=== PATIENT | female | born 1940 | race Caucasian/White ===

== ENCOUNTER 2016-10-15 11:37 | Observation (INO) | payer MEDICARE, BC ==
--- NOTE | 2016-10-15 12:10 | EDM.PDOC ---
ED HPI GENERAL MEDICAL PROBLEM - General Chief Complaint: Cardiovascular Problem Stated Complaint: BLOOD PRESSURE ISSUES Time Seen by Provider: 10/15/16 11:45 Source of Information: Reports: Patient History Limitations: Reports: No Limitations - History of Present Illness INITIAL COMMENTS - FREE TEXT/NARRATIVE: 76 YO WF presents to ER complaining of elevated blood pressure this am. Pt reports she was seen in clinic on saturday and had her clonidine adjusted from 0.1mg BID to 0.1mg QHS. Pt was instructed to continue to monitor blood pressure over the weekend. Pt reports she woke this am and took her blood pressure which was 200/90's. Pt denies any chest pain, denies any headache. Pt reports some mild shortness of breath but states this is chronic. Pt took clonidine 0.1mg this am and current blood pressure is 156/54. Onset: Today Location: Reports: Generalized Improves with: Reports: None Worsens with: Reports: None Associated Symptoms: Reports: No Other Symptoms. Denies: Chest Pain, Cough, Diaphoresis, Nausea/Vomiting, Syncope, Weakness - Related Data Allergies Allergy/AdvReac Type Severity Reaction Status Date / Time amlodipine Allergy Hives Verified 10/15/16 11:45 bupropion [From Wellbutrin] Allergy Rash Verified 10/15/16 11:45 Home Meds: Home Meds Albuterol [IJD: Ventolin HFA] 1 - 2 puff INH Q4H PRN 10/15/16 [History] Anastrozole [Arimidex] 1 mg PO DAILY 10/15/16 [History] Aspirin 1 tab PO DAILY 10/15/16 [History] Bumetanide [Bumex] 1 tab PO DAILY 10/15/16 [History] Calcium Carb & Citrate/Vit D3 [Citracal + D ER] 1 tab PO ACBREAKFAST 10/15/16 [ History] Calcium Carbonate/Vitamin D3 [Os-Dread 500+D] 1 tab PO BIDMEALS 10/15/16 [History] LORazepam [Ativan] 0.5 tab PO BID PRN 10/15/16 [History] Levothyroxine 1 tab PO ACBREAKFAST 10/15/16 [History] Sertraline [Zoloft] 1 tab PO BEDTIME 10/15/16 [History] cloNIDine HCl [Catapres] 1 tab PO BEDTIME 10/15/16 [History] hydrOXYzine HCl [Atarax] 1 tab PO QID PRN 10/15/16 [History] Social & Family History - Tobacco Use Smoking Status *Q: Former Smoker Used Tobacco, but Quit: Yes Month Tobacco Last Used: 18 years Second Hand Smoke Exposure: No - Caffeine Use Caffeine Use: Reports: None - Recreational Drug Use Recreational Drug Use: No ED ROS GENERAL - Review of Systems Review Of Systems: See Below Constitutional: Reports: No Symptoms HEENT: Reports: No Symptoms Respiratory: Reports: Shortness of Breath Cardiovascular: Reports: No Symptoms Endocrine: Reports: No Symptoms GI/Abdominal: Reports: No Symptoms : Reports: No Symptoms 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: Reports: No Symptoms Skin: Reports: No Symptoms Neurological: Reports: No Symptoms Psychiatric: Reports: No Symptoms Hematologic/Lymphatic: Reports: No Symptoms Immunologic: Reports: No Symptoms ED EXAM, GENERAL - Physical Exam Exam: See Below Exam Limited By: No Limitations General Appearance: Alert, WD/WN, No Apparent Distress Nose: Normal Inspection, Normal Mucosa, No Blood Throat/Mouth: Normal Inspection, Normal Lips, Normal Teeth, Normal Gums, Normal Oropharynx, Normal Voice, No Airway Compromise Head: Atraumatic, Normocephalic Neck: Normal Inspection, Supple, Non-Tender, Full Range of Motion Respiratory/Chest: No Respiratory Distress, Lungs Clear, Normal Breath Sounds, No Accessory Muscle Use, Chest Non-Tender Cardiovascular: Normal Peripheral Pulses, Regular Rate, Rhythm, No Edema, No Gallop, No JVD, No Murmur, No Rub GI/Abdominal: Normal Bowel Sounds, Soft, Non-Tender, No Organomegaly, No Distention, No Abnormal Bruit, No Mass Back Exam: Normal Inspection, Full Range of Motion, NT Extremities: Normal Inspection, Normal Range of Motion, Non-Tender, Normal Capillary Refill, No Pedal Edema Neurological: Alert, Oriented, CN II-XII Intact, Normal Cognition, Normal Gait, Normal Reflexes, No Motor/Sensory Deficits Psychiatric: Normal Affect, Normal Mood Skin Exam: Warm, Dry, Intact, Normal Color, No Rash Lymphatic: No Adenopathy EKG INTERPRETATION EKG Date: 10/15/16 Time: 12:12 Rhythm: NSR Rate (Beats/Min): 46 [place]: Normal P-Wave: Present QRS: Normal ST-T: Normal QT: Normal Comparison: No Change Course - Vital Signs Last Recorded V/S: Last Vital Signs Temp 36.6 C 10/15/16 11:40 Pulse 39 L 10/15/16 12:48 Resp 16 10/15/16 12:48 BP 180/52 H 10/15/16 12:48 Pulse Ox 95 10/15/16 12:48 - Orders/Labs/Meds Orders: Active Orders 24 hr Category Date Time Status EKG Documentation Completion [RC] ASDIRECTED Care 10/15/16 12:04 Active Chest 2V [CR] Stat Exams 10/15/16 12:03 Taken EKG 12 Lead [EK] Routine Ther 10/15/16 12:04 Ordered Labs: Laboratory Tests 10/15/16 10/15/16 Range/Units 12:10 12:10 WBC 4.9 L (5.0-10.0) 10^3/uL RBC 3.87 (3.80-5.50) 10^6/uL Hgb 12.2 (12.0-16.0) g/dL Hct 35.9 L (37.0-47.0) % MCV 92.8 H (82.0-92.0) fL MCH 31.6 H (27.0-31.0) pg MCHC 34.1 (32.0-36.0) g/dL RDW 12.1 (11.5-14.5) % Plt Count 172 (150-300) 10^3/uL MPV 9.4 (7.4-10.4) fL Neut % (Auto) 69.8 (50.0-70.0) % Lymph % (Auto) 13.9 L (20.0-40.0) % [place] % (Auto) 8.9 H (2.0-8.0) % Eos % (Auto) 6.6 H (1.0-3.0) % Baso % (Auto) 0.8 (0.0-1.0) % Neut # (Auto) 3.5 (2.5-7.0) 10^3/uL Lymph # (Auto) 0.7 L (1.0-4.0) 10^3/uL [place] # (Auto) 0.4 (0.1-0.8) 10^3/uL Eos # (Auto) 0.3 (0.1-0.3) 10^3/uL Baso # (Auto) 0.0 (0.0-0.1) 10^3/uL Sodium 131 L (136-145) mmol/L Potassium 4.7 (3.3-5.3) mmol/L Chloride 96 L (98-115) mmol/L Carbon Dioxide 30.9 (21.0-32.0) mmol/L BUN 10 (6-25) mg/dL Creatinine 0.78 (0.51-1.17) mg/dL Est Cr Clr Drug Dosing 50.76 mL/min Estimated GFR (MDRD) > 60 mL/min Glucose 135 H (70-110) mg/dL Calcium 8.8 (8.7-10.3) mg/dL Total Bilirubin 0.4 (0.2-1.0) mg/dL AST 22 (15-37) U/L ALT 20 (12-78) U/L Alkaline Phosphatase 96 (46-116) IU/L Creatine Kinase 94 (26-276) U/L CK-MB (CK-2) 0.50 (0.00-4.30) ng/mL Troponin I 0.06 (0.00-0.070) ng/mL Total Protein 7.3 (6.4-8.2) g/dL Albumin 3.50 (3.00-4.80) g/dL - Radiology Interpretation Free Text/Narrative:: CXR- NAD Departure - Departure Time of Disposition: 13:43 Disposition: Refer to Observation Condition: Good Clinical Impression: Bradycardia Hypertension Qualifiers: Hypertension type: unspecified Qualified Code(s): I10 - Essential (primary) hypertension Instructions: Hypertension, [id number], Bradycardia Referrals: Christine Brooks PA-C [Primary Care Provider] - Forms: ED Department Discharge - My Orders Last 24 Hours: My Active Orders 10/15/16 12:03 Chest 2V [CR] Stat 10/15/16 12:04 EKG Documentation Completion [RC] ASDIRECTED EKG 12 Lead [EK] Routine - Assessment/Plan Last 24 Hours: My Active Orders 10/15/16 12:03 Chest 2V [CR] Stat 10/15/16 12:04 EKG Documentation Completion [RC] ASDIRECTED EKG 12 Lead [EK] Routine Assessment:: 1. bradycardia 2. hypertension Plan: 1. Discussed case with Dr Sofía Schmidt who will admit for obs and evaluation of bradycardia 2. supportive care 3. telemetry
[2016-10-15 12:48] LABS: CHLORIDE,CL 96 mmol/L (98-115); SODIUM,NA 131 mmol/L (136-145)
[2016-10-15] MEDS ORDERED: Sodium Chloride 0.9% 5 ML Syringe FLUSH PRN (13:44)
[2016-10-15] MEDS ORDERED: Nitroglycerin 0.4 MG Tab.SL SL PRN (16:57)
[2016-10-15] MEDS ORDERED: EPINEPHrine 1:10,000 1 MG/10 ML Syringe IVPUSH PRN (16:57)
[2016-10-15] MEDS ORDERED: Atropine 0.1 MG/ML 10 ML Syringe IVPUSH PRN (16:57)
[2016-10-15] MEDS ORDERED: Lidocaine 2% 100 MG/5 ML Syringe IVPUSH PRN (16:57)
[2016-10-15] MEDS ORDERED: LORazepam 0.5 MG Tab PO PRN (19:12)
[2016-10-15] MEDS ORDERED: Sertraline 50 MG Tab PO SCH (21:00)
[2016-10-15] MEDS ORDERED: cloNIDine 0.1 MG Tab PO SCH (21:00)
[2016-10-16 08:06] LABS: CHLORIDE,CL 95 mmol/L (98-115); SODIUM,NA 131 mmol/L (136-145)
[2016-10-16] MEDS ORDERED: Albuterol HFA 18 Gm Inhaler INH PRN (11:42)
[2016-10-16] MEDS ORDERED: LORazepam 0.5 MG Tab PO PRN (11:42)
[2016-10-16 11:50] VITALS: BP 184/60
--- NOTE | 2016-10-16 11:52 | PCM.HP ---
H&P History of Present Illness - General Date of Service: 10/16/16 Source of Information: Patient, Old Records, RN History Limitations: Reports: No Limitations - History of Present Illness Initial Comments - Free Text/Narative: this very pleasant 76-year-old female We will has been having quite a bit of difficulty regulating her blood pressure she came to the ED with elevated blood pressure at home of over 200 systolically. She denied any shortness of breath or chest pain. she was seen in the [place] clinic on saturday and had her clonidine decreased from 0.1mg BID to 0.1mg QHS due to bradycardia. she was monitoring her blood pressure at home when she noticed it was quite high and came to ED. - Related Data Allergies/Adverse Reactions: Allergies Allergy/AdvReac Type Severity Reaction Status Date / Time amlodipine Allergy Hives Verified 10/15/16 11:45 bupropion [From Wellbutrin] Allergy Rash Verified 10/15/16 11:45 Home Medications: Home Meds Albuterol [IJD: Ventolin HFA] 1 - 2 puff INH Q4H PRN 10/15/16 [History] Anastrozole [Arimidex] 1 mg PO DAILY 10/15/16 [History] Aspirin 325 mg PO DAILY 10/15/16 [History] Calcium Carb & Citrate/Vit D3 [Citracal + D ER] 1 tab PO ACBREAKFAST 10/15/16 [ History] LORazepam [Ativan] 0.25 mg PO BID PRN 10/15/16 [History] Levothyroxine 125 mcg PO ACBREAKFAST 10/15/16 [History] Sertraline [Zoloft] 50 mg PO BEDTIME 10/15/16 [History] hydrOXYzine HCl [Atarax] 25 mg PO QID PRN 10/15/16 [History] Bumetanide 1 mg PO DAILY 10/16/16 [History] cloNIDine HCl [Catapres] 0.1 mg PO BID #60 10/16/16 [Rx] Past Medical History HEENT History: Reports: Impaired Vision Cardiovascular History: Reports: High Cholesterol, Hypertension, Other (See Below) Other Cardiovascular History: carotid stenosis Gastrointestinal History: Reports: GERD Genitourinary History: Reports: None 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: 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 History: Reports: None Neurological History: Reports: None Psychiatric History: Reports: Anxiety, Depression, Panic Attack Endocrine/Metabolic History: Reports: Hypothyroidism Oncologic (Cancer) History: Reports: Breast Dermatologic History: Reports: Other (See Below) Other Dermatologic History: rash for 6 months - Infectious Disease History Infectious Disease History: Reports: Influenza, Measles, Mumps - Past Surgical History Head Surgeries/Procedures: Reports: None HEENT Surgical History: Reports: None Cardiovascular Surgical History: Reports: None GI Surgical History: Reports: Appendectomy, Cholecystectomy Female Surgical History: Reports: Hysterectomy Endocrine Surgical History: Reports: None Neurological Surgical History: Reports: None 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 Surgical History: Reports: Knee Replacement Oncologic Surgical History: Reports: Lumpectomy Dermatological Surgical History: Reports: None Social & Family History - Tobacco Use Smoking Status *Q: Former Smoker Used Tobacco, but Quit: Yes Month Tobacco Last Used: 18 years Second Hand Smoke Exposure: No - Caffeine Use Caffeine Use: Reports: None - Recreational Drug Use Recreational Drug Use: No H&P Review of Systems - Review of Systems: Review Of Systems: See Below General: Reports: No Symptoms HEENT: Reports: No Symptoms Pulmonary: Denies: Shortness of Breath, Cough, Sputum Cardiovascular: Reports: No Symptoms Gastrointestinal: Reports: No Symptoms Genitourinary: Reports: No Symptoms 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: Reports: No Symptoms Skin: Reports: No Symptoms Psychiatric: Reports: No Symptoms Neurological: Reports: No Symptoms Hematologic/Lymphatic: Reports: No Symptoms Immunologic: Reports: No Symptoms Exam - Exam Exam: See Below - Vital Signs Vital Signs: Last Vital Signs Temp 97.8 F 10/16/16 06:42 Pulse 47 L 10/16/16 06:42 Resp 16 10/16/16 06:42 BP 168/61 H 10/16/16 06:42 Pulse Ox 97 10/16/16 06:50 Weight: 191 lb 14.4 oz - Exam Quality Assessment: No: Supplemental Oxygen General: Alert, Oriented, Cooperative HEENT: Hearing Intact Neck: Carotid Bruit (left-sided carotid bruit) Lungs: Clear to Auscultation, Normal Respiratory Effort Cardiovascular: Normal S1, Normal S2, Bradycardia GI/Abdominal Exam: Normal Bowel Sounds, Soft, Non-Tender, No Organomegaly, No Distention, No Abnormal Bruit, No Mass, Pelvis Stable (Female) Exam: Deferred Peripheral Pulses: 2+: Carotid (R), Radial (L), Radial (R) Skin: Warm, Dry, Intact Neurological: Cranial Nerves Intact, Reflexes Equal Bilateral Neuro Extensive - Mental Status: Alert, Oriented x3, Normal Mood/Affect, Normal Cognition Neuro Extensive - Motor, Sensory, Reflexes: CN II-XII Intact, Normal Gait, Normal Reflexes Psychiatric: Alert, Normal Affect, Normal Mood - Patient Data Lab Results Last 24 hrs: Laboratory Results - last 24 hr 10/16/16 10/16/16 Range/Units 07:06 07:06 WBC 5.9 (5.0-10.0) 10^3/uL RBC 3.94 (3.80-5.50) 10^6/uL Hgb 12.4 (12.0-16.0) g/dL Hct 36.8 L (37.0-47.0) % MCV 93.3 H (82.0-92.0) fL MCH 31.4 H (27.0-31.0) pg MCHC 33.7 (32.0-36.0) g/dL RDW 11.6 (11.5-14.5) % Plt Count 182 (150-300) 10^3/uL MPV 9.7 (7.4-10.4) fL Neut % (Auto) 60.7 (50.0-70.0) % Lymph % (Auto) 18.4 L (20.0-40.0) % [place] % (Auto) 10.6 H (2.0-8.0) % Eos % (Auto) 8.4 H (1.0-3.0) % Baso % (Auto) 1.9 H (0.0-1.0) % Neut # (Auto) 3.6 (2.5-7.0) 10^3/uL Lymph # (Auto) 1.1 (1.0-4.0) 10^3/uL [place] # (Auto) 0.6 (0.1-0.8) 10^3/uL Eos # (Auto) 0.5 H (0.1-0.3) 10^3/uL Baso # (Auto) 0.1 (0.0-0.1) 10^3/uL Sodium 131 L (136-145) mmol/L Potassium 4.8 (3.3-5.3) mmol/L Chloride 95 L (98-115) mmol/L Carbon Dioxide 31.3 (21.0-32.0) mmol/L BUN 11 (6-25) mg/dL Creatinine 0.83 (0.51-1.17) mg/dL Est Cr Clr Drug Dosing 47.70 mL/min Estimated GFR (MDRD) > 60 mL/min Glucose 107 (70-110) mg/dL Calcium 8.8 (8.7-10.3) mg/dL Total Bilirubin 0.6 (0.2-1.0) mg/dL AST 23 (15-37) U/L ALT 18 (12-78) U/L Alkaline Phosphatase 97 (46-116) IU/L Total Protein 7.7 (6.4-8.2) g/dL Albumin 3.70 (3.00-4.80) g/dL Result Diagrams: 10/16/16 07:06 10/16/16 07:06 *Q Meaningful Use (ADM) - VTE *Q VTE Criteria *Q: - Stroke *Q Stroke Criteria *Q: - AMI *Q AMI Criteria *Q: Problem List Initiated/Reviewed/Updated: Yes Orders Last 24hrs: Active Orders 24 hr Category Date Time Status Ready for Discharge [RC] PER UNIT ROUTINE Care 10/16/16 11:36 Active Albuterol [Ventolin HFA] Med 10/16/16 11:42 Ordered DOSE gm INH Q4H PRN Anastrozole [Arimidex] Med 10/17/16 09:00 Ordered 1 mg PO DAILY Aspirin [Aspirin] Med 10/17/16 09:00 Ordered 1 tab PO DAILY Atropine [Atropine 0.1 MG/ML] Med 10/15/16 16:57 Active 0 mg IVPUSH ASDIRECTED PRN Bumetanide [Bumetanide] Med 10/17/16 09:00 Ordered 1 mg PO DAILY Calcium Carb & Citrate/Vit D3 [Citracal + D ER] Med 10/17/16 07:00 Ordered 1 tab PO ACBREAKFAST EPINEPHrine [EPINEPHrine 1:10,000] Med 10/15/16 16:57 Active 1 mg IVPUSH ASDIRECTED PRN LORazepam [Ativan] Med 10/15/16 19:12 Active 0.25 mg PO BID PRN LORazepam [Ativan] Med 10/16/16 11:42 Ordered DOSE mg PO BID PRN Levothyroxine [Levothyroxine] Med 10/17/16 07:00 Ordered 1 tab PO ACBREAKFAST Lidocaine 2% [Xylocaine 2%] Med 10/15/16 16:57 Active 0 mg IVPUSH ASDIRECTED PRN Nitroglycerin [Nitrostat] Med 10/15/16 16:57 Active 0.4 mg SL ASDIRECTED PRN Sertraline [Zoloft] Med 10/15/16 21:00 Active 50 mg PO BEDTIME Sertraline [Zoloft] Med 10/16/16 21:00 Ordered DOSE mg PO BEDTIME cloNIDine [Catapres] Med 10/15/16 21:00 Active 0.2 mg PO BEDTIME Medication Orders Albuterol (Ventolin Hfa) gm INH Q4H PRN PRN Reason: Wheezing Anastrozole (Arimidex) 1 mg PO DAILY DES Atropine Sulfate (Atropine 0.1 Mg/Ml) 0 mg IVPUSH ASDIRECTED PRN PRN Reason: Heart Clonidine HCl (Catapres) 0.2 mg PO BEDTIME DES Last Admin: 10/15/16 21:36 Dose: 0.2 mg Epinephrine HCl (Epinephrine 1:10,000) 1 mg IVPUSH ASDIRECTED PRN PRN Reason: Heart Lidocaine HCl (Xylocaine 2%) 0 mg IVPUSH ASDIRECTED PRN PRN Reason: Heart Lorazepam (Ativan) 0.25 mg PO BID PRN PRN Reason: Anxiety Lorazepam (Ativan) mg PO BID PRN PRN Reason: Anxiety Nitroglycerin (Nitrostat) 0.4 mg SL ASDIRECTED PRN PRN Reason: Heart Non-Formulary Medication (Aspirin [Aspirin]) 1 tab PO DAILY DES Non-Formulary Medication (Bumetanide [Bumetanide]) 1 mg PO DAILY DES Non-Formulary Medication (Calcium Carb & Citrate/Vit D3 [Citracal + D Er]) 1 tab PO ACBREAKFAST DES Non-Formulary Medication (Levothyroxine [Levothyroxine]) 1 tab PO ACBREAKFAST DES Sertraline HCl (Zoloft) 50 mg PO BEDTIME DES Last Admin: 10/15/16 21:37 Dose: 50 mg Sertraline HCl (Zoloft) mg PO BEDTIME DES Sodium Chloride (Syrex Flush) 5 ml FLUSH Q8HR PRN PRN Reason: Keep Vein Open Assessment/Plan Comment:: IMPRESSION/PLAN Asymptomatic bradycardia Hypertension,
[2016-10-16] MEDS ORDERED: Levothyroxine 100 MCG Tab PO SCH (12:30)
[2016-10-16] MEDS ORDERED: Aspirin 325 MG Tab.EC PO SCH (12:30)
[2016-10-16] MEDS ORDERED: Bumetanide 1 MG Tab PO SCH (12:30)
[2016-10-16] MEDS ORDERED: ANASTROZOLE 1 MG PO SCH (12:30)
[2016-10-16] MEDS ORDERED: Levothyroxine 25 MCG Tab PO SCH (12:30)
[2016-10-16] MEDS ORDERED: Sertraline 50 MG Tab PO SCH (21:00)
[2016-10-17] MEDS ORDERED: Calcium Citrate/Vitamin D3 315 MG-250 Unit Tab PO SCH (07:00)
--- NOTE | 2016-10-18 09:59 | PCM.DCSUM1 ---
Discharge Summary - Hospital Course Brief History: This patient was admitted due to elevated blood pressure. She has had ongoing difficulties with elevated and highly vacillating blood pressures and has been on many multiple locations with possible allergic reactions. She had came into the ED due to high blood pressures of greater than 200 systolically. She had no shortness of breath or chest pain. She had been seen earlier in the [facility] in which her clonidine was decreased from twice daily to night time. - Discharge Data Discharge Date: 10/16/16 Discharge Disposition: Home, Self-Care 01 Condition: Good - Patient Summary/Data Complications: No complications throughout her hospital stay very terse visit overnight Hospital Course: Patient's hospital course went well, she had her clonidine increased at nighttime to 0.2 mg. She did have some asymptomatic bradycardia upper 40s to 60s. Hemoglobin 12.4 hematocrit 36.8, did have low sodium level of 131. Normal BUN/creatinine indices. EKG showed sinus bradycardia, she was monitored on telemetry without any problems or ectopy. She desired to go home the next day. Her blood pressure had improved on discharge. - Patient Instructions Diet: Usual Diet as Tolerated Activity: As Tolerated Showering/Bathing: May Shower Notify Provider of: Swelling and Redness Other/Special Instructions: report any dizziness, chest pain, headache, weakness ,or blood pressure greater than 180/90 - Discharge Plan Home Medications: Home Meds Albuterol [IJD: Ventolin HFA] 1 - 2 puff INH Q4H PRN 10/15/16 [History] Anastrozole [Arimidex] 1 mg PO DAILY 10/15/16 [History] Aspirin 325 mg PO DAILY 10/15/16 [History] Calcium Carb & Citrate/Vit D3 [Citracal + D ER] 1 tab PO ACBREAKFAST 10/15/16 [ History] LORazepam [Ativan] 0.25 mg PO BID PRN 10/15/16 [History] Levothyroxine 125 mcg PO ACBREAKFAST 10/15/16 [History] Sertraline [Zoloft] 50 mg PO BEDTIME 10/15/16 [History] hydrOXYzine HCl [Atarax] 25 mg PO QID PRN 10/15/16 [History] Bumetanide 1 mg PO DAILY 10/16/16 [History] cloNIDine HCl [Catapres] 0.1 mg PO BID #60 10/16/16 [Rx] Patient Handouts: Bradycardia, Hypertension, [id number] Forms: ED Department Discharge Referrals: Christine Brooks PA-C [Primary Care Provider] - 10/24/16 10:40 am (Follow-up with Christine Brooks at the [facility] on Tuesday October 25, 2016 at 10:40am. At this appointment make sure to make Cardiology appointment You will also need to schedule and Echocardiogram, the clinic will get ahold of you for scheduling) - Discharge Summary/Plan Comment DC Time >30 min.: No Discharge Summary/Plan Comment: Final diagnosis Asymptomatic bradycardia Hypertension, essential, improved Recommendations a follow-up Consider cardiology appointment, echocardiogram - Patient Data Vitals - Most Recent: Last Vital Signs Temp 98.3 F 10/16/16 11:00 Pulse 47 L 10/16/16 11:00 Resp 16 10/16/16 11:00 BP 184/60 H 10/16/16 11:00 Pulse Ox 97 10/16/16 11:00 Weight - Most Recent: 191 lb 14.4 oz Med Orders - Current: Current Medications Discontinued Medications Albuterol (Ventolin Hfa) 0 gm INH Q4H PRN PRN Reason: Wheezing Anastrozole (Arimidex) 1 mg PO DAILY [facility] Last Admin: 10/16/16 12:19 Dose: Not Given Aspirin (Ecotrin) 325 mg PO DAILY [facility] Last Admin: 10/16/16 12:24 Dose: 325 mg Atropine Sulfate (Atropine 0.1 Mg/Ml) 0 mg IVPUSH ASDIRECTED PRN PRN Reason: Heart Bumetanide (Bumex) 1 mg PO DAILY [facility] Last Admin: 10/16/16 12:25 Dose: 1 mg Calcium Citrate (Calcium Citrate + D) 1 tab PO ACBREAKFAST [facility] Clonidine HCl (Catapres) 0.2 mg PO BEDTIME [facility] Last Admin: 10/15/16 21:36 Dose: 0.2 mg Epinephrine HCl (Epinephrine 1:10,000) 1 mg IVPUSH ASDIRECTED PRN PRN Reason: Heart Levothyroxine Sodium (Synthroid) 100 mcg PO ACBREAKFAST [facility] Last Admin: 10/16/16 12:24 Dose: 100 mcg Levothyroxine Sodium (Levothyroxine) 25 mcg PO ACBREAKFAST [facility] Last Admin: 10/16/16 12:25 Dose: 25 mcg Lidocaine HCl (Xylocaine 2%) 0 mg IVPUSH ASDIRECTED PRN PRN Reason: Heart Lorazepam (Ativan) 0.25 mg PO BID PRN PRN Reason: Anxiety Lorazepam (Ativan) 0.25 mg PO BID PRN PRN Reason: Anxiety Nitroglycerin (Nitrostat) 0.4 mg SL ASDIRECTED PRN PRN Reason: Heart Sertraline HCl (Zoloft) 50 mg PO BEDTIME [facility] Last Admin: 10/15/16 21:37 Dose: 50 mg Sertraline HCl (Zoloft) 50 mg PO BEDTIME [facility] Sodium Chloride (Syrex Flush) 5 ml FLUSH Q8HR PRN PRN Reason: Keep Vein Open *Q Meaningful Use (DIS) - VTE *Q VTE Criteria *Q: - Stroke *Q Stroke Criteria *Q: - AMI *Q AMI Criteria *Q:
== END 2016-10-16 12:45 | disposition home or self-care (01) ==
LOC: KA.ED 11:37 → KA.MS 13:44 → UNDOADMOB 13:44 → UNDOADMIN 13:44 → KA.MS 13:44
PROVIDERS: ADMIT Physician Assistant Medical; ATTEND Family Medicine
DX: R00.1 Bradycardia, unspecified (principal); I10 Essential (primary) hypertension; E78.00 Pure hypercholesterolemia, unspecified; K21.9 Gastro-esophageal reflux disease without esophagitis; F41.9 Anxiety disorder, unspecified; F32.9 Major depressive disorder, single episode, unspecified; E03.9 Hypothyroidism, unspecified; Z90.49 Acquired absence of other specified parts of digestive tract; Z96.659 Presence of unspecified artificial knee joint; Z90.710 Acquired absence of both cervix and uterus; Z87.891 Personal history of nicotine dependence; Z79.82 Long term (current) use of aspirin; Z79.899 Other long term (current) drug therapy
CPT/HCPCS: 36415; 71020; 80053; 82550; 82553; 84484; 85025; 93005; 99284; A9270; 99285; G0378

== ENCOUNTER 2016-10-17 19:24 | Emergency (ER) | payer MEDICARE, BC ==
--- NOTE | 2016-10-17 20:19 | EDM.PDOC ---
ED HPI GENERAL MEDICAL PROBLEM - General Chief Complaint: General Stated Complaint: HIGH BLOOD PRESSURE Time Seen by Provider: 10/17/16 20:12 Source of Information: Reports: Patient History Limitations: Reports: No Limitations - History of Present Illness INITIAL COMMENTS - FREE TEXT/NARRATIVE: PT STATES SHE CHECKED BP AT HOME AND FOUND IT TO BE OVER 200 SYSTOLIC. BECAME CONCERNED SO PRESENTED TO ER. BEING TREATED BY [facility] FOR BP CONCERNS AND STARTED ON CLONIDINE BID. DENIES CP, SOB, ESPINOSA, BLURRY VISION OR WEAKNESS. 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 - Related Data Allergies Allergy/AdvReac Type Severity Reaction Status Date / Time amlodipine Allergy Unknown Hives Verified 10/17/16 19:50 bupropion [From Wellbutrin] Allergy Rash Verified 10/17/16 19:50 Home Meds: Home Meds Albuterol [IJD: Ventolin HFA] 1 - 2 puff INH Q4H PRN 10/15/16 [History] Anastrozole [Arimidex] 1 mg PO DAILY 10/15/16 [History] Aspirin 325 mg PO DAILY 10/15/16 [History] Calcium Carb & Citrate/Vit D3 [Citracal + D ER] 1 tab PO ACBREAKFAST 10/15/16 [ History] LORazepam [Ativan] 0.25 mg PO BID PRN 10/15/16 [History] Levothyroxine 125 mcg PO ACBREAKFAST 10/15/16 [History] Sertraline [Zoloft] 50 mg PO BEDTIME 10/15/16 [History] hydrOXYzine HCl [Atarax] 25 mg PO QID PRN 10/15/16 [History] Bumetanide 1 mg PO DAILY 10/16/16 [History] cloNIDine HCl [Catapres] 0.1 mg PO BID #60 10/16/16 [Rx] Past Medical History HEENT History: Reports: Impaired Vision Cardiovascular History: Reports: High Cholesterol, Hypertension, Other (See Below) Other Cardiovascular History: carotid stenosis Gastrointestinal History: Reports: GERD Genitourinary History: Reports: None 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: 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 History: Reports: None Neurological History: Reports: None Psychiatric History: Reports: Anxiety, Depression, Panic Attack Endocrine/Metabolic History: Reports: Hypothyroidism Oncologic (Cancer) History: Reports: Breast Dermatologic History: Reports: Other (See Below) Other Dermatologic History: rash for 6 months - Infectious Disease History Infectious Disease History: Reports: Influenza, Measles, Mumps - Past Surgical History Head Surgeries/Procedures: Reports: None HEENT Surgical History: Reports: None Cardiovascular Surgical History: Reports: None GI Surgical History: Reports: Appendectomy, Cholecystectomy Female Surgical History: Reports: Hysterectomy Endocrine Surgical History: Reports: None Neurological Surgical History: Reports: None 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 Surgical History: Reports: Knee Replacement Oncologic Surgical History: Reports: Lumpectomy Dermatological Surgical History: Reports: None Social & Family History - Tobacco Use Smoking Status *Q: Former Smoker Used Tobacco, but Quit: Yes Month Tobacco Last Used: 18 years Second Hand Smoke Exposure: No - Caffeine Use Caffeine Use: Reports: None - Recreational Drug Use Recreational Drug Use: No ED ROS GENERAL - Review of Systems Review Of Systems: ROS reveals no pertinent complaints other than HPI. Constitutional: Reports: No Symptoms HEENT: Reports: No Symptoms Respiratory: Reports: No Symptoms Cardiovascular: Reports: No Symptoms Endocrine: Reports: No Symptoms GI/Abdominal: Reports: No Symptoms : Reports: No Symptoms 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: Reports: No Symptoms Skin: Reports: No Symptoms Neurological: Reports: No Symptoms Psychiatric: Reports: No Symptoms Hematologic/Lymphatic: Reports: No Symptoms Immunologic: Reports: No Symptoms ED EXAM, GENERAL - Physical Exam Exam: See Below Exam Limited By: No Limitations General Appearance: Alert, WD/WN, No Apparent Distress Eye Exam: Bilateral Eye: Normal Inspection Nose: Normal Inspection, Normal Mucosa, No Blood Throat/Mouth: Normal Inspection, Normal Oropharynx, No Airway Compromise Head: Atraumatic, Normocephalic Neck: Normal Inspection, Supple Respiratory/Chest: No Respiratory Distress, Lungs Clear, Normal Breath Sounds, No Accessory Muscle Use, Chest Non-Tender Cardiovascular: Regular Rate, Rhythm, No Murmur GI/Abdominal: Normal Bowel Sounds, Soft, Non-Tender Extremities: Normal Inspection, No Pedal Edema Neurological: Alert, Oriented, CN II-XII Intact, Normal Cognition, No Motor/ Sensory Deficits Psychiatric: Normal Affect, Normal Mood Skin Exam: Warm, Dry, Intact, Normal Color, No Rash Lymphatic: No Adenopathy Course - Vital Signs Last Recorded V/S: Last Vital Signs Temp 98.8 F 10/17/16 19:58 Pulse 57 L 10/17/16 19:58 Resp 18 10/17/16 19:58 BP 173/63 H 10/17/16 19:58 Pulse Ox 98 10/17/16 19:58 - Re-Assessments/Exams Free Text/Narrative Re-Assessment/Exam: 10/17/16 20:16 PT AFEBRILE, NONTOXIC APPEARING, VSS, BP 170/67. AT BEDSIDE. WILL TAKE ANOTHER CLONIDINE TONIGHT AT BEDTIME. HAS F/U TOMORROW AT CLINIC Departure - Departure Time of Disposition: 20:20 Disposition: Home, Self-Care 01 Condition: Good Clinical Impression: Hypertension screening Hypertension Qualifiers: Hypertension type: unspecified Qualified Code(s): I10 - Essential (primary) hypertension - Discharge Information Instructions: Hypertension, [id number] Forms: ED Department Discharge Additional Instructions: FOLLOW UP AT [facility] SCHEDULED TOMORROW - Assessment/Plan Assessment:: HYPERTENSION Plan: F/U AT [facility] TOMORROW
== END 2016-10-17 20:30 | disposition home or self-care (01) ==
LOC: KA.ED 19:24
CPT/HCPCS: 99283

== ENCOUNTER 2018-08-09 15:08 | Emergency (ER) | payer MEDICARE, BC ==
[2018-08-09 15:30] VITALS: BP 154/41
[2018-08-09] MEDS ORDERED: Acetaminophen/HYDROcodone 325-5 MG Tab PO ONE ×2 (15:34→15:45)
[2018-08-09] MEDS ORDERED: Cyclobenzaprine 10 MG Tab PO ONE ×2 (15:34→16:17)
[2018-08-09] MEDS ORDERED: Ketorolac 30 MG/ML SDV IM ONE (15:37)
[2018-08-09] MEDS ORDERED: HYDROmorphone 1 MG/ML Syringe IM ONE (15:37)
--- NOTE | 2018-08-09 15:51 | EDM.PDOC ---
ED HPI GENERAL MEDICAL PROBLEM - General Chief Complaint: Back Pain or Injury Stated Complaint: NECK PAIN RADIATING Time Seen by Provider: 08/09/18 15:25 Source of Information: Reports: Patient History Limitations: Reports: No Limitations - History of Present Illness INITIAL COMMENTS - FREE TEXT/NARRATIVE: Patient presents with severe pain in right side of her neck posteriorly that has been present for a week. She says it feels very tight and she hold her head to the right to ease it. She denies any injury or fall. She has had this , but not this painful, before. lower back Pain Score (Numeric/FACES): 10 bilateral shoulders,neck,head Pain Score (Numeric/FACES): 10 - Related Data Allergies Allergy/AdvReac Type Severity Reaction Status Date / Time amlodipine Allergy Unknown Hives Verified 08/09/18 15:30 bupropion [From Wellbutrin] Allergy Rash Verified 08/09/18 15:30 Home Meds: Home Meds Albuterol [IJD: Ventolin HFA] 1 - 2 puff INH Q4H PRN 10/15/16 [History] Anastrozole [Arimidex] 1 mg PO DAILY 10/15/16 [History] Aspirin 325 mg PO DAILY 10/15/16 [History] Calcium Carb & Citrate/Vit D3 [Citracal + D ER] 1 tab PO ACBREAKFAST 10/15/16 [ History] Levothyroxine 125 mcg PO ACBREAKFAST 10/15/16 [History] Cholecalciferol (Vitamin D3) [Vitamin D3] 1,000 units PO DAILY 02/20/18 [History ] Furosemide [Lasix] 10 mg PO DAILY 02/20/18 [History] Rosuvastatin [Crestor] 20 mg PO DAILY 02/20/18 [History] Bumetanide 0.5 mg PO DAILY 08/09/18 [History] Doxazosin Mesylate [Cardura] 4 mg PO BEDTIME 08/09/18 [History] Irbesartan 300 mg PO DAILY 08/09/18 [History] Ranitidine [Zantac] 300 mg PO BEDTIME 08/09/18 [History] busPIRone [Buspar] 10 mg PO TID 08/09/18 [History] hydrALAZINE [Apresoline] 100 mg PO Q8H 08/09/18 [History] Past Medical History HEENT History: Reports: Impaired Vision Cardiovascular History: Reports: High Cholesterol, Hypertension, Other (See Below) Other Cardiovascular History: carotid stenosis, right side is 100% occluded ( for past 18 years) and left side is 50% occluded. No surgery on carotids. 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 She states that she thinks the zoloft is helping with this. Endocrine/Metabolic History: Reports: Hypothyroidism Oncologic (Cancer) History: Reports: Breast Dermatologic History: Reports: Other (See Below) Other Dermatologic History: rash for 3 monthes - Infectious Disease History Infectious Disease History: Reports: Influenza, Measles, Mumps - Past Surgical History Cardiovascular Surgical History: Reports: None, Other (See Below) Female Surgical History: Reports: Hysterectomy, Other (See Below) Oncologic Surgical History: Reports: Lumpectomy, Other (See Below) Social & Family History - Family History Family Medical History: Noncontributory - Caffeine Use Caffeine Use: Reports: None ED ROS GENERAL - Review of Systems Review Of Systems: See Below Constitutional: Denies: Fever, Chills, Weakness HEENT: Denies: Ear Pain, Throat Pain, Vision Change Respiratory: Denies: Shortness of Breath, Cough Cardiovascular: Denies: Chest Pain, Syncope Endocrine: Reports: No Symptoms GI/Abdominal: Reports: Nausea (pain related). Denies: Abdominal Pain, Diarrhea , Vomiting : Denies: Dysuria, Flank Pain 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: Reports: Neck Pain, Shoulder Pain (coming from the neck; right) . Denies: Arm Pain, Back Pain, Hand Pain, Leg Pain, Foot Pain Skin: Denies: Cyanosis, Jaundice, Mottled, Pallor, Diaphoresis Neurological: Denies: Confusion, Dizziness, Headache Psychiatric: Denies: Agitation, Anxiety, Confusion ED EXAM, UPPER BACK/NECK PAIN - Physical Exam Exam: See Below Exam Limited By: No Limitations General Appearance: Alert, WD/WN, No Apparent Distress Eye Exam: Bilateral Eye: EOMI, Normal Inspection, PERRL Ears Exam: Normal External Exam, Hearing Grossly Normal Nose Exam: Normal Inspection, No Blood Throat/Mouth Exam: Normal Inspection, Normal Lips, Normal Voice, No Airway Compromise Head Exam: Atraumatic, Normocephalic Neck Exam: Limited Range of Motion, Muscle Spasm (right trapezius extending down to superior right shoulder is tight and tender). No: Spinous Processes Tender, Tender Midline Cardiovascular/Respiratory: Regular Rate, Rhythm, Normal Breath Sounds, No Respiratory Distress GI/Abdominal: No Distention Back Exam: Normal Inspection. No: CVA Tenderness (L), CVA Tenderness (R) Extremities: Normal Inspection Neurologic: No Motor/Sensory Deficits, Alert, Normal Mood/Affect, Oriented x 3 Psychiatric: Normal Affect, Normal Mood Skin Exam: Normal Color, Warm/Dry Course - Vital Signs Last Recorded V/S: Last Vital Signs Temp 98 F 08/09/18 15:23 Pulse 68 08/09/18 15:23 Resp 18 08/09/18 15:23 BP 154/41 H 08/09/18 15:23 Pulse Ox 98 08/09/18 15:23 - Orders/Labs/Meds Orders: Active Orders 24 hr Category Date Time Status Acetaminophen/HYDROcodone [Gaylord 325-5 MG] Med 08/09/18 15:45 Once 4 tab PO ONETIME ONE Meds: Medications Discontinued Medications Generic Name Dose Route Start Last Admin Trade Name Lucinda PRN Reason Stop Dose Admin Hydrocodone Bitart/Acetaminophen 1 tab 08/09/18 15:34 Gaylord 325-5 Mg PO 08/09/18 15:35 ONETIME ONE Cyclobenzaprine HCl 10 mg 08/09/18 15:34 Flexeril PO 08/09/18 15:35 ONETIME ONE Hydromorphone HCl 1 mg 08/09/18 15:37 Dilaudid IM 08/09/18 15:38 ONETIME ONE Ketorolac Tromethamine 30 mg 08/09/18 15:37 Toradol IM 08/09/18 15:38 ONETIME ONE - Re-Assessments/Exams Free Text/Narrative Re-Assessment/Exam: 08/09/18 15:52 She has mild kidney disease. 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 I dosed Toradol accordingly after checking UpToDate; one-time dose. Will also give some Dilaudid and Flexeril. Sending hydrocodone 4 tablets home with patient for the rest of the weekend. 08/09/18 16:23 Patient is feeling much improved. Her son will drive her home. We discussed findings and treatment plan in detail. Patient discharged to home in stable condition. 08/09/18 16:41 As she was getting ready to leave she vomited likely from the Dilaudid so we gave her some Zofran. Feeling better now. Departure - Departure Time of Disposition: 16:17 Disposition: Home, Self-Care 01 Condition: Good Clinical Impression: Trapezius muscle spasm - Discharge Information Instructions: Muscle Cramps and Spasms, [id number] Referrals: Veronica Diamond, [facility] [Primary Care Provider] - Additional Instructions: 1. Take the Flexeril (Cyclobenzaprine) as directed. Avoid driving as it can cause drowsiness for up to 8 hours after dosing. 2. Take the Hydrocodone as directed, if needed for pain control. 3. Use warm packs on neck to help soothe and relax the muscles. 4. Follow up with PCP if this isn't resolving over next few days or sooner if worsening. 5. Return to ER as needed. - My Orders Last 24 Hours: My Active Orders 08/09/18 15:45 Acetaminophen/HYDROcodone [Gaylord 325-5 MG] 4 tab PO ONETIME ONE - Assessment/Plan Last 24 Hours: My Active Orders 08/09/18 15:45 Acetaminophen/HYDROcodone [Gaylord 325-5 MG] 4 tab PO ONETIME ONE
[2018-08-09] MEDS ORDERED: Ondansetron 4 MG Tab.DIS PO ONE (16:26)
== END 2018-08-09 16:50 | disposition home or self-care (01) ==
LOC: KA.ED 15:08
DX: M62.830 Muscle spasm of back (principal); E78.00 Pure hypercholesterolemia, unspecified; I10 Essential (primary) hypertension; K21.9 Gastro-esophageal reflux disease without esophagitis; F41.9 Anxiety disorder, unspecified; F32.9 Major depressive disorder, single episode, unspecified; E03.9 Hypothyroidism, unspecified; Z79.899 Other long term (current) drug therapy
CPT/HCPCS: 96372; 99283; A9270-GY; J1170; J1885

== ENCOUNTER 2018-08-18 20:56 | Inpatient (IN) | payer MEDICARE, BC ==
[2018-08-18] MEDS ORDERED: Ketorolac 30 MG/ML SDV IVPUSH ONE (21:10)
[2018-08-18] MEDS ORDERED: predniSONE 20 MG Tab PO ONE (21:10)
[2018-08-18] MEDS ORDERED: LORazepam 2 MG/ML SDV IVPUSH ONE (21:10)
--- NOTE | 2018-08-18 21:26 | EDM.PDOC ---
ED HPI GENERAL MEDICAL PROBLEM - General Chief Complaint: Back Pain or Injury Stated Complaint: MUSCLE SPASMS Time Seen by Provider: 08/18/18 21:10 Source of Information: Reports: Patient History Limitations: Reports: No Limitations - History of Present Illness INITIAL COMMENTS - FREE TEXT/NARRATIVE: Patient is a 78-year-old female who presents to the emergency department this evening with a complaint of anxiety, overall body aches, and muscle spasms. Patient states this is a chronic condition, she took a 0.5 mg Ativan this evening without resolve. Patient states that she has low back pain that radiates to her left lower extremity, and both lower extremities seem swollen and painful. Patient denies chest pain, fever, nausea, vomiting, diarrhea, traveling long distances with extended sedentary state, any fall or trauma, change in medication, saddle anesthesia, urinary or bowel incontinence, or history of congestive heart failure. Onset: Gradual Duration: Chronic Location: Reports: Lower Extremity, Left, Lower Extremity, Right, Generalized Quality: Reports: Ache, Other (Cramping) Improves with: Reports: None Worsens with: Reports: Movement Associated Symptoms: Denies: Chest Pain, Diaphoresis, Fever/Chills, Nausea/ Vomiting Treatments SPECIAL CERTIFICATE DICTATOR: Reports: Other Medication(s) Other Treatments SPECIAL CERTIFICATE DICTATOR: ativan - Related Data Allergies Allergy/AdvReac Type Severity Reaction Status Date / Time amlodipine Allergy Unknown Hives Verified 08/18/18 21:01 bupropion [From Wellbutrin] Allergy Rash Verified 08/18/18 21:01 Home Meds: Home Meds Albuterol [IJD: Ventolin HFA] 1 - 2 puff INH Q4H PRN 10/15/16 [History] Anastrozole [Arimidex] 1 mg PO DAILY@1200 10/15/16 [History] Aspirin 325 mg PO DAILY@1500 10/15/16 [History] Calcium Carb & Citrate/Vit D3 [Citracal + D ER] 1 tab PO ACBREAKFAST 10/15/16 [ History] Levothyroxine 137 mcg PO ACBREAKFAST 10/15/16 [History] Rosuvastatin [Crestor] 10 mg PO BEDTIME 02/20/18 [History] Bumetanide 0.5 mg PO DAILY 08/09/18 [History] Doxazosin Mesylate [Cardura] 4 mg PO BEDTIME 08/09/18 [History] Irbesartan 300 mg PO DAILY 08/09/18 [History] Ranitidine [Zantac] 300 mg PO BEDTIME 08/09/18 [History] busPIRone [Buspar] 10 mg PO TID 08/09/18 [History] hydrALAZINE [Apresoline] 100 mg PO Q8H 08/09/18 [History] Past Medical History HEENT History: Reports: Impaired Vision Cardiovascular History: Reports: High Cholesterol, Hypertension, Other (See Below) Other Cardiovascular History: carotid stenosis, right side is 100% occluded ( for past 18 years) and left side is 50% occluded. No surgery on carotids. 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 She states that she thinks the zoloft is helping with this. Endocrine/Metabolic History: Reports: Hypothyroidism Oncologic (Cancer) History: Reports: Breast Dermatologic History: Reports: Other (See Below) Other Dermatologic History: rash for 3 monthes - Infectious Disease History Infectious Disease History: Reports: Influenza, Measles, Mumps - Past Surgical History Cardiovascular Surgical History: Reports: None, Other (See Below) Female Surgical History: Reports: Hysterectomy, Other (See Below) Oncologic Surgical History: Reports: Lumpectomy, Other (See Below) Social & Family History - Family History Family Medical History: Noncontributory - Caffeine Use Caffeine Use: Reports: None ED ROS GENERAL - Review of Systems Review Of Systems: ROS reveals no pertinent complaints other than HPI. Constitutional: Reports: No Symptoms, Other Respiratory: Reports: No Symptoms Cardiovascular: Reports: No Symptoms Endocrine: Reports: No Symptoms GI/Abdominal: Reports: No Symptoms : Reports: No Symptoms 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: Reports: Back Pain, Leg Pain, Joint Pain, Muscle Pain, Muscle Stiffness Skin: Reports: No Symptoms Neurological: Reports: No Symptoms. Denies: Confusion, Dizziness, Headache, Numbness, Seizure Psychiatric: Reports: Anxiety Hematologic/Lymphatic: Reports: No Symptoms Immunologic: Reports: No Symptoms ED EXAM, GENERAL - Physical Exam Exam: See Below Exam Limited By: No Limitations General Appearance: Alert, WD/WN, Mild Distress Eye Exam: Bilateral Eye: Normal Inspection Nose: Normal Inspection, Normal Mucosa, No Blood Throat/Mouth: Normal Inspection, Normal Oropharynx, No Airway Compromise Head: Atraumatic, Normocephalic Neck: Normal Inspection, Supple, Non-Tender, Full Range of Motion Respiratory/Chest: No Respiratory Distress, Lungs Clear, Normal Breath Sounds, No Accessory Muscle Use Cardiovascular: Regular Rate, Rhythm, Diastolic Murmur GI/Abdominal: Normal Bowel Sounds, Soft, Non-Tender Back Exam: Paraspinal Tenderness (Left greater than right) Extremities: Pedal Edema (Bilateral) Neurological: Alert, Oriented, CN II-XII Intact, Normal Cognition, No Motor/ Sensory Deficits Psychiatric: Anxious Skin Exam: Warm, Dry, Intact, Normal Color, No Rash Lymphatic: No Adenopathy Course - Vital Signs Last Recorded V/S: Last Vital Signs Temp 96.7 F 08/18/18 21:11 Pulse 67 08/18/18 21:11 Resp 20 08/18/18 21:11 BP 198/77 H 08/18/18 21:11 Pulse Ox 96 08/18/18 21:11 - Orders/Labs/Meds Orders: Active Orders 24 hr Category Date Time Status Peripheral IV Care [RC] . DIRECTED Care 08/18/18 21:12 Ordered Sodium Chloride 0.9% [Saline Flush] Med 08/18/18 21:11 Ordered 10 ml FLUSH Q8HR PRN Peripheral IV Insertion Adult [OM.PC] Routine Oth 08/18/18 21:11 Ordered Medication Orders Sodium Chloride (Saline Flush) 10 ml FLUSH Q8HR PRN PRN Reason: keep vein open Labs: Laboratory Tests 08/18/18 08/18/18 08/18/18 Range/Units 21:40 21:40 22:00 WBC 5.30 (5.00-10.00) 10^3/uL RBC 3.23 L (3.80-5.50) 10^6/uL Hgb 10.7 L (12.0-16.0) g/dL Hct 31.1 L (37.0-47.0) % MCV 96.3 H D (82.0-92.0) fL MCH 33.1 H (27.0-31.0) pg MCHC 34.4 (32.0-36.0) g/dL RDW 13.0 (11.5-14.5) % Plt Count 211 (150-400) 10^3/uL MPV 10.2 (7.4-10.4) fL Immature Gran % (Auto) 0.2 (0.0-5.0) % Neut % (Auto) 75.2 H (50.0-70.0) % Lymph % (Auto) 10.4 L (20.0-40.0) % [place] % (Auto) 10.8 H (2.0-8.0) % Eos % (Auto) 2.6 (1.0-3.0) % Baso % (Auto) 0.8 (0.0-1.0) % Immature Gran # (Auto) 0.01 (0.00-0.50) 10^3/uL Neut # (Auto) 3.99 (2.50-7.00) 10^3/uL Lymph # (Auto) 0.55 L (1.00-4.00) 10^3/uL [place] # (Auto) 0.57 (0.10-0.80) 10^3/uL Eos # (Auto) 0.14 (0.10-0.30) 10^3/uL Baso # (Auto) 0.04 (0.00-0.10) 10^3/uL ESR 30 H (0-20) mm/hr Sodium 120 L (136-145) mmol/L Potassium 4.6 (3.3-5.3) mmol/L Chloride 84 L* (98-115) mmol/L Carbon Dioxide 26.3 (21.0-32.0) mmol/L Anion Gap 14.3 (5-15) mmol/L BUN 30 H (6-25) mg/dL Creatinine 1.31 H (0.51-1.17) mg/dL Est Cr Clr Drug Dosing 29.28 mL/min Estimated GFR (MDRD) 39 mL/min Glucose 107 H (75 - 99) mg/dL Calcium 8.9 (8.7-10.3) mg/dL Total Bilirubin 0.4 (0.2-1.0) mg/dL AST 46 H (15-37) U/L ALT 28 (12-78) U/L Alkaline Phosphatase 69 (46-116) IU/L B-Natriuretic Peptide 133 H (0-100) pg/mL Total Protein 7.6 (6.4-8.2) g/dL Albumin 3.86 (3.00-4.80) g/dL Specimen Type Urincc Urine Color Yellow (YELLOW) Urine Appearance Slightly cloudy H (CLEAR) Urine pH 5.5 (5.0-9.0) Ur Specific [place] <= 1.005 (1.005-1.030) Urine Protein Negative (NEGATIVE) mg/dL Urine Glucose (UA) Negative (NEGATIVE) mg/dL Urine Ketones Negative (NEGATIVE) mg/dL Urine Occult Blood Negative (NEGATIVE) Urine Nitrite Negative (NEGATIVE) Urine Bilirubin Negative (NEGATIVE) Urine Urobilinogen 0.2 (0.2-1.0) E.U./dL Ur Leukocyte Esterase Trace H (NEGATIVE) Urine RBC 0-5 (0-5) /HPF Urine WBC 0-5 (0-5) /HPF Ur Epithelial Cells Few /LPF Urine Bacteria Few (NONE TO FEW) /HPF Meds: Medications Generic Name Dose Route Start Last Admin Trade Name Freq PRN Reason Stop Dose Admin Sodium Chloride 10 ml 08/18/18 21:11 Saline Flush FLUSH Q8HR PRN keep vein open Discontinued Medications Generic Name Dose Route Start Last Admin Trade Name Freq PRN Reason Stop Dose Admin Ketorolac Tromethamine 30 mg 08/18/18 21:10 08/18/18 21:42 Toradol IVPUSH 08/18/18 21:11 Not Given ONETIME ONE Ketorolac Tromethamine 30 mg 08/18/18 21:32 08/18/18 21:28 Toradol IM 08/18/18 21:33 30 mg ONETIME ONE Administration Lorazepam 1 mg 08/18/18 21:10 08/18/18 22:13 Ativan IVPUSH 08/18/18 21:11 Not Given ONETIME ONE Lorazepam Confirm 08/18/18 21:27 08/18/18 21:42 Ativan Administered 08/18/18 21:28 Not Given Dose 1 mg .ROUTE .STK-MED ONE Lorazepam 1 mg 08/18/18 21:33 08/18/18 21:42 Ativan PO 08/18/18 21:34 1 mg ONETIME ONE Administration Prednisone 40 mg 08/18/18 21:10 08/18/18 21:29 Prednisone PO 08/18/18 21:11 40 mg ONETIME ONE Administration - Re-Assessments/Exams Free Text/Narrative Re-Assessment/Exam: 08/18/18 22:54 Patient afebrile, vital signs stable, pain and anxiety controlled. Discussed case with Livier harper, nurse practitioner from [facility]. Patient will be admitted for observation and followed. Departure - Departure Time of Disposition: 22:49 Disposition: Refer to Observation Clinical Impression: Hyponatremia, Muscle spasms of both lower extremities, Peripheral edema, Anxiety - Discharge Information - My Orders Last 24 Hours: My Active Orders 08/18/18 21:11 Sodium Chloride 0.9% [Saline Flush] 10 ml FLUSH Q8HR PRN Peripheral IV Insertion Adult [OM.PC] Routine 08/18/18 21:12 Peripheral IV Care [RC] . DIRECTED - Assessment/Plan Last 24 Hours: My Active Orders 08/18/18 21:11 Sodium Chloride 0.9% [Saline Flush] 10 ml FLUSH Q8HR PRN Peripheral IV Insertion Adult [OM.PC] Routine 08/18/18 21:12 Peripheral IV Care [RC] . DIRECTED Assessment:: Hyponatremia Plan: Admit to observation
[2018-08-18] MEDS ORDERED: LORazepam 0.5 MG Tab ONE (21:27)
[2018-08-18] MEDS ORDERED: Ketorolac 30 MG/ML SDV IM ONE (21:32)
[2018-08-18] MEDS ORDERED: LORazepam 0.5 MG Tab PO ONE (21:33)
[2018-08-18 22:08] LABS: ANION GAP 14.3 mmol/L (5-15)
--- NOTE | 2018-08-18 23:59 | PCM.HP ---
H&P History of Present Illness - General Date of Service: 08/18/18 Admit Problem/Dx: Admission Diagnosis/Problem Admission Diagnosis/Problem Hyponatremia, Right upper back and left hip pain, spasms into bilateral arms Source of Information: Patient, Family History Limitations: Reports: No Limitations - History of Present Illness Onset of Symptoms: Reports: Other (Pt reports years of hip pain, low back, left hip and right shoulder pain have been getting progressively worse over the last 2 weeks) Duration of Symptoms: Reports: Week(s): Location: Reports: Back, Upper Extremity, Right, Lower Extremity, Left Quality: Reports: Other (spasm type pains) Severity: Severe Improves with: Reports: Other (hydrocodone has helped) Worsens with: Reports: Other (sitting or lying in bed) Associated Symptoms: Reports: Other (pain causes nausea. Reports increasing foggy thinking for the last week, thinks since started hydrocodone from ER.) - Related Data Allergies/Adverse Reactions: Allergies Allergy/AdvReac Type Severity Reaction Status Date / Time amlodipine Allergy Unknown Hives Verified 08/18/18 21:01 bupropion [From Wellbutrin] Allergy Rash Verified 08/18/18 21:01 Home Medications: Home Meds Albuterol [IJD: Ventolin HFA] 1 - 2 puff INH Q4H PRN 10/15/16 [History] Anastrozole [Arimidex] 1 mg PO DAILY@1200 10/15/16 [History] Aspirin 325 mg PO DAILY@1500 10/15/16 [History] Calcium Carb & Citrate/Vit D3 [Citracal + D ER] 1 tab PO ACBREAKFAST 10/15/16 [ History] Levothyroxine 137 mcg PO ACBREAKFAST 10/15/16 [History] Rosuvastatin [Crestor] 10 mg PO BEDTIME 02/20/18 [History] Bumetanide 0.5 mg PO DAILY 08/09/18 [History] Doxazosin Mesylate [Cardura] 4 mg PO BEDTIME 08/09/18 [History] Irbesartan 300 mg PO DAILY 08/09/18 [History] Ranitidine [Zantac] 300 mg PO BEDTIME 08/09/18 [History] busPIRone [Buspar] 10 mg PO TID 08/09/18 [History] hydrALAZINE [Apresoline] 100 mg PO Q8H 08/09/18 [History] Past Medical History HEENT History: Reports: Impaired Vision Cardiovascular History: Reports: High Cholesterol, Hypertension, Other (See Below) Other Cardiovascular History: carotid stenosis, right side is 100% occluded ( for past 18 years) and left side is 50% occluded. No surgery on carotids. 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 She states that she thinks the zoloft is helping with this. Endocrine/Metabolic History: Reports: Hypothyroidism Oncologic (Cancer) History: Reports: Breast Dermatologic History: Reports: Other (See Below) Other Dermatologic History: rash for 3 monthes - Infectious Disease History Infectious Disease History: Reports: Influenza, Measles, Mumps - Past Surgical History Cardiovascular Surgical History: Reports: None, Other (See Below) Female Surgical History: Reports: Hysterectomy, Other (See Below) Oncologic Surgical History: Reports: Lumpectomy, Other (See Below) Social & Family History - Family History Family Medical History: Noncontributory - Tobacco Use Smoking Status *Q: Former Smoker Used Tobacco, but Quit: Yes Month/Year Tobacco Last Used: 40 years - Caffeine Use Caffeine Use: Reports: None Other Caffeine Use: decaf - Recreational Drug Use Recreational Drug Use: No Exam - Vital Signs Vital Signs: Last Vital Signs Temp 97.1 F 08/18/18 23:02 Pulse 65 08/18/18 23:02 Resp 24 H 08/18/18 23:02 BP 201/66 H 08/18/18 23:02 Pulse Ox 96 08/18/18 23:02 Weight: 214 lb 2 oz - Patient Data Lab Results Last 24 hrs: Laboratory Results - last 24 hr 08/18/18 08/18/18 08/18/18 Range/Units 21:40 21:40 22:00 WBC 5.30 (5.00-10.00) 10^3/uL RBC 3.23 L (3.80-5.50) 10^6/uL Hgb 10.7 L (12.0-16.0) g/dL Hct 31.1 L (37.0-47.0) % MCV 96.3 H D (82.0-92.0) fL MCH 33.1 H (27.0-31.0) pg MCHC 34.4 (32.0-36.0) g/dL RDW 13.0 (11.5-14.5) % Plt Count 211 (150-400) 10^3/uL MPV 10.2 (7.4-10.4) fL Immature Gran % (Auto) 0.2 (0.0-5.0) % Neut % (Auto) 75.2 H (50.0-70.0) % Lymph % (Auto) 10.4 L (20.0-40.0) % [place] % (Auto) 10.8 H (2.0-8.0) % Eos % (Auto) 2.6 (1.0-3.0) % Baso % (Auto) 0.8 (0.0-1.0) % Immature Gran # (Auto) 0.01 (0.00-0.50) 10^3/uL Neut # (Auto) 3.99 (2.50-7.00) 10^3/uL Lymph # (Auto) 0.55 L (1.00-4.00) 10^3/uL [place] # (Auto) 0.57 (0.10-0.80) 10^3/uL Eos # (Auto) 0.14 (0.10-0.30) 10^3/uL Baso # (Auto) 0.04 (0.00-0.10) 10^3/uL ESR 30 H (0-20) mm/hr Sodium 120 L (136-145) mmol/L Potassium 4.6 (3.3-5.3) mmol/L Chloride 84 L* (98-115) mmol/L Carbon Dioxide 26.3 (21.0-32.0) mmol/L Anion Gap 14.3 (5-15) mmol/L BUN 30 H (6-25) mg/dL Creatinine 1.31 H (0.51-1.17) mg/dL Est Cr Clr Drug Dosing 29.28 mL/min Estimated GFR (MDRD) 39 mL/min Glucose 107 H (75 - 99) mg/dL Calcium 8.9 (8.7-10.3) mg/dL Total Bilirubin 0.4 (0.2-1.0) mg/dL AST 46 H (15-37) U/L ALT 28 (12-78) U/L Alkaline Phosphatase 69 (46-116) IU/L B-Natriuretic Peptide 133 H (0-100) pg/mL Total Protein 7.6 (6.4-8.2) g/dL Albumin 3.86 (3.00-4.80) g/dL Specimen Type Urincc Urine Color Yellow (YELLOW) Urine Appearance Slightly cloudy H (CLEAR) Urine pH 5.5 (5.0-9.0) Ur Specific [place] <= 1.005 (1.005-1.030) Urine Protein Negative (NEGATIVE) mg/dL Urine Glucose (UA) Negative (NEGATIVE) mg/dL Urine Ketones Negative (NEGATIVE) mg/dL Urine Occult Blood Negative (NEGATIVE) Urine Nitrite Negative (NEGATIVE) Urine Bilirubin Negative (NEGATIVE) Urine Urobilinogen 0.2 (0.2-1.0) E.U./dL Ur Leukocyte Esterase Trace H (NEGATIVE) Urine RBC 0-5 (0-5) /HPF Urine WBC 0-5 (0-5) /HPF Ur Epithelial Cells Few /LPF Urine Bacteria Few (NONE TO FEW) /HPF Result Diagrams: 08/18/18 21:40 08/18/18 21:40 Orders Last 24hrs: Active Orders 24 hr Category Date Time Status Patient Status [ADT] Routine ADT 08/18/18 22:31 Ordered Patient Status [ADT] Stat ADT 08/18/18 22:50 Ordered Oxygen Therapy [RC] PRN Care 08/18/18 22:31 Active Peripheral IV Care [RC] . DIRECTED Care 08/18/18 21:12 Active VTE/DVT Education [RC] PER UNIT ROUTINE Care 08/18/18 22:31 Active Vital Signs [RC] Q4H Care 08/18/18 22:31 Active Sodium Chloride 0.9% [Saline Flush] Med 08/18/18 21:11 Active 10 ml FLUSH Q8HR PRN Peripheral IV Insertion Adult [OM.PC] Routine Oth 08/18/18 21:11 Ordered Resuscitation Status Routine Resus Stat 08/18/18 22:31 Ordered Medication Orders Sodium Chloride (Saline Flush) 10 ml FLUSH Q8HR PRN PRN Reason: keep vein open
[2018-08-19] MEDS ORDERED: Morphine Solution 10 MG/5 ML UD Cup PO PRN (00:13)
[2018-08-19] MEDS ORDERED: ALPRAZolam 0.25 MG Tab PO ONE (00:16)
[2018-08-19] MEDS ORDERED: ALPRAZolam 0.25 MG Tab PO PRN (00:17)
[2018-08-19] MEDS ORDERED: Sodium Chloride 1 GM Tab PO ONE ×2 (00:19→05:00)
[2018-08-19] MEDS: Ondansetron 4 MG Tab.DIS PO PRN ×3 (00:34→16:47)
--- NOTE | 2018-08-19 01:03 | PCM.HP ---
H&P History of Present Illness - General Date of Service: 08/19/18 (DR Kc, supervising physician was contacted within 15 min of admission) Admit Problem/Dx: Admission Diagnosis/Problem Admission Diagnosis/Problem: Hyponatremia, Pain: right shoulder/upper back pain with spasm type pain radiating into both arms, left hip pain, low back pain Source of Information: Patient, Family History Limitations: Reports: No Limitations, Other (Pt, son and daughter give conflicting information at times.) - History of Present Illness Initial Comments - Free Text/Narative: 78 yo woman was admitted with hyponatremia, Na being 120. Pt reports she came to ER with complaints of severe pain in her right upper back with shooting spasm type pains into both arms and severe left hip pain. She was seen in ER 08/09/18 and was given toradal and hydrocodone. She reports that did help the pain. She has noticed some foggy thinking since the ER visit last week. She reports she has had hip pain for years but it has gotten progressively worse with the severe pain and now right upper back and arm pain coming on over the last 2 weeks. The pain is so bad it causes nausea. Sitting makes it worse and lying in bed is intolerable. Pt was seen at [facility] 08/13/18 at which time a Lumbar MRI was reported to show significant central stenosis at L4- 5 and L5-S1, bilateral impingement of the L5 and S1 nerves. She has had 2 right transforaminal LESI injections in the past by Dr De Schmidt without much relief. Pain clinic recommended an interlaminar L5S1 LESI. She had a Cervical spine Xray 07/14/18 for complaints of numbness of fingers and occasional neck pain. Xray showed mild uncovertebral degenerative changes Cervical spine, mild disc height loss at C5-6 and C6-7. Pt has anxiety and depression. She reports she usually uses ativan a couple of times a week but she took one before coming into ER and has had one while in ER tonight. Pt has hypertension with labile blood pressures. She underwent work up with renal artery ultrasound 02/10/18 which showed no renal artery stenosis. She has CKD Stage 3 and is followed by nephrology. She has heart failure with preserved ejection fraction. 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 Her last oncology appointment was 02/12/18 at which time there was no evidence of local or distant recurrence/ relapse. She is on prolia. Pt has hypothyroidism. She had a TSH of 9.08 on 08/04/18 and levothyroxine was increased to 137 mcg daily. Pt has chronic bronchitis and reports chronic shortness of breath. Onset of Symptoms: Reports: Gradual Duration of Symptoms: Reports: Week(s): Location: Reports: Other (right upper back with radiation into both arms and left hip) Quality: Reports: Stabbing, Other (spasms) Severity: Severe Improves with: Reports: Medication (she reports hydrocodone did help). Denies: Cold Therapy, Heat Therapy, Rest Worsens with: Reports: Other (worse with sitting in a chair and lying in bed is intolerable) Associated Symptoms: Reports: Other (nausea with the pain. She does report foggy thinking for the last week) Left Lower Posterior Pelvic Pain Score (Numeric/FACES): 8 - Related Data Allergies/Adverse Reactions: Allergies Allergy/AdvReac Type Severity Reaction Status Date / Time amlodipine Allergy Unknown Hives Verified 08/18/18 21:01 bupropion [From Wellbutrin] Allergy Rash Verified 08/18/18 21:01 Home Medications: Home Meds Albuterol [IJD: Ventolin HFA] 1 - 2 puff INH Q4H PRN 10/15/16 [History] Anastrozole [Arimidex] 1 mg PO DAILY@1200 10/15/16 [History] Aspirin 325 mg PO DAILY@1500 10/15/16 [History] Calcium Carb & Citrate/Vit D3 [Citracal + D ER] 1 tab PO ACBREAKFAST 10/15/16 [ History] Levothyroxine 137 mcg PO ACBREAKFAST 10/15/16 [History] Rosuvastatin [Crestor] 10 mg PO BEDTIME 02/20/18 [History] Bumetanide 0.5 mg PO DAILY 08/09/18 [History] Doxazosin Mesylate [Cardura] 4 mg PO BEDTIME 08/09/18 [History] Irbesartan 300 mg PO DAILY 08/09/18 [History] Ranitidine [Zantac] 300 mg PO BEDTIME 08/09/18 [History] busPIRone [Buspar] 10 mg PO TID 08/09/18 [History] hydrALAZINE [Apresoline] 100 mg PO Q8H 08/09/18 [History] cloNIDine [Catapres-TTS 1] 0.1 mg TRDERM DAILY 08/18/18 [History] Past Medical History HEENT History: Reports: Cataract, Impaired Vision, Other (See Below) Other HEENT History: cornea transplant x2 Cardiovascular History: Reports: High Cholesterol, Hypertension, Other (See Below) Other Cardiovascular History: carotid stenosis, right side is 100% occluded ( for past 18 years) and left side is 50% occluded. No surgery on carotids. 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 She states that she thinks the zoloft is helping with this. Endocrine/Metabolic History: Reports: Hypothyroidism, Obesity/BMI 30+ Other Immunologic History: cornea transplant x2 Oncologic (Cancer) History: Reports: Breast Dermatologic History: Reports: Other (See Below) Other Dermatologic History: rash for 3 monthes - Infectious Disease History Infectious Disease History: Reports: Influenza, Measles, Mumps - Past Surgical History Head Surgeries/Procedures: Reports: None HEENT Surgical History: Reports: Cataract Surgery, Other (See Below) Other HEENT Surgeries/Procedures: cornea transplant x2 Cardiovascular Surgical History: Reports: None GI Surgical History: Reports: Appendectomy, Cholecystectomy Female Surgical History: Reports: Hysterectomy 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 Surgical History: Reports: Knee Replacement Other 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 Surgeries/Procedures:: R knee Oncologic Surgical History: Reports: Lumpectomy, Other (See Below) Other Oncologic Surgeries/Procedures: R side Social & Family History - Family History Family Medical History: Noncontributory - Tobacco Use Smoking Status *Q: Former Smoker Used Tobacco, but Quit: Yes Month/Year Tobacco Last Used: 40 years - Caffeine Use Caffeine Use: Reports: None Other Caffeine Use: decaf - Recreational Drug Use Recreational Drug Use: No H&P Review of Systems - Review of Systems: Review Of Systems: See Below General: Reports: No Symptoms HEENT: Reports: Other (foggy thinking) Pulmonary: Reports: Shortness of Breath (reports chronic shortness of breath) Cardiovascular: Reports: Edema, Blood Pressure Problem (labile hypertension). Denies: Chest Pain Gastrointestinal: Reports: Nausea (with pain). Denies: Abdominal Pain, Constipation, Diarrhea Genitourinary: Reports: No Symptoms 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: Reports: Shoulder Pain, Arm Pain, Other (right upper back with radiation into both arms and left hip) Psychiatric: Reports: Anxiety Neurological: Reports: Other (report fuzzy thinking for a week) Exam - Exam Exam: See Below - Vital Signs Vital Signs: Last Vital Signs Temp 97.1 F 08/18/18 23:02 Pulse 65 08/18/18 23:02 Resp 24 H 08/18/18 23:02 BP 201/66 H 08/18/18 23:02 Pulse Ox 96 08/18/18 23:02 Weight: 214 lb 2 oz - Exam General: Alert, Oriented, Cooperative, Moderate Distress (moderate to severe distress) HEENT: Hearing Intact Neck: Supple Lungs: Clear to Auscultation Cardiovascular: Regular Rate, Regular Rhythm GI/Abdominal Exam: Soft, Non-Tender Back Exam: Other (no pain with ROM of Right shoulder and upper arm. Tenderness with palpation over sacro iliac joint.) Extremities: Pedal Edema (3 + to bilateral lower legs) Neuro Extensive - Mental Status: Alert, Oriented x3, Other (agitated) Psychiatric: Alert, Anxious - Patient Data Lab Results Last 24 hrs: Laboratory Results - last 24 hr 08/18/18 08/18/18 08/18/18 Range/Units 21:40 21:40 22:00 WBC 5.30 (5.00-10.00) 10^3/uL RBC 3.23 L (3.80-5.50) 10^6/uL Hgb 10.7 L (12.0-16.0) g/dL Hct 31.1 L (37.0-47.0) % MCV 96.3 H D (82.0-92.0) fL MCH 33.1 H (27.0-31.0) pg MCHC 34.4 (32.0-36.0) g/dL RDW 13.0 (11.5-14.5) % Plt Count 211 (150-400) 10^3/uL MPV 10.2 (7.4-10.4) fL Immature Gran % (Auto) 0.2 (0.0-5.0) % Neut % (Auto) 75.2 H (50.0-70.0) % Lymph % (Auto) 10.4 L (20.0-40.0) % [place] % (Auto) 10.8 H (2.0-8.0) % Eos % (Auto) 2.6 (1.0-3.0) % Baso % (Auto) 0.8 (0.0-1.0) % Immature Gran # (Auto) 0.01 (0.00-0.50) 10^3/uL Neut # (Auto) 3.99 (2.50-7.00) 10^3/uL Lymph # (Auto) 0.55 L (1.00-4.00) 10^3/uL [place] # (Auto) 0.57 (0.10-0.80) 10^3/uL Eos # (Auto) 0.14 (0.10-0.30) 10^3/uL Baso # (Auto) 0.04 (0.00-0.10) 10^3/uL ESR 30 H (0-20) mm/hr Sodium 120 L (136-145) mmol/L Potassium 4.6 (3.3-5.3) mmol/L Chloride 84 L* (98-115) mmol/L Carbon Dioxide 26.3 (21.0-32.0) mmol/L Anion Gap 14.3 (5-15) mmol/L BUN 30 H (6-25) mg/dL Creatinine 1.31 H (0.51-1.17) mg/dL Est Cr Clr Drug Dosing 29.28 mL/min Estimated GFR (MDRD) 39 mL/min Glucose 107 H (75 - 99) mg/dL Calcium 8.9 (8.7-10.3) mg/dL Total Bilirubin 0.4 (0.2-1.0) mg/dL AST 46 H (15-37) U/L ALT 28 (12-78) U/L Alkaline Phosphatase 69 (46-116) IU/L B-Natriuretic Peptide 133 H (0-100) pg/mL Total Protein 7.6 (6.4-8.2) g/dL Albumin 3.86 (3.00-4.80) g/dL Specimen Type Urincc Urine Color Yellow (YELLOW) Urine Appearance Slightly cloudy H (CLEAR) Urine pH 5.5 (5.0-9.0) Ur Specific [place] <= 1.005 (1.005-1.030) Urine Protein Negative (NEGATIVE) mg/dL Urine Glucose (UA) Negative (NEGATIVE) mg/dL Urine Ketones Negative (NEGATIVE) mg/dL Urine Occult Blood Negative (NEGATIVE) Urine Nitrite Negative (NEGATIVE) Urine Bilirubin Negative (NEGATIVE) Urine Urobilinogen 0.2 (0.2-1.0) E.U./dL Ur Leukocyte Esterase Trace H (NEGATIVE) Urine RBC 0-5 (0-5) /HPF Urine WBC 0-5 (0-5) /HPF Ur Epithelial Cells Few /LPF Urine Bacteria Few (NONE TO FEW) /HPF Result Diagrams: 08/18/18 21:40 08/18/18 21:40 Problem List Initiated/Reviewed/Updated: Yes Orders Last 24hrs: Active Orders 24 hr Category Date Time Status Patient Status [ADT] Routine ADT 08/18/18 22:31 Ordered Patient Status [ADT] Stat ADT 08/18/18 22:50 Ordered Oxygen Therapy [RC] PRN Care 08/18/18 22:31 Active VTE/DVT Education [RC] PER UNIT ROUTINE Care 08/18/18 22:31 Active Vital Signs [RC] 0300,0700,1100,1500,1900,2300 Care 08/18/18 22:31 Active Fluid Restriction [DIET] Diet 08/19/18 Breakfast Active BASIC METABOLIC PANEL,BMP [CHEM] Routine Lab 08/19/18 05:00 Ordered CRP [C-REACTIVE PROTEIN] [CHEM] Routine Lab 08/19/18 05:00 Ordered ESR [SEDIMENTATION RATE MANUAL] [HEME] Routine Lab 08/19/18 05:00 Ordered ALPRAZolam [Xanax] Med 08/19/18 00:17 Active 0.25 mg PO ONETIME PRN Levothyroxine [Synthroid] Med 08/20/18 07:00 Ordered 137 mcg PO Q48H Levothyroxine [Synthroid] Med 08/19/18 07:00 Pending 150 mcg PO Q48H Morphine [Morphine 10 MG/5 ML] Med 08/19/18 00:13 Active 2.5 mg PO Q4H PRN Ondansetron [Zofran ODT] Med 08/19/18 00:12 Active 4 mg PO Q6H PRN Sodium Chloride Med 08/19/18 05:00 Once 2 gm PO ONETIME ONE Sodium Chloride 0.9% [Saline Flush] Med 08/18/18 21:11 Active 10 ml FLUSH Q8HR PRN Peripheral IV Insertion Adult [OM.PC] Routine Oth 08/18/18 21:11 Ordered Resuscitation Status Routine Resus Stat 08/18/18 22:31 Ordered Medication Orders Alprazolam (Xanax) 0.25 mg PO ONETIME PRN PRN Reason: Anxiety Levothyroxine Sodium (Synthroid) 150 mcg PO Q48H DES Levothyroxine Sodium (Synthroid) 137 mcg PO Q48H DES Morphine Sulfate (Morphine 10 Mg/5 Ml) 2.5 mg PO Q4H PRN PRN Reason: Pain Ondansetron HCl (Zofran Odt) 4 mg PO Q6H PRN PRN Reason: Nausea/Vomiting Sodium Chloride (Saline Flush) 10 ml FLUSH Q8HR PRN PRN Reason: keep vein open Sodium Chloride (Sodium Chloride) 2 gm PO ONETIME ONE Stop: 08/19/18 05:01 Assessment/Plan Comment:: 1. Hyponatremia: Na 120 on admission. Will give fluid limit of <800 ml daily, Sodium Chloride tabs 2 gms now and repeat 2 gms in AM. Recheck BMP in am. Will check urine electrolytes, urine osmolality and serum osmolality. 2. Hypothyroidism may be contributing to hyponatremia. TSH of 9.08 on 08/04/18 and levothyroxine was increased to 137 mcg daily. Will alternate 150 mcg with 137 mcg qod 3. Severe pain in her right upper back with shooting spasm type pains into both arms and severe left hip pain. She was seen in ER 08/09/18 and was given toradal and hydrocodone. She reports that did help the pain. She has noticed some foggy thinking since the ER visit last week. She reports she has had hip pain for years but it has gotten progressively worse with the severe pain and now right upper back and arm pain coming on over the last 2 weeks. The pain is so bad it causes nausea. Sitting makes it worse and lying in bed is intolerable. Pt was seen at [facility] 08/13/18 at which time a Lumbar MRI was reported to show significant central stenosis at L4- 5 and L5-S1, bilateral impingement of the L5 and S1 nerves. She has had 2 right transforaminal LESI injections in the past by Dr De Schmidt without much relief. Pain clinic recommended an interlaminar L5S1 LESI which she reports has been scheduled. She had a Cervical spine Xray 07/14/18 for complaints of numbness of fingers and occasional neck pain. Xray showed mild uncovertebral degenerative changes Cervical spine, mild disc height loss at C5-6 and C6-7. For tonight we will give Morphine 2.5 mg po q 4 hrs prn, Xanax 0.5 mg now and may repeat 0.25 mg at 5 am if needed. She did receive prednisone 40 mg po in ER. Sed rate was 30. Differential dx polymyalgia rheumatica. Will recheck sed rate and CRP in am. 4. Anxiety and depression. Xanax now and repeat at 5 am prn. Continue buspirone 10 mg tid 5. Hypertension with labile blood pressures. BP 201/66. Continue clonidine 0.1 mg patch, Cardurea 4 mg at hs, hydralazine 100 mg q 8 hrs, irbesartan 300 mg daily. 6. CKD Stage 3 followed by nephrology. She underwent work up with renal artery ultrasound 02/10/18 which showed no renal artery stenosis. 7. Heart failure with preserved ejection fraction. Continue Bumex 05. mg daily. 8. 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 Her last oncology appointment was 02/12/18 at which time there was no evidence of local or distant recurrence/ relapse. She is on prolia. 9. Chronic bronchitis and reports chronic shortness of breath. continue albuterol inhaler prn, symbicort bid and incruse Ellipta daily I have consulted with Dr De Schmidt and he is in agreement with plan of care.
[2018-08-19] MEDS ORDERED: Albuterol 8 GM Inhaler INH PRN (01:32)
[2018-08-19] MEDS ORDERED: Umeclidinium Bromide 62.5 MCG 30 Puff Inhaler IH ONE (01:51)
[2018-08-19] MEDS ORDERED: hydrALAZINE 50 MG Tab PO SCH (02:00)
[2018-08-19] MEDS: hydrALAZINE 50 MG Tab PO SCH ×3 (06:34→22:25)
[2018-08-19] MEDS: Levothyroxine 100 MCG Tab PO SCH (06:35)
[2018-08-19] MEDS: Bumetanide 1 MG Tab PO SCH (08:01)
[2018-08-19] MEDS: busPIRone 10 MG Tab PO SCH ×3 (08:01→20:16)
[2018-08-19] MEDS: Calcium Citrate/Vitamin D3 315 MG-250 Unit Tab PO SCH (08:01)
[2018-08-19 08:07] LABS: ANION GAP 13.6 mmol/L (5-15)
[2018-08-19] MEDS ORDERED: cloNIDine 0.1 MG/Day Transdermal Patch TRDERM SCH (09:00)
[2018-08-19] MEDS ORDERED: Budesonide/Formoterol 80-4.5 MCG/Puff 6.9 GM Inhaler INH SCH (09:00)
[2018-08-19] MEDS: Acetaminophen/HYDROcodone 325-10 MG Tab PO PRN ×2 (10:10→18:14)
[2018-08-19] MEDS: FORMOTEROL INH SCH ×2 (10:26→20:17)
[2018-08-19] MEDS: BUDESONIDE INH SCH ×2 (10:26→20:17)
--- NOTE | 2018-08-19 11:43 | PCM.PN ---
- General Info Date of Service: 08/19/18 Functional Status: Reports: Pain Controlled, Tolerating Diet, Urinating. Denies : Ambulating, New Symptoms - Review of Systems General: Denies: Fever, Weakness, Fatigue HEENT: Reports: No Symptoms Pulmonary: Reports: No Symptoms Cardiovascular: Reports: Edema (significant edemar extremities) Gastrointestinal: Reports: No Symptoms Genitourinary: Reports: No Symptoms 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: Reports: Back Pain Skin: Reports: No Symptoms Neurological: Denies: Confusion, Dizziness, Headache, Numbness Psychiatric: Reports: No Symptoms - Patient Data Vitals - Most Recent: Last Vital Signs Temp 97.7 F 08/19/18 06:12 Pulse 61 08/19/18 06:12 Resp 20 08/19/18 06:12 BP 175/61 H 08/19/18 06:34 Pulse Ox 96 08/19/18 10:25 Weight - Most Recent: 214 lb 2 oz I&O - Last 24 Hours: Intake & Output 08/18/18 08/19/18 08/19/18 22:59 06:59 14:59 Intake Total 120 Output Total 0 Balance 120 Lab Results Last 24 Hours: Laboratory Results - last 24 hr 08/18/18 08/18/18 08/18/18 Range/Units 21:40 21:40 22:00 WBC 5.30 (5.00-10.00) 10^3/uL RBC 3.23 L (3.80-5.50) 10^6/uL Hgb 10.7 L (12.0-16.0) g/dL Hct 31.1 L (37.0-47.0) % MCV 96.3 H D (82.0-92.0) fL MCH 33.1 H (27.0-31.0) pg MCHC 34.4 (32.0-36.0) g/dL RDW 13.0 (11.5-14.5) % Plt Count 211 (150-400) 10^3/uL MPV 10.2 (7.4-10.4) fL Immature Gran % (Auto) 0.2 (0.0-5.0) % Neut % (Auto) 75.2 H (50.0-70.0) % Lymph % (Auto) 10.4 L (20.0-40.0) % [place] % (Auto) 10.8 H (2.0-8.0) % Eos % (Auto) 2.6 (1.0-3.0) % Baso % (Auto) 0.8 (0.0-1.0) % Immature Gran # (Auto) 0.01 (0.00-0.50) 10^3/uL Neut # (Auto) 3.99 (2.50-7.00) 10^3/uL Lymph # (Auto) 0.55 L (1.00-4.00) 10^3/uL Sharp # (Auto) 0.57 (0.10-0.80) 10^3/uL Eos # (Auto) 0.14 (0.10-0.30) 10^3/uL Baso # (Auto) 0.04 (0.00-0.10) 10^3/uL ESR 30 H (0-20) mm/hr Sodium 120 L (136-145) mmol/L Potassium 4.6 (3.3-5.3) mmol/L Chloride 84 L* (98-115) mmol/L Carbon Dioxide 26.3 (21.0-32.0) mmol/L Anion Gap 14.3 (5-15) mmol/L BUN 30 H (6-25) mg/dL Creatinine 1.31 H (0.51-1.17) mg/dL Est Cr Clr Drug Dosing 29.28 mL/min Estimated GFR (MDRD) 39 mL/min Glucose 107 H (75 - 99) mg/dL Calcium 8.9 (8.7-10.3) mg/dL Total Bilirubin 0.4 (0.2-1.0) mg/dL AST 46 H (15-37) U/L ALT 28 (12-78) U/L Alkaline Phosphatase 69 (46-116) IU/L C-Reactive Protein (0.0-0.9) mg/dL B-Natriuretic Peptide 133 H (0-100) pg/mL Total Protein 7.6 (6.4-8.2) g/dL Albumin 3.86 (3.00-4.80) g/dL Specimen Type Urincc Urine Color Yellow (YELLOW) Urine Appearance Slightly cloudy H (CLEAR) Urine pH 5.5 (5.0-9.0) Ur Specific [place] <= 1.005 (1.005-1.030) Urine Protein Negative (NEGATIVE) mg/dL Urine Glucose (UA) Negative (NEGATIVE) mg/dL Urine Ketones Negative (NEGATIVE) mg/dL Urine Occult Blood Negative (NEGATIVE) Urine Nitrite Negative (NEGATIVE) Urine Bilirubin Negative (NEGATIVE) Urine Urobilinogen 0.2 (0.2-1.0) E.U./dL Ur Leukocyte Esterase Trace H (NEGATIVE) Urine RBC 0-5 (0-5) /HPF Urine WBC 0-5 (0-5) /HPF Ur Epithelial Cells Few /LPF Urine Bacteria Few (NONE TO FEW) /HPF 08/19/18 08/19/18 Range/Units 07:30 07:30 WBC (5.00-10.00) 10^3/uL RBC (3.80-5.50) 10^6/uL Hgb (12.0-16.0) g/dL Hct (37.0-47.0) % MCV (82.0-92.0) fL MCH (27.0-31.0) pg MCHC (32.0-36.0) g/dL RDW (11.5-14.5) % Plt Count (150-400) 10^3/uL MPV (7.4-10.4) fL Immature Gran % (Auto) (0.0-5.0) % Neut % (Auto) (50.0-70.0) % Lymph % (Auto) (20.0-40.0) % Sharp % (Auto) (2.0-8.0) % Eos % (Auto) (1.0-3.0) % Baso % (Auto) (0.0-1.0) % Immature Gran # (Auto) (0.00-0.50) 10^3/uL Neut # (Auto) (2.50-7.00) 10^3/uL Lymph # (Auto) (1.00-4.00) 10^3/uL Sharp # (Auto) (0.10-0.80) 10^3/uL Eos # (Auto) (0.10-0.30) 10^3/uL Baso # (Auto) (0.00-0.10) 10^3/uL ESR 23 H (0-20) mm/hr Sodium 118 L* (136-145) mmol/L Potassium 5.6 H (3.3-5.3) mmol/L Chloride 85 L* (98-115) mmol/L Carbon Dioxide 25.0 (21.0-32.0) mmol/L Anion Gap 13.6 (5-15) mmol/L BUN 32 H (6-25) mg/dL Creatinine 1.35 H (0.51-1.17) mg/dL Est Cr Clr Drug Dosing 28.41 mL/min Estimated GFR (MDRD) 38 mL/min Glucose 128 H (75 - 99) mg/dL Calcium 8.1 L (8.7-10.3) mg/dL Total Bilirubin (0.2-1.0) mg/dL AST (15-37) U/L ALT (12-78) U/L Alkaline Phosphatase (46-116) IU/L C-Reactive Protein 0.3 (0.0-0.9) mg/dL B-Natriuretic Peptide (0-100) pg/mL Total Protein (6.4-8.2) g/dL Albumin (3.00-4.80) g/dL Specimen Type Urine Color (YELLOW) Urine Appearance (CLEAR) Urine pH (5.0-9.0) Ur Specific [place] (1.005-1.030) Urine Protein (NEGATIVE) mg/dL Urine Glucose (UA) (NEGATIVE) mg/dL Urine Ketones (NEGATIVE) mg/dL Urine Occult Blood (NEGATIVE) Urine Nitrite (NEGATIVE) Urine Bilirubin (NEGATIVE) Urine Urobilinogen (0.2-1.0) E.U./dL Ur Leukocyte Esterase (NEGATIVE) Urine RBC (0-5) /HPF Urine WBC (0-5) /HPF Ur Epithelial Cells /LPF Urine Bacteria (NONE TO FEW) /HPF Med Orders - Current: Current Medications Hydrocodone Bitart/Acetaminophen ([place] 325-10 Mg) 1 tab PO Q6H PRN PRN Reason: Pain Last Admin: 08/19/18 10:10 Dose: 1 tab Albuterol (Ventolin Hfa) 1 - 2 gm INH Q4H PRN PRN Reason: Wheezing Alprazolam (Xanax) 0.25 mg PO ONETIME PRN PRN Reason: Anxiety Aspirin (Ecotrin) 325 mg PO DAILY@1500 DES Bumetanide (Bumex) 0.5 mg PO DAILY DES Last Admin: 08/19/18 08:01 Dose: 0.5 mg Buspirone HCl (Buspar) 10 mg PO TID [facility] Last Admin: 08/19/18 08:01 Dose: 10 mg Calcium Citrate (Calcium Citrate + D) 1 tab PO ACBREAKFAST [facility] Last Admin: 08/19/18 08:01 Dose: 1 tab Clonidine HCl (Catapres-Tts 1) 0.1 mg TRDERM Q7D [facility] Doxazosin Mesylate (Cardura) 4 mg PO BEDTIME DES Hydralazine HCl (Apresoline) 100 mg PO Q8H [facility] Last Admin: 08/19/18 06:34 Dose: 100 mg Levothyroxine Sodium (Synthroid) 150 mcg PO Q48H [facility] Last Admin: 08/19/18 06:35 Dose: 150 mcg Levothyroxine Sodium (Levothyroxine) 112 mcg PO Q48H [facility] Levothyroxine Sodium (Levothyroxine) 25 mcg PO Q48H [facility] Ondansetron HCl (Zofran Odt) 4 mg PO Q6H PRN PRN Reason: Nausea/Vomiting Last Admin: 08/19/18 10:09 Dose: 4 mg Irbesartan 300 Mg 1 each PO DAILY [facility] Budesonide/Formoterol ( Symbicort) 80-4.5 Mcg/Puff 6.9 Gm Inhaler 0 each INH BID [facility] Last Admin: 08/19/18 10:26 Dose: 2 each Ranitidine HCl (Zantac) 300 mg PO BEDTIME [facility] Rosuvastatin Calcium (Crestor) 10 mg PO BEDTIME [facility] Sodium Chloride (Saline Flush) 10 ml FLUSH Q8HR PRN PRN Reason: keep vein open Umeclidinium [place] (Incruse Ellipta) 0 mcg IH DAILY [facility] Discontinued Medications Alprazolam (Xanax) 0.5 mg PO ONETIME ONE Stop: 08/19/18 00:17 Last Admin: 08/19/18 00:37 Dose: 0.5 mg Budesonide/Formoterol Fumarate (Symbicort 80-4.5 Mcg) 0 gm INH BID [facility] Last Admin: 08/19/18 09:30 Dose: Not Given Clonidine HCl (Catapres-Tts 1) 0.1 mg TRDERM DAILY [facility] Hydralazine HCl (Apresoline) 100 mg PO Q8H [facility] Last Admin: 08/19/18 02:42 Dose: Not Given Ketorolac Tromethamine (Toradol) 30 mg IVPUSH ONETIME ONE Stop: 08/18/18 21:11 Last Admin: 08/18/18 21:42 Dose: Not Given Ketorolac Tromethamine (Toradol) 30 mg IM ONETIME ONE Stop: 08/18/18 21:33 Last Admin: 08/18/18 21:28 Dose: 30 mg Lorazepam (Ativan) 1 mg IVPUSH ONETIME ONE Stop: 08/18/18 21:11 Last Admin: 08/18/18 22:13 Dose: Not Given Lorazepam (Ativan) Confirm Administered Dose 1 mg .ROUTE .STK-MED ONE Stop: 08/18/18 21:28 Last Admin: 08/18/18 21:42 Dose: Not Given Lorazepam (Ativan) 1 mg PO ONETIME ONE Stop: 08/18/18 21:34 Last Admin: 08/18/18 21:42 Dose: 1 mg Morphine Sulfate (Morphine 10 Mg/5 Ml) 2.5 mg PO Q4H PRN PRN Reason: Pain Last Admin: 08/19/18 00:35 Dose: 2.5 mg Prednisone (Prednisone) 40 mg PO ONETIME ONE Stop: 08/18/18 21:11 Last Admin: 08/18/18 21:29 Dose: 40 mg Sodium Chloride (Sodium Chloride) 2 gm PO ONETIME ONE Stop: 08/19/18 00:20 Last Admin: 08/19/18 00:37 Dose: 2 gm Sodium Chloride (Sodium Chloride) 2 gm PO ONETIME ONE Stop: 08/19/18 05:01 Last Admin: 08/19/18 05:54 Dose: 2 gm Umeclidinium [place] (Incruse Ellipta) 1 mcg IH ONETIME ONE Stop: 08/19/18 01:52 Last Admin: 08/19/18 02:42 Dose: Not Given - Exam Quality Assessment: No: Supplemental Oxygen General: Alert, Oriented, Cooperative, No Acute Distress HEENT: Mucous Membr. Moist/[place] Neck: No JVD Lungs: Clear to Auscultation, Normal Respiratory Effort Cardiovascular: Irregular Rhythm (regular irregular). No: Tachycardia GI/Abdominal Exam: Normal Bowel Sounds, Soft (Female) Exam: Deferred Extremities: Pedal Edema Peripheral Pulses: 2+: Radial (L), Radial (R) Skin: Warm, Dry, Intact Neurological: No New Focal Deficit Psy/Mental Status: Alert, Normal Affect, Normal Mood - Problem List Review Problem List Initiated/Reviewed/Updated: Yes - Plan Plan:: brief history Patient's was seen in ER 08/09/18 and was given toradal and hydrocodone for pain in her right side of her neck posteriorly that she had been having a week prior. She reports that did help the pain. She has noticed some foggy thinking since the ER visit last week. She reports she has had hip pain for years but it has gotten progressively worse with the severe pain and now right upper back and arm pain coming on over the last 2 weeks. The pain is so bad it causes nausea. Sitting makes it worse and lying in bed is intolerable. 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 She has had 2 right transforaminal LESI injections in the past by Dr De Schmidt without much relief. Pain clinic recommended an interlaminar L5S1 LESI which she reports has been scheduled. She had a Cervical spine Xray for complaints of numbness of fingers and occasional neck pain. Xray showed mild uncovertebral degenerative changes Cervical spine, mild disc height loss at C5-6 and C6-7. n admission she was given Morphine 2.5 mg po q 4 hrs prn , Xanax long with a 1 time dose of prednisone in the ED. Primary hospital problems --Hyponatremia, acute on chronic, consider SIADH, pending electrolytes, --hyperkalemia, mild --subclinical hypothyroidism, recent increase in levothyroxine --MSK spasms, possible myopathic etiology, much improved Chronic hospital problems --Anxiety and depression. stable, Xanax prn, buspirone 10 mg tid --HTN, with recent lability, improved, Continue clonidine 0.1 mg patch, Carduraa4 mg at hs, hydralazine 100 mg q 8 hrs, irbesartan 300 mg daily. --CKD Stage 3 followed by nephrology. comorbid, underwent work up with renal artery ultrasound 02/10/18 which showed no renal artery stenosis. --HFpEF, BNP 133, Continue Bumex 05. mg daily. --Chronic bronchitis and reports chronic shortness of breath. 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 Her last oncology appointment was 02/12/18 at which time there was no evidence of local or distant recurrence/ relapse. She is on prolia. disposition/overall plan --Continue OBS today, --Hypervolemic state, GFR 38, could be ADH/renal water handling etiology --continue with sodium restriction --awaiting urine electrolytes, --with history of breast CA will consider broader differential of lung cancer --Octaviano Wraps, ankle pumps, cont with Fluid restriction,
[2018-08-19] MEDS: Umeclidinium Bromide 62.5 MCG 30 Puff Inhaler IH SCH (14:46)
[2018-08-19] MEDS: Aspirin 325 MG Tab.EC PO SCH (15:09)
[2018-08-19] MEDS: ALPRAZolam 0.25 MG Tab PO PRN (18:55)
[2018-08-19] MEDS: Rosuvastatin 10 MG Tab PO SCH (20:16)
[2018-08-19] MEDS: Doxazosin 2 MG Tab PO SCH (20:18)
[2018-08-20] MEDS: Acetaminophen/HYDROcodone 325-10 MG Tab PO PRN ×4 (03:40→22:23)
[2018-08-20] MEDS: ALPRAZolam 0.25 MG Tab PO PRN ×3 (03:50→20:21)
[2018-08-20] MEDS: hydrALAZINE 50 MG Tab PO SCH ×3 (07:32→22:24)
[2018-08-20] MEDS: Levothyroxine 25 MCG Tab PO SCH (07:32)
[2018-08-20] MEDS: Levothyroxine 112 MCG Tab PO SCH (07:32)
[2018-08-20] MEDS: Calcium Citrate/Vitamin D3 315 MG-250 Unit Tab PO SCH (07:32)
[2018-08-20 07:55] LABS: ANION GAP 11.7 mmol/L (5-15)
[2018-08-20] MEDS: FORMOTEROL INH SCH ×2 (08:54→20:25)
[2018-08-20] MEDS: BUDESONIDE INH SCH ×2 (08:54→20:25)
[2018-08-20] MEDS: busPIRone 10 MG Tab PO SCH ×3 (09:13→20:22)
[2018-08-20] MEDS: Bumetanide 1 MG Tab PO SCH (09:13)
[2018-08-20] MEDS: Sodium Chloride 0.9% 10 ML Syringe FLUSH PRN ×4 (09:13→19:38)
[2018-08-20] MEDS: Umeclidinium Bromide 62.5 MCG 30 Puff Inhaler IH SCH (09:21)
[2018-08-20] MEDS: INCRUSE ELLIPTA 62.5 MCG INH SCH (09:28)
[2018-08-20] MEDS: Ondansetron 4 MG Tab.DIS PO PRN (10:31)
--- NOTE | 2018-08-20 11:17 | PCM.PN ---
- General Info Date of Service: 08/20/18 Functional Status: Reports: Tolerating Diet, Urinating. Denies: Pain Controlled , New Symptoms - Review of Systems General: Reports: No Symptoms HEENT: Reports: No Symptoms Pulmonary: Reports: No Symptoms Cardiovascular: Reports: Edema (slightly improved in her edema in her legs today ) Gastrointestinal: Reports: No Symptoms Genitourinary: Reports: No Symptoms 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: Reports: Neck Pain, Shoulder Pain, Back Pain Skin: Reports: No Symptoms Neurological: Reports: Pre-Existing Deficit Psychiatric: Reports: No Symptoms - Patient Data Vitals - Most Recent: Last Vital Signs Temp 97.1 F 08/20/18 06:42 Pulse 55 L 08/20/18 06:42 Resp 18 08/20/18 06:42 BP 117/54 L 08/20/18 07:32 Pulse Ox 96 08/20/18 08:53 Weight - Most Recent: 214 lb 2 oz I&O - Last 24 Hours: Intake & Output 08/19/18 08/20/18 08/20/18 22:59 06:59 14:59 Intake Total 100 100 Balance 100 100 Lab Results Last 24 Hours: Laboratory Results - last 24 hr 08/18/18 08/19/18 08/19/18 Range/Units 22:00 07:00 07:30 WBC (5.00-10.00) 10^3/uL RBC (3.80-5.50) 10^6/uL Hgb (12.0-16.0) g/dL Hct (37.0-47.0) % MCV (82.0-92.0) fL MCH (27.0-31.0) pg MCHC (32.0-36.0) g/dL RDW (11.5-14.5) % Plt Count (150-400) 10^3/uL MPV (7.4-10.4) fL Immature Gran % (Auto) (0.0-5.0) % Neut % (Auto) (50.0-70.0) % Lymph % (Auto) (20.0-40.0) % [place] % (Auto) (2.0-8.0) % Eos % (Auto) (1.0-3.0) % Baso % (Auto) (0.0-1.0) % Immature Gran # (Auto) (0.00-0.50) 10^3/uL Neut # (Auto) (2.50-7.00) 10^3/uL Lymph # (Auto) (1.00-4.00) 10^3/uL [place] # (Auto) (0.10-0.80) 10^3/uL Eos # (Auto) (0.10-0.30) 10^3/uL Baso # (Auto) (0.00-0.10) 10^3/uL Sodium (136-145) mmol/L Potassium (3.3-5.3) mmol/L Chloride (98-115) mmol/L Carbon Dioxide (21.0-32.0) mmol/L Anion Gap (5-15) mmol/L BUN (6-25) mg/dL Creatinine (0.51-1.17) mg/dL Est Cr Clr Drug Dosing mL/min Estimated GFR (MDRD) mL/min Glucose (75 - 99) mg/dL Serum Osmolality 261 L (275-295) mosm/kg Calcium (8.7-10.3) mg/dL Total Bilirubin (0.2-1.0) mg/dL AST (15-37) U/L ALT (12-78) U/L Alkaline Phosphatase (46-116) IU/L Total Protein (6.4-8.2) g/dL Albumin (3.00-4.80) g/dL Urine Osmolality 337 (300-900) mosm/kg U Sodium Concentration 60 mEq/L Ur Potassium Concent 35.0 mEq/L Ur Chloride Concentrat 58 mEq/L 08/20/18 08/20/18 Range/Units 07:20 07:20 WBC 7.87 (5.00-10.00) 10^3/uL RBC 3.11 L (3.80-5.50) 10^6/uL Hgb 10.4 L (12.0-16.0) g/dL Hct 30.2 L (37.0-47.0) % MCV 97.1 H (82.0-92.0) fL MCH 33.4 H (27.0-31.0) pg MCHC 34.4 (32.0-36.0) g/dL RDW 13.0 (11.5-14.5) % Plt Count 223 (150-400) 10^3/uL MPV 10.7 H (7.4-10.4) fL Immature Gran % (Auto) 0.3 (0.0-5.0) % Neut % (Auto) 74.8 H (50.0-70.0) % Lymph % (Auto) 14.4 L (20.0-40.0) % [place] % (Auto) 8.8 H (2.0-8.0) % Eos % (Auto) 1.3 (1.0-3.0) % Baso % (Auto) 0.4 (0.0-1.0) % Immature Gran # (Auto) 0.02 (0.00-0.50) 10^3/uL Neut # (Auto) 5.90 (2.50-7.00) 10^3/uL Lymph # (Auto) 1.13 (1.00-4.00) 10^3/uL [place] # (Auto) 0.69 (0.10-0.80) 10^3/uL Eos # (Auto) 0.10 (0.10-0.30) 10^3/uL Baso # (Auto) 0.03 (0.00-0.10) 10^3/uL Sodium 121 L (136-145) mmol/L Potassium 4.8 (3.3-5.3) mmol/L Chloride 87 L* (98-115) mmol/L Carbon Dioxide 27.1 (21.0-32.0) mmol/L Anion Gap 11.7 (5-15) mmol/L BUN 33 H (6-25) mg/dL Creatinine 1.42 H (0.51-1.17) mg/dL Est Cr Clr Drug Dosing 27.01 mL/min Estimated GFR (MDRD) 36 mL/min Glucose 122 H (75 - 99) mg/dL Serum Osmolality (275-295) mosm/kg Calcium 8.1 L (8.7-10.3) mg/dL Total Bilirubin 0.3 (0.2-1.0) mg/dL AST 54 H (15-37) U/L ALT 31 (12-78) U/L Alkaline Phosphatase 53 (46-116) IU/L Total Protein 7.2 (6.4-8.2) g/dL Albumin 3.49 (3.00-4.80) g/dL Urine Osmolality (300-900) mosm/kg U Sodium Concentration mEq/L Ur Potassium Concent mEq/L Ur Chloride Concentrat mEq/L Med Orders - Current: Current Medications Hydrocodone Bitart/Acetaminophen ([place] 325-10 Mg) 1 tab PO Q6H PRN PRN Reason: Pain Last Admin: 08/20/18 09:57 Dose: 1 tab Albuterol (Ventolin Hfa) 1 - 2 gm INH Q4H PRN PRN Reason: Wheezing Alprazolam (Xanax) 0.25 mg PO Q8H PRN PRN Reason: Anxiety Last Admin: 08/20/18 03:50 Dose: 0.25 mg Aspirin (Ecotrin) 325 mg PO DAILY@1500 [facility] Last Admin: 08/19/18 15:09 Dose: 325 mg Bumetanide (Bumex) 0.5 mg PO DAILY [facility] Last Admin: 08/20/18 09:13 Dose: 0.5 mg Buspirone HCl (Buspar) 10 mg PO TID [facility] Last Admin: 08/20/18 09:13 Dose: 10 mg Calcium Citrate (Calcium Citrate + D) 1 tab PO ACBREAKFAST [facility] Last Admin: 08/20/18 07:32 Dose: 1 tab Clonidine HCl (Catapres-Tts 1) 0.1 mg TRDERM Q7D [facility] Doxazosin Mesylate (Cardura) 4 mg PO BEDTIME [facility] Last Admin: 08/19/18 20:18 Dose: 4 mg Hydralazine HCl (Apresoline) 100 mg PO Q8H [facility] Last Admin: 08/20/18 07:32 Dose: 100 mg Levothyroxine Sodium (Synthroid) 150 mcg PO Q48H [facility] Last Admin: 08/19/18 06:35 Dose: 150 mcg Levothyroxine Sodium (Levothyroxine) 112 mcg PO Q48H [facility] Last Admin: 08/20/18 07:32 Dose: 112 mcg Levothyroxine Sodium (Levothyroxine) 25 mcg PO Q48H [facility] Last Admin: 08/20/18 07:32 Dose: 25 mcg Ondansetron HCl (Zofran Odt) 4 mg PO Q6H PRN PRN Reason: Nausea/Vomiting Last Admin: 08/20/18 10:31 Dose: 4 mg Irbesartan 300 Mg 1 each PO DAILY [facility] Last Admin: 08/20/18 09:13 Dose: 1 each Budesonide/Formoterol ( Symbicort) 80-4.5 Mcg/Puff 6.9 Gm Inhaler 0 each INH BID [facility] Last Admin: 08/20/18 08:54 Dose: 2 each Anastrozole 1mg (Tablet) 1 each PO DAILY@1500 [facility] Last Admin: 08/19/18 15:24 Dose: 1 each Incruse Ellipta ( Umeclidinium [place] ) 62.5 Mcg Inhaler * Ptom* 0 each INH DAILY [facility] Last Admin: 08/20/18 09:28 Dose: 1 each Ranitidine HCl (Zantac) 300 mg PO BEDTIME [facility] Last Admin: 08/19/18 20:16 Dose: 300 mg Rosuvastatin Calcium (Crestor) 10 mg PO BEDTIME [facility] Last Admin: 08/19/18 20:16 Dose: 10 mg Sodium Chloride (Saline Flush) 10 ml FLUSH Q8HR PRN PRN Reason: keep vein open Last Admin: 08/20/18 09:13 Dose: 10 ml Discontinued Medications Alprazolam (Xanax) 0.5 mg PO ONETIME ONE Stop: 08/19/18 00:17 Last Admin: 08/19/18 00:37 Dose: 0.5 mg Alprazolam (Xanax) 0.25 mg PO ONETIME PRN PRN Reason: Anxiety Budesonide/Formoterol Fumarate (Symbicort 80-4.5 Mcg) 0 gm INH BID [facility] Last Admin: 08/19/18 09:30 Dose: Not Given Clonidine HCl (Catapres-Tts 1) 0.1 mg TRDERM DAILY [facility] Hydralazine HCl (Apresoline) 100 mg PO Q8H [facility] Last Admin: 08/19/18 02:42 Dose: Not Given Ketorolac Tromethamine (Toradol) 30 mg IVPUSH ONETIME ONE Stop: 08/18/18 21:11 Last Admin: 08/18/18 21:42 Dose: Not Given Ketorolac Tromethamine (Toradol) 30 mg IM ONETIME ONE Stop: 08/18/18 21:33 Last Admin: 08/18/18 21:28 Dose: 30 mg Lorazepam (Ativan) 1 mg IVPUSH ONETIME ONE Stop: 08/18/18 21:11 Last Admin: 08/18/18 22:13 Dose: Not Given Lorazepam (Ativan) Confirm Administered Dose 1 mg .ROUTE .STK-MED ONE Stop: 08/18/18 21:28 Last Admin: 08/18/18 21:42 Dose: Not Given Lorazepam (Ativan) 1 mg PO ONETIME ONE Stop: 08/18/18 21:34 Last Admin: 08/18/18 21:42 Dose: 1 mg Morphine Sulfate (Morphine 10 Mg/5 Ml) 2.5 mg PO Q4H PRN PRN Reason: Pain Last Admin: 08/19/18 00:35 Dose: 2.5 mg Prednisone (Prednisone) 40 mg PO ONETIME ONE Stop: 08/18/18 21:11 Last Admin: 08/18/18 21:29 Dose: 40 mg Sodium Chloride (Sodium Chloride) 2 gm PO ONETIME ONE Stop: 08/19/18 00:20 Last Admin: 08/19/18 00:37 Dose: 2 gm Sodium Chloride (Sodium Chloride) 2 gm PO ONETIME ONE Stop: 08/19/18 05:01 Last Admin: 08/19/18 05:54 Dose: 2 gm Umeclidinium [place] (Incruse Ellipta) 1 mcg IH ONETIME ONE Stop: 08/19/18 01:52 Last Admin: 08/19/18 02:42 Dose: Not Given Umeclidinium [place] (Incruse Ellipta) 0 mcg IH DAILY DES Last Admin: 08/20/18 09:21 Dose: Not Given - Exam Quality Assessment: No: Supplemental Oxygen General: Alert, Oriented, Cooperative, No Acute Distress Neck: Supple Lungs: Clear to Auscultation, Normal Respiratory Effort Cardiovascular: Regular Rate, Regular Rhythm (Female) Exam: Deferred Extremities: Pedal Edema (2-3+ pitting edema lower extremities) Neurological: Normal Speech, Normal Tone Psy/Mental Status: Alert, Normal Affect, Normal Mood - Problem List Review Problem List Initiated/Reviewed/Updated: Yes - My Orders Last 24 Hours: My Active Orders 08/19/18 10:48 Antiembolic Devices [RC] 0900,2100 08/19/18 15:00 Patient's Own Medication [Ptom] 1 each PO DAILY@1500 - Plan Plan:: brief history Patient's was seen in ER 08/09/18 and was given toradal and hydrocodone for pain in her right side of her neck posteriorly that she had been having a week prior. She reports that did help the pain. She has noticed some foggy thinking since the ER visit last week. She reports she has had hip pain for years but it has gotten progressively worse with the severe pain and now right upper back and arm pain coming on over the last 2 weeks. The pain is so bad it causes nausea. Sitting makes it worse and lying in bed is intolerable. 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 She has had 2 right transforaminal LESI injections in the past by Dr De Schmidt without much relief. Pain clinic recommended an interlaminar L5S1 LESI which she reports has been scheduled. She had a Cervical spine Xray for complaints of numbness of fingers and occasional neck pain. Xray showed mild uncovertebral degenerative changes Cervical spine, mild disc height loss at C5-6 and C6-7. n admission she was given Morphine 2.5 mg po q 4 hrs prn , Xanax long with a 1 time dose of prednisone in the ED. Primary hospital problems --Hyponatremia, hypotonic acute on chronic, slight improvement, asymptomatic, appears euvolemic, consider SIADH, pending electrolytes, --hyperkalemia, resolved --Anemia, --subclinical hypothyroidism, recent increase in levothyroxine --MSK spasms, possible myopathic etiology, isce today, much improved Chronic hospital problems --Anxiety and depression. stable, Xanax prn, buspirone 10 mg tid --HTN, with recent lability, improved, Continue clonidine 0.1 mg patch, Carduraa4 mg at hs, hydralazine 100 mg q 8 hrs, irbesartan 300 mg daily. --CKD Stage 3 followed by nephrology. comorbid, underwent work up with renal artery ultrasound 02/10/18 which showed no renal artery stenosis. --HFpEF, BNP 133, Continue Bumex 05. mg daily. --Chronic bronchitis and reports chronic shortness of breath. 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 Her last oncology appointment was 02/12/18 at which time there was no evidence of local or distant recurrence/ relapse. She is on prolia. disposition/overall plan --head abdominal chest CT to --extra dose of Bumex --Continue inpt today, --appears euvolemic, could be ADH/renal water handling etiology --continue with sodium restriction --awaiting full urine electrolytes, --with history of breast CA will consider broader differential of CA/tumor, --Octaviano Wraps, ankle pumps, cont with Fluid restriction, --labs in a.m.
[2018-08-20] MEDS ORDERED: Morphine 2 MG/ML Syringe IVPUSH ONE (11:59)
--- NOTE | 2018-08-20 14:37 | CT ---
[id number] CT/CT Head WO IV EXAM: CT Head WO IV CLINICAL DATA: SUSPECTED SIADH COMPARISON: NO PREVIOUS SIMILAR EXAM IS AVAILABLE FOR COMPARISON. FINDINGS: There is no mass or mass effect. There is no hemorrhage or hydrocephalus. There are no extra-axial fluid collections. There are no sites of abnormal attenuation. IMPRESSION: NO PLAIN CT EVIDENCE OF ACUTE INTRACRANIAL PROCESS. Eric Garcia MD 08/20/18 [id number] Thank you for allowing us to participate in the care of your patient.
[2018-08-20] MEDS: Aspirin 325 MG Tab.EC PO SCH (14:41)
--- NOTE | 2018-08-20 14:50 | CT ---
[id number] CT/CT Abdomen WO IV Exam: CT Abdomen WO IV Clinical Data: SIADH COMPARISON: NO PREVIOUS SIMILAR EXAM IS AVAILABLE FINDINGS: There is a moderate hiatal hernia. The liver and spleen show no focal abnormalities The gallbladder has been removed. Diffuse atheromatous calcifications are seen. There is no adenopathy. There is no bowel distention or bowel wall thickening. Small renal cortical masses likely represent cysts. There is no hydronephrosis. The adrenals and pancreas show no acute abnormality. There are some limitations of the exam without IV contrast. IMPRESSION: NO MALIGNANCY, METASTATIC DISEASE, OR ADRENAL MASS SEEN. Eric Garcia MD 08/20/18 [id number] Thank you for allowing us to participate in the care of your patient.
--- NOTE | 2018-08-20 14:53 | CT ---
[id number] CT/CT Chest WO IV EXAM: CT Chest WO IV CLINICAL DATA: HYPONATREMIA, SIADH POSSIBLE. COMPARISON: Radiograph from September 2016. FINDINGS: LUNGS: Mild apical predominant emphysematous changes throughout the lungs with scattered pleural and parenchymal scarring in the lungs most prominent in the bilateral lung bases. Mild changes of chronic bronchitis as well. No suspicious nodules or masses. No edema, pneumonia, effusion, or pneumothorax. HEART AND GREAT VESSELS: Extensive thoracic aorta and coronary artery atherosclerosis. Mild cardiomegaly. MEDIASTINUM AND LYMPHATICS: No mediastinal or hilar lymphadenopathy. UPPER ABDOMINAL ORGANS: Gallbladder has been resected. Hypodense cystic mass arising from left kidney superior pole measuring 21 x 18 x 17 mm. Findings are most consistent with a cyst. Small sliding-type hiatus hernia. BONES: Fusion of the T8-9 vertebral bodies, either congenital or degenerative in etiology. Scattered changes of spondylosis elsewhere in the spine, including moderate to advanced degenerative disc disease at multiple levels. Bones are diffusely demineralized. IMPRESSION: Multiple chronic findings in the chest, including changes of COPD as described above. Jacques Boyd MD 08/20/18 [id number] Thank you for allowing us to participate in the care of your patient.
[2018-08-20] MEDS ORDERED: Bumetanide 1 MG/4 ML MDV IVPUSH ONE (15:00)
[2018-08-20] MEDS ORDERED: Ondansetron 4 MG/2 ML SDV IVPUSH SCH (19:30)
[2018-08-20] MEDS: Ondansetron 4 MG/2 ML SDV IVPUSH PRN (19:38)
[2018-08-20] MEDS: Rosuvastatin 10 MG Tab PO SCH (20:21)
[2018-08-20] MEDS: Doxazosin 2 MG Tab PO SCH (20:22)
[2018-08-21] MEDS: Acetaminophen/HYDROcodone 325-10 MG Tab PO PRN ×3 (04:57→20:30)
[2018-08-21] MEDS: ALPRAZolam 0.25 MG Tab PO PRN ×2 (04:58→23:13)
[2018-08-21] MEDS: hydrALAZINE 50 MG Tab PO SCH ×3 (07:03→17:49)
[2018-08-21] MEDS: Levothyroxine 100 MCG Tab PO SCH (07:06)
[2018-08-21 08:31] LABS: ANION GAP 13.5 mmol/L (5-15)
[2018-08-21] MEDS: Bumetanide 1 MG Tab PO SCH (08:52)
[2018-08-21] MEDS: busPIRone 10 MG Tab PO SCH ×3 (08:53→20:29)
[2018-08-21] MEDS: BUDESONIDE INH SCH ×2 (09:42→20:32)
[2018-08-21] MEDS: FORMOTEROL INH SCH ×2 (09:42→20:32)
[2018-08-21] MEDS ORDERED: Bisacodyl 5 MG Tab PO PRN (09:57)
[2018-08-21] MEDS: INCRUSE ELLIPTA 62.5 MCG INH SCH (09:57)
[2018-08-21] MEDS: Ondansetron 4 MG/2 ML SDV IVPUSH PRN ×2 (11:01→17:49)
--- NOTE | 2018-08-21 11:16 | PCM.PN ---
- General Info Date of Service: 08/21/18 Functional Status: Reports: Pain Controlled, Tolerating Diet, Urinating, New Symptoms. Denies: Ambulating - Review of Systems General: Reports: Weakness, Fatigue. Denies: Malaise, Chills, Night Sweats HEENT: Reports: No Symptoms Pulmonary: Reports: Other Cardiovascular: Reports: Dyspnea on Exertion Gastrointestinal: Reports: No Symptoms (Gets short of breath on slight ambulation) Genitourinary: Reports: No Symptoms 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: Reports: Neck Pain, Back Pain Skin: Reports: No Symptoms Neurological: Reports: Gait Disturbance. Denies: Confusion Psychiatric: Reports: Anxiety - Patient Data Vitals - Most Recent: Last Vital Signs Temp 97.9 F 08/21/18 07:00 Pulse 72 08/21/18 09:57 Resp 18 08/21/18 07:00 BP 124/54 L 08/21/18 10:32 Pulse Ox 98 08/21/18 09:57 Weight - Most Recent: 214 lb 2 oz I&O - Last 24 Hours: Intake & Output 08/20/18 08/21/18 08/21/18 22:59 06:59 14:59 Intake Total 270 100 Output Total 880 300 Balance -610 -200 Lab Results Last 24 Hours: Laboratory Results - last 24 hr 08/21/18 Range/Units 07:35 Sodium 123 L (136-145) mmol/L Potassium 5.7 H (3.3-5.3) mmol/L Chloride 88 L* (98-115) mmol/L Carbon Dioxide 27.2 (21.0-32.0) mmol/L Anion Gap 13.5 (5-15) mmol/L BUN 36 H (6-25) mg/dL Creatinine 1.77 H (0.51-1.17) mg/dL Est Cr Clr Drug Dosing 21.67 mL/min Estimated GFR (MDRD) 28 mL/min Glucose 117 H (75 - 99) mg/dL Calcium 8.1 L (8.7-10.3) mg/dL Med Orders - Current: Current Medications Hydrocodone Bitart/Acetaminophen ([place] 325-10 Mg) 1 tab PO Q6H PRN PRN Reason: Pain Last Admin: 08/21/18 11:01 Dose: 1 tab Albuterol (Ventolin Hfa) 1 - 2 gm INH Q4H PRN PRN Reason: Wheezing Alprazolam (Xanax) 0.25 mg PO Q8H PRN PRN Reason: Anxiety Last Admin: 08/21/18 04:58 Dose: 0.25 mg Aspirin (Ecotrin) 325 mg PO DAILY@1500 REPLACED BY [facility] Last Admin: 08/20/18 14:41 Dose: 325 mg Bisacodyl (Dulcolax) 5 mg PO DAILY PRN PRN Reason: Constipation Last Admin: 08/21/18 10:29 Dose: 5 mg Bumetanide (Bumex) 0.5 mg PO DAILY REPLACED BY [facility] Last Admin: 08/21/18 08:52 Dose: 0.5 mg Buspirone HCl (Buspar) 10 mg PO TID REPLACED BY [facility] Last Admin: 08/21/18 08:53 Dose: 10 mg Calcium Citrate (Calcium Citrate + D) 1 tab PO 1500 REPLACED BY [facility] Clonidine HCl (Catapres-Tts 1) 0.1 mg TRDERM Q7D REPLACED BY [facility] Doxazosin Mesylate (Cardura) 4 mg PO BEDTIME REPLACED BY [facility] Last Admin: 08/20/18 20:22 Dose: 4 mg Hydralazine HCl (Apresoline) 50 mg PO Q8H REPLACED BY [facility] Last Admin: 08/21/18 10:32 Dose: 50 mg Levothyroxine Sodium (Synthroid) 150 mcg PO Q48H REPLACED BY [facility] Last Admin: 08/21/18 07:06 Dose: 150 mcg Levothyroxine Sodium (Levothyroxine) 112 mcg PO Q48H REPLACED BY [facility] Last Admin: 08/20/18 07:32 Dose: 112 mcg Levothyroxine Sodium (Levothyroxine) 25 mcg PO Q48H REPLACED BY [facility] Last Admin: 08/20/18 07:32 Dose: 25 mcg Ondansetron HCl (Zofran) 4 mg IVPUSH Q6H PRN PRN Reason: Nausea/Vomiting Last Admin: 08/21/18 11:01 Dose: 4 mg Irbesartan 300 Mg 1 each PO DAILY REPLACED BY [facility] Last Admin: 08/21/18 08:53 Dose: Not Given Budesonide/Formoterol ( Symbicort) 80-4.5 Mcg/Puff 6.9 Gm Inhaler 0 each INH BID REPLACED BY [facility] Last Admin: 08/21/18 09:42 Dose: 1 each Anastrozole 1mg (Tablet) 1 each PO DAILY@1500 REPLACED BY [facility] Last Admin: 08/20/18 14:41 Dose: 1 each Incruse Ellipta ( Umeclidinium [place] ) 62.5 Mcg Inhaler * Ptom* 0 each INH DAILY REPLACED BY [facility] Last Admin: 08/21/18 09:57 Dose: 1 each Ranitidine HCl (Zantac) 300 mg PO BEDTIME REPLACED BY [facility] Last Admin: 08/20/18 20:21 Dose: 300 mg Rosuvastatin Calcium (Crestor) 10 mg PO BEDTIME REPLACED BY [facility] Last Admin: 08/20/18 20:21 Dose: 10 mg Sodium Chloride (Saline Flush) 10 ml FLUSH Q8HR PRN PRN Reason: keep vein open Last Admin: 08/20/18 19:38 Dose: 10 ml Discontinued Medications Alprazolam (Xanax) 0.5 mg PO ONETIME ONE Stop: 08/19/18 00:17 Last Admin: 08/19/18 00:37 Dose: 0.5 mg Alprazolam (Xanax) 0.25 mg PO ONETIME PRN PRN Reason: Anxiety Budesonide/Formoterol Fumarate (Symbicort 80-4.5 Mcg) 0 gm INH BID REPLACED BY [facility] Last Admin: 08/19/18 09:30 Dose: Not Given Bumetanide (Bumex) 1 mg IVPUSH ONETIME ONE Stop: 08/20/18 15:01 Last Admin: 08/20/18 15:16 Dose: 1 mg Calcium Citrate (Calcium Citrate + D) 1 tab PO ACBREAKFAST REPLACED BY [facility] Last Admin: 08/20/18 07:32 Dose: 1 tab Clonidine HCl (Catapres-Tts 1) 0.1 mg TRDERM DAILY REPLACED BY [facility] Hydralazine HCl (Apresoline) 100 mg PO Q8H REPLACED BY [facility] Last Admin: 08/19/18 02:42 Dose: Not Given Hydralazine HCl (Apresoline) 100 mg PO Q8H REPLACED BY [facility] Last Admin: 08/21/18 07:03 Dose: Not Given Ketorolac Tromethamine (Toradol) 30 mg IVPUSH ONETIME ONE Stop: 08/18/18 21:11 Last Admin: 08/18/18 21:42 Dose: Not Given Ketorolac Tromethamine (Toradol) 30 mg IM ONETIME ONE Stop: 08/18/18 21:33 Last Admin: 08/18/18 21:28 Dose: 30 mg Lorazepam (Ativan) 1 mg IVPUSH ONETIME ONE Stop: 08/18/18 21:11 Last Admin: 08/18/18 22:13 Dose: Not Given Lorazepam (Ativan) Confirm Administered Dose 1 mg .ROUTE .STK-MED ONE Stop: 08/18/18 21:28 Last Admin: 08/18/18 21:42 Dose: Not Given Lorazepam (Ativan) 1 mg PO ONETIME ONE Stop: 08/18/18 21:34 Last Admin: 08/18/18 21:42 Dose: 1 mg Morphine Sulfate (Morphine 10 Mg/5 Ml) 2.5 mg PO Q4H PRN PRN Reason: Pain Last Admin: 08/19/18 00:35 Dose: 2.5 mg Morphine Sulfate (Morphine) 2 mg IVPUSH ONETIME ONE Stop: 08/20/18 12:00 Last Admin: 08/20/18 12:07 Dose: 2 mg Ondansetron HCl (Zofran Odt) 4 mg PO Q6H PRN PRN Reason: Nausea/Vomiting Last Admin: 08/20/18 10:31 Dose: 4 mg Prednisone (Prednisone) 40 mg PO ONETIME ONE Stop: 08/18/18 21:11 Last Admin: 08/18/18 21:29 Dose: 40 mg Sodium Chloride (Sodium Chloride) 2 gm PO ONETIME ONE Stop: 08/19/18 00:20 Last Admin: 08/19/18 00:37 Dose: 2 gm Sodium Chloride (Sodium Chloride) 2 gm PO ONETIME ONE Stop: 08/19/18 05:01 Last Admin: 08/19/18 05:54 Dose: 2 gm Umeclidinium [place] (Incruse Ellipta) 1 mcg IH ONETIME ONE Stop: 08/19/18 01:52 Last Admin: 08/19/18 02:42 Dose: Not Given Umeclidinium [place] (Incruse Ellipta) 0 mcg IH DAILY DES Last Admin: 08/20/18 09:21 Dose: Not Given - Exam Quality Assessment: No: Supplemental Oxygen General: Alert, Oriented, No Acute Distress Neck: No JVD Lungs: Clear to Auscultation, Normal Respiratory Effort Cardiovascular: Regular Rate, Regular Rhythm GI/Abdominal Exam: Soft (Female) Exam: Deferred Back Exam: No: CVA Tenderness (L), CVA Tenderness (R) Extremities: Pedal Edema Skin: Warm, Dry, Intact Neurological: No New Focal Deficit Psy/Mental Status: Alert, Normal Affect, Normal Mood - Problem List Review Problem List Initiated/Reviewed/Updated: Yes - My Orders Last 24 Hours: My Active Orders 08/21/18 09:35 PT Evaluation and Treatment [CONS] Routine 08/21/18 09:45 hydrALAZINE [Apresoline] 50 mg PO Q8H 08/21/18 09:57 Bisacodyl [Dulcolax] 5 mg PO DAILY PRN 08/21/18 15:00 Calcium Citrate/Vitamin D3 [Calcium Citrate + D] 1 tab PO 1500 - Plan Plan:: brief history Patient's was seen in ER 08/09/18 and was given toradal and hydrocodone for pain in her right side of her neck posteriorly that she had been having a week prior. She reports that did help the pain. She has noticed some foggy thinking since the ER visit last week. She reports she has had hip pain for years but it has gotten progressively worse with the severe pain and now right upper back and arm pain coming on over the last 2 weeks. The pain is so bad it causes nausea. Sitting makes it worse and lying in bed is intolerable. 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 She has had 2 right transforaminal LESI injections in the past by Dr De Schmidt without much relief. Pain clinic recommended an interlaminar L5S1 LESI which she reports has been scheduled. She had a Cervical spine Xray for complaints of numbness of fingers and occasional neck pain. Xray showed mild uncovertebral degenerative changes Cervical spine, mild disc height loss at C5-6 and C6-7. n admission she was given Morphine 2.5 mg po q 4 hrs prn , Xanax long with a 1 time dose of prednisone in the ED. Update today Improvement in sodium slowly, deconditioned, CT head chest abdomen non- concerning for metastatic disease Primary hospital problems --Hyponatremia, hypotonic acute on chronic, continues to slowly improve, asymptomatic, appears euvolemic, possible SIADH, pending electrolytes, --hyperkalemia, mild --Deconditioning, moderate, PT consult today --Anemia, --Anxiety, acute on chronic, needs improved control, Xanax prn, buspirone 10 mg tid --subclinical hypothyroidism, recent increase in levothyroxine --MSK spasms, possible myopathic etiology, ice today, improvement Chronic hospital problems --HTN, with recent lability, improved, Continue clonidine 0.1 mg patch, Carduraa4 mg at hs, hydralazine 100 mg q 8 hrs, irbesartan 300 mg daily. --CKD Stage 3 followed by nephrology. comorbid, underwent work up with renal artery ultrasound 02/10/18 which showed no renal artery stenosis. --HFpEF, BNP 133, Continue Bumex 05. mg daily. --Chronic bronchitis and reports chronic shortness of breath. 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 Her last oncology appointment was 02/12/18 at which time there was no evidence of local or distant recurrence/ relapse. She is on prolia. disposition/overall plan --PT consult for possible SNF short-term. --extra dose of Bumex --appears euvolemic, could be ADH/renal water handling etiology --continue with sodium restriction --awaiting full urine electrolytes, --Octaviano Wraps, ankle pumps, cont with Fluid restriction, --labs in a.m. Patient does have scheduled lumbar SRAVAN in 2 weeks also has carpal tunnel surgery next week in [place]. Discussed with patient and family as she is not optimized and this will have to be rescheduled.
[2018-08-21] MEDS: Aspirin 325 MG Tab.EC PO SCH (14:16)
[2018-08-21] MEDS ORDERED: Calcium Citrate/Vitamin D3 315 MG-250 Unit Tab PO SCH (15:00)
[2018-08-21] MEDS: Sodium Chloride 0.9% 10 ML Syringe FLUSH PRN (17:52)
[2018-08-21] MEDS: Doxazosin 2 MG Tab PO SCH (20:29)
[2018-08-21] MEDS: Rosuvastatin 10 MG Tab PO SCH (20:29)
[2018-08-22] MEDS: hydrALAZINE 50 MG Tab PO SCH ×2 (02:49→10:00)
[2018-08-22] MEDS: Acetaminophen/HYDROcodone 325-10 MG Tab PO PRN (05:16)
[2018-08-22] MEDS: Ondansetron 4 MG/2 ML SDV IVPUSH PRN (05:17)
[2018-08-22] MEDS: Levothyroxine 25 MCG Tab PO SCH (06:17)
[2018-08-22] MEDS: Levothyroxine 112 MCG Tab PO SCH (06:17)
[2018-08-22 07:50] LABS: ANION GAP 11.6 mmol/L (5-15)
[2018-08-22] MEDS: Bumetanide 1 MG Tab PO SCH (08:15)
[2018-08-22] MEDS: FORMOTEROL INH SCH (08:17)
[2018-08-22] MEDS: busPIRone 10 MG Tab PO SCH (08:17)
[2018-08-22] MEDS: BUDESONIDE INH SCH (08:17)
[2018-08-22] MEDS: INCRUSE ELLIPTA 62.5 MCG INH SCH (08:18)
[2018-08-22 10:01] VITALS: BP 113/59
[2018-08-23] MEDS ORDERED: cloNIDine 0.1 MG/Day Transdermal Patch TRDERM SCH (09:00)
== END 2018-08-22 11:22 | disposition swing bed (61) | DRG 644 ==
LOC: KA.ED 20:56 → KA.MS 22:31
PROVIDERS: ADMIT Nurse Practitioner Family; ATTEND Nurse Practitioner Family
DX: E22.2 Syndrome of inappropriate secretion of antidiuretic hormone (principal); I13.0 Hypertensive heart and chronic kidney disease with heart failure and stage 1 through stage 4 chronic kidney disease, or unspecified chronic kidney disease; I50.30 Unspecified diastolic (congestive) heart failure; E87.1 Hypo-osmolality and hyponatremia; M62.838 Other muscle spasm; N18.3 Chronic kidney disease, stage 3 (moderate); J42 Unspecified chronic bronchitis; R60.9 Edema, unspecified; F41.9 Anxiety disorder, unspecified; M19.91 Primary osteoarthritis, unspecified site; E66.9 Obesity, unspecified; Z96.651 Presence of right artificial knee joint; E87.5 Hyperkalemia; D64.9 Anemia, unspecified; E02 Subclinical iodine-deficiency hypothyroidism; Z85.3 Personal history of malignant neoplasm of breast; Z87.891 Personal history of nicotine dependence; E78.00 Pure hypercholesterolemia, unspecified; I10 Essential (primary) hypertension; J44.9 Chronic obstructive pulmonary disease, unspecified; Z94.7 Corneal transplant status; Z90.49 Acquired absence of other specified parts of digestive tract; Z68.38 Body mass index [BMI] 38.0-38.9, adult; K21.9 Gastro-esophageal reflux disease without esophagitis; F32.9 Major depressive disorder, single episode, unspecified; E03.9 Hypothyroidism, unspecified; Z79.82 Long term (current) use of aspirin; Z79.890 Hormone replacement therapy; Z79.899 Other long term (current) drug therapy; Z88.8 Allergy status to other drugs, medicaments and biological substances
CPT/HCPCS: 36415; 70450; 71250; 74150; 80048; 80053; 81001; 82436; 83880; 83930; 83935; 84133; 84300; 85025; 85651; 86140; 94640; 96372; 97162-GP; 99284; A9270-GY; J1885; J2270; J2405; J3490

== ENCOUNTER 2018-08-22 11:01 | Inpatient (IN) | payer MEDICARE, BC ==
[2018-08-22] MEDS ORDERED: Bisacodyl 5 MG Tab PO PRN (11:23)
[2018-08-22] MEDS ORDERED: Albuterol 8 GM Inhaler INH PRN (11:23)
[2018-08-22] MEDS ORDERED: Sodium Chloride 0.9% 10 ML Syringe FLUSH PRN (11:23)
[2018-08-22] MEDS: Ondansetron 4 MG/2 ML SDV IVPUSH PRN ×2 (12:26→19:20)
[2018-08-22] MEDS: Acetaminophen/HYDROcodone 325-10 MG Tab PO PRN ×2 (12:27→22:01)
[2018-08-22] MEDS: Sodium Chloride 0.9% 10 ML Syringe FLUSH PRN ×2 (12:27→19:20)
[2018-08-22] MEDS: ALPRAZolam 0.25 MG Tab PO PRN ×2 (13:30→22:01)
[2018-08-22] MEDS: Aspirin 325 MG Tab.EC PO SCH (14:48)
[2018-08-22] MEDS: Calcium Citrate/Vitamin D3 315 MG-250 Unit Tab PO SCH ×2 (14:48→14:52)
[2018-08-22] MEDS: busPIRone 10 MG Tab PO SCH ×2 (14:48→21:17)
[2018-08-22] MEDS: Anastrozole 1 MG Tab PO SCH (14:51)
[2018-08-22] MEDS ORDERED: Bisacodyl 10 MG Supp RECTAL PRN (14:54)
[2018-08-22] MEDS ORDERED: Sodium Phosphate,Monobasic/Sodium Phosphate,Dibasic Enema 133 ML Bottle RECTAL PRN (14:57)
[2018-08-22] MEDS ORDERED: hydrALAZINE 50 MG Tab PO SCH (17:45)
[2018-08-22] MEDS ORDERED: Magnesium Citrate Solution 296 ML Bottle PO ONE (17:55)
[2018-08-22] MEDS: SYMBICORT INH SCH (21:17)
[2018-08-22] MEDS: Rosuvastatin 10 MG Tab PO SCH (21:17)
[2018-08-22] MEDS: Doxazosin 2 MG Tab PO SCH (21:18)
[2018-08-23] MEDS: hydrALAZINE 50 MG Tab PO SCH ×5 (01:30→21:42)
[2018-08-23] MEDS: Levothyroxine 75 MCG Tab PO SCH (06:24)
[2018-08-23] MEDS: Bumetanide 1 MG Tab PO SCH (08:23)
[2018-08-23] MEDS: busPIRone 10 MG Tab PO SCH ×3 (08:23→21:45)
[2018-08-23] MEDS: Polyethylene Glycol 3350 Powder 17 GM Packet PO SCH (08:25)
[2018-08-23] MEDS: INCRUSE ELLIPTA 62.5 MCG INH SCH (08:25)
[2018-08-23] MEDS: SYMBICORT INH SCH ×2 (08:25→21:48)
[2018-08-23] MEDS: Ondansetron 4 MG/2 ML SDV IVPUSH PRN ×2 (08:47→15:26)
[2018-08-23] MEDS: Sodium Chloride 0.9% 10 ML Syringe FLUSH PRN (08:47)
[2018-08-23] MEDS ORDERED: cloNIDine 0.1 MG/Day Transdermal Patch TRDERM SCH (09:00)
--- NOTE | 2018-08-23 10:48 | CR ---
[id number] RAD/RAD Abdomen Lateral Decubitus Exam: RAD Abdomen Lateral Decubitus Clinical Data: ABDOMINAL PAIN COMPARISON: CORRELATION IS MADE WITH THE CAT SCAN OF AUGUST 20, 2018. FINDINGS: There is mild bowel distention. The request describes a decubitus view. There is no decubitus view provided. If the decubitus view is provided, an addendum will follow. IMPRESSION: MILD BOWEL DISTENTION. Eric Garcia MD 08/23/18 1046 Thank you for allowing us to participate in the care of your patient.
[2018-08-23 11:34] LABS: ANION GAP 13.2 mmol/L (5-15)
[2018-08-23] MEDS ORDERED: Naloxegol Oxalate 25 MG Tab PO ONE (12:05)
[2018-08-23] MEDS: Aspirin 325 MG Tab.EC PO SCH (15:27)
[2018-08-23] MEDS: Anastrozole 1 MG Tab PO SCH (15:27)
[2018-08-23] MEDS: Calcium Citrate/Vitamin D3 315 MG-250 Unit Tab PO SCH (15:35)
[2018-08-23] MEDS: ALPRAZolam 0.25 MG Tab PO PRN (17:18)
--- NOTE | 2018-08-23 21:00 | PCM.HP ---
H&P History of Present Illness - General Date of Service: 08/22/18 Admit Problem/Dx: Admission Diagnosis/Problem Admission Diagnosis/Problem Hyponatremia Source of Information: Patient, Old Records, RN History Limitations: Reports: No Limitations - Related Data Allergies/Adverse Reactions: Allergies Allergy/AdvReac Type Severity Reaction Status Date / Time amlodipine Allergy Unknown Hives Verified 08/22/18 11:56 bupropion [From Wellbutrin] Allergy Rash Verified 08/22/18 11:56 Home Medications: Home Meds Albuterol [IJD: Ventolin HFA] 1 - 2 puff INH Q4H PRN 10/15/16 [History] Anastrozole [Arimidex] 1 mg PO DAILY@1200 10/15/16 [History] Aspirin 325 mg PO DAILY@1500 10/15/16 [History] Calcium Carb & Citrate/Vit D3 [Citracal + D ER] 1 tab PO ACBREAKFAST 10/15/16 [ History] Levothyroxine 137 mcg PO ACBREAKFAST 10/15/16 [History] Rosuvastatin [Crestor] 10 mg PO BEDTIME 02/20/18 [History] Bumetanide 0.5 mg PO DAILY 08/09/18 [History] Doxazosin Mesylate [Cardura] 4 mg PO BEDTIME 08/09/18 [History] Irbesartan 300 mg PO DAILY 08/09/18 [History] Ranitidine [Zantac] 300 mg PO BEDTIME 08/09/18 [History] busPIRone [Buspar] 10 mg PO TID 08/09/18 [History] hydrALAZINE [Apresoline] 100 mg PO Q8H 08/09/18 [History] cloNIDine [Catapres-TTS 1] 0.1 mg TRDERM DAILY 08/18/18 [History] Umeclidinium [place] [Incruse Ellipta*] 1 puff INH DAILY 08/19/18 [History] prednisoLONE acetate [Pred Forte 1% Ophth Susp] 1 drop EYEBOTH DAILY 08/19/18 [ History] Past Medical History HEENT History: Reports: Cataract, Impaired Vision, Other (See Below) Other HEENT History: cornea transplant x2 Cardiovascular History: Reports: High Cholesterol, Hypertension, Other (See Below) Other Cardiovascular History: carotid stenosis, right side is 100% occluded ( for past 18 years) and left side is 50% occluded. No surgery on carotids. Respiratory History: Reports: COPD Gastrointestinal History: Reports: GERD Genitourinary History: Reports: None BOW REHAIRER History: Reports: 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 History: Reports: None, Arthritis Neurological History: Reports: None Psychiatric History: Reports: Anxiety, Depression, Panic Attack, Other (See Below) Other Psychiatric History: Pt states she has not used her prn ativan x3 mornings now. She states that she thinks the zoloft is helping with this. Endocrine/Metabolic History: Reports: Hypothyroidism, Obesity/BMI 30+ Other Immunologic History: cornea transplant x2 Oncologic (Cancer) History: Reports: Breast Dermatologic History: Reports: Other (See Below) Other Dermatologic History: rash for 3 monthes - Infectious Disease History Infectious Disease History: Reports: Influenza, Measles, Mumps - Past Surgical History Head Surgeries/Procedures: Reports: None HEENT Surgical History: Reports: Cataract Surgery, Other (See Below) Other HEENT Surgeries/Procedures: cornea transplant x2 Cardiovascular Surgical History: Reports: None GI Surgical History: Reports: Appendectomy, Cholecystectomy Female Surgical History: Reports: Hysterectomy 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 Surgical History: Reports: Knee Replacement Other 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 Surgeries/Procedures:: R knee Oncologic Surgical History: Reports: Lumpectomy, Other (See Below) Other Oncologic Surgeries/Procedures: R side Social & Family History - Family History Family Medical History: Noncontributory - Tobacco Use Smoking Status *Q: Former Smoker Used Tobacco, but Quit: Yes Month/Year Tobacco Last Used: 1978 Second Hand Smoke Exposure: No - Caffeine Use Caffeine Use: Reports: Soda Other Caffeine Use: decaf - Recreational Drug Use Recreational Drug Use: No H&P Review of Systems - Review of Systems: Review Of Systems: See Below General: Reports: Weakness. Denies: Night Sweats, Diaphoresis HEENT: Reports: No Symptoms Pulmonary: Reports: No Symptoms Cardiovascular: Reports: Dyspnea on Exertion, Edema. Denies: Orthopnea, Syncope , Claudication, Blood Pressure Problem Gastrointestinal: Reports: No Symptoms Genitourinary: Reports: No Symptoms 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: Reports: Neck Pain, Back Pain Skin: Reports: No Symptoms Psychiatric: Reports: Depression Neurological: Reports: Weakness, Gait Disturbance Hematologic/Lymphatic: Reports: No Symptoms Immunologic: Reports: No Symptoms Exam - Exam Exam: See Below - Vital Signs Vital Signs: Last Vital Signs Temp 97.7 F 08/23/18 14:19 Pulse 86 08/23/18 14:19 Resp 18 08/23/18 14:19 BP 122/53 L 08/23/18 14:19 Pulse Ox 94 L 08/23/18 14:19 Weight: 214 lb 5 oz - Exam Quality Assessment: No: Supplemental Oxygen General: Alert, Oriented, Cooperative. No: Mild Distress HEENT: PERRLA, Hearing Intact, Mucosa Moist & [place], Nares Patent, Normal Nasal Septum, Posterior Pharynx Clear, Conjunctiva Clear, EOMI, EACs Clear, TMs Clear Neck: Supple, Trachea Midline, 2 Lungs: Clear to Auscultation, Normal Respiratory Effort Cardiovascular: Regular Rate, Regular Rhythm, Normal S2, Tachycardia GI/Abdominal Exam: Soft (Female) Exam: Deferred Back Exam: No: CVA Tenderness (L), CVA Tenderness (R) Extremities: Pedal Edema. No: Increased Warmth, Mottled Peripheral Pulses: 1+: Radial (L), 2+: Radial (R) Skin: Warm, Dry, Intact Neurological: Cranial Nerves Intact Neuro Extensive - Mental Status: Alert, Oriented x3, Normal Mood/Affect Neuro Extensive - Motor, Sensory, Reflexes: CN II-XII Intact, Normal Gait, Normal Reflexes Psychiatric: Alert, Normal Affect, Normal Mood. No: Anxious, Depressed, Agitated - Patient Data Lab Results Last 24 hrs: Laboratory Results - last 24 hr 08/23/18 Range/Units 11:00 Sodium 126 L (136-145) mmol/L Potassium 5.3 (3.3-5.3) mmol/L Chloride 90 L (98-115) mmol/L Carbon Dioxide 28.1 (21.0-32.0) mmol/L Anion Gap 13.2 (5-15) mmol/L BUN 32 H (6-25) mg/dL Creatinine 1.67 H (0.51-1.17) mg/dL Est Cr Clr Drug Dosing 22.97 mL/min Estimated GFR (MDRD) 30 mL/min Glucose 112 H (75 - 99) mg/dL Calcium 7.8 L (8.7-10.3) mg/dL Result Diagrams: 08/23/18 11:00 Problem List Initiated/Reviewed/Updated: Yes Orders Last 24hrs: Active Orders 24 hr Category Date Time Status Bumetanide [Bumex] Med 08/23/18 09:00 Active 0.5 mg PO DAILY Docusate Sodium/Sennosides [Senna Plus] Med 08/23/18 12:15 Active 1 tab PO BID Doxazosin [Cardura] Med 08/22/18 21:00 Active 4 mg PO BEDTIME Irbesartan [Avapro] Med 08/23/18 09:00 Active 300 mg PO DAILY Levothyroxine Med 08/24/18 07:00 Active 112 mcg PO Q48H Levothyroxine Med 08/23/18 07:00 Active 150 mcg PO Q48H Levothyroxine Med 08/24/18 07:00 Active 25 mcg PO Q48H Patient's Own Medication [Ptom] Med 08/22/18 21:00 Active 0 each INH BID Patient's Own Medication [Ptom] Med 08/23/18 09:00 Active 0 each INH DAILY Polyethylene Glycol 3350 [MiraLAX] Med 08/23/18 09:00 Active 17 gm PO DAILY Ranitidine [Zantac] Med 08/22/18 21:00 Active 300 mg PO BEDTIME Rosuvastatin [Crestor] Med 08/22/18 21:00 Active 10 mg PO BEDTIME cloNIDine [Catapres-TTS 1] Med 08/23/18 09:00 Active 0.1 mg TRDERM Q7D hydrALAZINE [Apresoline] Med 08/23/18 06:00 Active 50 mg PO Q8H Medication Orders Hydrocodone Bitart/Acetaminophen ([place] 325-10 Mg) 1 tab PO Q6H PRN PRN Reason: Pain Last Admin: 08/22/18 22:01 Dose: 1 tab Admin: 08/22/18 12:27 Dose: 1 tab Albuterol (Ventolin Hfa) 1 - 2 gm INH Q4H PRN PRN Reason: Wheezing Alprazolam (Xanax) 0.25 mg PO Q8H PRN PRN Reason: Anxiety Last Admin: 08/23/18 17:18 Dose: 0.25 mg Admin: 08/22/18 22:01 Dose: 0.25 mg Admin: 08/22/18 13:30 Dose: 0.25 mg Anastrozole (Arimidex) 1 mg PO DAILY@1500 DES Last Admin: 08/23/18 15:27 Dose: 1 mg Admin: 08/22/18 14:51 Dose: 1 mg Aspirin (Ecotrin) 325 mg PO DAILY@1500 [facility] Last Admin: 08/23/18 15:27 Dose: 325 mg Admin: 08/22/18 14:48 Dose: 325 mg Bisacodyl (Dulcolax) 5 mg PO DAILY PRN PRN Reason: Constipation Last Admin: 08/22/18 14:48 Dose: 5 mg Bisacodyl (Dulcolax) 10 mg RECTAL DAILY PRN PRN Reason: Constipation Last Admin: 08/22/18 16:06 Dose: 10 mg Bumetanide (Bumex) 0.5 mg PO DAILY [facility] Last Admin: 08/23/18 08:23 Dose: 0.5 mg Buspirone HCl (Buspar) 10 mg PO TID [facility] Last Admin: 08/23/18 14:14 Dose: 10 mg Admin: 08/23/18 08:23 Dose: 10 mg Admin: 08/22/18 21:17 Dose: 10 mg Admin: 08/22/18 14:48 Dose: 10 mg Calcium Citrate (Calcium Citrate + D) 1 tab PO 1500 [facility] Last Admin: 08/23/18 15:35 Dose: Not Given Admin: 08/22/18 14:52 Dose: Not Given Clonidine HCl (Catapres-Tts 1) 0.1 mg TRDERM Q7D [facility] Last Admin: 08/23/18 08:36 Dose: 0.1 mg Doxazosin Mesylate (Cardura) 4 mg PO BEDTIME [facility] Last Admin: 08/22/18 21:18 Dose: 4 mg Hydralazine HCl (Apresoline) 50 mg PO Q8H [facility] Last Admin: 08/23/18 14:14 Dose: 50 mg Admin: 08/23/18 06:22 Dose: 50 mg Irbesartan (Avapro) 300 mg PO DAILY [facility] Last Admin: 08/23/18 08:31 Dose: 300 mg Levothyroxine Sodium (Levothyroxine) 25 mcg PO Q48H DES Levothyroxine Sodium (Levothyroxine) 150 mcg PO Q48H [facility] Last Admin: 08/23/18 06:24 Dose: 150 mcg Levothyroxine Sodium (Levothyroxine) 112 mcg PO Q48H [facility] Ondansetron HCl (Zofran) 4 mg IVPUSH Q6H PRN PRN Reason: Nausea/Vomiting Last Admin: 08/23/18 15:26 Dose: 4 mg Admin: 08/23/18 08:47 Dose: 4 mg Admin: 08/22/18 19:20 Dose: 4 mg Admin: 08/22/18 12:26 Dose: 4 mg Symbicort 80-4.5mcg/ (Puff 6.9gm Inhaler) 0 each INH BID [facility] Last Admin: 08/23/18 08:25 Dose: 2 each Admin: 08/22/18 21:17 Dose: 2 each Incruse Ellipta 62. (5mcg Inhaler) 0 each INH DAILY [facility] Last Admin: 08/23/18 08:25 Dose: 1 each Polyethylene Glycol (Miralax) 17 gm PO DAILY [facility] Last Admin: 08/23/18 08:25 Dose: 17 gm Ranitidine HCl (Zantac) 300 mg PO BEDTIME [facility] Last Admin: 08/22/18 21:17 Dose: 300 mg Rosuvastatin Calcium (Crestor) 10 mg PO BEDTIME DES Last Admin: 08/22/18 21:17 Dose: 10 mg Senna/Docusate Sodium (Senna Plus) 1 tab PO BID [facility] Last Admin: 08/23/18 13:22 Dose: 1 tab Sodium Biphosphate/Sodium Phosphate (Fleet Enema) 133 ml RECTAL DAILY PRN PRN Reason: Constipation Sodium Chloride (Saline Flush) 10 ml FLUSH Q8HR PRN PRN Reason: keep vein open Last Admin: 08/23/18 08:47 Dose: 10 ml Admin: 08/22/18 19:20 Dose: 10 ml Admin: 08/22/18 12:27 Dose: 10 ml Sodium Chloride (Saline Flush) 10 ml FLUSH Q8HR PRN PRN Reason: keep vein open Assessment/Plan Comment:: History of present Ilness: Nneka is a 78 female who was initially seen and evaluated in the ED on 08/09/18 for for pain in her right side of her neck posteriorly that she had been having a week prior-- She was given toradal and hydrocodone which did help her pain. She had noticed some foggy thinking since the ER visit last week. She reports she has had hip pain for years but it has gotten progressively worse with the severe pain and now right upper back and arm pain coming on over the last 2 weeks. She statd that sitting makes it worse and lying in bed is intolerable. 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 She has had 2 right transforaminal LESI injections in the past by Dr De Schmidt without much relief. Pain clinic recommended an interlaminar L5S1 LESI which she reported has been scheduled. She had a Cervical spine Xray 07/14/18 for complaints of numbness of fingers and occasional neck pain. Xray showed mild uncovertebral degenerative changes Cervical spine, mild disc height loss at C5-6 and C6-7. Upon admission she was given Morphine 2.5 mg po q 4 hrs prn, Xanax long with a 1 time dose of prednisone in the ED. During her acute care stay she has had ongoing hypomantremia which has been responding favorably but slowly to reduced fluids, diuretics, however she had become weakend and deconditioned throughouit her acute care stay--necessitating a PT referral and subsequent recommendation for swing bed theray for ambulation. Primary hospital problems --Hyponatremia, hypotonic acute on chronic, continues to slowly improve, asymptomatic, appears euvolemic, suspect SIADH, pending electrolytes, --hyperkalemia, mild --Deconditioning, PT to work with patient to assist in gaining her strength in efforts to return home --Anemia, --Anxiety, acute on chronic, needs improved control, Xanax prn, buspirone 10 mg tid --subclinical hypothyroidism, recent increase in levothyroxine --MSK spasms, possible myopathic etiology, ice today, improvement Chronic hospital problems --HTN, with recent lability, improved, Continue clonidine 0.1 mg patch, Carduraa4 mg at hs, hydralazine 100 mg q 8 hrs, irbesartan 300 mg daily. --CKD Stage 3 followed by nephrology. comorbid, underwent work up with renal artery ultrasound 02/10/18 which showed no renal artery stenosis. --HFpEF, BNP 133, Continue Bumex 05. mg daily. --Chronic bronchitis and reports chronic shortness of breath. 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 Her last oncology appointment was 02/12/18 at which time there was no evidence of local or distant recurrence/ relapse. She is on prolia. disposition/overall plan --Physical therapy to work with patient for deconditioning, pt should be out of hosp gown. --extra dose of Bumex --appears euvolemic, could be ADH/renal water handling etiology --continue with sodium restriction --awaiting full urine electrolytes, --Octaviano Wraps, ankle pumps, to BLE,. cont with Fluid restriction, --labs in a.m. Patient does have scheduled lumbar SRAVAN in 2 weeks also has carpal tunnel surgery next week in [place]. Discussed with patient and family as she is not optimized and this will have to be rescheduled. Nursing staff please notify appropriate facilities.
[2018-08-23] MEDS: Rosuvastatin 10 MG Tab PO SCH (21:42)
[2018-08-23] MEDS: Doxazosin 2 MG Tab PO SCH (21:45)
[2018-08-24] MEDS: ALPRAZolam 0.25 MG Tab PO PRN ×2 (01:43→20:48)
[2018-08-24] MEDS: hydrALAZINE 50 MG Tab PO SCH ×3 (06:07→21:01)
[2018-08-24] MEDS ORDERED: Levothyroxine 112 MCG Tab PO SCH (07:00)
[2018-08-24] MEDS ORDERED: Levothyroxine 25 MCG Tab PO SCH (07:00)
[2018-08-24] MEDS: SYMBICORT INH SCH ×2 (08:31→20:53)
[2018-08-24] MEDS: Polyethylene Glycol 3350 Powder 17 GM Packet PO SCH (08:32)
[2018-08-24] MEDS: INCRUSE ELLIPTA 62.5 MCG INH SCH (08:32)
[2018-08-24] MEDS: busPIRone 10 MG Tab PO SCH ×3 (08:34→20:49)
[2018-08-24] MEDS: Bumetanide 1 MG Tab PO SCH (08:34)
[2018-08-24] MEDS ORDERED: Calcium Carbonate 500 MG Tab.Chew PO PRN (10:56)
[2018-08-24] MEDS ORDERED: Trolamine Salicylate/Aloe Vera 10% Crm 85 GM Tube TOP PRN (10:57)
[2018-08-24] MEDS: Calcium Citrate/Vitamin D3 315 MG-250 Unit Tab PO SCH (14:23)
[2018-08-24] MEDS: Aspirin 325 MG Tab.EC PO SCH (14:23)
[2018-08-24] MEDS: Anastrozole 1 MG Tab PO SCH (14:23)
[2018-08-24] MEDS: Ondansetron 4 MG/2 ML SDV IVPUSH PRN ×2 (16:25→22:39)
[2018-08-24] MEDS: Sodium Chloride 0.9% 10 ML Syringe FLUSH PRN ×2 (16:29→22:43)
[2018-08-24] MEDS: Rosuvastatin 10 MG Tab PO SCH (20:48)
[2018-08-24] MEDS: Doxazosin 2 MG Tab PO SCH (20:49)
[2018-08-25] MEDS: Levothyroxine 75 MCG Tab PO SCH (06:11)
[2018-08-25] MEDS: hydrALAZINE 50 MG Tab PO SCH (06:12)
[2018-08-25 06:19] VITALS: BP 107/40
[2018-08-25 07:35] LABS: ANION GAP 11.4 mmol/L (5-15)
[2018-08-25] MEDS: Bumetanide 1 MG Tab PO SCH (08:24)
[2018-08-25] MEDS: SYMBICORT INH SCH (08:25)
[2018-08-25] MEDS: busPIRone 10 MG Tab PO SCH (08:25)
[2018-08-25] MEDS: INCRUSE ELLIPTA 62.5 MCG INH SCH (08:26)
[2018-08-25] MEDS: Polyethylene Glycol 3350 Powder 17 GM Packet PO SCH (08:27)
[2018-08-25] MEDS ORDERED: Ondansetron 4 MG Tab.DIS PO ONE (09:37)
--- NOTE | 2018-08-25 09:37 | PCM.DCSUM1 ---
Discharge Summary - Hospital Course Diagnosis: Stroke: No - Discharge Data Discharge Date: 08/22/18 Discharge Disposition: DC/Tfer W/I Hosp To Swing 61 Condition: Good - Patient Summary/Data Consults: Consultations 08/22/18 11:23 PT Evaluation and Treatment [CONS] Routine - Discharge Plan Home Medications: Home Meds Albuterol [IJD: Ventolin HFA] 1 - 2 puff INH Q4H PRN 10/15/16 [History] Anastrozole [Arimidex] 1 mg PO DAILY@1200 10/15/16 [History] Aspirin 325 mg PO DAILY@1500 10/15/16 [History] Calcium Carb & Citrate/Vit D3 [Citracal + D ER] 1 tab PO ACBREAKFAST 10/15/16 [ History] Levothyroxine 137 mcg PO ACBREAKFAST 10/15/16 [History] Rosuvastatin [Crestor] 10 mg PO BEDTIME 02/20/18 [History] Bumetanide 0.5 mg PO DAILY 08/09/18 [History] Doxazosin Mesylate [Cardura] 4 mg PO BEDTIME 08/09/18 [History] Irbesartan 300 mg PO DAILY 08/09/18 [History] Ranitidine [Zantac] 300 mg PO BEDTIME 08/09/18 [History] busPIRone [Buspar] 10 mg PO TID 08/09/18 [History] hydrALAZINE [Apresoline] 100 mg PO Q8H 08/09/18 [History] cloNIDine [Catapres-TTS 1] 0.1 mg TRDERM DAILY 08/18/18 [History] Umeclidinium [place] [Incruse Ellipta*] 1 puff INH DAILY 08/19/18 [History] prednisoLONE acetate [Pred Forte 1% Ophth Susp] 1 drop EYEBOTH DAILY 08/19/18 [ History] - Discharge Summary/Plan Comment DC Time >30 min.: Yes Discharge Summary/Plan Comment: Final diagnosis Hyponatremia, hypotonic acute on chronic, euvolemic, SIADH Deconditioning subclinical hypothyroidism, MSK spasms, possible myopathic etiology, ice today, improvement history was initially seen in ER 08/09/18 and was given toradal and hydrocodone for pain in her right side of her neck posteriorly that she had been having a week prior. She reports that did help the pain. She has noticed some foggy thinking since the ER visit last week. She reports she has had hip pain for years but it has gotten progressively worse with the severe pain and now right upper back and arm pain coming on over the last 2 prior to the acute care stay. It was noted that the patient had significant hyponatremia during her acute care stay her sodium level slowly improved. It was determined that she became quite deconditioned and it was felt that physical therapy would benefit her efforts to improve her sodium level. Admitted into fdc swing bed at [facility]. Hospital course Her sodium level was monitored daily and it did slowly rise. She never became symptomatic. She was placed on fluid restriction, an extra dose of Bumex was given. Lower extremities with rapid Octaviano bandages, electrolytes were still pending the day patient was placed into SNF. Renal indices were monitored. Due to her asymptomatic hyponatremia although severe we did not start hypertonic drip with on her. Due to SIADH likely etiology of her hyponatremia she underwent a head CT abdominal and pelvis CT which did not show any concerning signs of malignancy or tumors. Disposition She will be transferred into's SNF here at [facility] for a few days so physical therapy can work with her regarding her deconditioning. patient does have scheduled lumbar SRAVAN in 2 weeks also has carpal tunnel surgery next week in [place]. Discussed with patient and family as she is not optimized and this will have to be rescheduled. - General Info Functional Status: Reports: Pain Controlled, Tolerating Diet (jgab) - Review of Systems General: Reports: Weakness HEENT: Reports: No Symptoms Pulmonary: Reports: No Symptoms Cardiovascular: Reports: Dyspnea on Exertion. Denies: Chest Pain, Orthopnea Gastrointestinal: Reports: No Symptoms 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: Reports: Neck Pain, Shoulder Pain, Back Pain Skin: Reports: No Symptoms Neurological: Reports: Difficulty Walking. Denies: Numbness, Paresthesia Psychiatric: Reports: No Symptoms - Patient Data Vitals - Most Recent: Last Vital Signs Temp 98.5 F 08/25/18 06:18 Pulse 65 08/25/18 06:18 Resp 16 08/25/18 06:18 BP 107/40 L 08/25/18 08:23 Pulse Ox 94 L 08/25/18 06:18 Weight - Most Recent: 214 lb 5 oz I&O - Last 24 hours: Intake & Output 08/24/18 08/25/18 08/25/18 22:59 06:59 14:59 Intake Total 150 0 Output Total 0 0 Balance 150 0 Lab Results - Last 24 hrs: Laboratory Results - last 24 hr 08/25/18 Range/Units 07:08 Sodium 128 L (136-145) mmol/L Potassium 5.6 H (3.3-5.3) mmol/L Chloride 92 L (98-115) mmol/L Carbon Dioxide 30.2 (21.0-32.0) mmol/L Anion Gap 11.4 (5-15) mmol/L BUN 28 H (6-25) mg/dL Creatinine 1.69 H (0.51-1.17) mg/dL Est Cr Clr Drug Dosing 22.69 mL/min Estimated GFR (MDRD) 29 mL/min Glucose 112 H (75 - 99) mg/dL Calcium 8.0 L (8.7-10.3) mg/dL Med Orders - Current: Current Medications Hydrocodone Bitart/Acetaminophen ([place] 325-10 Mg) 1 tab PO Q6H PRN PRN Reason: Pain Last Admin: 08/22/18 22:01 Dose: 1 tab Albuterol (Ventolin Hfa) 1 - 2 gm INH Q4H PRN PRN Reason: Wheezing Alprazolam (Xanax) 0.25 mg PO Q8H PRN PRN Reason: Anxiety Last Admin: 08/24/18 20:48 Dose: 0.25 mg Anastrozole (Arimidex) 1 mg PO DAILY@1500 [facility] Last Admin: 08/24/18 14:23 Dose: 1 mg Aspirin (Ecotrin) 325 mg PO DAILY@1500 [facility] Last Admin: 08/24/18 14:23 Dose: 325 mg Bisacodyl (Dulcolax) 5 mg PO DAILY PRN PRN Reason: Constipation Last Admin: 08/22/18 14:48 Dose: 5 mg Bisacodyl (Dulcolax) 10 mg RECTAL DAILY PRN PRN Reason: Constipation Last Admin: 08/22/18 16:06 Dose: 10 mg Bumetanide (Bumex) 0.5 mg PO DAILY [facility] Last Admin: 08/25/18 08:24 Dose: 0.5 mg Buspirone HCl (Buspar) 10 mg PO TID [facility] Last Admin: 08/25/18 08:25 Dose: 10 mg Calcium Carbonate/Glycine (Tums) 1,000 mg PO Q4H PRN PRN Reason: Indigestion Last Admin: 08/24/18 20:37 Dose: 1,000 mg Calcium Citrate (Calcium Citrate + D) 1 tab PO 1500 [facility] Last Admin: 08/24/18 14:23 Dose: 1 tab Clonidine HCl (Catapres-Tts 1) 0.1 mg TRDERM Q7D [facility] Last Admin: 08/23/18 08:36 Dose: 0.1 mg Doxazosin Mesylate (Cardura) 4 mg PO BEDTIME [facility] Last Admin: 08/24/18 20:49 Dose: 4 mg Hydralazine HCl (Apresoline) 50 mg PO Q8H [facility] Last Admin: 08/25/18 06:12 Dose: Not Given Irbesartan (Avapro) 150 mg PO DAILY [facility] Levothyroxine Sodium (Levothyroxine) 25 mcg PO Q48H [facility] Last Admin: 08/24/18 06:07 Dose: 25 mcg Levothyroxine Sodium (Levothyroxine) 150 mcg PO Q48H [facility] Last Admin: 08/25/18 06:11 Dose: 150 mcg Levothyroxine Sodium (Levothyroxine) 112 mcg PO Q48H [facility] Last Admin: 08/24/18 06:07 Dose: 112 mcg Ondansetron HCl (Zofran) 4 mg IVPUSH Q6H PRN PRN Reason: Nausea/Vomiting Last Admin: 08/24/18 22:39 Dose: 4 mg Symbicort 80-4.5mcg/ (Puff 6.9gm Inhaler) 0 each INH BID [facility] Last Admin: 08/25/18 08:25 Dose: 1 each Incruse Ellipta 62. (5mcg Inhaler) 0 each INH DAILY [facility] Last Admin: 08/25/18 08:26 Dose: 1 each Polyethylene Glycol (Miralax) 17 gm PO DAILY [facility] Last Admin: 08/25/18 08:27 Dose: 17 gm Ranitidine HCl (Zantac) 150 mg PO BID [facility] Last Admin: 08/25/18 08:25 Dose: 150 mg Rosuvastatin Calcium (Crestor) 10 mg PO BEDTIME [facility] Last Admin: 08/24/18 20:48 Dose: 10 mg Senna/Docusate Sodium (Senna Plus) 1 tab PO BID [facility] Last Admin: 08/25/18 08:25 Dose: 1 tab Sodium Biphosphate/Sodium Phosphate (Fleet Enema) 133 ml RECTAL DAILY PRN PRN Reason: Constipation Sodium Chloride (Saline Flush) 10 ml FLUSH Q8HR PRN PRN Reason: keep vein open Last Admin: 08/24/18 22:43 Dose: 10 ml Trolamine Salicylate (Aspercreme 10%) 0 gm TOP Q1H PRN PRN Reason: Pain Last Admin: 08/24/18 16:27 Dose: 1 each Discontinued Medications Hydralazine HCl (Apresoline) 50 mg PO Q8H [facility] Last Admin: 08/22/18 18:12 Dose: 50 mg Hydralazine HCl (Apresoline) 50 mg PO Q8H [facility] Last Admin: 08/23/18 01:31 Dose: Not Given Irbesartan (Avapro) 300 mg PO DAILY [facility] Last Admin: 08/25/18 08:23 Dose: 300 mg Magnesium Citrate (Citrate Of Magnesia) 296 ml PO ONETIME ONE Stop: 08/22/18 17:56 Last Admin: 08/22/18 19:08 Dose: 296 ml Naloxegol (Movantik) 25 mg PO ONETIME ONE Stop: 08/23/18 12:06 Last Admin: 08/23/18 13:22 Dose: 25 mg Irbesartan 300mg 1 each PO DAILY [facility] Anastrozole 1mg 1 each PO DAILY@1500 [facility] Ranitidine HCl (Zantac) 300 mg PO BEDTIME [facility] Last Admin: 08/23/18 21:45 Dose: 300 mg Sodium Chloride (Saline Flush) 10 ml FLUSH Q8HR PRN PRN Reason: keep vein open - Exam Quality Assessment: Denies: Supplemental Oxygen General: Reports: Alert, Oriented, No Acute Distress Neck: Reports: No JVD Lungs: Reports: Clear to Auscultation, Normal Respiratory Effort Cardiovascular: Reports: Regular Rate, Regular Rhythm GI/Abdominal Exam: Soft (Female) Exam: Deferred Back Exam: Denies: CVA Tenderness (L), CVA Tenderness (R) Extremities: Pedal Edema Neurological: Reports: No New Focal Deficit, Normal Speech
--- NOTE | 2018-08-25 10:10 | PCM.DCSUM1 ---
Discharge Summary - Hospital Course Free Text/Narrative:: Date of admission: 08/22/18 Date of discharge: 08/25/18 Admission diagnoses: --Deconditioning --Hyponatremia, hypotonic, acute on chronic --Hyperkalemia, mild --Deconditioning --Anemia --Anxiety --Hypothyroidism --MSK spasms Discharge diagnoses: --Deconditioning --Hyponatremia, hypotonic, acute on chronic --Hyperkalemia, mild --Deconditioning --Anemia --Anxiety --Hypothyroidism Hospital course: Nneka is a 78yoF who was initially seen and evaluated in the ED on 08/09/18 for for pain in her right side of her neck posteriorly that she had been having a week prior. She was given Toradal and hydrocodone, which did help her pain. She had noticed some foggy thinking since the ER visit. She reports she has had hip pain for years but it has gotten progressively worse with the severe pain and now right upper back and arm pain coming on over the last 2 weeks. She stated that sitting makes it worse and lying in bed is intolerable. 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 She has had 2 right transforaminal LESI injections in the past by Dr De Schmidt without much relief. Pain clinic recommended an interlaminar L5S1 LESI which she reported has been scheduled. She had a cervical spine Xray 07/14/18 for complaints of numbness of fingers and occasional neck pain. Xray showed mild uncovertebral degenerative changes of the cervical spine with mild disc height loss at C5-6 and C6-7. Upon admission she was given Morphine 2.5 mg po q 4 hrs prn, Xanax and a 1 time dose of prednisone in the ED. During her acute care stay, she has had ongoing hyponatremia which has been responding favorably but slowly to reduced fluids, diuretics, however she had become weakened and deconditioned throughout her acute care stay necessitating a PT referral and subsequent recommendation for swing bed therapy for ambulation. She progressed quite well and was deemed ready for discharge back to home independently. She has not required any narcotic pain medication since swing bed admission. Exam on date of discharge notable for significant trigger points for which she will consider injections in the future; also discussed other treatments and the importance of treating from several different angles with myofibrositis. Sodium has improved to 128 this morning on recheck. 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 Constipation was noted to be playing a role early in her swing bed stay. Bowel regimen was initiated and patient had bowel movements in the past 24hrs without any new concerns. Also on the date of discharge, patient notes that she feels she could benefit from restarting a medication for her mood. She has been on duloxetine in the past and didn't like the way it made her feel and didn't like the weight gain she experienced with SSRIs in the past. Medication/intake adjustments: - Fluid restriction of 2L daily - Docusate-Senna 1-2 tabs po BID - Start venlafaxine 367.5mg daily Follow-up recommendations: - BMP at follow-up appt in 2 days - Reassess BM regimen to ensure ongoing resolution of constipation - Reassess mood in 4-6 weeks - Consider future trigger point injections Diagnosis: Stroke: No - Discharge Data Discharge Date: 08/25/18 Discharge Disposition: Home, Self-Care 01 Condition: Good - Patient Summary/Data Consults: Consultations 08/22/18 11:23 PT Evaluation and Treatment [CONS] Routine - Patient Instructions Diet: Heart Healthy Diet Fluid Restriction: 1000 mL Activity: As Tolerated Showering/Bathing: May Shower Notify Provider of: Fever, Increased Pain, Nausea and/or Vomiting Other/Special Instructions: - Start wearing compression stockings during the day. - Consider future trigger point injections - Discharge Plan *PRESCRIPTION DRUG MONITORING PROGRAM REVIEWED*: Yes *COPY OF PRESCRIPTION DRUG MONITORING REPORT IN PATIENT BEATRICE: Yes Prescriptions/Med Rec: Ondansetron [Zofran ODT] 4 mg PO Q6H PRN #30 tab.dis PRN Reason: Nausea Venlafaxine [Effexor XR] 37.5 mg PO DAILY #50 cap.er Home Medications: Home Meds Albuterol [IJD: Ventolin HFA] 1 - 2 puff INH Q4H PRN 10/15/16 [History] Anastrozole [Arimidex] 1 mg PO DAILY@1200 10/15/16 [History] Aspirin 325 mg PO DAILY@1500 10/15/16 [History] Calcium Carb & Citrate/Vit D3 [Citracal + D ER] 1 tab PO ACBREAKFAST 10/15/16 [ History] Levothyroxine 137 mcg PO ACBREAKFAST 10/15/16 [History] Rosuvastatin [Crestor] 10 mg PO BEDTIME 02/20/18 [History] Bumetanide 0.5 mg PO DAILY 08/09/18 [History] Doxazosin Mesylate [Cardura] 4 mg PO BEDTIME 08/09/18 [History] Irbesartan 300 mg PO DAILY 08/09/18 [History] Ranitidine [Zantac] 300 mg PO BEDTIME 08/09/18 [History] busPIRone [Buspar] 10 mg PO TID 08/09/18 [History] hydrALAZINE [Apresoline] 100 mg PO Q8H 08/09/18 [History] cloNIDine [Catapres-TTS 1] 0.1 mg TRDERM DAILY 08/18/18 [History] Umeclidinium [place] [Incruse Ellipta*] 1 puff INH DAILY 08/19/18 [History] prednisoLONE acetate [Pred Forte 1% Ophth Susp] 1 drop EYEBOTH DAILY 08/19/18 [ History] Ondansetron [Zofran ODT] 4 mg PO Q6H PRN #30 tab.dis 08/25/18 [Rx] Trolamine Salicylate/Aloe Vera [Aspercreme 10%] 0 gm TOP Q1H PRN tube 08/25/18 [Rx] Venlafaxine [Effexor XR] 37.5 mg PO DAILY #50 cap.er 08/25/18 [Rx] Referrals: Veronica Diamond, SPORTS MEDICINE PHYSICIAN [Primary Care Provider] - 08/27/18 (Come at least 30min before appt in order to have lab drawn) - Discharge Summary/Plan Comment DC Time >30 min.: Yes - General Info Subjective Update: Reports feeling ready to go home. Ambulating much better. More energy and less fatigue. Dislikes the fluid restriction, but agreeable to continuing. Since initiating bowel regimen, has had some bowel movements which has resulted in her now having no abdominal pain or GI symptoms. - Patient Data Vitals - Most Recent: Last Vital Signs Temp 36.9 C 08/25/18 06:18 Pulse 65 08/25/18 06:18 Resp 16 08/25/18 06:18 BP 107/40 L 08/25/18 08:23 Pulse Ox 94 L 08/25/18 06:18 Weight - Most Recent: 97.211 kg I&O - Last 24 hours: Intake & Output 08/24/18 08/25/18 08/25/18 22:59 06:59 14:59 Intake Total 150 0 Output Total 0 0 Balance 150 0 Lab Results - Last 24 hrs: Laboratory Results - last 24 hr 08/25/18 Range/Units 07:08 Sodium 128 L (136-145) mmol/L Potassium 5.6 H (3.3-5.3) mmol/L Chloride 92 L (98-115) mmol/L Carbon Dioxide 30.2 (21.0-32.0) mmol/L Anion Gap 11.4 (5-15) mmol/L BUN 28 H (6-25) mg/dL Creatinine 1.69 H (0.51-1.17) mg/dL Est Cr Clr Drug Dosing 22.69 mL/min Estimated GFR (MDRD) 29 mL/min Glucose 112 H (75 - 99) mg/dL Calcium 8.0 L (8.7-10.3) mg/dL Med Orders - Current: Current Medications Hydrocodone Bitart/Acetaminophen ([place] 325-10 Mg) 1 tab PO Q6H PRN PRN Reason: Pain Last Admin: 08/22/18 22:01 Dose: 1 tab Albuterol (Ventolin Hfa) 1 - 2 gm INH Q4H PRN PRN Reason: Wheezing Alprazolam (Xanax) 0.25 mg PO Q8H PRN PRN Reason: Anxiety Last Admin: 08/24/18 20:48 Dose: 0.25 mg Anastrozole (Arimidex) 1 mg PO DAILY@1500 DES Last Admin: 08/24/18 14:23 Dose: 1 mg Aspirin (Ecotrin) 325 mg PO DAILY@1500 DES Last Admin: 08/24/18 14:23 Dose: 325 mg Bisacodyl (Dulcolax) 5 mg PO DAILY PRN PRN Reason: Constipation Last Admin: 08/22/18 14:48 Dose: 5 mg Bisacodyl (Dulcolax) 10 mg RECTAL DAILY PRN PRN Reason: Constipation Last Admin: 08/22/18 16:06 Dose: 10 mg Bumetanide (Bumex) 0.5 mg PO DAILY [facility] Last Admin: 08/25/18 08:24 Dose: 0.5 mg Buspirone HCl (Buspar) 10 mg PO TID [facility] Last Admin: 08/25/18 08:25 Dose: 10 mg Calcium Carbonate/Glycine (Tums) 1,000 mg PO Q4H PRN PRN Reason: Indigestion Last Admin: 08/24/18 20:37 Dose: 1,000 mg Calcium Citrate (Calcium Citrate + D) 1 tab PO 1500 [facility] Last Admin: 08/24/18 14:23 Dose: 1 tab Clonidine HCl (Catapres-Tts 1) 0.1 mg TRDERM Q7D [facility] Last Admin: 08/23/18 08:36 Dose: 0.1 mg Doxazosin Mesylate (Cardura) 4 mg PO BEDTIME [facility] Last Admin: 08/24/18 20:49 Dose: 4 mg Hydralazine HCl (Apresoline) 50 mg PO Q8H [facility] Last Admin: 08/25/18 06:12 Dose: Not Given Irbesartan (Avapro) 300 mg PO DAILY [facility] Levothyroxine Sodium (Levothyroxine) 25 mcg PO Q48H [facility] Last Admin: 08/24/18 06:07 Dose: 25 mcg Levothyroxine Sodium (Levothyroxine) 150 mcg PO Q48H [facility] Last Admin: 08/25/18 06:11 Dose: 150 mcg Levothyroxine Sodium (Levothyroxine) 112 mcg PO Q48H [facility] Last Admin: 08/24/18 06:07 Dose: 112 mcg Ondansetron HCl (Zofran) 4 mg IVPUSH Q6H PRN PRN Reason: Nausea/Vomiting Last Admin: 08/24/18 22:39 Dose: 4 mg Symbicort 80-4.5mcg/ (Puff 6.9gm Inhaler) 0 each INH BID [facility] Last Admin: 08/25/18 08:25 Dose: 1 each Incruse Ellipta 62. (5mcg Inhaler) 0 each INH DAILY [facility] Last Admin: 08/25/18 08:26 Dose: 1 each Polyethylene Glycol (Miralax) 17 gm PO DAILY [facility] Last Admin: 08/25/18 08:27 Dose: 17 gm Ranitidine HCl (Zantac) 150 mg PO BID [facility] Last Admin: 08/25/18 08:25 Dose: 150 mg Rosuvastatin Calcium (Crestor) 10 mg PO BEDTIME [facility] Last Admin: 08/24/18 20:48 Dose: 10 mg Senna/Docusate Sodium (Senna Plus) 1 tab PO BID [facility] Last Admin: 08/25/18 08:25 Dose: 1 tab Sodium Biphosphate/Sodium Phosphate (Fleet Enema) 133 ml RECTAL DAILY PRN PRN Reason: Constipation Sodium Chloride (Saline Flush) 10 ml FLUSH Q8HR PRN PRN Reason: keep vein open Last Admin: 08/24/18 22:43 Dose: 10 ml Trolamine Salicylate (Aspercreme 10%) 0 gm TOP Q1H PRN PRN Reason: Pain Last Admin: 08/24/18 16:27 Dose: 1 each Discontinued Medications Hydralazine HCl (Apresoline) 50 mg PO Q8H [facility] Last Admin: 08/22/18 18:12 Dose: 50 mg Hydralazine HCl (Apresoline) 50 mg PO Q8H [facility] Last Admin: 08/23/18 01:31 Dose: Not Given Irbesartan (Avapro) 300 mg PO DAILY [facility] Last Admin: 08/25/18 08:23 Dose: 300 mg Irbesartan (Avapro) 150 mg PO DAILY [facility] Magnesium Citrate (Citrate Of Magnesia) 296 ml PO ONETIME ONE Stop: 08/22/18 17:56 Last Admin: 08/22/18 19:08 Dose: 296 ml Naloxegol (Movantik) 25 mg PO ONETIME ONE Stop: 08/23/18 12:06 Last Admin: 08/23/18 13:22 Dose: 25 mg Ondansetron HCl (Zofran Odt) 4 mg PO ONETIME ONE Stop: 08/25/18 09:38 Irbesartan 300mg 1 each PO DAILY [facility] Anastrozole 1mg 1 each PO DAILY@1500 [facility] Ranitidine HCl (Zantac) 300 mg PO BEDTIME [facility] Last Admin: 08/23/18 21:45 Dose: 300 mg Sodium Chloride (Saline Flush) 10 ml FLUSH Q8HR PRN PRN Reason: keep vein open - Exam Physical Findings Comments:: GENERAL: Well-appearing elderly white female sitting in bedside couch in no acute distress. HEENT: Normocephalic, atraumatic. Conjunctiva clear. Nares patent without discharge. Mucous membranes moist, posterior pharynx unremarkable. NECK: Supple, no masses. CV: Regular rate and rhythm, no murmurs, rubs, or gallops. 2+ radial pulses. PULMONARY: Normal effort, clear to auscultation bilaterally, no wheezes, rales, or rhonchi. ABDOMEN: Positive bowel sounds in all 4 quadrants, soft, nontender, nondistended. EXTREMITIES: No edema, cyanosis, or clubbing. MUSCULOSKELETAL: Moves all extremities well. Palpable trigger points most prominent in the R trapezius region. NEUROLOGICAL: No obvious deficits. DERMATOLOGIC: No rashes or suspicious lesions in exposed areas. PSYCHIATRIC: Alert, interactive, appropriate affect.
== END 2018-08-25 10:36 | disposition home or self-care (01) | DRG 644 ==
LOC: KA.MS 11:22
PROVIDERS: ADMIT Nurse Practitioner Family; ATTEND Family Medicine
DX: E22.2 Syndrome of inappropriate secretion of antidiuretic hormone (principal); I13.0 Hypertensive heart and chronic kidney disease with heart failure and stage 1 through stage 4 chronic kidney disease, or unspecified chronic kidney disease; I50.30 Unspecified diastolic (congestive) heart failure; E87.5 Hyperkalemia; D64.9 Anemia, unspecified; F41.9 Anxiety disorder, unspecified; M62.838 Other muscle spasm; E02 Subclinical iodine-deficiency hypothyroidism; N18.3 Chronic kidney disease, stage 3 (moderate); C50.511 Malignant neoplasm of lower-outer quadrant of right female breast; J42 Unspecified chronic bronchitis; Z79.82 Long term (current) use of aspirin; Z79.899 Other long term (current) drug therapy; Z17.0 Estrogen receptor positive status [ER+]
CPT/HCPCS: 36415; 74018; 74021; 80048; 97162-GP; A9270-GY; J2405

== ENCOUNTER 2019-04-24 15:04 | Inpatient (IN) | payer MEDICARE, BC ==
[2019-04-24] MEDS: Furosemide 40 MG/4 ML VIAL IVPUSH SCH (17:47)
[2019-04-24] MEDS: Sodium Chloride 0.9% 10 ML Syringe FLUSH PRN (17:47)
[2019-04-24] MEDS ORDERED: Albuterol 8 GM Inhaler INH PRN (19:07)
[2019-04-24] MEDS ORDERED: Warfarin 2.5 MG Tab PO ONE (19:45)
[2019-04-24] MEDS: Metoprolol Tartrate 50 MG Tab PO SCH (20:44)
[2019-04-24] MEDS: hydrALAZINE 50 MG Tab PO SCH (20:45)
[2019-04-24] MEDS: LORazepam 0.5 MG Tab PO PRN (20:46)
[2019-04-24] MEDS: Doxazosin 2 MG Tab PO SCH (20:47)
[2019-04-24] MEDS: busPIRone 10 MG Tab PO SCH (20:55)
[2019-04-25] MEDS: Acetaminophen 325 MG Tab PO PRN ×2 (04:05→16:18)
[2019-04-25] MEDS: Budesonide/Formoterol 80-4.5 MCG/Puff 10.2 GM Inhaler INH SCH ×2 (04:07→14:04)
[2019-04-25] MEDS ORDERED: Levothyroxine 50 MCG Tab PO SCH (07:30)
[2019-04-25 08:27] LABS: ANION GAP 12.1 mmol/L (5-15); CHLORIDE,CL 92 mmol/L (98-115); SODIUM,NA 130 mmol/L (136-145)
[2019-04-25] MEDS ORDERED: Umeclidinium Bromide 62.5 MCG 30 Puff Inhaler IH SCH (09:00)
[2019-04-25] MEDS ORDERED: cloNIDine 0.1 MG/Day Transdermal Patch TRDERM SCH (09:00)
[2019-04-25] MEDS: Rosuvastatin 10 MG Tab PO SCH (09:37)
[2019-04-25] MEDS: hydrALAZINE 50 MG Tab PO SCH ×2 (09:37→20:33)
[2019-04-25] MEDS: Venlafaxine 150 MG Cap.ER PO SCH (09:37)
[2019-04-25] MEDS: busPIRone 10 MG Tab PO SCH ×2 (09:37→20:34)
[2019-04-25] MEDS: Furosemide 40 MG/4 ML VIAL IVPUSH SCH (09:37)
[2019-04-25] MEDS: Metoprolol Tartrate 50 MG Tab PO SCH ×2 (09:38→20:34)
[2019-04-25] MEDS: Sodium Chloride 0.9% 10 ML Syringe FLUSH PRN (09:39)
--- NOTE | 2019-04-25 11:03 | CR ---
[id number] RAD/RAD Chest PA And Lateral EXAM: RAD Chest PA And Lateral INDICATION: COUGH, SHORTNESS OF BREATH. COMPARISON: None. DISCUSSION: Cardiomediastinal silhouette is normal in size and contour. Small right pleural effusion. Left basilar atelectasis and/or infiltrate. Pulmonary hyperinflation. No pneumothorax. Surgical clips overlying the lower right hemithorax as well as the right axilla. IMPRESSION: Small right pleural effusion with left basilar atelectasis and/or infiltrate. Amanuel Cook DO 04/25/19 1103 Thank you for allowing us to participate in the care of your patient.
[2019-04-25] MEDS: Potassium Chloride 20 MEQ Tab.ER PO ONE ×2 (13:11→14:03)
[2019-04-25] MEDS: Magnesium Oxide 500 MG Tab PO SCH ×2 (13:11→20:36)
[2019-04-25] MEDS ORDERED: Potassium Chloride 20 MEQ Packet PO ONE (14:00)
[2019-04-25] MEDS: Anastrozole 1 MG Tab PO SCH (14:04)
--- NOTE | 2019-04-25 15:34 | PCM.PN ---
- General Info Date of Service: 04/25/19 Functional Status: Reports: Pain Controlled, Tolerating Diet, Ambulating, Urinating. Denies: New Symptoms - Review of Systems General: Reports: Weakness, Fatigue, Malaise, Chills. Denies: Fever HEENT: Denies: Headaches Pulmonary: Reports: Cough, Sputum. Denies: Shortness of Breath Cardiovascular: Reports: Dyspnea on Exertion, Edema. Denies: Chest Pain Gastrointestinal: Denies: Abdominal Pain, Constipation, Decreased Appetite, Diarrhea, Nausea, Vomiting Genitourinary: Reports: No Symptoms Skin: Reports: Other (incisions itchy) Neurological: Denies: Dizziness, Headache Psychiatric: Reports: No Symptoms - Patient Data Vitals - Most Recent: Last Vital Signs Temp 97 F 04/25/19 11:00 Pulse 61 04/25/19 11:00 Resp 16 04/25/19 11:00 BP 126/57 L 04/25/19 11:00 Pulse Ox 100 04/25/19 11:00 Weight - Most Recent: 211 lb 3 oz I&O - Last 24 Hours: Intake & Output 04/25/19 04/25/19 04/25/19 06:59 14:59 22:59 Intake Total 200 600 Output Total 500 1500 Balance -300 -900 Lab Results Last 24 Hours: Laboratory Results - last 24 hr 04/24/19 04/25/19 04/25/19 Range/Units 16:15 06:50 06:50 WBC 9.53 (5.00-10.00) 10^3/uL RBC 2.47 L (3.80-5.50) 10^6/uL Hgb 7.9 L D (12.0-16.0) g/dL Hct 24.6 L (37.0-47.0) % MCV 99.6 H (82.0-92.0) fL MCH 32.0 H (27.0-31.0) pg MCHC 32.1 (32.0-36.0) g/dL RDW 14.1 (11.5-14.5) % Plt Count 338 D (150-400) 10^3/uL MPV 10.2 (7.4-10.4) fL Immature Gran % (Auto) 0.8 (0.0-5.0) % Neut % (Auto) 82.0 H (50.0-70.0) % Lymph % (Auto) 6.4 L (20.0-40.0) % [place] % (Auto) 7.5 (2.0-8.0) % Eos % (Auto) 2.9 (1.0-3.0) % Baso % (Auto) 0.4 (0.0-1.0) % Immature Gran # (Auto) 0.08 (0.00-0.50) 10^3/uL Neut # (Auto) 7.81 H (2.50-7.00) 10^3/uL Lymph # (Auto) 0.61 L (1.00-4.00) 10^3/uL [place] # (Auto) 0.71 (0.10-0.80) 10^3/uL Eos # (Auto) 0.28 (0.10-0.30) 10^3/uL Baso # (Auto) 0.04 (0.00-0.10) 10^3/uL PT (8.9-11.4) SEC INR 2.0 H (0.9-1.1) Sodium 130 L (136-145) mmol/L Potassium 3.4 D (3.3-5.3) mmol/L Chloride 92 L (98-115) mmol/L Carbon Dioxide 29.3 (21.0-32.0) mmol/L Anion Gap 12.1 (5-15) mmol/L BUN 9 (6-25) mg/dL Creatinine 0.66 (0.51-1.17) mg/dL Est Cr Clr Drug Dosing 58.11 mL/min Estimated GFR (MDRD) > 60 mL/min Glucose 95 (75 - 99) mg/dL Calcium 7.3 L (8.7-10.3) mg/dL Magnesium 1.4 L (1.8-2.4) mg/dL Total Bilirubin 0.5 (0.2-1.0) mg/dL AST 33 (15-37) U/L ALT 21 (12-78) U/L Alkaline Phosphatase 138 H (46-116) IU/L Total Protein 6.1 L (6.4-8.2) g/dL Albumin 2.50 L (3.00-4.80) g/dL TSH, Ultra Sensitive (0.340-4.820) uIU/mL 02/01/20 02/01/20 Range/Units 06:50 07:15 WBC (5.00-10.00) 10^3/uL RBC (3.80-5.50) 10^6/uL Hgb (12.0-16.0) g/dL Hct (37.0-47.0) % MCV (82.0-92.0) fL MCH (27.0-31.0) pg MCHC (32.0-36.0) g/dL RDW (11.5-14.5) % Plt Count (150-400) 10^3/uL MPV (7.4-10.4) fL Immature Gran % (Auto) (0.0-5.0) % Neut % (Auto) (50.0-70.0) % Lymph % (Auto) (20.0-40.0) % Bradford % (Auto) (2.0-8.0) % Eos % (Auto) (1.0-3.0) % Baso % (Auto) (0.0-1.0) % Immature Gran # (Auto) (0.00-0.50) 10^3/uL Neut # (Auto) (2.50-7.00) 10^3/uL Lymph # (Auto) (1.00-4.00) 10^3/uL [place] # (Auto) (0.10-0.80) 10^3/uL Eos # (Auto) (0.10-0.30) 10^3/uL Baso # (Auto) (0.00-0.10) 10^3/uL PT 21.8 H (8.9-11.4) SEC INR 2.2 H (0.9-1.1) Sodium (136-145) mmol/L Potassium (3.3-5.3) mmol/L Chloride (98-115) mmol/L Carbon Dioxide (21.0-32.0) mmol/L Anion Gap (5-15) mmol/L BUN (6-25) mg/dL Creatinine (0.51-1.17) mg/dL Est Cr Clr Drug Dosing mL/min Estimated GFR (MDRD) mL/min Glucose (75 - 99) mg/dL Calcium (8.7-10.3) mg/dL Magnesium (1.8-2.4) mg/dL Total Bilirubin (0.2-1.0) mg/dL AST (15-37) U/L ALT (12-78) U/L Alkaline Phosphatase (46-116) IU/L Total Protein (6.4-8.2) g/dL Albumin (3.00-4.80) g/dL TSH, Ultra Sensitive 13.020 H (0.340-4.820) uIU/mL Med Orders - Current: Current Medications Acetaminophen (Tylenol) 650 mg PO Q4H PRN PRN Reason: Pain (mild 1-3) Last Admin: 04/25/19 04:05 Dose: 650 mg Albuterol (Ventolin Hfa) 0 gm INH Q4H PRN PRN Reason: Wheezing Anastrozole (Arimidex) 1 mg PO DAILY@1200 [facility] Last Admin: 04/25/19 14:04 Dose: Not Given Budesonide/Formoterol Fumarate (Symbicort 80-4.5 Mcg) 0 gm INH BID [facility] Last Admin: 04/25/19 14:04 Dose: Not Given Buspirone HCl (Buspar) 10 mg PO BID [facility] Last Admin: 04/25/19 09:37 Dose: 10 mg Clonidine HCl (Catapres-Tts 1) 0.1 mg TRDERM Q7D [facility] Last Admin: 04/25/19 09:39 Dose: 0.1 mg Doxazosin Mesylate (Cardura) 4 mg PO BEDTIME [facility] Last Admin: 04/24/19 20:47 Dose: 4 mg Furosemide (Lasix) 40 mg IVPUSH DAILY [facility] Last Admin: 04/25/19 09:37 Dose: 40 mg Hydralazine HCl (Apresoline) 100 mg PO BID [facility] Last Admin: 04/25/19 09:37 Dose: 100 mg Levothyroxine Sodium (Synthroid) 150 mcg PO ACBREAKFAST [facility] Last Admin: 04/25/19 06:53 Dose: 150 mcg Lorazepam (Ativan) 0.25 - 0.5 mg PO BEDTIME PRN PRN Reason: Anxiety Last Admin: 04/24/19 20:46 Dose: 0.5 mg Magnesium Oxide (Magnesium Oxide) 500 mg PO BID [facility] Last Admin: 04/25/19 13:11 Dose: 500 mg Metoprolol Tartrate (Lopressor) 75 mg PO BID [facility] Last Admin: 04/25/19 09:38 Dose: 75 mg Rosuvastatin Calcium (Crestor) 10 mg PO DAILY [facility] Last Admin: 04/25/19 09:37 Dose: 10 mg Sodium Chloride (Saline Flush) 10 ml FLUSH Q8HR PRN PRN Reason: keep vein open Last Admin: 04/25/19 09:39 Dose: 10 ml Umeclidinium [place] (Incruse Ellipta) 0 mcg IH DAILY [facility] Last Admin: 04/25/19 14:04 Dose: Not Given Venlafaxine HCl (Effexor Xr) 150 mg PO DAILY [facility] Last Admin: 04/25/19 09:37 Dose: 150 mg Warfarin Sodium (Pharmacy To Dose - Warfarin) 1 dose .XX ASDIRECTED [facility] Warfarin Sodium (Coumadin) 2.5 mg PO ONETIME ONE Stop: 04/25/19 18:01 Discontinued Medications Potassium Chloride (Klor-Con M20) 40 meq PO ONETIME ONE Stop: 04/25/19 11:49 Last Admin: 04/25/19 14:03 Dose: Not Given Potassium Chloride (Klor-Con) 40 meq PO ONETIME ONE Stop: 04/25/19 14:01 Last Admin: 04/25/19 14:33 Dose: 40 meq Warfarin Sodium (Coumadin) 2.5 mg PO 1800 [facility] Warfarin Sodium (Coumadin) 2.5 mg PO ONETIME ONE Stop: 04/24/19 19:46 Last Admin: 04/24/19 20:48 Dose: 2.5 mg - Exam Quality Assessment: DVT Prophylaxis (on warfarin). No: Supplemental Oxygen, Urine Catheter General: Alert, Oriented, Cooperative, No Acute Distress Lungs: Clear to Auscultation, Normal Respiratory Effort Cardiovascular: Regular Rate, Regular Rhythm, No Murmurs GI/Abdominal Exam: Normal Bowel Sounds, Soft, Non-Tender, No Distention Extremities: Other (1+ pitting edema to BLE from knees to feet with mild edema to thighs) Skin: Warm, Dry, Intact Wound/Incisions: Healing Well (LUQ and midline abdominal incisions: edges approximated without drainage/surrounding erythema) Neurological: Normal Speech Psy/Mental Status: Alert, Normal Affect, Normal Mood Sepsis Event Note - Evaluation Sepsis Screening Result: No Definite Risk - Focused Exam Vital Signs: Vital Signs Temp Pulse Pulse Resp BP BP Pulse Ox 04/25/19 11:00 97 F 61 16 126/57 L 100 04/25/19 09:39 138/57 L 04/25/19 09:38 62 138/57 L 04/25/19 09:37 138/57 L 04/25/19 07:00 97.7 F 68 18 148/63 H 97 Date Exam was Performed: 04/25/19 Time Exam was Performed: 15:36 - Problem List Review Problem List Initiated/Reviewed/Updated: Yes - My Orders Last 24 Hours: My Active Orders 04/24/19 15:05 Patient Status [ADT] Routine 04/24/19 15:40 MISCELLANEOUS CULT [MREF] Routine 04/24/19 15:43 MISCELLANEOUS CULT [MREF] Routine 04/24/19 16:29 Height and Weight [RC] DAILY Oxygen Therapy [RC] .PRN Up With Assistance [RC] ASDIRECTED Vital Signs [RC] 0300,0700,1100,1500,1900,2300 Sodium Chloride 0.9% [Saline Flush] 10 ml FLUSH Q8HR PRN Saline Lock Insert [OM.PC] Routine Resuscitation Status Routine 04/24/19 16:32 Intake and Output [RC] 1400,2200,0600 04/24/19 16:45 Furosemide [Lasix] 40 mg IVPUSH DAILY 04/24/19 19:07 Albuterol [Ventolin HFA] 0 gm INH Q4H PRN LORazepam [Ativan] 0.25 - 0.5 mg PO BEDTIME PRN 04/24/19 19:15 Pharmacy to Dose - Warfarin 1 dose .XX ASDIRECTED 04/24/19 21:00 Budesonide/Formoterol Fumarate [Symbicort 80-4.5 MCG] 0 gm INH BID Doxazosin [Cardura] 4 mg PO BEDTIME Metoprolol Tartrate [Lopressor] 75 mg PO BID busPIRone [Buspar] 10 mg PO BID hydrALAZINE [Apresoline] 100 mg PO BID 04/24/19 Dinner Heart Healthy Diet [DIET] 04/25/19 03:37 Acetaminophen [Tylenol] 650 mg PO Q4H PRN 04/25/19 07:05 PROCALCITONIN [REF] Routine 04/25/19 07:15 FERRITIN [REF] Routine FOLATE [REF] Routine IRON & TIBC [REF] Routine VITAMIN B12 [REF] Routine 04/25/19 07:30 Levothyroxine [Synthroid] 150 mcg PO ACBREAKFAST 04/25/19 07:49 Communication Order [RC] 0900,2100 04/25/19 09:00 Rosuvastatin [Crestor] 10 mg PO DAILY Umeclidinium [place] [Incruse Ellipta] 0 mcg IH DAILY Venlafaxine [Effexor XR] 150 mg PO DAILY cloNIDine [Catapres-TTS 1] 0.1 mg TRDERM Q7D 04/25/19 11:49 Incentive Spirometry [RT Incentive Spirometry] [RC] Q2HWA 04/25/19 12:00 Anastrozole [Arimidex] 1 mg PO DAILY@1200 Magnesium Oxide 500 mg PO BID 04/25/19 18:00 Warfarin [Coumadin] 2.5 mg PO ONETIME ONE 04/26/19 05:11 BASIC METABOLIC PANEL,BMP [CHEM] AM CBC WITH AUTO DIFF [HEME] AM MAGNESIUM [CHEM] AM - Assessment Assessment:: HPI: This is a 78 yo female who presented to the [facility] d/t increased shortness of breath, leg swelling, and weight gain. Patient had a planned colostomy takedown with extended left colectomy with coloprocto anastomosis with Dr. Crowell at [facility] on 04/13/19. She started noticing worsening leg swelling after being discharged. She tried taking an additional dose of bumex without improvement. Noted to be up 25 pounds since day of surgery admission. Pertinent Work-up: WBC 9.8 with neutrophilia Hgb 7.9 BNP 737 Creatinine 0.74 Given the low hemoglobin, Dr. Crowell was consulted. He recommended not to transfuse until hgb of 7 or less as he felt this was likely dilutional. Patient was subsequently admitted for IV diuresis and further monitoring/work-up. Primary assessment/plan: HFpEF exacerbation, improving. Weight down 2.8 lbs. Continue lasix 40 mg IV daily. Continue daily weights & accurate I & O. Creatinine 0.66. ECHO (08/2018) noted EF 65%, normal systolic function, unable to assess diastolic dysfunction d /t abnormal rhythm. Borderline low potassium of 3.4. Potassium 40 mEq po x 1 today. Recheck BMP in AM. Anemia d/t acute blood loss, unchanged. Hgb same at 7.9. Recheck in AM. Will contact surgeon if no improvement. No active signs of bleeding. Anemia work-up pending with folate, iron/tibc, b12, ferritin. Small right pleural effusion on CXR. Left basilar atelectasis and/or infiltrate. WBC 9.5 with mild neutrophilia, unchanged. Afebrile. Procalcitonin pending. IS q2h w/a. Hypomagnesemia. Mg 1.4. Replace with magnesium 500 mg po BID. Hypothyroidism. TSH 13.0. Increase levothyroxine to 175 mcg daily. Secondary assessment/plan: S/P colostomy takedown. Monitor stool output. Patient didn't start colace as was having soft stools. Mild-moderate mitral stenosis. Moderate pulmonary artery HTN. HTN. Continue doxazosin, hydralazine, lopressor, clonidine. Chronic venous insufficiency. PAF. Continue warfarin as directed. Simple chronic bronchitis. Continue home inhalers, however these will be therapeutic substitutions. HLD. Continue crestor. Obesity. SIADH. Na 130. Depression. Continue effexor XR. VAISHNAVI. Continue buspar, lorazepam. Insomnia. Generalized OA. Continue tylenol. 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 Breast cancer on right. DVT prophylaxis. On warfarin. Overall plan: Continue with IV diuresis and replacement of electrolytes. Monitor for signs and symptoms of bleeding. Repeat labs in AM.
[2019-04-25] MEDS ORDERED: Warfarin 2.5 MG Tab PO ONE (18:00)
[2019-04-25] MEDS ORDERED: Warfarin 2.5 MG Tab PO SCH (18:00)
[2019-04-25] MEDS: Melatonin 3 MG Tab PO PRN (20:34)
[2019-04-25] MEDS: Doxazosin 2 MG Tab PO SCH (20:34)
[2019-04-25] MEDS: Formoterol/Mometasone 100-5 MCG 8.8 GM Inhaler IH SCH (20:38)
[2019-04-25] MEDS: LORazepam 0.5 MG Tab PO PRN (22:20)
[2019-04-26] MEDS: VENTOLIN INH PRN ×2 (01:10→16:52)
[2019-04-26] MEDS: Levothyroxine 100 MCG Tab PO SCH (06:37)
[2019-04-26] MEDS: Levothyroxine 75 MCG Tab PO SCH (06:37)
[2019-04-26 08:17] LABS: ANION GAP 12.3 mmol/L (5-15); CHLORIDE,CL 92 mmol/L (98-115); SODIUM,NA 130 mmol/L (136-145)
[2019-04-26] MEDS: Rosuvastatin 10 MG Tab PO SCH (09:37)
[2019-04-26] MEDS: Magnesium Oxide 500 MG Tab PO SCH ×2 (09:37→22:25)
[2019-04-26] MEDS: Formoterol/Mometasone 100-5 MCG 8.8 GM Inhaler IH SCH ×2 (09:37→22:13)
[2019-04-26] MEDS: Venlafaxine 150 MG Cap.ER PO SCH (09:37)
[2019-04-26] MEDS: Glycopyrrolate 15.6 MCG Cap.W.Dev Kit of 6 IH SCH (09:37)
[2019-04-26] MEDS: busPIRone 10 MG Tab PO SCH ×2 (09:37→22:25)
[2019-04-26] MEDS: Furosemide 40 MG/4 ML VIAL IVPUSH SCH (09:38)
[2019-04-26] MEDS: Metoprolol Tartrate 50 MG Tab PO SCH ×2 (09:39→22:28)
[2019-04-26] MEDS: hydrALAZINE 50 MG Tab PO SCH ×2 (09:40→22:25)
[2019-04-26] MEDS: Sodium Chloride 0.9% 10 ML Syringe FLUSH PRN ×3 (09:45→22:24)
[2019-04-26] MEDS: Docusate Sodium 100 MG Cap PO SCH ×2 (11:07→22:25)
--- NOTE | 2019-04-26 12:00 | PCM.PN ---
- General Info Date of Service: 04/26/19 Functional Status: Reports: Pain Controlled, Tolerating Diet, Ambulating, Urinating, Incentive Spirometry - Review of Systems General: Reports: Fatigue, Malaise, Chills. Denies: Fever, Weakness HEENT: Denies: Headaches Pulmonary: Reports: Cough (improved), Sputum. Denies: Shortness of Breath Cardiovascular: Reports: Dyspnea on Exertion (improved), Edema. Denies: Chest Pain, Lightheadedness Gastrointestinal: Denies: Abdominal Pain, Constipation, Decreased Appetite, Diarrhea, Hematochezia, Nausea, Vomiting Genitourinary: Denies: Hematuria Neurological: Denies: Dizziness, Headache Psychiatric: Reports: No Symptoms - Patient Data Vitals - Most Recent: Last Vital Signs Temp 97.1 F 04/26/19 10:46 Pulse 58 L 04/26/19 10:46 Resp 16 04/26/19 10:46 BP 106/49 L 04/26/19 10:46 Pulse Ox 96 04/26/19 10:46 Weight - Most Recent: 210 lb I&O - Last 24 Hours: Intake & Output 04/25/19 04/26/19 04/26/19 22:59 06:59 14:59 Intake Total 525 50 Output Total 800 150 Balance -275 -100 Lab Results Last 24 Hours: Laboratory Results - last 24 hr 04/25/19 04/26/19 04/26/19 Range/Units 07:15 07:30 07:30 WBC 8.36 (5.00-10.00) 10^3/uL RBC 2.48 L (3.80-5.50) 10^6/uL Hgb 7.8 L (12.0-16.0) g/dL Hct 24.7 L (37.0-47.0) % MCV 99.6 H (82.0-92.0) fL MCH 31.5 H (27.0-31.0) pg MCHC 31.6 L (32.0-36.0) g/dL RDW 14.1 (11.5-14.5) % Plt Count 315 (150-400) 10^3/uL MPV 10.1 (7.4-10.4) fL Immature Gran % (Auto) 1.1 (0.0-5.0) % Neut % (Auto) 79.9 H (50.0-70.0) % Lymph % (Auto) 6.2 L (20.0-40.0) % [place] % (Auto) 9.7 H (2.0-8.0) % Eos % (Auto) 2.5 (1.0-3.0) % Baso % (Auto) 0.6 (0.0-1.0) % Immature Gran # (Auto) 0.09 (0.00-0.50) 10^3/uL Neut # (Auto) 6.68 (2.50-7.00) 10^3/uL Lymph # (Auto) 0.52 L (1.00-4.00) 10^3/uL [place] # (Auto) 0.81 H (0.10-0.80) 10^3/uL Eos # (Auto) 0.21 (0.10-0.30) 10^3/uL Baso # (Auto) 0.05 (0.00-0.10) 10^3/uL Sodium 130 L (136-145) mmol/L Potassium 4.0 (3.3-5.3) mmol/L Chloride 92 L (98-115) mmol/L Carbon Dioxide 29.7 (21.0-32.0) mmol/L Anion Gap 12.3 (5-15) mmol/L BUN 8 (6-25) mg/dL Creatinine 0.72 (0.51-1.17) mg/dL Est Cr Clr Drug Dosing 53.27 mL/min Estimated GFR (MDRD) > 60 mL/min Glucose 104 H (75 - 99) mg/dL Calcium 7.3 L (8.7-10.3) mg/dL Magnesium 1.4 L (1.8-2.4) mg/dL TSH, Ultra Sensitive 13.020 H (0.340-4.820) uIU/mL Med Orders - Current: Current Medications Acetaminophen (Tylenol) 650 mg PO Q4H PRN PRN Reason: Pain (mild 1-3) Last Admin: 04/25/19 16:18 Dose: 650 mg Anastrozole (Arimidex) 1 mg PO DAILY@1200 [facility] Last Admin: 04/25/19 14:04 Dose: Not Given Buspirone HCl (Buspar) 10 mg PO BID [facility] Last Admin: 04/26/19 09:37 Dose: 10 mg Clonidine HCl (Catapres-Tts 1) 0.1 mg TRDERM Q7D [facility] Last Admin: 04/25/19 09:39 Dose: 0.1 mg Docusate Sodium (Colace) 100 mg PO BID [facility] Last Admin: 04/26/19 11:07 Dose: 100 mg Doxazosin Mesylate (Cardura) 4 mg PO BEDTIME [facility] Last Admin: 04/25/19 20:34 Dose: 4 mg Furosemide (Lasix) 40 mg IVPUSH DAILY [facility] Last Admin: 04/26/19 09:38 Dose: 40 mg Furosemide (Lasix) 40 mg IVPUSH NOW ONE Stop: 04/26/19 21:01 Glycopyrrolate (Seebri Neohaler) 0 mcg IH DAILY [facility] Last Admin: 04/26/19 09:37 Dose: 1 puff Hydralazine HCl (Apresoline) 100 mg PO BID [facility] Last Admin: 04/26/19 09:40 Dose: 100 mg Levothyroxine Sodium (Synthroid) 100 mcg PO ACBREAKFAST [facility] Last Admin: 04/26/19 06:37 Dose: 100 mcg Levothyroxine Sodium (Levothyroxine) 75 mcg PO ACBREAKFAST [facility] Last Admin: 04/26/19 06:37 Dose: 75 mcg Lorazepam (Ativan) 0.25 - 0.5 mg PO BEDTIME PRN PRN Reason: Anxiety Last Admin: 04/25/19 22:20 Dose: 0.5 mg Magnesium Oxide (Magnesium Oxide) 500 mg PO BID [facility] Last Admin: 04/26/19 09:37 Dose: 500 mg Melatonin (Melatonin) 6 mg PO BEDTIME PRN PRN Reason: Insomnia Last Admin: 04/25/19 20:34 Dose: 6 mg Metoprolol Tartrate (Lopressor) 75 mg PO BID [facility] Last Admin: 04/26/19 09:39 Dose: 75 mg Mometasone Furoate/Formoterol Fumar (Dulera 100-5 Mcg) 0 puff IH BID [facility] Last Admin: 04/26/19 09:37 Dose: 1 puff Ventolin Inh Pt (Own ) 0 each INH Q4H PRN PRN Reason: Wheezing Last Admin: 04/26/19 01:10 Dose: 2 each Rosuvastatin Calcium (Crestor) 10 mg PO DAILY [facility] Last Admin: 04/26/19 09:37 Dose: 10 mg Sodium Chloride (Saline Flush) 10 ml FLUSH Q8HR PRN PRN Reason: keep vein open Last Admin: 04/26/19 09:45 Dose: 10 ml Venlafaxine HCl (Effexor Xr) 150 mg PO DAILY [facility] Last Admin: 04/26/19 09:37 Dose: 150 mg Warfarin Sodium (Pharmacy To Dose - Warfarin) 1 dose .XX ASDIRECTED [facility] Warfarin Sodium (Coumadin) 2.5 mg PO ONETIME ONE Stop: 04/26/19 18:01 Discontinued Medications Albuterol (Ventolin Hfa) 0 gm INH Q4H PRN PRN Reason: Wheezing Budesonide/Formoterol Fumarate (Symbicort 80-4.5 Mcg) 0 gm INH BID [facility] Last Admin: 04/25/19 14:04 Dose: Not Given Levothyroxine Sodium (Synthroid) 150 mcg PO ACBREAKFAST [facility] Last Admin: 04/25/19 06:53 Dose: 150 mcg Potassium Chloride (Klor-Con M20) 40 meq PO ONETIME ONE Stop: 04/25/19 11:49 Last Admin: 04/25/19 14:03 Dose: Not Given Potassium Chloride (Klor-Con) 40 meq PO ONETIME ONE Stop: 04/25/19 14:01 Last Admin: 04/25/19 14:33 Dose: 40 meq Umeclidinium [place] (Incruse Ellipta) 0 mcg IH DAILY [facility] Last Admin: 04/25/19 14:04 Dose: Not Given Warfarin Sodium (Coumadin) 2.5 mg PO 1800 [facility] Warfarin Sodium (Coumadin) 2.5 mg PO ONETIME ONE Stop: 04/24/19 19:46 Last Admin: 04/24/19 20:48 Dose: 2.5 mg Warfarin Sodium (Coumadin) 2.5 mg PO ONETIME ONE Stop: 04/25/19 18:01 Last Admin: 04/25/19 18:34 Dose: 2.5 mg - Exam Quality Assessment: DVT Prophylaxis (on warfarin). No: Supplemental Oxygen, Urine Catheter General: Alert, Oriented, Cooperative, No Acute Distress Lungs: Clear to Auscultation, Normal Respiratory Effort Cardiovascular: Regular Rate, Regular Rhythm, No Murmurs GI/Abdominal Exam: Normal Bowel Sounds, Soft, Non-Tender, No Distention Extremities: Other (1+ pitting edema to BLE, R>L) Skin: Warm, Dry, Intact Wound/Incisions: Healing Well Neurological: Normal Gait, Normal Speech Psy/Mental Status: Alert, Normal Affect, Normal Mood Sepsis Event Note - Evaluation Sepsis Screening Result: No Definite Risk - Focused Exam Vital Signs: Vital Signs Temp Pulse Pulse Resp BP BP Pulse Ox 04/26/19 10:46 97.1 F 58 L 16 106/49 L 96 04/26/19 09:40 124/49 L 04/26/19 09:39 59 L 124/49 L 04/26/19 07:00 97.4 F 61 20 162/60 H 97 04/26/19 02:52 97.6 F 63 16 121/57 L 97 Date Exam was Performed: 04/26/19 Time Exam was Performed: 12:01 - Problem List Review Problem List Initiated/Reviewed/Updated: Yes - My Orders Last 24 Hours: My Active Orders 04/25/19 11:49 Incentive Spirometry [RT Incentive Spirometry] [RC] Q2HWA 04/25/19 12:00 Anastrozole [Arimidex] 1 mg PO DAILY@1200 Magnesium Oxide 500 mg PO BID 04/25/19 16:30 Melatonin 6 mg PO BEDTIME PRN 04/25/19 21:00 Mometasone/Formoterol [Dulera 100-5 MCG] 0 puff IH BID 04/26/19 02:15 Non-Formulary Medication [NF Drug] 0 each INH Q4H PRN 04/26/19 07:30 Levothyroxine 75 mcg PO ACBREAKFAST Levothyroxine [Synthroid] 100 mcg PO ACBREAKFAST 04/26/19 09:00 Glycopyrrolate [Seebri Neohaler] 0 mcg IH DAILY 04/26/19 10:00 Docusate Sodium [Colace] 100 mg PO BID 04/26/19 11:14 TYPE AND SCREEN [BBK] Routine Transfuse RBC [Transfuse Red Blood Cells] [COMM] Routine 04/26/19 18:00 Warfarin [Coumadin] 2.5 mg PO ONETIME ONE 04/26/19 21:00 Furosemide [Lasix] 40 mg IVPUSH NOW ONE 04/27/19 05:11 BASIC METABOLIC PANEL,BMP [CHEM] AM CBC WITH AUTO DIFF [HEME] AM MAGNESIUM [CHEM] AM - Assessment Assessment:: HPI: This is a 78 yo female who presented to the [facility] d/t increased shortness of breath, leg swelling, and weight gain. Patient had a planned colostomy takedown with extended left colectomy with coloprocto anastomosis with Dr. Crowell at [facility] on 04/13/19. She started noticing worsening leg swelling after being discharged. She tried taking an additional dose of bumex without improvement. Noted to be up 25 pounds since day of surgery admission. Pertinent Work-up: WBC 9.8 with neutrophilia Hgb 7.9 BNP 737 Creatinine 0.74 Given the low hemoglobin, Dr. Crowell was consulted. He recommended not to transfuse until hgb of 7 or less as he felt this was likely dilutional. Patient was subsequently admitted for IV diuresis and further monitoring/work-up. Primary assessment/plan: HFpEF exacerbation, improving. Weight down 1 lb. overnight for a total of 4 lbs since admission. Continue lasix 40 mg IV daily. Continue daily weights & accurate I & O. Creatinine 0.72. ECHO (08/2018) noted EF 65%, normal systolic function, unable to assess diastolic dysfunction d/t abnormal rhythm. Hypokalemia, resolved. K 4.0. Patient ate 1.5 bananas this morning as she doesn' t tolerate the oral potassium very well. BMP in AM. Anemia d/t acute blood loss, unchanged. Hgb 7.8. Anemia work-up pending. No signs of active bleeding. No oxygen requirement. Consulted colorectal surgeon, Dr. Crowell, who is in agreement to give 1 unit PRBCs today with lasix 40 mg IV afterwards. She has her surgical follow-up with him this coming week. CBC in AM. Small right pleural effusion on CXR. Left basilar atelectasis and/or infiltrate. WBC 8.4 with mild neutrophilia. Afebrile. Procalcitonin pending. IS q2h w/a. Hypomagnesemia. Mg 1.4. Continue magnesium 500 mg po BID along with a 1 time IV dose of MagSulfate after blood transfusion. Recheck Mg in AM. Hypothyroidism. TSH 13.0. Increase levothyroxine to 175 mcg daily. Secondary assessment/plan: S/P colostomy takedown. Start colace 100 mg po BID. Mild-moderate mitral stenosis. Moderate pulmonary artery HTN. HTN. Continue doxazosin, hydralazine, lopressor, clonidine. Chronic venous insufficiency. PAF. Continue warfarin as directed. Simple chronic bronchitis. Continue home inhalers, however these will be therapeutic substitutions. HLD. Continue crestor. Obesity. SIADH. Na 130. Depression. Continue effexor XR. VAISHNAVI. Continue buspar, lorazepam. Insomnia. Generalized OA. Continue tylenol. 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 Breast cancer on right. DVT prophylaxis. On warfarin. Overall plan: Transfuse 1 unit of PRBCs followed by IV lasix. Repeat labs in the AM. Anticipate discharge in the morning pending clinical and laboratory picture.
[2019-04-26] MEDS: Anastrozole 1 MG Tab PO SCH (13:13)
[2019-04-26] MEDS: Acetaminophen 325 MG Tab PO PRN (14:43)
[2019-04-26] MEDS ORDERED: Sodium Chloride 0.9% 250 ML IV SCH (15:00)
[2019-04-26] MEDS ORDERED: Magnesium Sulfate/Water 2 GM in Premix Bag 1 BAG IV SCH (17:00)
[2019-04-26] MEDS ORDERED: Warfarin 2.5 MG Tab PO ONE (18:00)
[2019-04-26] MEDS: Furosemide 40 MG/4 ML VIAL IVPUSH ONE ×2 (19:40→22:14)
[2019-04-26] MEDS: Doxazosin 2 MG Tab PO SCH (22:23)
[2019-04-26] MEDS: LORazepam 0.5 MG Tab PO PRN (22:25)
[2019-04-26] MEDS: Melatonin 3 MG Tab PO PRN (22:26)
[2019-04-27] MEDS: Levothyroxine 100 MCG Tab PO SCH (06:32)
[2019-04-27] MEDS: Levothyroxine 75 MCG Tab PO SCH (06:32)
[2019-04-27 07:59] LABS: ANION GAP 9.1 mmol/L (5-15); CHLORIDE,CL 92 mmol/L (98-115); SODIUM,NA 128 mmol/L (136-145)
[2019-04-27] MEDS: Formoterol/Mometasone 100-5 MCG 8.8 GM Inhaler IH SCH (08:21)
[2019-04-27] MEDS: Glycopyrrolate 15.6 MCG Cap.W.Dev Kit of 6 IH SCH (08:35)
[2019-04-27] MEDS: Magnesium Oxide 500 MG Tab PO SCH (08:57)
[2019-04-27] MEDS: Metoprolol Tartrate 50 MG Tab PO SCH (08:59)
[2019-04-27] MEDS: Docusate Sodium 100 MG Cap PO SCH (08:59)
[2019-04-27] MEDS: Venlafaxine 150 MG Cap.ER PO SCH (08:59)
[2019-04-27] MEDS: Rosuvastatin 10 MG Tab PO SCH (08:59)
[2019-04-27] MEDS: busPIRone 10 MG Tab PO SCH (08:59)
[2019-04-27] MEDS: hydrALAZINE 50 MG Tab PO SCH (09:00)
[2019-04-27] MEDS ORDERED: Bumetanide 1 MG Tab PO ONE (09:42)
--- NOTE | 2019-04-27 10:12 | PCM.DCSUM1 ---
Discharge Summary - Discharge Data Discharge Date: 04/27/19 Discharge Disposition: Home, Self-Care 01 Condition: Good - Referral to Home Health Primary Care Physician: Veronica Diamond NP - Patient Instructions Diet: Heart Healthy Diet Fluid Restriction: 1500 mL (Sodium level was 128 this morning) Activity: As Tolerated, Cough & Deep Breathe, No Strenuous Activities, Rest and Relax Today Driving: Do Not Drive Showering/Bathing: May Shower, No Tub Bathing/Swimming Wound/Incision Care: Keep Operative Site/Wound Site Clean and Dry Notify Provider of: Fever (weight gain of more than 3 pounds in 2 days, shortness of breath, chest pain), Increased Pain, Swelling and Redness, Drainage , Nausea and/or Vomiting Other/Special Instructions: Please weigh yourself daily at home and notify myself if you have a 3 pound weight gain in 2 days. I have updated the [facility] regarding your INR from today, which was normal at 2.6. - Discharge Plan *PRESCRIPTION DRUG MONITORING PROGRAM REVIEWED*: Not Applicable *COPY OF PRESCRIPTION DRUG MONITORING REPORT IN PATIENT BEATRICE: Not Applicable Prescriptions/Med Rec: Bumetanide [Bumex] 1 mg PO DAILY #90 tab Docusate Sodium [Colace] 100 mg PO BID #60 cap Levothyroxine 175 mcg PO ACBREAKFAST #60 tab Magnesium Oxide 500 mg PO BID #60 tablet Melatonin 6 mg PO BEDTIME PRN #30 tablet PRN Reason: Insomnia Potassium Chloride 10 meq PO DAILY #90 capsule.er Home Medications: Home Meds Albuterol [IJD: Ventolin HFA] 1 - 2 puff INH Q4H PRN 10/15/16 [History] Anastrozole [Arimidex] 1 mg PO DAILY@1200 10/15/16 [History] Rosuvastatin [Crestor] 10 mg PO DAILY 02/20/18 [History] Doxazosin Mesylate [Cardura] 4 mg PO BEDTIME 08/09/18 [History] busPIRone [Buspar] 10 mg PO BID 08/09/18 [History] hydrALAZINE [Apresoline] 100 mg PO BID 08/09/18 [History] cloNIDine [Catapres-TTS 1] 0.1 mg TRDERM WEEKLY 08/18/18 [History] Umeclidinium [place] [Incruse Ellipta*] 1 puff INH DAILY 08/19/18 [History] Budesonide/Formoterol Fumarate [Symbicort 80-4.5 MCG] 1 puff IH BID 04/24/19 [ History] LORazepam [Ativan] 0.5 - 1 tab PO BEDTIME PRN 04/24/19 [History] Metoprolol Tartrate [Lopressor] 75 mg PO BID 04/24/19 [History] Venlafaxine [Effexor XR] 150 mg PO DAILY 04/24/19 [History] Warfarin [Coumadin] 2.5 mg PO 1800 04/24/19 [History] Bumetanide [Bumex] 1 mg PO DAILY #90 tab 04/27/19 [Rx] Docusate Sodium [Colace] 100 mg PO BID #60 cap 04/27/19 [Rx] Levothyroxine 175 mcg PO ACBREAKFAST #60 tab 04/27/19 [Rx] Magnesium Oxide 500 mg PO BID #60 tablet 04/27/19 [Rx] Melatonin 6 mg PO BEDTIME PRN #30 tablet 04/27/19 [Rx] Potassium Chloride 10 meq PO DAILY #90 capsule.er 04/27/19 [Rx] Referrals: Veronica Diamond NP [Primary Care Provider] - 05/01/19 - Discharge Summary/Plan Comment DC Time >30 min.: Yes Discharge Summary/Plan Comment: Date of admission: 04/24/19 Date of discharge: 04/27/19 Admitting diagnosis: Primary: HFpEF exacerbation, Anemia d/t acute blood loss, Small right pleural effusion, Left basilar atelectasis, Hypomagnesemia Secondary: Hypothyroidism, S/P colostomy takedown, Mild-moderate mitral stenosis, Moderate PAH, HTN, Chronic venous insufficiency, PAF, Simple chronic bronchitis, HLD, Obesity, SIADH, Depression, VAISHNAVI, Insomnia, Generalized OA, Estrogen receptor positive tumor status, Breast cancer on right Final diagnosis: Primary: HFpEF exacerbation, resolved; Anemia d/t acute blood loss, improving ; Small right pleural effusion, stable; Left basilar atelectasis, stable; Hypomagnesemia, resolved. Secondary: Hypothyroidism, S/P colostomy takedown, Mild-moderate mitral stenosis, Moderate PAH, HTN, Chronic venous insufficiency, PAF, Simple chronic bronchitis, HLD, Obesity, SIADH, Depression, VAISHNAVI, Insomnia, Generalized OA, Estrogen receptor positive tumor status, Breast cancer on right Procedures performed: None Complications: None Brief History: This is a 78 yo female who presented to the [facility] d/t increased shortness of breath, leg swelling, and weight gain. Patient had a planned colostomy takedown with extended left colectomy with coloprocto anastomosis with Dr. Crowell at [facility] on 04/13/19. She started noticing worsening leg swelling after being discharged. She tried taking an additional dose of bumex without improvement. Noted to be up 25 pounds since day of surgery admission. Pertinent Work-up: WBC 9.8 with neutrophilia Hgb 7.9 BNP 737 Creatinine 0.74 Given the low hemoglobin, Dr. Crowell was consulted. He recommended not to transfuse until hgb of 7 or less as he felt this was likely dilutional. Patient was subsequently admitted for IV diuresis and further monitoring/work-up. Hospital Course: The patient's hospital course progressed as expected. She was given IV lasix with a total of 6.1 pounds diuresed. Correction of hypokalemia and hypomagnesemia was performed with oral supplementation and one time IV MagSulfate supplementation. She remained hemodynamically stable and afebrile. She used the incentive spirometer. Despite diuresis of fluid, her hemoglobin remained low at 7.8. Consulted with Dr. Crowell, colorectal surgeon, and it was agreed that given her CAD history she be transfused 1 unit PRBCs with lasix IV afterwards. This improved her hemoglobin and symptoms of fatigue and SOB. Pertinent Labs/Discharge Labs: Hgb 8.7 MCV 94.5 (H) MCH 30.0 RDW 16.8 (H) WBC 7.77 with 79.9% neutrophils INR 2.6 Na 128 K 3.8 Creatinine 0.69 Mg 1.8 TSH 13.02 Labs pending on discharge: -Procalcitonin -Anemia studies New medications on discharge: -Magnesium 500 mg po BID -Melatonin 6 mg po at HS PRN -Potassium Chloride 10 mEq po daily (capsule) -Colace 100 mg po BID Changes to home medications on discharge: -Increase bumex to 1 mg po daily -Increase levothyroxine to 175 mcg po daily Regular home medications on discharge: -Lorazepam 0.25-0.50 mg po at HS PRN -Symbicort 80-4.5 mg 1 puff inh BID -Warfarin 2.5 mg po daily ([facility]tico[facility] Clinic notified of recent INR and dose) -Lopressor 75 mg po BID -Arimidex 1 mg po daily -Albuterol HFA 1-2 puff INH q4h PRN -Doxazosin 4 mg po at HS -Crestor 10 mg po daily -Incruse Ellipta 1 puff INH daily -Effexor XR 150 mg po daily -Buspar 10 mg po BID -Clonidine 0.1 mg transdermal weekly -Hydralazine 100 mg po BID Condition, Treatment, & Final Disposition: The patient is in stable condition at the time of discharge. She will be discharged home with her son this afternoon. She will follow-up with her surgeon, Dr. Crowell, tomorrow (04/28/19) and with myself on 05/01/19. She has been asked to follow a 1500 mL fluid restriction given her low sodium and SIADH. - General Info Date of Service: 04/27/19 Functional Status: Reports: Pain Controlled, Tolerating Diet, Ambulating, Urinating, Incentive Spirometry. Denies: New Symptoms - Review of Systems General: Reports: Chills. Denies: Fever, Weakness, Fatigue, Malaise HEENT: Reports: Glasses. Denies: Headaches Pulmonary: Denies: Shortness of Breath, Cough, Sputum Cardiovascular: Reports: Dyspnea on Exertion (improved), Edema. Denies: Chest Pain, Lightheadedness Gastrointestinal: Reports: Decreased Appetite. Denies: Abdominal Pain, Constipation, Diarrhea, Nausea, Vomiting Genitourinary: Reports: No Symptoms 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: Reports: No Symptoms Skin: Reports: Other (itching around incisions) Neurological: Denies: Dizziness, Headache Psychiatric: Reports: No Symptoms - Patient Data Vitals - Most Recent: Last Vital Signs Temp 97.4 F 04/27/19 06:26 Pulse 70 04/27/19 08:59 Resp 18 04/27/19 06:26 BP 119/38 L 04/27/19 09:00 Pulse Ox 96 04/27/19 08:35 Weight - Most Recent: 207 lb 9.6 oz I&O - Last 24 hours: Intake & Output 04/26/19 04/27/19 04/27/19 22:59 06:59 14:59 Intake Total 1304 202 Output Total 675 900 Balance 629 -698 Lab Results - Last 24 hrs: Laboratory Results - last 24 hr 04/26/19 04/27/19 04/27/19 Range/Units 07:30 07:15 07:15 WBC 7.76 (5.00-10.00) 10^3/uL RBC 2.90 L (3.80-5.50) 10^6/uL Hgb 8.7 L (12.0-16.0) g/dL Hct 27.4 L (37.0-47.0) % MCV 94.5 H D (82.0-92.0) fL MCH 30.0 (27.0-31.0) pg MCHC 31.8 L (32.0-36.0) g/dL RDW 16.8 H (11.5-14.5) % Plt Count 299 (150-400) 10^3/uL MPV 9.9 (7.4-10.4) fL Immature Gran % (Auto) 0.6 (0.0-5.0) % Neut % (Auto) 79.9 H (50.0-70.0) % Lymph % (Auto) 6.4 L (20.0-40.0) % [place] % (Auto) 10.1 H (2.0-8.0) % Eos % (Auto) 2.1 (1.0-3.0) % Baso % (Auto) 0.9 (0.0-1.0) % Immature Gran # (Auto) 0.05 (0.00-0.50) 10^3/uL Neut # (Auto) 6.20 (2.50-7.00) 10^3/uL Lymph # (Auto) 0.50 L (1.00-4.00) 10^3/uL [place] # (Auto) 0.78 (0.10-0.80) 10^3/uL Eos # (Auto) 0.16 (0.10-0.30) 10^3/uL Baso # (Auto) 0.07 (0.00-0.10) 10^3/uL PT 25.8 H (8.9-11.4) SEC INR 2.6 H (0.9-1.1) Sodium (136-145) mmol/L Potassium (3.3-5.3) mmol/L Chloride (98-115) mmol/L Carbon Dioxide (21.0-32.0) mmol/L Anion Gap (5-15) mmol/L BUN (6-25) mg/dL Creatinine (0.51-1.17) mg/dL Est Cr Clr Drug Dosing mL/min Estimated GFR (MDRD) mL/min Glucose (75 - 99) mg/dL Calcium (8.7-10.3) mg/dL Magnesium (1.8-2.4) mg/dL Blood Type B POSITIVE Gel Antibody Screen Negative Crossmatch See Detail 04/27/19 Range/Units 07:15 WBC (5.00-10.00) 10^3/uL RBC (3.80-5.50) 10^6/uL Hgb (12.0-16.0) g/dL Hct (37.0-47.0) % MCV (82.0-92.0) fL MCH (27.0-31.0) pg MCHC (32.0-36.0) g/dL RDW (11.5-14.5) % Plt Count (150-400) 10^3/uL MPV (7.4-10.4) fL Immature Gran % (Auto) (0.0-5.0) % Neut % (Auto) (50.0-70.0) % Lymph % (Auto) (20.0-40.0) % [place] % (Auto) (2.0-8.0) % Eos % (Auto) (1.0-3.0) % Baso % (Auto) (0.0-1.0) % Immature Gran # (Auto) (0.00-0.50) 10^3/uL Neut # (Auto) (2.50-7.00) 10^3/uL Lymph # (Auto) (1.00-4.00) 10^3/uL [place] # (Auto) (0.10-0.80) 10^3/uL Eos # (Auto) (0.10-0.30) 10^3/uL Baso # (Auto) (0.00-0.10) 10^3/uL PT (8.9-11.4) SEC INR (0.9-1.1) Sodium 128 L (136-145) mmol/L Potassium 3.8 (3.3-5.3) mmol/L Chloride 92 L (98-115) mmol/L Carbon Dioxide 30.7 (21.0-32.0) mmol/L Anion Gap 9.1 (5-15) mmol/L BUN 7 (6-25) mg/dL Creatinine 0.69 (0.51-1.17) mg/dL Est Cr Clr Drug Dosing 55.58 mL/min Estimated GFR (MDRD) > 60 mL/min Glucose 105 H (75 - 99) mg/dL Calcium 7.3 L (8.7-10.3) mg/dL Magnesium 1.8 (1.8-2.4) mg/dL Blood Type Gel Antibody Screen Crossmatch Med Orders - Current: Current Medications Acetaminophen (Tylenol) 650 mg PO Q4H PRN PRN Reason: Pain (mild 1-3) Last Admin: 04/26/19 14:43 Dose: 650 mg Anastrozole (Arimidex) 1 mg PO DAILY@1200 [facility] Last Admin: 04/26/19 13:13 Dose: Not Given Buspirone HCl (Buspar) 10 mg PO BID [facility] Last Admin: 04/27/19 08:59 Dose: 10 mg Clonidine HCl (Catapres-Tts 1) 0.1 mg TRDERM Q7D [facility] Last Admin: 04/25/19 09:39 Dose: 0.1 mg Docusate Sodium (Colace) 100 mg PO BID [facility] Last Admin: 04/27/19 08:59 Dose: 100 mg Doxazosin Mesylate (Cardura) 4 mg PO BEDTIME [facility] Last Admin: 04/26/19 22:23 Dose: 4 mg Glycopyrrolate (Seebri Neohaler) 0 mcg IH DAILY [facility] Last Admin: 04/27/19 08:35 Dose: 1 puff Hydralazine HCl (Apresoline) 100 mg PO BID [facility] Last Admin: 04/27/19 09:00 Dose: 100 mg Sodium Chloride (Normal Saline) 250 mls @ 100 mls/hr IV ASDIRECTED [facility] Last Admin: 04/26/19 15:23 Dose: 100 mls/hr Levothyroxine Sodium (Synthroid) 100 mcg PO ACBREAKFAST [facility] Last Admin: 04/27/19 06:32 Dose: 100 mcg Levothyroxine Sodium (Levothyroxine) 75 mcg PO ACBREAKFAST [facility] Last Admin: 04/27/19 06:32 Dose: 75 mcg Lorazepam (Ativan) 0.25 - 0.5 mg PO BEDTIME PRN PRN Reason: Anxiety Last Admin: 04/26/19 22:25 Dose: 0.5 mg Magnesium Oxide (Magnesium Oxide) 500 mg PO BID [facility] Last Admin: 04/27/19 08:57 Dose: 500 mg Melatonin (Melatonin) 6 mg PO BEDTIME PRN PRN Reason: Insomnia Last Admin: 04/26/19 22:26 Dose: 6 mg Metoprolol Tartrate (Lopressor) 75 mg PO BID [facility] Last Admin: 04/27/19 08:59 Dose: 75 mg Mometasone Furoate/Formoterol Fumar (Dulera 100-5 Mcg) 0 puff IH BID [facility] Last Admin: 04/27/19 08:21 Dose: 1 puff Ventolin Inh Pt (Own ) 0 each INH Q4H PRN PRN Reason: Wheezing Last Admin: 04/26/19 16:52 Dose: 1 each Rosuvastatin Calcium (Crestor) 10 mg PO DAILY [facility] Last Admin: 04/27/19 08:59 Dose: 10 mg Sodium Chloride (Saline Flush) 10 ml FLUSH Q8HR PRN PRN Reason: keep vein open Last Admin: 04/26/19 22:24 Dose: 10 ml Venlafaxine HCl (Effexor Xr) 150 mg PO DAILY [facility] Last Admin: 04/27/19 08:59 Dose: 150 mg Warfarin Sodium (Pharmacy To Dose - Warfarin) 1 dose .XX ASDIRECTED [facility] Warfarin Sodium (Coumadin) 2.5 mg PO DAILY@1800 [facility] Discontinued Medications Albuterol (Ventolin Hfa) 0 gm INH Q4H PRN PRN Reason: Wheezing Budesonide/Formoterol Fumarate (Symbicort 80-4.5 Mcg) 0 gm INH BID [facility] Last Admin: 04/25/19 14:04 Dose: Not Given Bumetanide (Bumex) 1 mg PO ONETIME ONE Stop: 04/27/19 09:43 Furosemide (Lasix) 40 mg IVPUSH DAILY [facility] Last Admin: 04/26/19 09:38 Dose: 40 mg Furosemide (Lasix) 40 mg IVPUSH NOW ONE Stop: 04/26/19 21:01 Last Admin: 04/26/19 22:14 Dose: Not Given Magnesium Sulfate 2 gm/ Premix 50 mls @ 25 mls/hr IV ASDIRECTED [facility] Last Admin: 04/26/19 20:05 Dose: 25 mls/hr Levothyroxine Sodium (Synthroid) 150 mcg PO ACBREAKFAST [facility] Last Admin: 04/25/19 06:53 Dose: 150 mcg Potassium Chloride (Klor-Con M20) 40 meq PO ONETIME ONE Stop: 04/25/19 11:49 Last Admin: 04/25/19 14:03 Dose: Not Given Potassium Chloride (Klor-Con) 40 meq PO ONETIME ONE Stop: 04/25/19 14:01 Last Admin: 04/25/19 14:33 Dose: 40 meq Umeclidinium [place] (Incruse Ellipta) 0 mcg IH DAILY [facility] Last Admin: 04/25/19 14:04 Dose: Not Given Warfarin Sodium (Coumadin) 2.5 mg PO 1800 [facility] Warfarin Sodium (Coumadin) 2.5 mg PO ONETIME ONE Stop: 04/24/19 19:46 Last Admin: 04/24/19 20:48 Dose: 2.5 mg Warfarin Sodium (Coumadin) 2.5 mg PO ONETIME ONE Stop: 04/25/19 18:01 Last Admin: 04/25/19 18:34 Dose: 2.5 mg Warfarin Sodium (Coumadin) 2.5 mg PO ONETIME ONE Stop: 04/26/19 18:01 Last Admin: 04/26/19 18:16 Dose: 2.5 mg - Exam Quality Assessment: Reports: DVT Prophylaxis (on warfarin). Denies: Supplemental Oxygen, Urine Catheter General: Reports: Alert, Oriented, Cooperative, No Acute Distress Lungs: Reports: Clear to Auscultation (R lung lazcano & RADHA), Normal Respiratory Effort, Crackles (LLL). Denies: Wheezing Cardiovascular: Reports: Regular Rate, Regular Rhythm, Murmurs (2/6 systolic heard over aorta) GI/Abdominal Exam: Normal Bowel Sounds, Soft, Non-Tender, No Distention Extremities: Other (1+ pitting edema to BLE) Skin: Reports: Warm, Dry, Intact Wound/Incisions: Reports: Healing Well (milla intact, edges approximated with surrounding skin pink and no drainage) Neurological: Reports: Normal Speech, Normal Tone Psy/Mental Status: Reports: Alert, Normal Affect, Normal Mood
[2019-04-27 11:49] VITALS: BP 119/54; PULSE 54
[2019-04-27] MEDS: Anastrozole 1 MG Tab PO SCH (12:48)
[2019-04-27] MEDS: Acetaminophen 325 MG Tab PO PRN (15:23)
[2019-04-27] MEDS ORDERED: Warfarin 2.5 MG Tab PO SCH (18:00)
== END 2019-04-27 15:55 | disposition home or self-care (01) | DRG 291 ==
LOC: KA.MS 15:04
PROVIDERS: ADMIT Nurse Practitioner Family; ATTEND Nurse Practitioner Family
PROC: 30233N1 Transfusion of Nonautologous Red Blood Cells into Peripheral Vein, Percutaneous Approach (ICD-10-PCS; principal; 2019-04-26)
DX: I13.0 Hypertensive heart and chronic kidney disease with heart failure and stage 1 through stage 4 chronic kidney disease, or unspecified chronic kidney disease (principal); I50.33 Acute on chronic diastolic (congestive) heart failure; D62 Acute posthemorrhagic anemia; J98.11 Atelectasis; E22.2 Syndrome of inappropriate secretion of antidiuretic hormone; E83.42 Hypomagnesemia; E03.9 Hypothyroidism, unspecified; N18.3 Chronic kidney disease, stage 3 (moderate); I05.0 Rheumatic mitral stenosis; I27.21 Secondary pulmonary arterial hypertension; I87.2 Venous insufficiency (chronic) (peripheral); J41.0 Simple chronic bronchitis; E78.5 Hyperlipidemia, unspecified; E66.9 Obesity, unspecified; F32.9 Major depressive disorder, single episode, unspecified; I48.0 Paroxysmal atrial fibrillation; E87.6 Hypokalemia; F41.1 Generalized anxiety disorder; G47.00 Insomnia, unspecified; M19.90 Unspecified osteoarthritis, unspecified site; Z85.3 Personal history of malignant neoplasm of breast; Z79.899 Other long term (current) drug therapy; Z93.3 Colostomy status; Z79.01 Long term (current) use of anticoagulants; Z79.890 Hormone replacement therapy; Z68.36 Body mass index [BMI] 36.0-36.9, adult
CPT/HCPCS: 36415; 36430; 71046; 80048; 80053; 82607; 82728; 82746; 83540; 83550; 83735; 84145; 84443; 85025; 85610; 86850; 86900; 86901; 86920; 86922; 87070; 87186; 87205; 94640; A9270-GY; J1940; J3475; J7050; P9016

== ENCOUNTER 2020-01-15 12:42 | Observation (INO) | payer MEDICARE, BC ==
--- NOTE | 2020-01-15 13:23 | EDM.PDOC ---
ED HPI GENERAL MEDICAL PROBLEM - General Chief Complaint: ENT Problem Stated Complaint: BLOODY NOSE Time Seen by Provider: 01/15/20 12:57 Source of Information: Reports: Patient History Limitations: Reports: No Limitations - History of Present Illness INITIAL COMMENTS - FREE TEXT/NARRATIVE: Patient presents with nosebleed from right side. This started while she was just sitting at home around 2 hours ago. She has tried direct pressure but can't get it to stop. She admits she may not be holding consistent pressure for 10 minutes due to arm fatigue. She is on warfarin and last INR 2.9 nearly 3 weeks ago. - Related Data Allergies Allergy/AdvReac Type Severity Reaction Status Date / Time amlodipine Allergy Unknown Hives Verified 01/15/20 12:53 bupropion [From Wellbutrin] Allergy Rash Verified 01/15/20 12:53 Home Meds: Home Meds Albuterol [IJD: Ventolin HFA] 1 - 2 puff INH Q4H PRN 10/15/16 [History] Anastrozole [Arimidex] 1 mg PO DAILY@1200 10/15/16 [History] Rosuvastatin [Crestor] 10 mg PO DAILY 02/20/18 [History] Doxazosin Mesylate [Cardura] 4 mg PO BEDTIME 08/09/18 [History] busPIRone [Buspar] 10 mg PO BID 08/09/18 [History] hydrALAZINE [Apresoline] 100 mg PO BID 08/09/18 [History] cloNIDine [Catapres-TTS 1] 0.1 mg TRDERM WEEKLY 08/18/18 [History] Umeclidinium [place] [Incruse Ellipta*] 1 puff INH DAILY 08/19/18 [History] Budesonide/Formoterol Fumarate [Symbicort 80-4.5 MCG] 1 puff IH BID 04/24/19 [History] LORazepam [Ativan] 0.5 - 1 tab PO BEDTIME PRN 04/24/19 [History] Warfarin [Coumadin] 2.5 mg PO 1800 04/24/19 [History] Bumetanide [Bumex] 1 mg PO DAILY #90 tab 04/27/19 [Rx] Docusate Sodium [Colace] 100 mg PO BID #60 cap 04/27/19 [Rx] Levothyroxine 175 mcg PO ACBREAKFAST #60 tab 02/03/20 [Rx] Melatonin 6 mg PO BEDTIME PRN #30 tablet 04/27/19 [Rx] Magnesium Oxide 500 mg PO DAILY 01/15/20 [History] Past Medical History HEENT History: Reports: Cataract, Impaired Vision, Other (See Below) Other HEENT History: cornea transplant x2 Cardiovascular History: Reports: High Cholesterol, Hypertension, Other (See Below) Other Cardiovascular History: carotid stenosis, right side is 100% occluded (for past 18 years) and left side is 50% occluded. No surgery on carotids. 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 She states that she thinks the zoloft is helping with this. Endocrine/Metabolic History: Reports: Hypothyroidism, Obesity/BMI 30+ Other Immunologic History: cornea transplant x2 Oncologic (Cancer) History: Reports: Breast Dermatologic History: Reports: None Other Dermatologic History: rash for 3 monthes - Infectious Disease History Infectious Disease History: Reports: Influenza, Measles, Mumps - Past Surgical History Head Surgeries/Procedures: Reports: None HEENT Surgical History: Reports: Cataract Surgery, Other (See Below) Other HEENT Surgeries/Procedures: cornea transplant x2 Cardiovascular Surgical History: Reports: None GI Surgical History: Reports: Appendectomy, Cholecystectomy, Colostomy, Other (See Below) Other GI Surgeries/Procedures: Colostomy inserted August 2018, reversal surgery march 2019 Female Surgical History: Reports: Hysterectomy, Other (See Below) Other Female Surgeries/Procedures: Right Lumpectomy september 2014 Endocrine Surgical History: Reports: None 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 Surgical History: Reports: Knee Replacement Other 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 Surgeries/Procedures:: R knee Oncologic Surgical History: Reports: Lumpectomy, Other (See Below) Other Oncologic Surgeries/Procedures: R side Social & Family History - Family History Family Medical History: Noncontributory - Tobacco Use Tobacco Use Status *Q: Never Tobacco User - Caffeine Use Caffeine Use: Reports: Soda Other Caffeine Use: decaf - Recreational Drug Use Recreational Drug Use: No ED ROS ENT - Review of Systems Review Of Systems: See Below Constitutional: Denies: Fever, Chills, Malaise, Weakness HEENT: Reports: Nosebleed. Denies: Ear Pain, Throat Pain, Vision Change Respiratory: Denies: Shortness of Breath, Cough Cardiovascular: Denies: Chest Pain, Lightheadedness, Syncope GI/Abdominal: Denies: Nausea, Vomiting : Reports: No Symptoms 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: Reports: No Symptoms Skin: Denies: Cyanosis, Jaundice, Mottled, Pallor, Diaphoresis Neurological: Denies: Confusion, Dizziness, Headache, Seizure, Syncope, Trouble Speaking, Difficulty Walking Psychiatric: Denies: Agitation, Anxiety, Confusion Hematologic/Lymphatic: Reports: Easy Bleeding ED EXAM, ENT - Physical Exam Exam: See Below Exam Limited By: No Limitations General Appearance: Alert Eye Exam: Bilateral Eye: EOMI, Normal Inspection, PERRL Ears: Normal External Exam, Hearing Grossly Normal Nose: Active Bleeding (slow, from right nare) Mouth/Throat: Normal Gums, Normal Lips, Other (posterior pharynx has small amount of blood clot) Head: Atraumatic, Normocephalic Neck: Normal Inspection, Full Range of Motion Respiratory/Chest: No Respiratory Distress, Lungs Clear, Normal Breath Sounds, No Accessory Muscle Use Extremities: Normal Inspection, Normal Range of Motion Neurological: Alert, Oriented, Normal Cognition, No Motor/Sensory Deficits Psychiatric: Normal Affect, Normal Mood Skin: Warm, Dry, Intact, Normal Color, No Rash ED ENT PROCEDURES - Epistaxis Procedure Indication: Epistaxis Recent anticoagulants/antiplatlets: Yes Recent septal/nasal surgery: No Site of bleeding: Right Nare Clearing of clots: Patient Blew Nose Topical Meds: Other (lidocaine/epinephrine) Anterior Packing: Inflatable Nasal Tampon Posterior packing: Long Inflatable Nasal Tampon Complications: No Course - Vital Signs Last Recorded V/S: Last Vital Signs Temp 98.8 F 01/15/20 13:57 Pulse 65 01/15/20 13:57 Resp 16 01/15/20 13:57 BP 197/55 H 01/15/20 13:57 Pulse Ox 96 01/15/20 13:57 - Orders/Labs/Meds Orders: Active Orders 24 hr Category Date Time Status Patient Status [ADT] Routine ADT 01/15/20 15:00 Ordered Labs: Laboratory Tests 01/15/20 01/15/20 01/15/20 Range/Units 13:35 13:35 14:45 WBC 7.93 (5.00-10.00) 10^3/uL RBC 2.56 L (3.80-5.50) 10^6/uL Hgb 8.4 L (12.0-16.0) g/dL Hct 26.5 L (37.0-47.0) % MCV 103.5 H D (82.0-92.0) fL MCH 32.8 H (27.0-31.0) pg MCHC 31.7 L (32.0-36.0) g/dL RDW 13.7 (11.5-14.5) % Plt Count 226 (150-400) 10^3/uL MPV 10.5 H (7.4-10.4) fL Immature Gran % (Auto) 0.4 (0.0-5.0) % Neut % (Auto) 80.8 H (50.0-70.0) % Lymph % (Auto) 6.8 L (20.0-40.0) % [place] % (Auto) 8.2 H (2.0-8.0) % Eos % (Auto) 3.0 (1.0-3.0) % Baso % (Auto) 0.8 (0.0-1.0) % Neut # (Auto) 6.41 (2.50-7.00) 10^3/uL Lymph # (Auto) 0.54 L (1.00-4.00) 10^3/uL [place] # (Auto) 0.65 (0.10-0.80) 10^3/uL Eos # (Auto) 0.24 (0.10-0.30) 10^3/uL Baso # (Auto) 0.06 (0.00-0.10) 10^3/uL Immature Gran # (Auto) 0.03 (0.00-0.50) 10^3/uL PT 47.7 H (9.2-11.2) SEC INR 4.9 H* (0.9-1.1) SARS CoV-2 RNA Rapid SHANI Negative (NEGATIVE) Meds: Medications Discontinued Medications Generic Name Dose Route Start Last Admin Trade Name Freq PRN Reason Stop Dose Admin Lidocaine/Epinephrine Confirm 01/15/20 14:34 01/15/20 15:09 Xylocaine-Mpf 2%-Epi 1:200,000 Administered 01/15/20 14:35 20 ml Dose Administration 20 ml .ROUTE .STK-MED ONE Phytonadione 2.5 mg 01/15/20 14:52 Aquamephyton PO 01/15/20 14:53 ONETIME ONE Phytonadione Confirm 01/15/20 15:07 01/15/20 15:10 Aquamephyton Administered 01/15/20 15:08 Not Given Dose 10 mg .ROUTE .STK-MED ONE - Re-Assessments/Exams Free Text/Narrative Re-Assessment/Exam: 01/15/20 15:01 The nurse tried constant direct pressure without success in hemostasis. INR is 4.9 and Hg is 8.4. Discussed case with Dr. Rivera and we will put her in observation, give Vit K, place Rapid Rhino, recheck Hg and INR tomorrow and remove the nasal catheter before discharge. Patient is agreeable with this plan. Rapid Rhino is placed following pretreatment with lidocaine/epinephrine- soaked sterile cotton swabs. Patient tolerated this well. Patient stable at time of admission. Departure - Departure Time of Disposition: 14:59 Disposition: Refer to Observation Condition: Good Clinical Impression: Right-sided nosebleed, History of Coumadin therapy, Elevated INR (international normalized ratio) due to prior anticoagulant medication ingestion Anemia Qualifiers: Anemia type: unspecified type Qualified Code(s): D64.9 - Anemia, unspecified - Discharge Information Referrals: Veronica Diamond, INDUSTRIAL ENGINEERING DIRECTOR [Primary Care Provider] - Forms: ED Department Discharge Sepsis Event Note (ED) - Evaluation Sepsis Screening Result: No Definite Risk - Focused Exam Vital Signs: Vital Signs Temp Pulse Resp BP Pulse Ox 01/15/20 13:57 98.8 F 65 16 197/55 H 96 01/15/20 12:49 99.6 F 75 16 214/67 H 94 L - My Orders Last 24 Hours: My Active Orders 01/15/20 15:00 Patient Status [ADT] Routine - Assessment/Plan Last 24 Hours: My Active Orders 01/15/20 15:00 Patient Status [ADT] Routine
[2020-01-15] MEDS ORDERED: Lidocaine 2% 5 ML SDV ONE (14:32)
[2020-01-15] MEDS ORDERED: Lidocaine 2% with EPINEPHrine 1:200,000 20 ML SDV ONE (14:34)
[2020-01-15] MEDS ORDERED: Albuterol 8 GM Inhaler INH PRN (16:27)
[2020-01-15] MEDS ORDERED: CLONIDINE 0.1 MG TOP SCH (16:30)
[2020-01-15] MEDS ORDERED: Labetalol 100 MG/20 ML MDV IVPUSH PRN (16:38)
[2020-01-15] MEDS ORDERED: Non-Formulary Medication 1 Each IDERM SCH (17:30)
[2020-01-15] MEDS ORDERED: LORazepam 0.5 MG Tab PO ONE (18:30)
[2020-01-15] MEDS ORDERED: Doxazosin 2 MG Tab PO SCH (21:00)
[2020-01-15] MEDS: Calcium Citrate/Vitamin D3 315 MG-250 Unit Tab PO SCH (21:00)
[2020-01-15] MEDS: Bumetanide 1 MG Tab PO SCH (21:01)
[2020-01-15] MEDS: hydrALAZINE 50 MG Tab PO SCH (21:06)
[2020-01-15] MEDS: Formoterol/Mometasone 100-5 MCG 8.8 GM Inhaler IH SCH (21:07)
[2020-01-15] MEDS: busPIRone 10 MG Tab PO SCH (21:08)
[2020-01-15] MEDS: LORazepam 0.5 MG Tab PO PRN (23:06)
[2020-01-16] MEDS: LORazepam 0.5 MG Tab PO PRN (05:31)
[2020-01-16] MEDS ORDERED: Levothyroxine 75 MCG Tab PO SCH (07:30)
[2020-01-16] MEDS ORDERED: Levothyroxine 100 MCG Tab PO SCH (07:30)
[2020-01-16 08:07] LABS: ANION GAP 12.8 mmol/L (5-15)
[2020-01-16] MEDS: Bumetanide 1 MG Tab PO SCH (08:28)
[2020-01-16] MEDS: busPIRone 10 MG Tab PO SCH (08:29)
[2020-01-16] MEDS: Formoterol/Mometasone 100-5 MCG 8.8 GM Inhaler IH SCH (08:30)
[2020-01-16] MEDS: hydrALAZINE 50 MG Tab PO SCH (08:30)
[2020-01-16] MEDS: Calcium Citrate/Vitamin D3 315 MG-250 Unit Tab PO SCH (08:30)
[2020-01-16] MEDS ORDERED: Metoprolol Succinate 50 MG Tab.ER PO SCH (09:00)
[2020-01-16] MEDS ORDERED: Rosuvastatin 10 MG Tab PO SCH (09:00)
[2020-01-16] MEDS ORDERED: Cetirizine 10 MG Tab PO SCH (09:00)
[2020-01-16] MEDS ORDERED: Glycopyrrolate 15.6 MCG Cap.W.Dev Kit of 6 IH SCH (09:00)
[2020-01-16] MEDS ORDERED: Sertraline 50 MG Tab PO SCH (09:00)
[2020-01-16] MEDS ORDERED: Magnesium Oxide 500 MG Tab PO SCH (09:00)
[2020-01-16] MEDS ORDERED: hydrALAZINE 50 MG Tab PO STA (11:24)
[2020-01-16] MEDS ORDERED: LORazepam 0.5 MG Tab PO ONE (11:25)
[2020-01-16 12:15] VITALS: BP 150/43; PULSE 80
--- NOTE | 2020-01-17 22:34 | PCM.HP.2 ---
H&P History of Present Illness - General Date of Service: 01/16/20 Admit Problem/Dx: Epistaxis Source of Information: Patient, Old Records, Provider (ED provider Quentin Yin PA-C) History Limitations: Reports: No Limitations - History of Present Illness Initial Comments - Free Text/Narative: Approximately 2h prior to arrival in ED, patient had spontaneous start of nosebleed from the right side. She attempted to place pressure, but endorses that she wasn't consistently doing so for more than 10min at a time. In the ED, pressure was attempted, but unsuccessful, so RhinoRocket placed with resolution of bleeding. Patient noted to be hypertensive with BPs in the 200s systolic. Laboratory evaluation revealed INR of 4.9 and hemoglobin of 8.4, so patient was admitted to observation status for close monitoring and laboratory trending. Since admission, she has not had recurrent nosebleed. Further history taking reveals that patient's clonidine patch fell off yesterday and has not yet been replaced. Endorses significant difficulty with swallowing and breathing with the packing in place. Nursing reports several episodes of acute anxiety and panic for which she has been given lorazepam. No other new concerns. - Related Data Allergies/Adverse Reactions: Allergies Allergy/AdvReac Type Severity Reaction Status Date / Time amlodipine Allergy Unknown Hives Verified 01/15/20 12:53 bupropion [From Wellbutrin] Allergy Rash Verified 01/15/20 12:53 Home Medications: Home Meds Albuterol [IJD: Ventolin HFA] 1 - 2 puff INH Q4H PRN 10/15/16 [History] Rosuvastatin [Crestor] 10 mg PO DAILY 02/20/18 [History] Doxazosin Mesylate [Cardura] 4 mg PO BEDTIME 08/09/18 [History] busPIRone [Buspar] 10 mg PO BID 08/09/18 [History] hydrALAZINE [Apresoline] 50 mg PO BID 08/09/18 [History] cloNIDine [Catapres-TTS 1] 0.1 mg TRDERM WEEKLY 08/18/18 [History] Umeclidinium [place] [Incruse Ellipta*] 1 puff INH DAILY 08/19/18 [History] Budesonide/Formoterol Fumarate [Symbicort 80-4.5 MCG] 2 puff IH BID 04/24/19 [History] LORazepam [Ativan] 0.5 - 1 tab PO BEDTIME PRN 04/24/19 [History] Warfarin [Coumadin] 2.5 mg PO 1800 04/24/19 [History] Levothyroxine 175 mcg PO ACBREAKFAST #60 tab 04/27/19 [Rx] Aspirin [Aspirin EC] 81 mg PO DAILY 01/15/20 [History] Bumetanide [Bumex] 1 mg PO BID 01/15/20 [History] Calcium Carbonate/Vitamin D3 [Hm Calcium 500-Vit D3 200 Cplt] 1 tab PO BID 01/15/20 [History] Cetirizine [ZyrTEC] 5 mg PO DAILY 01/15/20 [History] Magnesium Oxide 500 mg PO DAILY 01/15/20 [History] Metoprolol Succinate [Toprol XL 50mg] 50 mg PO DAILY 01/15/20 [History] Sertraline HCl [Zoloft] 100 mg PO DAILY 01/15/20 [History] Past Medical History HEENT History: Reports: Cataract, Impaired Vision, Other (See Below) Other HEENT History: cornea transplant x2 Cardiovascular History: Reports: High Cholesterol, Hypertension, Other (See Below) Other Cardiovascular History: carotid stenosis, right side is 100% occluded (for past 18 years) and left side is 50% occluded. No surgery on carotids. 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 She states that she thinks the zoloft is helping with this. Endocrine/Metabolic History: Reports: Hypothyroidism, Obesity/BMI 30+ Other Immunologic History: cornea transplant x2 Oncologic (Cancer) History: Reports: Breast Dermatologic History: Reports: None Other Dermatologic History: rash for 3 monthes - Infectious Disease History Infectious Disease History: Reports: Influenza, Measles, Mumps - Past Surgical History Head Surgeries/Procedures: Reports: None HEENT Surgical History: Reports: Cataract Surgery, Other (See Below) Other HEENT Surgeries/Procedures: cornea transplant x2 Cardiovascular Surgical History: Reports: None GI Surgical History: Reports: Appendectomy, Cholecystectomy, Colostomy, Other (See Below) Other GI Surgeries/Procedures: Colostomy inserted August 2018, reversal surgery march 2019 Female Surgical History: Reports: Hysterectomy, Other (See Below) Other Female Surgeries/Procedures: Right Lumpectomy september 2014 Endocrine Surgical History: Reports: None 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 Surgical History: Reports: Knee Replacement Other 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 Surgeries/Procedures:: R knee Oncologic Surgical History: Reports: Lumpectomy, Other (See Below) Other Oncologic Surgeries/Procedures: R side Social & Family History - Family History Family Medical History: Noncontributory Cardiac: Reports: CAD Respiratory: Reports: COPD Oncologic: Reports: Ovarian - Tobacco Use Tobacco Use Status *Q: Never Tobacco User Second Hand Smoke Exposure: No - Caffeine Use Caffeine Use: Reports: Soda Other Caffeine Use: decaf - Recreational Drug Use Recreational Drug Use: No H&P Review of Systems - Review of Systems: Review Of Systems: Comprehensive ROS is negative, except as noted in HPI. Exam - Exam Exam: See Below - Vital Signs Vital Signs: Last Vital Signs Temp 36.3 C 01/16/20 10:00 Pulse 80 01/16/20 12:15 Resp 18 01/16/20 10:00 BP 150/43 H 01/16/20 12:15 Pulse Ox 95 01/16/20 10:00 Weight: 93.44 kg - Exam Physical Exam Comments:: GENERAL: Well-appearing elderly white female sitting in bedside chair in no acute distress. HEENT: Normocephalic, atraumatic. Conjunctiva clear. Nasal packing in place without surrounding bleeding. Mucous membranes moist, posterior pharynx unremarkable. NECK: Supple, no masses. CV: Regular rate and rhythm, no murmurs, rubs, or gallops. 2+ radial pulses. PULMONARY: Normal effort, clear to auscultation bilaterally, no wheezes, rales, or rhonchi. ABDOMEN: Positive bowel sounds, soft, nontender, nondistended. EXTREMITIES: Trace ankle edema, no cyanosis or clubbing. MUSCULOSKELETAL: Moves all extremities well. NEUROLOGICAL: No obvious deficits. DERMATOLOGIC: No rashes or suspicious lesions in exposed areas. PSYCHIATRIC: Alert, interactive, anxious affect. - Patient Data Result Diagrams: 01/16/20 07:05 01/16/20 07:05 Sepsis Event Note - Evaluation Sepsis Screening Result: No Definite Risk Problem List Initiated/Reviewed/Updated: Yes Assessment/Plan Comment:: HPI summary: 79yoF with a history notable for atrial fibrillation on warfarin and HTN, who approximately 2h prior to arrival in ED had spontaneous start of nosebleed from the right side. She attempted to place pressure, but endorses that she wasn't consistently doing so for more than 10min at a time. ED course: In the ED, pressure was attempted, but unsuccessful, so RhinoRocket placed with resolution of bleeding. Patient noted to be hypertensive with BPs in the 200s systolic, but no medications given. Laboratory evaluation revealed INR of 4.9 and hemoglobin of 8.4, so I was called to admit to observation status for close monitoring and laboratory trending. Ordered vitamin K 2.5mg to be given in ED. Hospitalization problems and course: # Epistaxis: Now resolved. # Hypertensive urgency: Improved. # Supratherapeutic INR, now subtherapeutic: Held warfarin on day of admission. Will resume and notify Anticoagulation Clinic to adjust dosing and monitor. # Anemia, acute on chronic: Hemoglobin stable at 8.2, down from 8.4 on day of admission. Since admission, she has not had recurrent nosebleed. Further history taking reveals that patient's clonidine patch fell off the day prior to admission and had not yet been replaced, so this was placed on the day of admission. One does of labetalol 20mg was given to acutely lower blood pressure. The patient adamantly desired removal of nasal packing due to swallowing and breathing difficulty with it in place for which she was having recurrent anxiety and panic; discussed at length the risks of removal at well less than 24hrs since placement, including rebleeding, necessity to replace packing, and possibility of rebleeding requiring blood transfusion given low hemoglobin; patient desired proceeding and packing was removed without difficulty and patient monitored without recurrence of bleeding. Chronic, stable conditions: # HFpEF: Fluid status stable. # Atrial fibrillation: Rate controlled. # PAH # COPD # CKD: Stable. # SIADH: Stable. # Obesity, BMI 36 # Depression/VAISHNAVI: Anxiety increased, as above. Hospitalization details: # FEN: No IVF. Electrolytes stable. Regular diet. # PPX: Warfarin being held, as above. # Code status: DNR. # Disposition: Admit to observation status for close monitoring of bleeding, vital signs, and laboratory abnormalities.
--- NOTE | 2020-01-17 22:34 | PCM.DCSUM1 ---
Discharge Summary - Hospital Course Free Text/Narrative:: Date of admission: 01/15/20 Date of discharge: 01/16/20 Admission diagnoses: # Epistaxis # Hypertensive urgency # Supratherapeutic INR # Anemia, acute on chronic Discharge diagnoses: # Epistaxis, resolved # Hypertensive urgency, resolved # Supratherapeutic INR, now subtherapeutic # Anemia, acute on chronic, stable Consultations: None Procedures: Nasal packing placement (01/15/20), and removal (01/16/20) Hospital course: 79yoF with a history notable for atrial fibrillation on warfarin and HTN, who a pproximately 2h prior to arrival in ED had spontaneous start of nosebleed from the right side. She attempted to place pressure, but endorses that she wasn't consistently doing so for more than 10min at a time. In the ED, pressure was attempted, but unsuccessful, so RhinoRocket placed with resolution of bleeding. Patient noted to be hypertensive with BPs in the 200s systolic, but no medications given. Laboratory evaluation revealed INR of 4.9 and hemoglobin of 8.4, so I was called to admit to observation status for close monitoring and laboratory trending. Ordered vitamin K 2.5mg to be given in ED. Since admission, she did not had recurrent nosebleed. Further history taking reveals that patient's clonidine patch fell off the day prior to admission and had not yet been replaced, so this was placed on the day of admission. One does of labetalol 20mg was given to acutely lower blood pressure. Hemoglobin stable at 8.2, down from 8.4 on day of admission. Following holding warfarin on 01/15/20 and administration of vitamin K 2.5mg, INR improved from 4.9 to 1.8. The patient adamantly desired removal of nasal packing due to swallowing and breathing difficulty with it in place for which she was having recurrent anxiety and panic; discussed at length the risks of removal at well less than 24hrs since placement, including rebleeding, necessity to replace packing, and possibility of rebleeding requiring blood transfusion given low hemoglobin; patient desired proceeding and packing was removed without difficulty and patient monitored without recurrence of bleeding. She was discharged home in good condition. Discharge and follow-up recommendations: - Discharge to home - Epistaxis prevention and return precautions for recurrence discussed at length - [facility] was notified of INRs, vitamin K administration of 2.5mg on 01/15/20, and holding of warfarin on 01/15/20; patient will resume home warfarin dosing today until otherwise notified - No new medications - Follow-up with PCP within the next week; patient instructed to call on 01/18/20 to schedule appointment Note: This is a same day admission and discharge. - Discharge Data Discharge Date: 01/16/20 Discharge Disposition: Home, Self-Care 01 Condition: Good - Referral to Home Health Primary Care Physician: Veronica Diamond NP - Patient Instructions Diet: Usual Diet as Tolerated Activity: As Tolerated, No Strenuous Activities Other/Special Instructions: Nothing in nose. No blowing nose. Return to [facility] room if recurrent nosebleed which doesn't stop with pressure. - Discharge Plan *PRESCRIPTION DRUG MONITORING PROGRAM REVIEWED*: Not Applicable *COPY OF PRESCRIPTION DRUG MONITORING REPORT IN PATIENT BEATRICE: Not Applicable Home Medications: Home Meds Albuterol [IJD: Ventolin HFA] 1 - 2 puff INH Q4H PRN 10/15/16 [History] Rosuvastatin [Crestor] 10 mg PO DAILY 02/20/18 [History] Doxazosin Mesylate [Cardura] 4 mg PO BEDTIME 08/09/18 [History] busPIRone [Buspar] 10 mg PO BID 08/09/18 [History] hydrALAZINE [Apresoline] 50 mg PO BID 08/09/18 [History] cloNIDine [Catapres-TTS 1] 0.1 mg TRDERM WEEKLY 08/18/18 [History] Umeclidinium [place] [Incruse Ellipta*] 1 puff INH DAILY 08/19/18 [History] Budesonide/Formoterol Fumarate [Symbicort 80-4.5 MCG] 2 puff IH BID 04/24/19 [History] LORazepam [Ativan] 0.5 - 1 tab PO BEDTIME PRN 04/24/19 [History] Warfarin [Coumadin] 2.5 mg PO 1800 04/24/19 [History] Levothyroxine 175 mcg PO ACBREAKFAST #60 tab 04/27/19 [Rx] Aspirin [Aspirin EC] 81 mg PO DAILY 01/15/20 [History] Bumetanide [Bumex] 1 mg PO BID 01/15/20 [History] Calcium Carbonate/Vitamin D3 [Hm Calcium 500-Vit D3 200 Cplt] 1 tab PO BID 01/15/20 [History] Cetirizine [ZyrTEC] 5 mg PO DAILY 01/15/20 [History] Magnesium Oxide 500 mg PO DAILY 01/15/20 [History] Metoprolol Succinate [Toprol XL 50mg] 50 mg PO DAILY 01/15/20 [History] Sertraline HCl [Zoloft] 100 mg PO DAILY 01/15/20 [History] Referrals: Veronica Diamond, AGRICULTURE MANAGER [Primary Care Provider] - (Call Wednesday 01/17 to schedule appointment in the next week with Veronica Diamond or Samantha Medina for follow-up.) - Discharge Summary/Plan Comment DC Time >30 min.: Yes - Patient Data Vitals - Most Recent: Last Vital Signs Temp 36.3 C 01/16/20 10:00 Pulse 80 01/16/20 12:15 Resp 18 01/16/20 10:00 BP 150/43 H 01/16/20 12:15 Pulse Ox 95 01/16/20 10:00 Weight - Most Recent: 93.44 kg Med Orders - Current: Current Medications Discontinued Medications Albuterol (Ventolin Hfa) 0 gm INH Q4H PRN PRN Reason: Wheezing Last Admin: 01/16/20 12:56 Dose: 8 gm Documented by: Bumetanide (Bumex) 1 mg PO BID [facility] Last Admin: 01/16/20 08:28 Dose: 1 mg Documented by: Buspirone HCl (Buspar) 10 mg PO BID [facility] Last Admin: 01/16/20 08:29 Dose: 10 mg Documented by: Calcium Citrate (Calcium Citrate + D) 1 tab PO BID [facility] Last Admin: 01/16/20 08:30 Dose: Not Given Documented by: Cetirizine HCl (Zyrtec) 5 mg PO DAILY [facility] Last Admin: 01/16/20 08:29 Dose: 5 mg Documented by: Doxazosin Mesylate (Cardura) 4 mg PO BEDTIME [facility] Last Admin: 01/15/20 21:05 Dose: 4 mg Documented by: Glycopyrrolate (Seebri Neohaler) 15.6 mcg IH BID [facility] Last Admin: 01/16/20 08:31 Dose: 15.6 mcg Documented by: Hydralazine HCl (Apresoline) 50 mg PO BID [facility] Last Admin: 01/16/20 08:30 Dose: 50 mg Documented by: Hydralazine HCl (Apresoline) 25 mg PO NOW STA Stop: 01/16/20 11:25 Last Admin: 01/16/20 11:33 Dose: 25 mg Documented by: Labetalol HCl (Normodyne) 20 mg IVPUSH Q30M PRN; Protocol PRN Reason: SBP >180 Levothyroxine Sodium (Synthroid) 100 mcg PO ACBREAKFAST [facility] Last Admin: 01/16/20 07:44 Dose: 100 mcg Documented by: Levothyroxine Sodium (Levothyroxine) 75 mcg PO ACBREAKFAST [facility] Last Admin: 01/16/20 07:44 Dose: 75 mcg Documented by: Lidocaine/Epinephrine (Xylocaine-Mpf 2%-Epi 1:200,000) Confirm Administered Dose 20 ml .ROUTE .STK-MED ONE Stop: 01/15/20 14:35 Last Admin: 01/15/20 15:09 Dose: 20 ml Documented by: Lorazepam (Ativan) 0.5 mg PO BEDTIME PRN PRN Reason: Anxiety Last Admin: 01/16/20 05:31 Dose: 0.5 mg Documented by: Lorazepam (Ativan) 0.25 mg PO ONETIME ONE Stop: 01/15/20 18:31 Last Admin: 01/15/20 18:15 Dose: 0.25 mg Documented by: Lorazepam (Ativan) 0.5 mg PO ONETIME ONE Stop: 01/16/20 11:26 Last Admin: 01/16/20 11:33 Dose: 0.5 mg Documented by: Magnesium Oxide (Magnesium Oxide) 500 mg PO DAILY [facility] Last Admin: 01/16/20 08:29 Dose: 500 mg Documented by: Metoprolol Succinate (Toprol Xl) 50 mg PO DAILY [facility] Last Admin: 01/16/20 08:29 Dose: 50 mg Documented by: Mometasone Furoate/Formoterol Fumar (Dulera 100-5 Mcg) 0 puff IH BID [facility] Last Admin: 01/16/20 08:30 Dose: 1 inhalation Documented by: Non-Formulary Medication (Clonidine [Catapres-Tts 1]) 0.1 mg TOP Q7D [facility] Last Admin: 01/15/20 18:15 Dose: 0.1 mg Documented by: Phytonadione (Aquamephyton) 2.5 mg PO ONETIME ONE Stop: 01/15/20 14:53 Last Admin: 01/15/20 15:10 Dose: 2.5 mg Documented by: Phytonadione (Aquamephyton) Confirm Administered Dose 10 mg .ROUTE .STK-MED ONE Stop: 01/15/20 15:08 Last Admin: 01/15/20 15:10 Dose: Not Given Documented by: Rosuvastatin Calcium (Crestor) 10 mg PO DAILY [facility] Last Admin: 01/16/20 08:30 Dose: 10 mg Documented by: Sertraline HCl (Zoloft) 100 mg PO DAILY [facility] Last Admin: 01/16/20 08:30 Dose: 100 mg Documented by:
== END 2020-01-16 13:40 | disposition home or self-care (01) ==
LOC: KA.ED 12:42 → KA.MS 15:00
PROVIDERS: ADMIT Family Medicine; ATTEND Family Medicine
DX: R04.0 Epistaxis (principal); I16.0 Hypertensive urgency; R79.1 Abnormal coagulation profile; Z79.899 Other long term (current) drug therapy; Z88.8 Allergy status to other drugs, medicaments and biological substances; E78.00 Pure hypercholesterolemia, unspecified; J44.9 Chronic obstructive pulmonary disease, unspecified; F32.9 Major depressive disorder, single episode, unspecified; E03.9 Hypothyroidism, unspecified; E66.9 Obesity, unspecified; I13.0 Hypertensive heart and chronic kidney disease with heart failure and stage 1 through stage 4 chronic kidney disease, or unspecified chronic kidney disease; I50.30 Unspecified diastolic (congestive) heart failure; N18.9 Chronic kidney disease, unspecified; D63.1 Anemia in chronic kidney disease; Z68.36 Body mass index [BMI] 36.0-36.9, adult; F41.1 Generalized anxiety disorder; Z20.828 Contact with and (suspected) exposure to other viral communicable diseases
CPT/HCPCS: 30901; 30903; 36415; 80048; 85025; 85610; 99284; 99284-25; A9270-GY; G0378; J3430; U0002

== ENCOUNTER 2020-04-08 10:58 | Inpatient (IN) | payer MEDICARE, BC ==
--- NOTE | 2020-04-08 11:45 | CR ---
[id number] RAD/RAD Chest PA or AP 1V EXAM: RAD Chest PA or AP 1V INDICATION: SYNCOPAL EPISODE COMPARISON: None. DISCUSSION: Cardiomediastinal silhouette is normal in size and contour. No infiltrate, effusion, pneumothorax, or edema. Pulmonary hyperinflation. Surgical clips within the right axilla. IMPRESSION: No acute cardiopulmonary abnormality. Amanuel Cook DO 04/08/20 1144 Thank you for allowing us to participate in the care of your patient.
[2020-04-08 11:52] LABS: ANION GAP 10.7 mmol/L (5-15)
--- NOTE | 2020-04-08 13:12 | EDM.PDOC ---
ED HPI GENERAL MEDICAL PROBLEM - General Chief Complaint: Syncope Stated Complaint: TROUBLE BREATHING, LIGHTHEADED Time Seen by Provider: 04/08/20 11:15 Source of Information: Reports: Patient, Family (DAUGHTER) History Limitations: Reports: No Limitations - History of Present Illness INITIAL COMMENTS - FREE TEXT/NARRATIVE: 79 old female presents to the emergency room with complaints of feeling lightheaded and near syncopal feeling. Her symptoms have been gradually getting worse over the last several weeks and this morning she felt like she could pass out when standing. She sat down immediately. She has felt fatigued and tired chronically. She denies any chest pain. Denies diaphoresis. She states she is short of breath chronically but does not feel that this is gotten worse. She denies any abdominal pain. She has not been experiencing any blood in her stool. Her stools have been dark and she states this is because she has been on iron. She is followed by hematology oncology for vitamin B12 deficiency anemia. She has been chronically anemic and recommended a colonoscopy if her anemia worsens. This was reviewed in her notes. She has chronic kidney disease stage IIIb. She has a history of severe mitral valve stenosis and pulmonary hypertension. She is on a beta-kalia, Toprol. She is on anticoagulation for atrial fibrillation. She has had a recent echocardiogram in January shows a 65% ejection fraction and findings of severe mitral valve stenosis, severe pulmonary artery hypertension grade 3 diastolic dysfunction. She is bradycardic but states that with her medications her heart rate remains at 50. Denies significant pedal edema although she has had 23 pound weight gain over the last year. She has a follow-up appointment with cardiology later this month. Onset: Today Duration: Chronic, Getting Worse Location: Reports: Generalized Severity: Moderate Improves with: Reports: Rest Worsens with: Reports: Movement Associated Symptoms: Reports: Shortness of Breath, Syncope (NEAR SYNCOPY WITH STANDING), Other (FATIGUE). 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 TAP DANCING: Reports: Other (see below) (RESTING/SAT DOWN) - Related Data Allergies Allergy/AdvReac Type Severity Reaction Status Date / Time amlodipine Allergy Unknown Hives Verified 04/08/20 11:07 bupropion [From Wellbutrin] Allergy Rash Verified 04/08/20 11:07 Home Meds: Home Meds Albuterol [IJD: Ventolin HFA] 1 - 2 puff INH Q4H PRN 10/15/16 [History] Rosuvastatin [Crestor] 10 mg PO DAILY 02/20/18 [History] Doxazosin Mesylate [Cardura] 4 mg PO BEDTIME 08/09/18 [History] busPIRone [Buspar] 10 mg PO BID 08/09/18 [History] hydrALAZINE [Apresoline] 50 mg PO BID 08/09/18 [History] cloNIDine [Catapres-TTS 1] 0.1 mg TRDERM WEEKLY 08/18/18 [History] Umeclidinium [place] [Incruse Ellipta*] 1 puff INH DAILY 08/19/18 [History] LORazepam [Ativan] 0.25 - 0.5 mg PO BEDTIME PRN 04/24/19 [History] Warfarin [Coumadin] 2.5 mg PO 1800 04/24/19 [History] Levothyroxine 175 mcg PO ACBREAKFAST #60 tab 04/27/19 [Rx] Aspirin [Aspirin EC] 81 mg PO DAILY 01/15/20 [History] Bumetanide [Bumex] 1 mg PO DAILY 01/15/20 [History] Calcium Carbonate/Vitamin D3 [Hm Calcium 500-Vit D3 200 Cplt] 1 tab PO BIDMEALS 01/15/20 [History] Cetirizine [ZyrTEC] 10 mg PO DAILY 01/15/20 [History] Magnesium Oxide 500 mg PO DAILY 01/15/20 [History] Metoprolol Succinate [Toprol XL 50mg] 50 mg PO DAILY 01/15/20 [History] Sertraline HCl [Zoloft] 100 mg PO DAILY 01/15/20 [History] Ascorbate Calcium [Vitamin C] 500 mg PO Q48H 01/26/20 [History] Ferrous Sulfate [Iron] 325 mg PO Q48H 01/26/20 [History] metOLazone [Metolazone] 2.5 mg PO ASDIRECTED 01/26/20 [History] Past Medical History HEENT History: Reports: Cataract, Impaired Vision, Other (See Below) Other HEENT History: cornea transplant x2 Cardiovascular History: Reports: High Cholesterol, Hypertension, Other (See Below) Other Cardiovascular History: carotid stenosis, right side is 100% occluded (for past 18 years) and left side is 50% occluded. No surgery on carotids. Respiratory History: Reports: COPD Gastrointestinal History: Reports: Bowel Obstruction, GERD Genitourinary History: Reports: None SIGNWRITER History: Reports: 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 History: Reports: Arthritis Neurological History: Reports: None Psychiatric History: Reports: Anxiety, Depression, Panic Attack Other Psychiatric History: Pt states she has not used her prn ativan x3 mornings now. She states that she thinks the zoloft is helping with this. Endocrine/Metabolic History: Reports: Hypothyroidism, Obesity/BMI 30+ Other Immunologic History: cornea transplant x2 Oncologic (Cancer) History: Reports: Breast Dermatologic History: Reports: None Other Dermatologic History: rash for 3 monthes - Infectious Disease History Infectious Disease History: Reports: Influenza, Measles, Mumps - Past Surgical History Head Surgeries/Procedures: Reports: None HEENT Surgical History: Reports: Cataract Surgery, Other (See Below) Other HEENT Surgeries/Procedures: cornea transplant x2 Cardiovascular Surgical History: Reports: None Other Cardiovascular Surgeries/Procedures: Pt states she has an echo scheduled in October. Respiratory Surgical History: Reports: None GI Surgical History: Reports: Appendectomy, Cholecystectomy, Colostomy, Other (See Below) Other GI Surgeries/Procedures: Colostomy inserted August 2018, reversal surgery march 2019 Female Surgical History: Reports: Hysterectomy, Other (See Below) Other Female Surgeries/Procedures: Right Lumpectomy september 2014 Endocrine Surgical History: Reports: None Neurological Surgical History: Reports: None 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 Surgical History: Reports: Knee Replacement Other 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 Surgeries/Procedures:: R knee Oncologic Surgical History: Reports: Lumpectomy, Other (See Below) Other Oncologic Surgeries/Procedures: R side Dermatological Surgical History: Reports: None Social & Family History - Family History Family Medical History: No Pertinent Family History Cardiac: Reports: CAD Respiratory: Reports: COPD Oncologic: Reports: Ovarian - Tobacco Use Tobacco Use Status *Q: Former Tobacco User Used Tobacco, but Quit: No Month/Year Tobacco Last Used: 2010 Second Hand Smoke Exposure: No - Caffeine Use Caffeine Use: Reports: None Other Caffeine Use: decaf - Recreational Drug Use Recreational Drug Use: No ED ROS GENERAL - Review of Systems Review Of Systems: See Below Constitutional: Reports: Weight Gain (20# GAIN OVER LAST YEAR). Denies: Diaphoresis HEENT: Reports: Glasses. Denies: Vertigo Respiratory: Reports: Shortness of Breath. Denies: Cough Cardiovascular: Reports: Blood Pressure Problem, Dyspnea on Exertion, Lightheadedness, Syncope (NEAR SYNCOPE). Denies: Chest Pain, Edema, Orthopnea, Palpitations Endocrine: Reports: Fatigue (CHRONIC BUT WORSING) GI/Abdominal: Reports: Black Stool (IRON REPLACEMENT), Constipation. Denies: Abdominal Pain, Anorexia, Bloody Stool, Diarrhea, Distension, Nausea, Stool Incontinence, Vomiting : Reports: Incontinence. Denies: Discharge, Dysuria, Flank Pain, Hematuria 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: Reports: Neck Pain, Back Pain (CHRONIC), Joint Pain Skin: Reports: Other (PALE SKIN). Denies: Jaundice, Diaphoresis, Pruritis, Rash, Urticaria Neurological: Reports: Syncope (LIGHTHEADNESS), Weakness. Denies: Confusion, Dizziness, Headache, Numbness, Paresthesia, Trouble Speaking, Change in Speech Psychiatric: Reports: Depression Hematologic/Lymphatic: Reports: Anemia, Easy Bleeding (COUMADIN) Immunologic: Reports: No Symptoms ED EXAM, GENERAL - Physical Exam Exam: See Below Free Text/Narrative:: Pale appearance, no acute distress, nontoxic appearing Exam Limited By: No Limitations General Appearance: Alert, WD/WN, No Apparent Distress Eye Exam: Bilateral Eye: EOMI Ears: Hearing Grossly Normal Nose: Normal Inspection Throat/Mouth: Normal Inspection, Normal Oropharynx, Normal Voice, No Airway Compromise Head: Atraumatic, Normocephalic Neck: Normal Inspection, Supple, Non-Tender Respiratory/Chest: No Respiratory Distress, Lungs Clear, Normal Breath Sounds Cardiovascular: Bradycardia, Diastolic Murmur Peripheral Pulses: 1+: Carotid (L), Carotid (R), Radial (L), Radial (R) GI/Abdominal: Soft, Non-Tender, No Mass Back Exam: Normal Inspection. No: CVA Tenderness (L), CVA Tenderness (R) Extremities: Normal Inspection, Normal Range of Motion, No Pedal Edema, Other (Capillary refill delayed). No: Joint Swelling Neurological: Alert, Oriented, CN II-XII Intact, No Motor/Sensory Deficits Psychiatric: Normal Affect, Normal Mood Skin Exam: Warm, Dry, Intact, Normal Color, No Rash, Other (Pale). No: Diaphoretic Lymphatic: No Adenopathy #1 Interpretation EKG Date: 04/08/20 Time: 11:28 Rhythm: Other (SINUS BRADYCARIA WITH MARKED SINUS ARRHYTHMIA) Rate (Beats/Min): 55 P-Wave: Present QRS: Normal ST-T: Normal QT: Normal Comparison: NA - No Prior EKG EKG Interpretation Comments: Sinus bradycardia with marked sinus arrhythmia. Cannot rule out anterior infarct, age undetermined. Abnormal ECG. Course - Vital Signs Last Recorded V/S: Last Vital Signs Temp 97 F 04/08/20 11:01 Pulse 48 L 04/08/20 13:15 Resp 16 04/08/20 13:15 BP 131/39 L 04/08/20 13:15 Pulse Ox 100 04/08/20 13:15 - Orders/Labs/Meds Orders: Active Orders 24 hr Category Date Time Status EKG Documentation Completion [RC] ASDIRECTED Care 04/08/20 11:21 Active EKG 12 Lead [EK] Stat Ther 04/08/20 11:20 Ordered Labs: Laboratory Tests 04/08/20 04/08/20 04/08/20 Range/Units 11:30 11:30 11:30 WBC 5.06 (5.00-10.00) 10^3/uL RBC 2.31 L (3.80-5.50) 10^6/uL Hgb 6.5 L* D (12.0-16.0) g/dL Hct 22.2 L (37.0-47.0) % MCV 96.1 H (82.0-92.0) fL MCH 28.1 (27.0-31.0) pg MCHC 29.3 L (32.0-36.0) g/dL RDW 13.8 (11.5-14.5) % Plt Count 176 (150-400) 10^3/uL MPV 10.3 (7.4-10.4) fL Immature Gran % (Auto) 0.4 (0.0-5.0) % Neut % (Auto) 78.4 H (50.0-70.0) % Lymph % (Auto) 7.9 L (20.0-40.0) % Divide % (Auto) 8.9 H (2.0-8.0) % Eos % (Auto) 3.0 (1.0-3.0) % Baso % (Auto) 1.4 H (0.0-1.0) % Neut # (Auto) 3.97 (2.50-7.00) 10^3/uL Lymph # (Auto) 0.40 L (1.00-4.00) 10^3/uL Divide # (Auto) 0.45 (0.10-0.80) 10^3/uL Eos # (Auto) 0.15 (0.10-0.30) 10^3/uL Baso # (Auto) 0.07 (0.00-0.10) 10^3/uL Immature Gran # (Auto) 0.02 (0.00-0.50) 10^3/uL INR 2.4 H (0.9-1.1) Sodium 136 (136-145) mmol/L Potassium 4.3 (3.5-5.1) mmol/L Chloride 100 (98-107) mmol/L Carbon Dioxide 29.6 (21.0-32.0) mmol/L Anion Gap 10.7 (5-15) mmol/L BUN 29 H (7-18) mg/dL Creatinine 1.27 H (0.51-1.17) mg/dL Est Cr Clr Drug Dosing 28.41 mL/min Estimated GFR (MDRD) 41 mL/min Glucose 105 (70-140) mg/dL Calcium 9.0 (8.7-10.3) mg/dL Total Bilirubin 0.3 (0.2-1.0) mg/dL AST 22 (15-37) U/L ALT 16 (14-63) U/L Alkaline Phosphatase 64 (46-116) U/L Troponin I 0.060 H* (0.000-0.056) ng/mL B-Natriuretic Peptide 382 H (0-100) pg/mL Total Protein 7.0 (6.4-8.2) g/dL Albumin 3.16 L (3.40-5.00) g/dL - Radiology Interpretation Free Text/Narrative:: Chest x-ray 1 view Discussion: Cardiomediastinal silhouette is normal in size and contour. No infiltrate, effusion, pneumothorax, or edema. Pulmonary hyperinflation Surgical clips within the right axilla Impression: No acute cardiopulmonary abnormality - Re-Assessments/Exams Free Text/Narrative Re-Assessment/Exam: 04/08/20 13:23 Patient reports no lightheadedness while sitting at the table at rest. She is not experiencing any diaphoretic episodes no chest pain. Her shortness of breath is chronic and reports that this is not worsened. She does feel chronically fatigued and does feel this has progressed last week. 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 Anemia, vitamin B12 deficiency Qualifiers: Vitamin B12 deficiency anemia type: unspecified B12 deficiency Qualified Code(s): D51.9 - Vitamin B12 deficiency anemia, unspecified Chronic kidney disease Qualifiers: Chronic kidney disease stage: stage 3 (moderate) Chronic kidney disease stage 3 subtype: stage 3b (GFR 30-44) Qualified Code(s): N18.32 - Chronic kidney disease, stage 3b - Discharge Information Sepsis Event Note (ED) - Evaluation Sepsis Screening Result: No Definite Risk - Focused Exam Vital Signs: Vital Signs Temp Pulse Resp BP Pulse Ox 04/08/20 12:30 50 L 14 100 04/08/20 12:03 50 L 16 121/39 L 97 04/08/20 11:37 46 L 107/30 L 04/08/20 11:01 97 F 58 L 12 128/47 L 99 - My Orders Last 24 Hours: My Active Orders 04/08/20 11:20 EKG 12 Lead [EK] Stat 04/08/20 11:21 EKG Documentation Completion [RC] ASDIRECTED - Assessment/Plan Last 24 Hours: My Active Orders 04/08/20 11:20 EKG 12 Lead [EK] Stat 04/08/20 11:21 EKG Documentation Completion [RC] ASDIRECTED Assessment:: 1. Lightheadedness 2. Chronic fatigue 3. Anemia, vitamin B12 deficiency -Hemoglobin 6.5 4. Chronic shortness of breath 5. Severe mitral valve stenosis 6. Pulmonary hypertension 7. Chronic kidney disease stage IIIb 8. Congestive heart failure Plan: 1. I have discussed acute and chronic eye conditions with the patient and family today. Her hemoglobin has dropped to 6.5. Feel this is likely related to her lightheadedness increased fatigue upon her additional chronic conditions. I discussed this with Ze Moraes, nurse practitioner who will assume inpatient care for . We will place her in inpatient status. Family agrees with admission. We will place her on telemetry.
[2020-04-08] MEDS ORDERED: Sodium Chloride 0.9% 500 ML IV SCH (15:45)
[2020-04-08] MEDS ORDERED: Metolazone 2.5 MG Tab PO SCH (17:15)
[2020-04-08] MEDS ORDERED: Ferrous Sulfate 325 MG Tab PO SCH (17:15)
[2020-04-08] MEDS ORDERED: Ascorbic Acid 500 MG Tab PO SCH (17:15)
[2020-04-08] MEDS ORDERED: Albuterol 8 GM Inhaler INH PRN (18:10)
[2020-04-08] MEDS: Warfarin 2.5 MG Tab PO SCH (18:12)
[2020-04-08] MEDS: busPIRone 10 MG Tab PO SCH (20:20)
[2020-04-08] MEDS: Tiotropium Bromide 4 GM Inhalation Spray (2.5mcg/1 dose; 10 doses) INH SCH (20:21)
[2020-04-08] MEDS: Doxazosin 2 MG Tab PO SCH (20:34)
[2020-04-08] MEDS: hydrALAZINE 50 MG Tab PO SCH (20:51)
[2020-04-08] MEDS ORDERED: Glycopyrrolate 15.6 MCG Cap.W.Dev Kit of 6 IH SCH (21:00)
[2020-04-08] MEDS ORDERED: hydrALAZINE 50 MG Tab PO SCH (21:00)
[2020-04-08] MEDS ORDERED: Bisacodyl 5 MG Tab PO PRN (21:16)
[2020-04-08] MEDS: LORazepam 0.5 MG Tab PO PRN (23:48)
[2020-04-09] MEDS: Levothyroxine 100 MCG Tab PO SCH ×2 (06:18→06:31)
[2020-04-09] MEDS: Levothyroxine 75 MCG Tab PO SCH ×2 (06:18→06:31)
[2020-04-09] MEDS: Sertraline 50 MG Tab PO SCH (08:17)
[2020-04-09] MEDS: Magnesium Oxide 500 MG Tab PO SCH (08:18)
[2020-04-09] MEDS: Rosuvastatin 10 MG Tab PO SCH (08:18)
[2020-04-09] MEDS: Bumetanide 1 MG Tab PO SCH (08:18)
[2020-04-09] MEDS: Aspirin 81 MG Tab.EC PO SCH (08:18)
[2020-04-09] MEDS: Cetirizine 10 MG Tab PO SCH (08:19)
[2020-04-09] MEDS: busPIRone 10 MG Tab PO SCH ×2 (08:21→20:21)
[2020-04-09] MEDS: Metoprolol Succinate 50 MG Tab.ER PO SCH (08:24)
[2020-04-09] MEDS: hydrALAZINE 50 MG Tab PO SCH ×2 (08:24→20:21)
[2020-04-09] MEDS: Tiotropium Bromide 4 GM Inhalation Spray (2.5mcg/1 dose; 10 doses) INH SCH (08:32)
[2020-04-09] MEDS ORDERED: cloNIDine 0.1 MG/Day Transdermal Patch TRDERM SCH (09:00)
[2020-04-09] MEDS ORDERED: Acetaminophen 325 MG Tab PO SCH (11:00)
[2020-04-09] MEDS ORDERED: Sodium Chloride 0.9% 100 ML IV SCH (11:00)
--- NOTE | 2020-04-09 11:33 | PCM.PN ---
- General Info Date of Service: 04/09/20 Functional Status: Reports: Pain Controlled, Tolerating Diet, Urinating, New Symptoms (Feels much better, less weak, more color to skin, more energy). Denies: Ambulating - Review of Systems General: Denies: Weakness, Fatigue, Chills, Night Sweats HEENT: Reports: No Symptoms Pulmonary: Reports: No Symptoms Cardiovascular: Reports: No Symptoms Gastrointestinal: Reports: Flatus. Denies: Abdominal Pain, Constipation, Diarrhea, Difficulty Swallowing, Melena, Nausea, Vomiting Genitourinary: Reports: No Symptoms 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: Reports: Back Pain (Across carrier scapular/shoulders mild pain however resolved after unit of blood) Skin: Reports: Pallor (Improved in pallorous). Denies: Jaundice, Mottled, Diaphoresis, Dryness, Bruising, Pruritis Neurological: Denies: Confusion, Dizziness, Paresthesia, Tremors, Trouble Speaking, Difficulty Walking, Weakness, Change in Speech Psychiatric: Denies: Confusion, Depression, Mood Lability - Patient Data Vitals - Most Recent: Last Vital Signs Temp 97.9 F 04/09/20 06:20 Pulse 67 04/09/20 11:00 Resp 18 04/09/20 11:00 BP 133/45 L 04/09/20 11:00 Pulse Ox 96 04/09/20 11:00 Weight - Most Recent: 208 lb I&O - Last 24 Hours: Intake & Output 04/08/20 04/09/20 04/09/20 22:59 06:59 14:59 Intake Total 1196 150 Output Total 500 Balance 1196 -350 Lab Results Last 24 Hours: Laboratory Results - last 24 hr 04/08/20 04/08/20 04/08/20 Range/Units 11:30 11:30 11:30 WBC 5.06 (5.00-10.00) 10^3/uL RBC 2.31 L (3.80-5.50) 10^6/uL Hgb 6.5 L* D (12.0-16.0) g/dL Hct 22.2 L (37.0-47.0) % MCV 96.1 H (82.0-92.0) fL MCH 28.1 (27.0-31.0) pg MCHC 29.3 L (32.0-36.0) g/dL RDW 13.8 (11.5-14.5) % Plt Count 176 (150-400) 10^3/uL MPV 10.3 (7.4-10.4) fL Immature Gran % (Auto) 0.4 (0.0-5.0) % Neut % (Auto) 78.4 H (50.0-70.0) % Lymph % (Auto) 7.9 L (20.0-40.0) % [place] % (Auto) 8.9 H (2.0-8.0) % Eos % (Auto) 3.0 (1.0-3.0) % Baso % (Auto) 1.4 H (0.0-1.0) % Neut # (Auto) 3.97 (2.50-7.00) 10^3/uL Lymph # (Auto) 0.40 L (1.00-4.00) 10^3/uL [place] # (Auto) 0.45 (0.10-0.80) 10^3/uL Eos # (Auto) 0.15 (0.10-0.30) 10^3/uL Baso # (Auto) 0.07 (0.00-0.10) 10^3/uL Immature Gran # (Auto) 0.02 (0.00-0.50) 10^3/uL PT (9.2-11.2) SEC INR 2.4 H (0.9-1.1) Sodium 136 (136-145) mmol/L Potassium 4.3 (3.5-5.1) mmol/L Chloride 100 (98-107) mmol/L Carbon Dioxide 29.6 (21.0-32.0) mmol/L Anion Gap 10.7 (5-15) mmol/L BUN 29 H (7-18) mg/dL Creatinine 1.27 H (0.51-1.17) mg/dL Est Cr Clr Drug Dosing 28.41 mL/min Estimated GFR (MDRD) 41 mL/min Glucose 105 (70-140) mg/dL Calcium 9.0 (8.7-10.3) mg/dL Total Bilirubin 0.3 (0.2-1.0) mg/dL AST 22 (15-37) U/L ALT 16 (14-63) U/L Alkaline Phosphatase 64 (46-116) U/L Troponin I 0.060 H* (0.000-0.056) ng/mL B-Natriuretic Peptide 382 H (0-100) pg/mL Total Protein 7.0 (6.4-8.2) g/dL Albumin 3.16 L (3.40-5.00) g/dL SARS CoV-2 RNA Rapid SHANI (NEGATIVE) Blood Type Gel Antibody Screen Crossmatch 04/08/20 04/08/20 04/09/20 Range/Units 13:04 14:29 07:10 WBC 4.71 L (5.00-10.00) 10^3/uL RBC 2.56 L (3.80-5.50) 10^6/uL Hgb 7.4 L (12.0-16.0) g/dL Hct 24.2 L (37.0-47.0) % MCV 94.5 H (82.0-92.0) fL MCH 28.9 (27.0-31.0) pg MCHC 30.6 L (32.0-36.0) g/dL RDW 14.0 (11.5-14.5) % Plt Count 167 (150-400) 10^3/uL MPV 10.6 H (7.4-10.4) fL Immature Gran % (Auto) (0.0-5.0) % Neut % (Auto) (50.0-70.0) % Lymph % (Auto) (20.0-40.0) % [place]uel % (Auto) (2.0-8.0) % Eos % (Auto) (1.0-3.0) % Baso % (Auto) (0.0-1.0) % Neut # (Auto) (2.50-7.00) 10^3/uL Lymph # (Auto) (1.00-4.00) 10^3/uL [place]uel # (Auto) (0.10-0.80) 10^3/uL Eos # (Auto) (0.10-0.30) 10^3/uL Baso # (Auto) (0.00-0.10) 10^3/uL Immature Gran # (Auto) (0.00-0.50) 10^3/uL PT (9.2-11.2) SEC INR (0.9-1.1) Sodium (136-145) mmol/L Potassium (3.5-5.1) mmol/L Chloride (98-107) mmol/L Carbon Dioxide (21.0-32.0) mmol/L Anion Gap (5-15) mmol/L BUN (7-18) mg/dL Creatinine (0.51-1.17) mg/dL Est Cr Clr Drug Dosing mL/min Estimated GFR (MDRD) mL/min Glucose (70-140) mg/dL Calcium (8.7-10.3) mg/dL Total Bilirubin (0.2-1.0) mg/dL AST (15-37) U/L ALT (14-63) U/L Alkaline Phosphatase (46-116) U/L Troponin I (0.000-0.056) ng/mL B-Natriuretic Peptide (0-100) pg/mL Total Protein (6.4-8.2) g/dL Albumin (3.40-5.00) g/dL SARS CoV-2 RNA Rapid SHANI Negative (NEGATIVE) Blood Type B POSITIVE Gel Antibody Screen Negative Crossmatch See Detail 04/09/20 04/09/20 04/09/20 Range/Units 07:10 07:10 07:10 WBC (5.00-10.00) 10^3/uL RBC (3.80-5.50) 10^6/uL Hgb (12.0-16.0) g/dL Hct (37.0-47.0) % MCV (82.0-92.0) fL MCH (27.0-31.0) pg MCHC (32.0-36.0) g/dL RDW (11.5-14.5) % Plt Count (150-400) 10^3/uL MPV (7.4-10.4) fL Immature Gran % (Auto) (0.0-5.0) % Neut % (Auto) (50.0-70.0) % Lymph % (Auto) (20.0-40.0) % [place] % (Auto) (2.0-8.0) % Eos % (Auto) (1.0-3.0) % Baso % (Auto) (0.0-1.0) % Neut # (Auto) (2.50-7.00) 10^3/uL Lymph # (Auto) (1.00-4.00) 10^3/uL [place]uel # (Auto) (0.10-0.80) 10^3/uL Eos # (Auto) (0.10-0.30) 10^3/uL Baso # (Auto) (0.00-0.10) 10^3/uL Immature Gran # (Auto) (0.00-0.50) 10^3/uL PT 20.9 H (9.2-11.2) SEC INR 2.1 H (0.9-1.1) Sodium 136 (136-145) mmol/L Potassium 3.9 (3.5-5.1) mmol/L Chloride 100 (98-107) mmol/L Carbon Dioxide 28.9 (21.0-32.0) mmol/L Anion Gap 11.0 (5-15) mmol/L BUN 25 H (7-18) mg/dL Creatinine 1.16 (0.51-1.17) mg/dL Est Cr Clr Drug Dosing 31.10 mL/min Estimated GFR (MDRD) 45 mL/min Glucose 112 (70-140) mg/dL Calcium 8.7 (8.7-10.3) mg/dL Total Bilirubin (0.2-1.0) mg/dL AST (15-37) U/L ALT (14-63) U/L Alkaline Phosphatase (46-116) U/L Troponin I 0.063 H* (0.000-0.056) ng/mL B-Natriuretic Peptide (0-100) pg/mL Total Protein (6.4-8.2) g/dL Albumin (3.40-5.00) g/dL SARS CoV-2 RNA Rapid SHANI (NEGATIVE) Blood Type Gel Antibody Screen Crossmatch Won Results Last 24 Hours: Microbiology 04/08/20 22:55 Stool Occult Blood (WON) - Final Stool / Feces Med Orders - Current: Current Medications Acetaminophen (Tylenol) 650 mg PO ONETIME [facility] Last Admin: 04/09/20 11:00 Dose: 650 mg Documented by: Albuterol (Ventolin Hfa) 1 - 2 gm INH Q4H PRN PRN Reason: Wheezing Ascorbic Acid (Vitamin C) 500 mg PO Q48H [facility] Last Admin: 04/08/20 18:12 Dose: 500 mg Documented by: Aspirin (Halfprin) 81 mg PO DAILY [facility] Last Admin: 04/09/20 08:18 Dose: 81 mg Documented by: Bisacodyl (Dulcolax) 5 - 10 mg PO DAILY PRN PRN Reason: Constipation Last Admin: 04/08/20 21:58 Dose: 5 mg Documented by: Bumetanide (Bumex) 1 mg PO DAILY [facility] Last Admin: 04/09/20 08:18 Dose: 1 mg Documented by: Buspirone HCl (Buspar) 10 mg PO BID [facility] Last Admin: 04/09/20 08:21 Dose: 10 mg Documented by: Cetirizine HCl (Zyrtec) 10 mg PO DAILY [facility] Last Admin: 04/09/20 08:19 Dose: 10 mg Documented by: Clonidine HCl (Catapres-Tts 1) 0.1 mg TRDERM Q7D [facility] Last Admin: 04/09/20 08:47 Dose: 0.1 mg Documented by: Doxazosin Mesylate (Cardura) 4 mg PO BEDTIME [facility] Last Admin: 04/08/20 20:34 Dose: 4 mg Documented by: Ferrous Sulfate (Ferrous Sulfate) 325 mg PO Q48H [facility] Last Admin: 04/08/20 18:12 Dose: 325 mg Documented by: Hydralazine HCl (Apresoline) 50 mg PO DAILY [facility] Last Admin: 04/09/20 08:24 Dose: 50 mg Documented by: Hydralazine HCl (Apresoline) 100 mg PO BEDTIME [facility] Last Admin: 04/08/20 20:51 Dose: 100 mg Documented by: Sodium Chloride (Normal Saline) 500 mls @ 100 mls/hr IV ASDIRECTED [facility] Last Admin: 04/08/20 15:46 Dose: 100 mls/hr Documented by: Ferumoxytol 510 mg/ Sodium (Chloride) 67 mls @ 100 mls/hr IV ASDIRECTED [facility] Last Admin: 04/09/20 11:23 Dose: 100 mls/hr Documented by: Sodium Chloride (Normal Saline) 100 mls @ 125 mls/hr IV ASDIRECTED [facility] Last Admin: 04/09/20 11:23 Dose: 125 mls/hr Documented by: Levothyroxine Sodium (Synthroid) 100 mcg PO ACBREAKFAST [facility] Last Admin: 04/09/20 06:31 Dose: Not Given Documented by: Levothyroxine Sodium (Levothyroxine) 75 mcg PO ACBREAKFAST [facility] Last Admin: 04/09/20 06:31 Dose: Not Given Documented by: Lorazepam (Ativan) 0.25 - 0.5 mg PO BEDTIME PRN PRN Reason: Anxiety Last Admin: 04/08/20 23:48 Dose: 0.5 mg Documented by: Magnesium Oxide (Magnesium Oxide) 500 mg PO DAILY [facility] Last Admin: 04/09/20 08:18 Dose: 500 mg Documented by: Metolazone (Zaroxolyn) 2.5 mg PO ASDIRECTED [facility] Metoprolol Succinate (Toprol Xl) 50 mg PO DAILY [facility] Last Admin: 04/09/20 08:24 Dose: 50 mg Documented by: Miscellaneous Information (Remove Patch) 1 ea TRDERM Q7D [facility] Last Admin: 04/09/20 08:48 Dose: 1 ea Documented by: Rosuvastatin Calcium (Crestor) 10 mg PO DAILY [facility] Last Admin: 04/09/20 08:18 Dose: 10 mg Documented by: Sertraline HCl (Zoloft) 100 mg PO DAILY [facility] Last Admin: 04/09/20 08:17 Dose: 100 mg Documented by: Tiotropium [place] (Spiriva Respimat) 0 gm INH DAILY [facility] Last Admin: 04/09/20 08:32 Dose: 4 gm Documented by: Warfarin Sodium (Coumadin) 2.5 mg PO 1800 [facility] Last Admin: 04/08/20 18:12 Dose: 2.5 mg Documented by: Warfarin Sodium (Pharmacy To Dose - Warfarin) 0 dose PO ASDIRECTED [facility] Discontinued Medications Glycopyrrolate (Seebri Neohaler) 1 mcg IH BID [facility] Hydralazine HCl (Apresoline) 50 mg PO BID [facility] - Exam Quality Assessment: DVT Prophylaxis. No: Supplemental Oxygen General: Alert, Oriented, Cooperative, No Acute Distress Neck: No JVD Lungs: Clear to Auscultation, Normal Respiratory Effort Cardiovascular: Regular Rate, Regular Rhythm, Murmurs. No: Bradycardia, Tachycardia GI/Abdominal Exam: Normal Bowel Sounds, Soft (Female) Exam: Deferred Back Exam: No: CVA Tenderness (L), CVA Tenderness (R), Muscle Spasm Extremities: No Pedal Edema, Normal Capillary Refill. No: Pedal Edema Skin: Warm, Dry, Intact Neurological: No New Focal Deficit Psy/Mental Status: Alert, Normal Affect, Normal Mood Sepsis Event Note - Evaluation Sepsis Screening Result: No Definite Risk - Focused Exam Vital Signs: Vital Signs Temp Pulse Pulse Resp BP BP Pulse Ox 04/09/20 11:00 67 18 133/45 L 96 04/09/20 08:47 126/56 L 04/09/20 08:24 81 126/56 L 04/09/20 06:20 97.9 F 65 20 148/72 H 97 04/09/20 03:00 98 F 69 20 152/57 H 95 - Problem List Review Problem List Initiated/Reviewed/Updated: Yes - My Orders Last 24 Hours: My Active Orders 04/08/20 14:30 Transfuse Red Blood Cells [COMM] Routine 04/08/20 15:45 Sodium Chloride 0.9% [Normal Saline] 500 ml IV ASDIRECTED 04/08/20 17:04 LORazepam [Ativan] 0.25 - 0.5 mg PO BEDTIME PRN 04/08/20 17:15 Ascorbic Acid [Vitamin C] 500 mg PO Q48H Ferrous Sulfate 325 mg PO Q48H metOLazone [Zaroxolyn] 2.5 mg PO ASDIRECTED 04/08/20 17:31 INR,PT,PROTHROMBIN TIME [COAG] Routine 04/08/20 Dinner 2 Gram Sodium Diet [DIET] Warfarin [Coumadin] 2.5 mg PO 1800 04/08/20 18:10 Albuterol [Ventolin HFA] 1 - 2 gm INH Q4H PRN 04/08/20 18:30 Warfarin Pharmacy to Dose [Pharmacy to Dose - Warfarin] 0 dose PO ASDIRECTED 04/08/20 21:00 Doxazosin [Cardura] 4 mg PO BEDTIME Tiotropium [place] [Spiriva Respimat] 0 gm INH DAILY busPIRone [Buspar] 10 mg PO BID hydrALAZINE [Apresoline] 100 mg PO BEDTIME 04/08/20 21:16 bisacodyL [Dulcolax] 5 - 10 mg PO DAILY PRN 04/09/20 07:30 Levothyroxine 75 mcg PO ACBREAKFAST Levothyroxine [Synthroid] 100 mcg PO ACBREAKFAST 04/09/20 09:00 Aspirin [Halfprin] 81 mg PO DAILY Bumetanide [Bumex] 1 mg PO DAILY Cetirizine [ZyrTEC] 10 mg PO DAILY Magnesium Oxide 500 mg PO DAILY Metoprolol Succinate [Toprol XL] 50 mg PO DAILY Remove Patch 1 ea TRDERM Q7D Rosuvastatin [Crestor] 10 mg PO DAILY Sertraline [Zoloft] 100 mg PO DAILY cloNIDine [Catapres-TTS 1] 0.1 mg TRDERM Q7D hydrALAZINE [Apresoline] 50 mg PO DAILY 04/09/20 11:00 Acetaminophen [TylenoL] 650 mg PO ONETIME Ferumoxytol [Feraheme] 510 mg Sodium Chloride 0.9% [Normal Saline] 50 ml IV ASDIRECTED Sodium Chloride 0.9% [Normal Saline] 100 ml IV ASDIRECTED
--- NOTE | 2020-04-09 11:43 | PCM.HP.2 ---
H&P History of Present Illness - General Date of Service: 04/09/20 Admit Problem/Dx: Admission Diagnosis/Problem Admission Diagnosis/Problem Anemia Source of Information: Patient, Old Records, Provider, RN 0 Pain Score (Numeric/FACES): 0 - Related Data Allergies/Adverse Reactions: Allergies Allergy/AdvReac Type Severity Reaction Status Date / Time amlodipine Allergy Unknown Hives Verified 04/08/20 16:56 bupropion [From Wellbutrin] Allergy Rash Verified 04/08/20 11:07 Home Medications: Home Meds Albuterol [IJD: Ventolin HFA] 1 - 2 puff INH Q4H PRN 10/15/16 [History] Rosuvastatin [Crestor] 10 mg PO DAILY 02/20/18 [History] Doxazosin Mesylate [Cardura] 4 mg PO BEDTIME 08/09/18 [History] busPIRone [Buspar] 10 mg PO BID 08/09/18 [History] hydrALAZINE [Apresoline] 50 mg PO BID 08/09/18 [History] cloNIDine [Catapres-TTS 1] 0.1 mg TRDERM WEEKLY 08/18/18 [History] Umeclidinium [place] [Incruse Ellipta*] 1 puff INH DAILY 08/19/18 [History] LORazepam [Ativan] 0.25 - 0.5 mg PO BEDTIME PRN 04/24/19 [History] Warfarin [Coumadin] 2.5 mg PO 1800 04/24/19 [History] Levothyroxine 175 mcg PO ACBREAKFAST #60 tab 04/27/19 [Rx] Aspirin [Aspirin EC] 81 mg PO DAILY 01/15/20 [History] Bumetanide [Bumex] 1 mg PO DAILY 01/15/20 [History] Calcium Carbonate/Vitamin D3 [Hm Calcium 500-Vit D3 200 Cplt] 1 tab PO BIDMEALS 01/15/20 [History] Cetirizine [ZyrTEC] 10 mg PO DAILY 01/15/20 [History] Magnesium Oxide 500 mg PO DAILY 01/15/20 [History] Metoprolol Succinate [Toprol XL 50mg] 50 mg PO DAILY 01/15/20 [History] Sertraline HCl [Zoloft] 100 mg PO DAILY 01/15/20 [History] Ascorbate Calcium [Vitamin C] 500 mg PO Q48H 01/26/20 [History] Ferrous Sulfate [Iron] 325 mg PO Q48H 01/26/20 [History] metOLazone [Metolazone] 2.5 mg PO ASDIRECTED 01/26/20 [History] Budesonide/Formoterol Fumarate [Symbicort 80-4.5 MCG] 2 puff IH BID 04/08/20 [History] Past Medical History HEENT History: Reports: Cataract, Impaired Vision, Other (See Below) Other HEENT History: cornea transplant x2 Cardiovascular History: Reports: High Cholesterol, Hypertension, Other (See Below) Other Cardiovascular History: carotid stenosis, right side is 100% occluded (for past 18 years) and left side is 50% occluded. No surgery on carotids. Respiratory History: Reports: COPD Gastrointestinal History: Reports: Bowel Obstruction, GERD Genitourinary History: Reports: None MEDICAL TERMINOLOGIST History: Reports: 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 History: Reports: Arthritis Neurological History: Reports: None Psychiatric History: Reports: Anxiety, Depression, Panic Attack Other Psychiatric History: Pt states she has not used her prn ativan x3 mornings now. She states that she thinks the zoloft is helping with this. Endocrine/Metabolic History: Reports: Hypothyroidism, Obesity/BMI 30+ Other Immunologic History: cornea transplant x2 Oncologic (Cancer) History: Reports: Breast Dermatologic History: Reports: None Other Dermatologic History: rash for 3 monthes - Infectious Disease History Infectious Disease History: Reports: Influenza, Measles, Mumps - Past Surgical History Head Surgeries/Procedures: Reports: None HEENT Surgical History: Reports: Cataract Surgery, Other (See Below) Other HEENT Surgeries/Procedures: cornea transplant x2 Cardiovascular Surgical History: Reports: None Other Cardiovascular Surgeries/Procedures: Pt states she has an echo scheduled in October. Respiratory Surgical History: Reports: None GI Surgical History: Reports: Appendectomy, Cholecystectomy, Colostomy, Other (See Below) Other GI Surgeries/Procedures: Colostomy inserted August 2018, reversal surgery march 2019 Female Surgical History: Reports: Hysterectomy, Other (See Below) Other Female Surgeries/Procedures: Right Lumpectomy september 2014 Endocrine Surgical History: Reports: None Neurological Surgical History: Reports: None 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 Surgical History: Reports: Knee Replacement Other 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 Surgeries/Procedures:: R knee Oncologic Surgical History: Reports: Lumpectomy, Other (See Below) Other Oncologic Surgeries/Procedures: R side Dermatological Surgical History: Reports: None Social & Family History - Family History Family Medical History: No Pertinent Family History Cardiac: Reports: CAD Respiratory: Reports: COPD Oncologic: Reports: Ovarian - Tobacco Use Tobacco Use Status *Q: Former Tobacco User Used Tobacco, but Quit: Yes Month/Year Tobacco Last Used: 20 years ago Second Hand Smoke Exposure: No - Caffeine Use Caffeine Use: Reports: None Other Caffeine Use: decaf - Recreational Drug Use Recreational Drug Use: No H&P Review of Systems - Review of Systems: Review Of Systems: See Below Exam - Exam Exam: See Below - Vital Signs Vital Signs: Last Vital Signs Temp 97.9 F 04/09/20 06:20 Pulse 67 04/09/20 11:00 Resp 18 04/09/20 11:00 BP 133/45 L 04/09/20 11:00 Pulse Ox 96 04/09/20 11:00 Weight: 208 lb - Patient Data Lab Results Last 24 hrs: Laboratory Results - last 24 hr 04/08/20 04/08/20 04/08/20 Range/Units 11:30 11:30 11:30 WBC 5.06 (5.00-10.00) 10^3/uL RBC 2.31 L (3.80-5.50) 10^6/uL Hgb 6.5 L* D (12.0-16.0) g/dL Hct 22.2 L (37.0-47.0) % MCV 96.1 H (82.0-92.0) fL MCH 28.1 (27.0-31.0) pg MCHC 29.3 L (32.0-36.0) g/dL RDW 13.8 (11.5-14.5) % Plt Count 176 (150-400) 10^3/uL MPV 10.3 (7.4-10.4) fL Immature Gran % (Auto) 0.4 (0.0-5.0) % Neut % (Auto) 78.4 H (50.0-70.0) % Lymph % (Auto) 7.9 L (20.0-40.0) % [place] % (Auto) 8.9 H (2.0-8.0) % Eos % (Auto) 3.0 (1.0-3.0) % Baso % (Auto) 1.4 H (0.0-1.0) % Neut # (Auto) 3.97 (2.50-7.00) 10^3/uL Lymph # (Auto) 0.40 L (1.00-4.00) 10^3/uL [place] # (Auto) 0.45 (0.10-0.80) 10^3/uL Eos # (Auto) 0.15 (0.10-0.30) 10^3/uL Baso # (Auto) 0.07 (0.00-0.10) 10^3/uL Immature Gran # (Auto) 0.02 (0.00-0.50) 10^3/uL PT (9.2-11.2) SEC INR 2.4 H (0.9-1.1) Sodium 136 (136-145) mmol/L Potassium 4.3 (3.5-5.1) mmol/L Chloride 100 (98-107) mmol/L Carbon Dioxide 29.6 (21.0-32.0) mmol/L Anion Gap 10.7 (5-15) mmol/L BUN 29 H (7-18) mg/dL Creatinine 1.27 H (0.51-1.17) mg/dL Est Cr Clr Drug Dosing 28.41 mL/min Estimated GFR (MDRD) 41 mL/min Glucose 105 (70-140) mg/dL Calcium 9.0 (8.7-10.3) mg/dL Total Bilirubin 0.3 (0.2-1.0) mg/dL AST 22 (15-37) U/L ALT 16 (14-63) U/L Alkaline Phosphatase 64 (46-116) U/L Troponin I 0.060 H* (0.000-0.056) ng/mL B-Natriuretic Peptide 382 H (0-100) pg/mL Total Protein 7.0 (6.4-8.2) g/dL Albumin 3.16 L (3.40-5.00) g/dL SARS CoV-2 RNA Rapid SHANI (NEGATIVE) Blood Type Gel Antibody Screen Crossmatch 04/08/20 04/08/20 04/09/20 Range/Units 13:04 14:29 07:10 WBC 4.71 L (5.00-10.00) 10^3/uL RBC 2.56 L (3.80-5.50) 10^6/uL Hgb 7.4 L (12.0-16.0) g/dL Hct 24.2 L (37.0-47.0) % MCV 94.5 H (82.0-92.0) fL MCH 28.9 (27.0-31.0) pg MCHC 30.6 L (32.0-36.0) g/dL RDW 14.0 (11.5-14.5) % Plt Count 167 (150-400) 10^3/uL MPV 10.6 H (7.4-10.4) fL Immature Gran % (Auto) (0.0-5.0) % Neut % (Auto) (50.0-70.0) % Lymph % (Auto) (20.0-40.0) % [place] % (Auto) (2.0-8.0) % Eos % (Auto) (1.0-3.0) % Baso % (Auto) (0.0-1.0) % Neut # (Auto) (2.50-7.00) 10^3/uL Lymph # (Auto) (1.00-4.00) 10^3/uL [place] # (Auto) (0.10-0.80) 10^3/uL Eos # (Auto) (0.10-0.30) 10^3/uL Baso # (Auto) (0.00-0.10) 10^3/uL Immature Gran # (Auto) (0.00-0.50) 10^3/uL PT (9.2-11.2) SEC INR (0.9-1.1) Sodium (136-145) mmol/L Potassium (3.5-5.1) mmol/L Chloride (98-107) mmol/L Carbon Dioxide (21.0-32.0) mmol/L Anion Gap (5-15) mmol/L BUN (7-18) mg/dL Creatinine (0.51-1.17) mg/dL Est Cr Clr Drug Dosing mL/min Estimated GFR (MDRD) mL/min Glucose (70-140) mg/dL Calcium (8.7-10.3) mg/dL Total Bilirubin (0.2-1.0) mg/dL AST (15-37) U/L ALT (14-63) U/L Alkaline Phosphatase (46-116) U/L Troponin I (0.000-0.056) ng/mL B-Natriuretic Peptide (0-100) pg/mL Total Protein (6.4-8.2) g/dL Albumin (3.40-5.00) g/dL SARS CoV-2 RNA Rapid SHANI Negative (NEGATIVE) Blood Type B POSITIVE Gel Antibody Screen Negative Crossmatch See Detail 04/09/20 04/09/20 04/09/20 Range/Units 07:10 07:10 07:10 WBC (5.00-10.00) 10^3/uL RBC (3.80-5.50) 10^6/uL Hgb (12.0-16.0) g/dL Hct (37.0-47.0) % MCV (82.0-92.0) fL MCH (27.0-31.0) pg MCHC (32.0-36.0) g/dL RDW (11.5-14.5) % Plt Count (150-400) 10^3/uL MPV (7.4-10.4) fL Immature Gran % (Auto) (0.0-5.0) % Neut % (Auto) (50.0-70.0) % Lymph % (Auto) (20.0-40.0) % [place] % (Auto) (2.0-8.0) % Eos % (Auto) (1.0-3.0) % Baso % (Auto) (0.0-1.0) % Neut # (Auto) (2.50-7.00) 10^3/uL Lymph # (Auto) (1.00-4.00) 10^3/uL [place] # (Auto) (0.10-0.80) 10^3/uL Eos # (Auto) (0.10-0.30) 10^3/uL Baso # (Auto) (0.00-0.10) 10^3/uL Immature Gran # (Auto) (0.00-0.50) 10^3/uL PT 20.9 H (9.2-11.2) SEC INR 2.1 H (0.9-1.1) Sodium 136 (136-145) mmol/L Potassium 3.9 (3.5-5.1) mmol/L Chloride 100 (98-107) mmol/L Carbon Dioxide 28.9 (21.0-32.0) mmol/L Anion Gap 11.0 (5-15) mmol/L BUN 25 H (7-18) mg/dL Creatinine 1.16 (0.51-1.17) mg/dL Est Cr Clr Drug Dosing 31.10 mL/min Estimated GFR (MDRD) 45 mL/min Glucose 112 (70-140) mg/dL Calcium 8.7 (8.7-10.3) mg/dL Total Bilirubin (0.2-1.0) mg/dL AST (15-37) U/L ALT (14-63) U/L Alkaline Phosphatase (46-116) U/L Troponin I 0.063 H* (0.000-0.056) ng/mL B-Natriuretic Peptide (0-100) pg/mL Total Protein (6.4-8.2) g/dL Albumin (3.40-5.00) g/dL SARS CoV-2 RNA Rapid SHANI (NEGATIVE) Blood Type Gel Antibody Screen Crossmatch Result Diagrams: 04/10/20 07:08 04/10/20 07:08 Won Results Last 24 hrs: Microbiology 04/08/20 22:55 Stool Occult Blood (WON) - Final Stool / Feces Sepsis Event Note - Evaluation Sepsis Screening Result: No Definite Risk - Focused Exam Vital Signs: Vital Signs Temp Pulse Pulse Resp BP BP Pulse Ox 04/09/20 11:00 67 18 133/45 L 96 04/09/20 08:47 126/56 L 04/09/20 08:24 81 126/56 L 04/09/20 06:20 97.9 F 65 20 148/72 H 97 04/09/20 03:00 98 F 69 20 152/57 H 95 Problem List Initiated/Reviewed/Updated: Yes Orders Last 24hrs: Active Orders 24 hr Category Date Time Status Patient Status [ADT] Routine ADT 04/08/20 13:00 Active Height and Weight [RC] DAILY Care 04/08/20 13:00 Active Intake and Output [RC] 1400,2200,0600 Care 04/08/20 13:03 Active Pulse Oximetry [RC] PRN Care 04/08/20 13:03 Active Vital Signs [RC] 0300,0700,1100,1500,1900,2300 Care 04/08/20 13:00 Active 2 Gram Sodium Diet [DIET] Diet 04/08/20 Dinner Active INR,PT,PROTHROMBIN TIME [COAG] AM Lab 04/10/20 05:11 Ordered INR,PT,PROTHROMBIN TIME [COAG] Routine Lab 04/08/20 17:31 Ordered Acetaminophen [TylenoL] Med 04/09/20 11:00 Active 650 mg PO ONETIME Albuterol [Ventolin HFA] Med 04/08/20 18:10 Active 1 - 2 gm INH Q4H PRN Ascorbic Acid [Vitamin C] Med 04/08/20 17:15 Active 500 mg PO Q48H Aspirin [Halfprin] Med 04/09/20 09:00 Active 81 mg PO DAILY Bumetanide [Bumex] Med 04/09/20 09:00 Active 1 mg PO DAILY Cetirizine [ZyrTEC] Med 04/09/20 09:00 Active 10 mg PO DAILY Doxazosin [Cardura] Med 04/08/20 21:00 Active 4 mg PO BEDTIME Ferrous Sulfate Med 04/08/20 17:15 Active 325 mg PO Q48H Ferumoxytol [Feraheme] 510 mg Med 04/09/20 11:00 Active Sodium Chloride 0.9% [Normal Saline] 50 ml IV ASDIRECTED LORazepam [Ativan] Med 04/08/20 17:04 Active 0.25 - 0.5 mg PO BEDTIME PRN Levothyroxine Med 04/09/20 07:30 Active 75 mcg PO ACBREAKFAST Levothyroxine [Synthroid] Med 04/09/20 07:30 Active 100 mcg PO ACBREAKFAST Magnesium Oxide Med 04/09/20 09:00 Active 500 mg PO DAILY Metoprolol Succinate [Toprol XL] Med 04/09/20 09:00 Active 50 mg PO DAILY Remove Patch Med 04/09/20 09:00 Active 1 ea TRDERM Q7D Rosuvastatin [Crestor] Med 04/09/20 09:00 Active 10 mg PO DAILY Sertraline [Zoloft] Med 04/09/20 09:00 Active 100 mg PO DAILY Sodium Chloride 0.9% [Normal Saline] 100 ml Med 04/09/20 11:00 Active IV ASDIRECTED Sodium Chloride 0.9% [Normal Saline] 500 ml Med 04/08/20 15:45 Active IV ASDIRECTED Tiotropium [place] [Spiriva Respimat] Med 04/08/20 21:00 Active 0 gm INH DAILY Warfarin Pharmacy to Dose [Pharmacy to Dose - Warfarin] Med 04/08/20 18:30 Pending 0 dose PO ASDIRECTED Warfarin [Coumadin] Med 04/08/20 18:00 Active 2.5 mg PO 1800 bisacodyL [Dulcolax] Med 04/08/20 21:16 Active 5 - 10 mg PO DAILY PRN busPIRone [Buspar] Med 04/08/20 21:00 Active 10 mg PO BID cloNIDine [Catapres-TTS 1] Med 04/09/20 09:00 Active 0.1 mg TRDERM Q7D hydrALAZINE [Apresoline] Med 04/08/20 21:00 Active 100 mg PO BEDTIME hydrALAZINE [Apresoline] Med 04/09/20 09:00 Active 50 mg PO DAILY metOLazone [Zaroxolyn] Med 04/08/20 17:15 Pending 2.5 mg PO ASDIRECTED Transfuse Red Blood Cells [COMM] Routine Oth 04/08/20 14:30 Ordered Resuscitation Status Routine Resus Stat 04/08/20 14:02 Ordered EKG 12 Lead [EK] Stat Ther 04/08/20 11:20 Ordered Medication Orders Acetaminophen (Tylenol) 650 mg PO ONETIME [facility] Last Admin: 04/09/20 11:00 Dose: 650 mg Documented by: TOBIN Albuterol (Ventolin Hfa) 1 - 2 gm INH Q4H PRN PRN Reason: Wheezing Ascorbic Acid (Vitamin C) 500 mg PO Q48H [facility] Last Admin: 04/08/20 18:12 Dose: 500 mg Documented by: BHAVIK Aspirin (Halfprin) 81 mg PO DAILY [facility] Last Admin: 04/09/20 08:18 Dose: 81 mg Documented by: BHAVIK Bisacodyl (Dulcolax) 5 - 10 mg PO DAILY PRN PRN Reason: Constipation Last Admin: 04/08/20 21:58 Dose: 5 mg Documented by: PETER Bumetanide (Bumex) 1 mg PO DAILY [facility] Last Admin: 04/09/20 08:18 Dose: 1 mg Documented by: BHAVIK Buspirone HCl (Buspar) 10 mg PO BID [facility] Last Admin: 04/09/20 08:21 Dose: 10 mg Documented by: Admin: 04/08/20 20:20 Dose: 10 mg Documented by: PETER Cetirizine HCl (Zyrtec) 10 mg PO DAILY [facility] Last Admin: 04/09/20 08:19 Dose: 10 mg Documented by: BHAVIK Clonidine HCl (Catapres-Tts 1) 0.1 mg TRDERM Q7D [facility] Last Admin: 04/09/20 08:47 Dose: 0.1 mg Documented by: BHAVIK Doxazosin Mesylate (Cardura) 4 mg PO BEDTIME [facility] Last Admin: 04/08/20 20:34 Dose: 4 mg Documented by: PETER Ferrous Sulfate (Ferrous Sulfate) 325 mg PO Q48H [facility] Last Admin: 04/08/20 18:12 Dose: 325 mg Documented by: BHAVIK Hydralazine HCl (Apresoline) 50 mg PO DAILY [facility] Last Admin: 04/09/20 08:24 Dose: 50 mg Documented by: BHAVIK Hydralazine HCl (Apresoline) 100 mg PO BEDTIME [facility] Last Admin: 04/08/20 20:51 Dose: 100 mg Documented by: PETER Sodium Chloride (Normal Saline) 500 mls @ 100 mls/hr IV ASDIRECTED [facility] Last Admin: 04/08/20 15:46 Dose: 100 mls/hr Documented by: BHAVIK Ferumoxytol 510 mg/ Sodium (Chloride) 67 mls @ 100 mls/hr IV ASDIRECTED [facility] Last Admin: 04/09/20 11:23 Dose: 100 mls/hr Documented by: TOBIN Sodium Chloride (Normal Saline) 100 mls @ 125 mls/hr IV ASDIRECTED [facility] Last Admin: 04/09/20 11:23 Dose: 125 mls/hr Documented by: TOBIN Levothyroxine Sodium (Synthroid) 100 mcg PO ACBREAKFAST [facility] Last Admin: 04/09/20 06:31 Dose: Not Given Documented by: Admin: 04/09/20 06:18 Dose: 100 mcg Documented by: PETER Levothyroxine Sodium (Levothyroxine) 75 mcg PO ACBREAKFAST [facility] Last Admin: 04/09/20 06:31 Dose: Not Given Documented by: Admin: 04/09/20 06:18 Dose: 75 mcg Documented by: PETER Lorazepam (Ativan) 0.25 - 0.5 mg PO BEDTIME PRN PRN Reason: Anxiety Last Admin: 04/08/20 23:48 Dose: 0.5 mg Documented by: PETER Magnesium Oxide (Magnesium Oxide) 500 mg PO DAILY [facility] Last Admin: 04/09/20 08:18 Dose: 500 mg Documented by: BHAVIK Metolazone (Zaroxolyn) 2.5 mg PO ASDIRECTED [facility] Metoprolol Succinate (Toprol Xl) 50 mg PO DAILY [facility] Last Admin: 04/09/20 08:24 Dose: 50 mg Documented by: BHAVIK Miscellaneous Information (Remove Patch) 1 ea TRDERM Q7D [facility] Last Admin: 04/09/20 08:48 Dose: 1 ea Documented by: BHAVIK Rosuvastatin Calcium (Crestor) 10 mg PO DAILY [facility] Last Admin: 04/09/20 08:18 Dose: 10 mg Documented by: BHAVIK Sertraline HCl (Zoloft) 100 mg PO DAILY [facility] Last Admin: 04/09/20 08:17 Dose: 100 mg Documented by: BHAVIK Tiotropium [place] (Spiriva Respimat) 0 gm INH DAILY [facility] Last Admin: 04/09/20 08:32 Dose: 4 gm Documented by: Admin: 04/08/20 20:21 Dose: 4 gm Documented by: PETER Warfarin Sodium (Coumadin) 2.5 mg PO 1800 [facility] Last Admin: 04/08/20 18:12 Dose: 2.5 mg Documented by: BHAVIK Warfarin Sodium (Pharmacy To Dose - Warfarin) 0 dose PO ASDIRECTED [facility] Assessment/Plan Comment:: History of present illness Nneka is a pleasant 79 y/o female who was admitted to inpatient status from the ED due to lightheadedness near syncope due to anemia. Patient did noted that her symptoms have been chronic and getting worse over past several weeks and morning of admission felt like she could pass out while standing. He does have anemia of chronic disease and followed by his hematology/oncology for vitamin B12 deficiency anemia as well. Likely renal however has been recommended that s he be followed by a colonoscopy if her anemia worsens. Globin's have been stable recently 8-8.5/. She does take iron infusion so her stools are dark but denies any iwona or gross rectal bleeding. She has a history of severe mitral valve stenosis and pulmonary hypertension currently on Toprol. She is on anticoagulation for atrial fibrillation that was tersely identified years ago however no evidence of ongoing or recent atrial fibrillation. Due for GAVIN end of March. Denies significant pedal edema although she has had ~23 pound weight gain over the last year. She had no chest pain diaphoresis or abdominal pain. ED course Bradycardia, BP 128/47, No atrial fib Hgb 6.4% BUN/Creat 29/1.27 INR 2.4 Trop 0.060 (h) mild BNP 382 Covid-19 Neg Diagnostics ECHO 01/2020: 65% EF severe MS, severe PAH, (mean gradient 9 mmHg) grade 3 diastolic dysfunction. Hospital course 04/08/2020; quite weak, bradycardic, anemia, transfused 1 unit PRBC O- blood (although patient B+) as slow as possible the need for any interventional diuretics. Tolerated well with improvement in hemoglobin to 7.5%. Guaiac stool positive however no iwona or rectal bleeding noted. 04/09/2020; improved hgb after transfusion, no post transfusion edema, dyspnea, Feels much better, no chest pain, less weak, more color to skin, more energy, VSS Primary hospital problems Anemia, ACD, GI blood loss ? related to colon ca/surgery site, transfuse 1 more unit PRBC slowly, will colonoscopy upon further stabilization Elevated Cardiac enzymes, mild suspect type II demand Chronic problems --CKD IIIb; 2/2 cardiorenal syndrome, --Atrial fib, paroxysmal, currently NSR suspect low burden however remains on anticoagulation--possible watchman candidate if colonoscopy cant correct --Mitral Stenosis; severe --Hypertension stable --B12 and iron deficiency anemia, chronic, sees hematology, Iron infusion Feraheme today --Morbid obesity-has been counseled on weight loss and exercise. --Acquired hypothyroidism, on T4 --Lumbar stenosis with neurogenic claudication. Reports improvement with the Tens unit, Pending cardiology's approval, pain management has suggested an L4-5 lumbar interlaminar epidural steroid injection. --Osteoporosis, Cancer treatment induced bone loss, stable on Prolia --Hx of Breast Ca without evidence of local or distant recurrence relapse Functional Status: Reports: Pain Controlled, Tolerating Diet, Urinating, New Symptoms (Feels much better, less weak, more color to skin, more energy). Denies: Ambulating - Review of Systems General: Denies: Weakness, Fatigue, Chills, Night Sweats HEENT: Reports: No Symptoms Pulmonary: Reports: No Symptoms Cardiovascular: Reports: No Symptoms Gastrointestinal: Reports: Flatus. Denies: Abdominal Pain, Constipation, Diarrhea, Difficulty Swallowing, Melena, Nausea, Vomiting Genitourinary: Reports: No Symptoms 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: Reports: Back Pain (Across carrier scapular/shoulders mild pain however resolved after unit of blood) Skin: Reports: Pallor (Improved in pallorous). Denies: Jaundice, Mottled, Diaphoresis, Dryness, Bruising, Pruritis Neurological: Denies: Confusion, Dizziness, Paresthesia, Tremors, Trouble Speaking, Difficulty Walking, Weakness, Change in Speech Psychiatric: Denies: Confusion, Depression, Mood Lability - Exam Quality Assessment: DVT Prophylaxis. No: Supplemental Oxygen General: Alert, Oriented, Cooperative, No Acute Distress Neck: No JVD Lungs: Clear to Auscultation, Normal Respiratory Effort Cardiovascular: Regular Rate, Regular Rhythm, Murmurs. No: Bradycardia, Tachycardia GI/Abdominal Exam: Normal Bowel Sounds, Soft (Female) Exam: Deferred Back Exam: No: CVA Tenderness (L), CVA Tenderness (R), Muscle Spasm Extremities: No Pedal Edema, Normal Capillary Refill. No: Pedal Edema Skin: Warm, Dry, Intact Neurological: No New Focal Deficit Psy/Mental Status: Alert, Normal Affect, Normal Mood Disposition/overall plan --Patient meets ongoing inpatient qualification due to the need for second t ransfusion PRBC due to significant cardiac history and potential sequela due to significant mitral valve stenosis. Will carefully monitor cardiopulmonary status during transfusions as to avoid additional need for diuretics --Iron infusion Feraheme today --Labs in AM - Mortality Measure Prognosis:: Good
[2020-04-09] MEDS: Formoterol/Mometasone 100-5 MCG 8.8 GM Inhaler IH SCH ×2 (13:28→20:35)
[2020-04-09] MEDS ORDERED: Sodium Chloride 0.9% 250 ML IV SCH (15:45)
[2020-04-09] MEDS: Warfarin 2.5 MG Tab PO SCH (18:03)
[2020-04-09] MEDS ORDERED: Acetaminophen 325 MG Tab PO PRN (19:42)
[2020-04-09] MEDS: Doxazosin 2 MG Tab PO SCH (20:20)
[2020-04-09] MEDS: LORazepam 0.5 MG Tab PO PRN (22:24)
[2020-04-10 06:26] VITALS: PULSE 64
[2020-04-10 07:48] LABS: ANION GAP 9.1 mmol/L (5-15)
[2020-04-10] MEDS: Levothyroxine 75 MCG Tab PO SCH (07:54)
[2020-04-10] MEDS: Levothyroxine 100 MCG Tab PO SCH (07:54)
[2020-04-10] MEDS: Aspirin 81 MG Tab.EC PO SCH (08:13)
[2020-04-10] MEDS: Bumetanide 1 MG Tab PO SCH (08:13)
[2020-04-10] MEDS: Cetirizine 10 MG Tab PO SCH (08:13)
[2020-04-10] MEDS: Sertraline 50 MG Tab PO SCH (08:13)
[2020-04-10] MEDS: Rosuvastatin 10 MG Tab PO SCH (08:14)
[2020-04-10] MEDS: Magnesium Oxide 500 MG Tab PO SCH (08:14)
[2020-04-10] MEDS: busPIRone 10 MG Tab PO SCH (08:14)
[2020-04-10] MEDS: Metoprolol Succinate 50 MG Tab.ER PO SCH (08:15)
[2020-04-10 08:16] VITALS: BP 139/79
[2020-04-10] MEDS: hydrALAZINE 50 MG Tab PO SCH (08:16)
[2020-04-10] MEDS: Tiotropium Bromide 4 GM Inhalation Spray (2.5mcg/1 dose; 10 doses) INH SCH (08:20)
[2020-04-10] MEDS: Formoterol/Mometasone 100-5 MCG 8.8 GM Inhaler IH SCH (08:20)
--- NOTE | 2020-04-10 11:03 | PCM.DCSUM1 ---
Discharge Summary - Hospital Course Diagnosis: Stroke: No - Discharge Data Discharge Date: 04/10/20 Discharge Disposition: Home, Self-Care 01 Condition: Fair - Referral to Home Health Primary Care Physician: Veronica Diamond NP - Patient Instructions Diet: Heart Healthy Diet, Low Sodium Activity: No Strenuous Activities, Rest and Relax Today Showering/Bathing: May Shower Notify Provider of: Nausea and/or Vomiting Other/Special Instructions: Report rectal bleeding, weakness, chest pain or shortness of breath. - Discharge Plan *PRESCRIPTION DRUG MONITORING PROGRAM REVIEWED*: Not Applicable *COPY OF PRESCRIPTION DRUG MONITORING REPORT IN PATIENT BEATRICE: Not Applicable Home Medications: Home Meds Albuterol [IJD: Ventolin HFA] 1 - 2 puff INH Q4H PRN 10/15/16 [History] Rosuvastatin [Crestor] 10 mg PO DAILY 02/20/18 [History] Doxazosin Mesylate [Cardura] 4 mg PO BEDTIME 08/09/18 [History] busPIRone [Buspar] 10 mg PO BID 08/09/18 [History] hydrALAZINE [Apresoline] 50 mg PO BID 08/09/18 [History] cloNIDine [Catapres-TTS 1] 0.1 mg TRDERM WEEKLY 08/18/18 [History] Umeclidinium [place] [Incruse Ellipta*] 1 puff INH DAILY 08/19/18 [History] LORazepam [Ativan] 0.25 - 0.5 mg PO BEDTIME PRN 04/24/19 [History] Warfarin [Coumadin] 2.5 mg PO 1800 04/24/19 [History] Levothyroxine 175 mcg PO ACBREAKFAST #60 tab 04/27/19 [Rx] Aspirin [Aspirin EC] 81 mg PO DAILY 01/15/20 [History] Bumetanide [Bumex] 1 mg PO DAILY 01/15/20 [History] Calcium Carbonate/Vitamin D3 [Hm Calcium 500-Vit D3 200 Cplt] 1 tab PO BIDMEALS 01/15/20 [History] Cetirizine [ZyrTEC] 10 mg PO DAILY 01/15/20 [History] Magnesium Oxide 500 mg PO DAILY 01/15/20 [History] Metoprolol Succinate [Toprol XL 50mg] 50 mg PO DAILY 01/15/20 [History] Sertraline HCl [Zoloft] 100 mg PO DAILY 01/15/20 [History] Ascorbate Calcium [Vitamin C] 500 mg PO Q48H 01/26/20 [History] Ferrous Sulfate [Iron] 325 mg PO Q48H 01/26/20 [History] metOLazone [Metolazone] 2.5 mg PO ASDIRECTED 01/26/20 [History] Budesonide/Formoterol Fumarate [Symbicort 80-4.5 MCG] 2 puff IH BID 04/08/20 [History] Forms: ED Department Discharge - Discharge Summary/Plan Comment DC Time >30 min.: Yes Discharge Summary/Plan Comment: Final diagnosis Primary hospital problems Anemia, ACD, GI blood loss ? related to colon ca/surgery site, transfuse 1 more unit PRBC slowly, will colonoscopy upon further stabilization Elevated Cardiac enzymes, mild suspect type II demand Chronic problems --CKD IIIb; 2/2 cardiorenal syndrome, --Atrial fib, paroxysmal, currently NSR suspect low burden however remains on anticoagulation--possible watchman candidate if colonoscopy cant correct --Mitral Stenosis; severe --Hypertension stable --B12 and iron deficiency anemia, chronic, sees hematology, Iron infusion Feraheme today --Morbid obesity-has been counseled on weight loss and exercise. --Acquired hypothyroidism, on T4 --Lumbar stenosis with neurogenic claudication. Reports improvement with the Tens unit, Pending cardiology's approval, pain management has suggested an L4-5 lumbar interlaminar epidural steroid injection. --Osteoporosis, Cancer treatment induced bone loss, stable on Prolia --Hx of Breast Ca without evidence of local or distant recurrence relapse History summary 79 y/o female who was admitted to inpatient status from the ED due to lightheadedness along with a near syncope due to anemia. Patient denoted that her symptoms have been chronic and getting worse over past several weeks and morning of admission felt like she could pass out while standing. She does have anemia of chronic disease and followed by hematology/oncology for vitamin B12 deficiency anemia as well. The past they suspected that her anemia is mainly of ACD and vitamin B12 deficiency however is recommended that she obtain a colonoscopy if her anemia worsens. Hemoglobins have been low however fairly stable ~ 8-8.5. She does take iron infusion so her stools are dark but denied any iwona or gross rectal bleeding. She has a history of severe mitral valve stenosis and pulmonary hypertension currently on Toprol. She is on anticoagulation for atrial fibrillation that was tersely identified years ago however no evidence of ongoing or recent atrial fibrillation. She is due to have GAVIN end of March. Denies significant pedal edema although she has had ~23 pound weight gain over the last year. She had no chest pain diaphoresis or abdominal pain upon admission. ECHO 01/2020: 65% EF severe MS, severe PAH, (mean gradient 9 mmHg) grade 3 diastolic dysfunction. ED course consisted of Bradycardia, BP 128/47, No atrial fib Hgb 6.4% BUN/Creat 29/1.27 INR 2.4 Trop 0.060 (h) mild BNP 382 Covid-19 Neg Hospital course 04/08/2020; quite weak, bradycardic, anemia, transfused 1 unit PRBC O- blood (although patient B+) as slow as possible the need for any interventional diuretics. Tolerated well with improvement in hemoglobin to 7.5%. Guaiac stool positive however no iwona or rectal bleeding noted. 04/09/2020; improved hgb after transfusion, no post transfusion edema, dyspnea, Feels much better, no chest pain, less weak, more color to skin, more energy, VSS 04/10/2020; hemoglobin improved to baseline of 8.4% with a corresponding RBC 2.83, she feels much better well above her normal baseline. More energy, feels very good today vital signs stable had no reaction to transfusion of iron and blood. No short of breath no need for additional diuresis. She was monitored on telemetry her troponin normalized. Never had chest pains. No ECG changes ROS General: Denies: Weakness, Fatigue, Chills, Night Sweats Pulmonary: Reports: No Symptoms Cardiovascular: Reports: No Symptoms Gastrointestinal: Reports: Mild bright red blood after stool. Itchy anal Melena, NO Nausea, Vomiting 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: Reports: Back Pain (Across carrier scapular/shoulders mild pain however resolved after unit of blood) Skin: Reports: Pallor (much improved ). Denies: Jaundice, Mottled, Diaphoresis, Neurological: Denies: Confusion, Dizziness, Paresthesia, Tremors, Trouble Speaking, Difficulty Walking, Weakness, Change in Speech Psychiatric: Denies: Confusion, Depression, Mood Lability Exam Quality Assessment: DVT Prophylaxis. No: Supplemental Oxygen General: Alert, Oriented, Cooperative, No Acute Distress Neck: No JVD Lungs: Clear to Auscultation, Normal Respiratory Effort Cardiovascular: Regular Rate, Regular Rhythm, Murmurs. No: Bradycardia, Tachycardia Skin: Warm, Dry, Intact Neurological: No New Focal Deficit Psy/Mental Status: Alert, Normal Affect, Normal Mood Medication changes/adjustments upon discharge None, restart all home meds without changes Disposition --Will be discharged and has been overly optimized as far as how she feels, vital signs stable afebrile no hemodynamic compromise and no active iwona or gross GI bleed noted. Continue with anticoagulation for now --We will follow up with the [facility] this week, post monitoring of hemoglobin and hemodynamic state --Likely will need colonoscopy within a week - Patient Data Vitals - Most Recent: Last Vital Signs Temp 98.2 F 04/10/20 06:25 Pulse 64 04/10/20 08:15 Resp 18 04/10/20 06:25 BP 139/79 04/10/20 08:16 Pulse Ox 96 04/10/20 06:25 Weight - Most Recent: 207 lb 8 oz I&O - Last 24 hours: Intake & Output 04/09/20 04/10/20 04/10/20 22:59 06:59 14:59 Intake Total 490 250 Output Total 400 1050 Balance 90 -800 Lab Results - Last 24 hrs: Laboratory Results - last 24 hr 04/08/20 04/10/20 04/10/20 Range/Units 14:29 07:08 07:08 WBC (5.00-10.00) 10^3/uL RBC (3.80-5.50) 10^6/uL Hgb (12.0-16.0) g/dL Hct (37.0-47.0) % MCV (82.0-92.0) fL MCH (27.0-31.0) pg MCHC (32.0-36.0) g/dL RDW (11.5-14.5) % Plt Count (150-400) 10^3/uL MPV (7.4-10.4) fL Immature Gran % (Auto) (0.0-5.0) % Neut % (Auto) (50.0-70.0) % Lymph % (Auto) (20.0-40.0) % [place] % (Auto) (2.0-8.0) % Eos % (Auto) (1.0-3.0) % Baso % (Auto) (0.0-1.0) % Neut # (Auto) (2.50-7.00) 10^3/uL Lymph # (Auto) (1.00-4.00) 10^3/uL [place] # (Auto) (0.10-0.80) 10^3/uL Eos # (Auto) (0.10-0.30) 10^3/uL Baso # (Auto) (0.00-0.10) 10^3/uL Immature Gran # (Auto) (0.00-0.50) 10^3/uL PT 18.3 H (9.2-11.2) SEC INR 1.8 H (0.9-1.1) Sodium 138 (136-145) mmol/L Potassium 3.9 (3.5-5.1) mmol/L Chloride 103 (98-107) mmol/L Carbon Dioxide 29.8 (21.0-32.0) mmol/L Anion Gap 9.1 (5-15) mmol/L BUN 20 H (7-18) mg/dL Creatinine 0.94 (0.51-1.17) mg/dL Est Cr Clr Drug Dosing 38.38 mL/min Estimated GFR (MDRD) 57 mL/min Glucose 99 (70-140) mg/dL Calcium 8.6 L (8.7-10.3) mg/dL Troponin I 0.022 (0.000-0.056) ng/mL Blood Type B POSITIVE Gel Antibody Screen Negative Crossmatch See Detail 04/10/20 Range/Units 07:08 WBC 3.75 L (5.00-10.00) 10^3/uL RBC 2.83 L (3.80-5.50) 10^6/uL Hgb 8.4 L (12.0-16.0) g/dL Hct 26.7 L (37.0-47.0) % MCV 94.3 H (82.0-92.0) fL MCH 29.7 (27.0-31.0) pg MCHC 31.5 L (32.0-36.0) g/dL RDW 14.2 (11.5-14.5) % Plt Count 164 (150-400) 10^3/uL MPV 10.7 H (7.4-10.4) fL Immature Gran % (Auto) 0.3 (0.0-5.0) % Neut % (Auto) 65.5 (50.0-70.0) % Lymph % (Auto) 15.5 L (20.0-40.0) % [place] % (Auto) 11.2 H (2.0-8.0) % Eos % (Auto) 5.6 H (1.0-3.0) % Baso % (Auto) 1.9 H (0.0-1.0) % Neut # (Auto) 2.46 L (2.50-7.00) 10^3/uL Lymph # (Auto) 0.58 L (1.00-4.00) 10^3/uL [place] # (Auto) 0.42 (0.10-0.80) 10^3/uL Eos # (Auto) 0.21 (0.10-0.30) 10^3/uL Baso # (Auto) 0.07 (0.00-0.10) 10^3/uL Immature Gran # (Auto) 0.01 (0.00-0.50) 10^3/uL PT (9.2-11.2) SEC INR (0.9-1.1) Sodium (136-145) mmol/L Potassium (3.5-5.1) mmol/L Chloride (98-107) mmol/L Carbon Dioxide (21.0-32.0) mmol/L Anion Gap (5-15) mmol/L BUN (7-18) mg/dL Creatinine (0.51-1.17) mg/dL Est Cr Clr Drug Dosing mL/min Estimated GFR (MDRD) mL/min Glucose (70-140) mg/dL Calcium (8.7-10.3) mg/dL Troponin I (0.000-0.056) ng/mL Blood Type Gel Antibody Screen Crossmatch DEION Results - Last 24 hrs: Microbiology 04/08/20 22:55 Stool Occult Blood (DEION) - Final Stool / Feces Med Orders - Current: Current Medications Acetaminophen (Tylenol) 650 mg PO ONETIME DES Last Admin: 04/09/20 11:00 Dose: 650 mg Documented by: Acetaminophen (Tylenol) 650 mg PO Q6H PRN PRN Reason: Headache/Pain Last Admin: 04/09/20 22:24 Dose: 650 mg Documented by: Albuterol (Ventolin Hfa) 1 - 2 gm INH Q4H PRN PRN Reason: Wheezing Ascorbic Acid (Vitamin C) 500 mg PO Q48H [facility] Last Admin: 04/08/20 18:12 Dose: 500 mg Documented by: Aspirin (Halfprin) 81 mg PO DAILY [facility] Last Admin: 04/10/20 08:13 Dose: 81 mg Documented by: Bisacodyl (Dulcolax) 5 - 10 mg PO DAILY PRN PRN Reason: Constipation Last Admin: 04/08/20 21:58 Dose: 5 mg Documented by: Bumetanide (Bumex) 1 mg PO DAILY [facility] Last Admin: 04/10/20 08:13 Dose: 1 mg Documented by: Buspirone HCl (Buspar) 10 mg PO BID [facility] Last Admin: 04/10/20 08:14 Dose: 10 mg Documented by: Cetirizine HCl (Zyrtec) 10 mg PO DAILY [facility] Last Admin: 04/10/20 08:13 Dose: 10 mg Documented by: Clonidine HCl (Catapres-Tts 1) 0.1 mg TRDERM Q7D [facility] Last Admin: 04/09/20 08:47 Dose: 0.1 mg Documented by: Doxazosin Mesylate (Cardura) 4 mg PO BEDTIME [facility] Last Admin: 04/09/20 20:20 Dose: 4 mg Documented by: Ferrous Sulfate (Ferrous Sulfate) 325 mg PO Q48H [facility] Last Admin: 04/08/20 18:12 Dose: 325 mg Documented by: Hydralazine HCl (Apresoline) 50 mg PO DAILY [facility] Last Admin: 04/10/20 08:16 Dose: 50 mg Documented by: Hydralazine HCl (Apresoline) 100 mg PO BEDTIME [facility] Last Admin: 04/09/20 20:21 Dose: 100 mg Documented by: Sodium Chloride (Normal Saline) 500 mls @ 100 mls/hr IV ASDIRECTED [facility] Last Admin: 04/08/20 15:46 Dose: 100 mls/hr Documented by: Ferumoxytol 510 mg/ Sodium (Chloride) 67 mls @ 100 mls/hr IV ASDIRECTED [facility] Last Admin: 04/09/20 11:23 Dose: 100 mls/hr Documented by: Sodium Chloride (Normal Saline) 100 mls @ 125 mls/hr IV ASDIRECTED [facility] Last Admin: 04/09/20 11:23 Dose: 125 mls/hr Documented by: Sodium Chloride (Normal Saline) 250 mls @ 125 mls/hr IV ASDIRECTED [facility] Last Admin: 04/09/20 15:57 Dose: 125 mls/hr Documented by: Levothyroxine Sodium (Synthroid) 100 mcg PO ACBREAKFAST [facility] Last Admin: 04/10/20 07:54 Dose: 100 mcg Documented by: Levothyroxine Sodium (Levothyroxine) 75 mcg PO ACBREAKFAST [facility] Last Admin: 04/10/20 07:54 Dose: 75 mcg Documented by: Lorazepam (Ativan) 0.25 - 0.5 mg PO BEDTIME PRN PRN Reason: Anxiety Last Admin: 04/09/20 22:24 Dose: 0.5 mg Documented by: Magnesium Oxide (Magnesium Oxide) 500 mg PO DAILY [facility] Last Admin: 04/10/20 08:14 Dose: 500 mg Documented by: Metolazone (Zaroxolyn) 2.5 mg PO ASDIRECTED [facility] Metoprolol Succinate (Toprol Xl) 50 mg PO DAILY [facility] Last Admin: 04/10/20 08:15 Dose: 50 mg Documented by: Miscellaneous Information (Remove Patch) 1 ea TRDERM Q7D [facility] Last Admin: 04/09/20 08:48 Dose: 1 ea Documented by: Mometasone Furoate/Formoterol Fumar (Dulera 100-5 Mcg) 2 puff IH BID [facility] Last Admin: 04/10/20 08:20 Dose: 2 puff Documented by: Rosuvastatin Calcium (Crestor) 10 mg PO DAILY [facility] Last Admin: 04/10/20 08:14 Dose: 10 mg Documented by: Sertraline HCl (Zoloft) 100 mg PO DAILY [facility] Last Admin: 04/10/20 08:13 Dose: 100 mg Documented by: Tiotropium Musella (Spiriva Respimat) 0 gm INH DAILY [facility] Last Admin: 04/10/20 08:20 Dose: 4 gm Documented by: Warfarin Sodium (Pharmacy To Dose - Warfarin) 0 dose PO ASDIRECTED [facility] Warfarin Sodium 1 mg/ Warfarin (Sodium 2 mg) 3 mg PO ONETIME ONE Stop: 04/10/20 18:01 Discontinued Medications Glycopyrrolate (Seebri Neohaler) 1 mcg IH BID [facility] Hydralazine HCl (Apresoline) 50 mg PO BID [facility] Warfarin Sodium (Coumadin) 2.5 mg PO 1800 [facility] Last Admin: 04/09/20 18:03 Dose: 2.5 mg Documented by:
[2020-04-10] MEDS ORDERED: Warfarin 1 MG, Warfarin 2 MG PO ONE ×2 (18:00)
== END 2020-04-10 13:04 | disposition home or self-care (01) | DRG 812 ==
LOC: KA.ED 10:58 → KA.MS 13:00 → UNDOADMIN 13:00
PROVIDERS: ADMIT Physician Assistant; ATTEND Nurse Practitioner Family
PROC: 30233N1 Transfusion of Nonautologous Red Blood Cells into Peripheral Vein, Percutaneous Approach (ICD-10-PCS; principal; 2020-04-08)
DX: R55 Syncope and collapse (principal); R42 Dizziness and giddiness; R53.82 Chronic fatigue, unspecified; R06.02 Shortness of breath; D50.9 Iron deficiency anemia, unspecified; K92.2 Gastrointestinal hemorrhage, unspecified; C18.9 Malignant neoplasm of colon, unspecified; I13.0 Hypertensive heart and chronic kidney disease with heart failure and stage 1 through stage 4 chronic kidney disease, or unspecified chronic kidney disease; D51.9 Vitamin B12 deficiency anemia, unspecified; N18.32 Chronic kidney disease, stage 3b; I05.0 Rheumatic mitral stenosis; E66.01 Morbid (severe) obesity due to excess calories; I65.23 Occlusion and stenosis of bilateral carotid arteries; E03.9 Hypothyroidism, unspecified; M81.0 Age-related osteoporosis without current pathological fracture; M19.90 Unspecified osteoarthritis, unspecified site; D63.8 Anemia in other chronic diseases classified elsewhere; F41.9 Anxiety disorder, unspecified; I27.20 Pulmonary hypertension, unspecified; Z20.822 Contact with and (suspected) exposure to COVID-19; I50.9 Heart failure, unspecified; I48.0 Paroxysmal atrial fibrillation; M48.062 Spinal stenosis, lumbar region with neurogenic claudication; H54.7 Unspecified visual loss; K21.9 Gastro-esophageal reflux disease without esophagitis; E78.00 Pure hypercholesterolemia, unspecified; J44.9 Chronic obstructive pulmonary disease, unspecified; F41.0 Panic disorder [episodic paroxysmal anxiety]; F32.9 Major depressive disorder, single episode, unspecified; Z94.7 Corneal transplant status; Z85.3 Personal history of malignant neoplasm of breast; Z88.8 Allergy status to other drugs, medicaments and biological substances; Z79.01 Long term (current) use of anticoagulants; Z79.82 Long term (current) use of aspirin; Z79.890 Hormone replacement therapy; Z90.49 Acquired absence of other specified parts of digestive tract; Z90.710 Acquired absence of both cervix and uterus; Z87.891 Personal history of nicotine dependence; Z68.28 Body mass index [BMI] 28.0-28.9, adult; Z79.899 Other long term (current) drug therapy
CPT/HCPCS: 36415; 36416; 36430; 71045; 80048; 80053; 82272; 83880; 84484; 85025; 85027; 85610; 86850; 86900; 86901; 86920; 86922; 93005; 99284; 99285-25; A9270-GY; J7040; J7050; P9016; Q0138; U0002

== ENCOUNTER 2020-04-11 10:51 | Emergency (ER) | payer MEDICARE, BC ==
[2020-04-11 11:02] VITALS: PULSE 65
[2020-04-11 11:18] VITALS: BP 169/52
--- NOTE | 2020-04-11 11:19 | EDM.PDOC ---
ED HPI GENERAL MEDICAL PROBLEM - General Chief Complaint: ENT Problem Stated Complaint: NOSE BLEED Time Seen by Provider: 04/11/20 11:18 Source of Information: Reports: Patient History Limitations: Reports: No Limitations - History of Present Illness INITIAL COMMENTS - FREE TEXT/NARRATIVE: Nneka, 79-year-old female, presents with right-sided epistaxis. Bleeding is controlled by the time of my arrival when she was able to hold direct pressure consistently. She appears to be "a dabber", repetitively dabbing at her nose with tissue to see if it is leaking or not. Was transfused 2 units of blood secondary of anemia Saturday first unit, Saturday second unit. Has been taking warfarin as prescribed, 2.5 mg 5 days a week, 5 mg 2 days a week. Has had no other symptoms or complaints, states her fatigue has significantly improved since the transfusion. Onset: Today, Sudden Duration: Minutes: Location: Reports: Face Severity: Moderate Improves with: Reports: Other (Pressure) Worsens with: Reports: Movement - Related Data Allergies Allergy/AdvReac Type Severity Reaction Status Date / Time amlodipine Allergy Unknown Hives Verified 04/11/20 10:53 bupropion [From Wellbutrin] Allergy Rash Verified 04/11/20 10:53 Home Meds: Home Meds Albuterol [IJD: Ventolin HFA] 1 - 2 puff INH Q4H PRN 10/15/16 [History] Rosuvastatin [Crestor] 10 mg PO DAILY 02/20/18 [History] Doxazosin Mesylate [Cardura] 4 mg PO BEDTIME 08/09/18 [History] busPIRone [Buspar] 10 mg PO BID 08/09/18 [History] hydrALAZINE [Apresoline] 50 mg PO DAILY 08/09/18 [History] cloNIDine [Catapres-TTS 1] 0.1 mg TRDERM WEEKLY 08/18/18 [History] Umeclidinium [place] [Incruse Ellipta*] 1 puff INH DAILY 08/19/18 [History] LORazepam [Ativan] 0.25 - 0.5 mg PO BEDTIME PRN 04/24/19 [History] Warfarin [Coumadin] 2.5 mg PO SUTUWETHSA@1800 04/24/19 [History] Levothyroxine 175 mcg PO ACBREAKFAST #60 tab 04/27/19 [Rx] Aspirin [Aspirin EC] 81 mg PO DAILY 01/15/20 [History] Bumetanide [Bumex] 1 mg PO DAILY 01/15/20 [History] Calcium Carbonate/Vitamin D3 [Hm Calcium 500-Vit D3 200 Cplt] 1 tab PO BIDMEALS 01/15/20 [History] Cetirizine [ZyrTEC] 10 mg PO DAILY 01/15/20 [History] Magnesium Oxide 500 mg PO DAILY 01/15/20 [History] Metoprolol Succinate [Toprol XL 50mg] 50 mg PO DAILY 01/15/20 [History] Sertraline HCl [Zoloft] 100 mg PO DAILY 01/15/20 [History] Ascorbate Calcium [Vitamin C] 500 mg PO Q48H 01/26/20 [History] Ferrous Sulfate [Iron] 325 mg PO Q48H 01/26/20 [History] metOLazone [Metolazone] 2.5 mg PO ASDIRECTED 01/26/20 [History] Budesonide/Formoterol Fumarate [Symbicort 80-4.5 MCG] 2 puff IH BID 04/08/20 [History] Warfarin [Coumadin] 5 mg PO MOFR@1800 04/11/20 [History] hydrALAZINE [Apresoline] 100 mg PO BEDTIME 04/11/20 [History] Past Medical History HEENT History: Reports: Cataract, Impaired Vision, Other (See Below) Other HEENT History: cornea transplant x2 Cardiovascular History: Reports: High Cholesterol, Hypertension, Other (See Below) Other Cardiovascular History: carotid stenosis, right side is 100% occluded (for past 18 years) and left side is 50% occluded. No surgery on carotids. Respiratory History: Reports: COPD Gastrointestinal History: Reports: Bowel Obstruction, GERD Genitourinary History: Reports: None NOZZLEMAN History: Reports: 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 History: Reports: Arthritis Neurological History: Reports: None Psychiatric History: Reports: Anxiety, Depression, Panic Attack Other Psychiatric History: Pt states she has not used her prn ativan x3 mornings now. She states that she thinks the zoloft is helping with this. Endocrine/Metabolic History: Reports: Hypothyroidism, Obesity/BMI 30+ Other Immunologic History: cornea transplant x2 Oncologic (Cancer) History: Reports: Breast Dermatologic History: Reports: None Other Dermatologic History: rash for 3 monthes - Infectious Disease History Infectious Disease History: Reports: Influenza, Measles, Mumps - Past Surgical History Head Surgeries/Procedures: Reports: None HEENT Surgical History: Reports: Cataract Surgery, Other (See Below) Other HEENT Surgeries/Procedures: cornea transplant x2 Cardiovascular Surgical History: Reports: None Other Cardiovascular Surgeries/Procedures: Pt states she has an echo scheduled in October. Respiratory Surgical History: Reports: None GI Surgical History: Reports: Appendectomy, Cholecystectomy, Colostomy, Other (See Below) Other GI Surgeries/Procedures: Colostomy inserted August 2018, reversal surgery march 2019 Female Surgical History: Reports: Hysterectomy, Other (See Below) Other Female Surgeries/Procedures: Right Lumpectomy september 2014 Endocrine Surgical History: Reports: None Neurological Surgical History: Reports: None 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 Surgical History: Reports: Knee Replacement Other 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 Surgeries/Procedures:: R knee Oncologic Surgical History: Reports: Lumpectomy, Other (See Below) Other Oncologic Surgeries/Procedures: R side Dermatological Surgical History: Reports: None Social & Family History - Family History Family Medical History: No Pertinent Family History Cardiac: Reports: CAD Respiratory: Reports: COPD Oncologic: Reports: Ovarian - Caffeine Use Caffeine Use: Reports: None Other Caffeine Use: decaf ED ROS GENERAL - Review of Systems Review Of Systems: See Below ED EXAM, GENERAL - Physical Exam Exam: See Below Free Text/Narrative:: aAlert, oriented, in no distress. No cyanosis nor pallor is noted. There is no discharge nor deformity noted to HEENT. PERRLA no icterus no injection, EOM intact. There is no blood in the oral cavity, no active bleed. Left nares shows a small area of friability irritation that is not bleeding, and no clot is present. Right nares shows area that is inflamed with hemostasis achieved. No vasculature exposed. Thorax is mildly diminished bases no wheezes no crackles with scattered rhonchi. Cardiac is regular, S1-S2 at this time. Radial pulse correlates with apical heart rate. Course - Vital Signs Last Recorded V/S: Last Vital Signs Temp 96.6 F L 04/11/20 10:54 Pulse 65 04/11/20 10:54 Resp 16 04/11/20 10:54 BP 169/52 H 04/11/20 11:15 Pulse Ox 94 L 04/11/20 10:54 - Orders/Labs/Meds Labs: Laboratory Tests 04/11/20 04/11/20 Range/Units 11:35 11:35 Hgb 9.0 L (12.0-16.0) g/dL Hct 29.6 L (37.0-47.0) % PT 18.4 H (9.2-11.2) SEC INR 1.8 H (0.9-1.1) - Re-Assessments/Exams Free Text/Narrative Re-Assessment/Exam: 04/11/20 12:35 Discussed that at this time no evidence of bleeding and INR is in a slightly low therapeutic level likely not causing the epistaxis. We agree that we will leave this alone at this time as no evidence of the need for packing is clearly evident. Both her and her daughter are in agreement with this. Departure - Departure Time of Disposition: 12:27 Disposition: Home, Self-Care 01 Condition: Good Clinical Impression: Epistaxis not due to trauma, Right-sided nosebleed - Discharge Information *PRESCRIPTION DRUG MONITORING PROGRAM REVIEWED*: Not Applicable *COPY OF PRESCRIPTION DRUG MONITORING REPORT IN PATIENT BEATRICE: Not Applicable Instructions: Nosebleed, Adult Referrals: Veronica Diamond [facility] [Primary Care Provider] - Forms: ED Department Discharge Additional Instructions: Do not pick or irritate your nostrils. You may consider humidifying your apartment as well as continuing using your nasal spray. In the event bleeding should recur, hold direct pressure, squeezing firmly to the nose for 5 minutes minimum, continuous pressure. In the event that does not stop the bleeding, consideration for packing would be given upon your return. Your hemoglobin is good today at 9, please follow-up with your clinic for scheduling and recheck as needed. Continue medications as previously instructed. There are no changes in your dosing at this time. Contact your coumadin clinic to advise of the recent numbers. Sepsis Event Note (ED) - Evaluation Sepsis Screening Result: No Definite Risk - Focused Exam Vital Signs: Vital Signs Temp Pulse Resp BP Pulse Ox 04/11/20 11:15 169/52 H 04/11/20 10:54 96.6 F L 65 16 169/42 H 94 L - Problem List & Annotations (1) Epistaxis not due to trauma SNOMED Code(s): 347992238 Code(s): R04.0 - EPISTAXIS Status: Acute Current Visit: Yes (2) History of Coumadin therapy SNOMED Code(s): 406460017 Code(s): Z92.29 - PERSONAL HISTORY OF OTHER DRUG THERAPY Status: Chronic Priority: Medium Current Visit: No - Problem List Review Problem List Initiated/Reviewed/Updated: Yes - Assessment/Plan Plan: Do not pick or irritate your nostrils. You may consider humidifying your apartment as well as continuing using your nasal spray. In the event bleeding should recur, hold direct pressure, squeezing firmly to the nose for 5 minutes minimum, continuous pressure. In the event that does not stop the bleeding, consideration for packing would be given upon your return. Your hemoglobin is good today at 9, please follow-up with your clinic for scheduling and recheck as needed. Continue medications as previously instructed. There are no changes in your dosing at this time. Contact your coumadin clinic to advise of the recent numbers.
== END 2020-04-11 12:30 | disposition home or self-care (01) ==
LOC: KA.ED 10:51
DX: R04.0 Epistaxis (principal); E78.00 Pure hypercholesterolemia, unspecified; I10 Essential (primary) hypertension; J44.9 Chronic obstructive pulmonary disease, unspecified; M19.90 Unspecified osteoarthritis, unspecified site; E03.9 Hypothyroidism, unspecified; E66.9 Obesity, unspecified; Z68.36 Body mass index [BMI] 36.0-36.9, adult; Z88.8 Allergy status to other drugs, medicaments and biological substances; Z79.899 Other long term (current) drug therapy; Z79.82 Long term (current) use of aspirin
CPT/HCPCS: 36415; 85014; 85018; 85610; 99283; 99284

== ENCOUNTER 2020-08-11 22:47 | Emergency (ER) | payer MEDICARE, BC ==
--- NOTE | 2020-08-11 23:39 | EDM.PDOC ---
ED HPI GENERAL MEDICAL PROBLEM - General Chief Complaint: General Stated Complaint: nosebleed Time Seen by Provider: 08/11/20 23:19 Source of Information: Reports: Patient History Limitations: Reports: No Limitations - History of Present Illness INITIAL COMMENTS - FREE TEXT/NARRATIVE: Patient presents with a nosebleed for the last 5 hours. She has succeeded in stopping it a few times but it starts back up again. She has A Fib and is on warfarin and Plavix. INR was 2.2 checked in clinic today. She has applied directed pressure for 10 minutes then 20 but still bleeds. She has had this problem before and had a nasal packing. - Related Data Allergies Allergy/AdvReac Type Severity Reaction Status Date / Time amlodipine Allergy Unknown Hives Verified 08/11/20 22:54 bupropion [From Wellbutrin] Allergy Rash Verified 08/11/20 22:54 Home Meds: Home Meds Albuterol [IJD: Ventolin HFA] 1 - 2 puff INH Q4H PRN 10/15/16 [History] Rosuvastatin [Crestor] 10 mg PO DAILY 02/20/18 [History] Doxazosin Mesylate [Cardura] 4 mg PO BEDTIME 08/09/18 [History] hydrALAZINE [Apresoline] 50 mg PO QAM 08/09/18 [History] cloNIDine [Catapres-TTS 1] 0.1 mg TRDERM WEEKLY 08/18/18 [History] Warfarin [Coumadin] 2.5 mg PO SUTUWETHFRSA@1800 04/24/19 [History] Bumetanide [Bumex] 1 mg PO BID 01/15/20 [History] Calcium Carbonate/Vitamin D3 [Hm Calcium 500-Vit D3 200 Cplt] 1 tab PO BIDMEALS 01/15/20 [History] Cetirizine [ZyrTEC] 10 mg PO DAILY 01/15/20 [History] Magnesium Oxide 500 mg PO DAILY 01/15/20 [History] Metoprolol Succinate [Toprol XL 50mg] 50 mg PO DAILY 01/15/20 [History] metOLazone [Metolazone] 2.5 mg PO ASDIRECTED 01/26/20 [History] Budesonide/Formoterol Fumarate [Symbicort 80-4.5 MCG] 2 puff IH BID 04/08/20 [History] Warfarin [Coumadin] 5 mg PO MO@1800 04/11/20 [History] hydrALAZINE [Apresoline] 100 mg PO BEDTIME 04/11/20 [History] Clopidogrel Bisulfate [Plavix] 75 mg PO DAILY 04/30/20 [History] Pantoprazole Sodium [Protonix] 40 mg PO BIDAC 04/30/20 [History] Acetaminophen [Acetaminophen 8 Hour] 1,300 mg PO TID 08/11/20 [History] Cyanocobalamin (Vitamin B-12) [Vitamin B-12] 1,000 mcg SL DAILY 08/11/20 [History] DULoxetine [Cymbalta] 60 mg PO DAILY 08/11/20 [History] Denosumab [Prolia] 60 mg SQ ASDIRECTED 08/11/20 [History] Docusate Sodium [Colace] 300 mg PO BEDTIME 08/11/20 [History] Levothyroxine 175 mcg PO ASDIRECTED 08/11/20 [History] Levothyroxine 200 mcg PO ASDIRECTED 08/11/20 [History] Nitroglycerin [Nitrostat] 0.4 mg SL ASDIRECTED PRN 08/11/20 [History] Tiotropium [place] [Spiriva Respimat] 2 puff INH DAILY 08/11/20 [History] oxyCODONE 5 - 10 mg PO BID PRN 08/11/20 [History] Past Medical History HEENT History: Reports: Cataract, Impaired Vision, Other (See Below) Other HEENT History: cornea transplant x2 Cardiovascular History: Reports: High Cholesterol, Hypertension, Other (See Below) Other Cardiovascular History: carotid stenosis, right side is 100% occluded (for past 18 years) and left side is 50% occluded. No surgery on carotids. Respiratory History: Reports: COPD Gastrointestinal History: Reports: Bowel Obstruction, GERD Genitourinary History: Reports: None SHUTTLE HAND History: Reports: 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 History: Reports: Arthritis Neurological History: Reports: None Psychiatric History: Reports: Anxiety, Depression, Panic Attack Other Psychiatric History: Pt states she has not used her prn ativan x3 mornings now. She states that she thinks the zoloft is helping with this. Endocrine/Metabolic History: Reports: Hypothyroidism, Obesity/BMI 30+ Other Immunologic History: cornea transplant x2 Oncologic (Cancer) History: Reports: Breast Dermatologic History: Reports: None Other Dermatologic History: rash for 3 monthes - Infectious Disease History Infectious Disease History: Reports: Influenza, Measles, Mumps - Past Surgical History Head Surgeries/Procedures: Reports: None HEENT Surgical History: Reports: Cataract Surgery, Other (See Below) Other HEENT Surgeries/Procedures: cornea transplant x2 Cardiovascular Surgical History: Reports: None Other Cardiovascular Surgeries/Procedures: Pt states she has an echo scheduled i n October. Respiratory Surgical History: Reports: None GI Surgical History: Reports: Appendectomy, Cholecystectomy, Colostomy, Other (See Below) Other GI Surgeries/Procedures: Colostomy inserted August 2018, reversal surgery march 2019 Female Surgical History: Reports: Hysterectomy, Other (See Below) Other Female Surgeries/Procedures: Right Lumpectomy september 2014 Endocrine Surgical History: Reports: None Neurological Surgical History: Reports: None 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 Surgical History: Reports: Knee Replacement Other 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 Surgeries/Procedures:: R knee Oncologic Surgical History: Reports: Lumpectomy, Other (See Below) Other Oncologic Surgeries/Procedures: R side Dermatological Surgical History: Reports: None Social & Family History - Family History Family Medical History: No Pertinent Family History Cardiac: Reports: CAD Respiratory: Reports: COPD Oncologic: Reports: Ovarian - Caffeine Use Caffeine Use: Reports: None Other Caffeine Use: decaf ED ROS GENERAL - Review of Systems Review Of Systems: Comprehensive ROS is negative, except as noted in HPI. ED EXAM, GENERAL - Physical Exam Exam: See Below Exam Limited By: No Limitations General Appearance: Alert, WD/WN, No Apparent Distress Eye Exam: Bilateral Eye: EOMI, Normal Inspection, PERRL Ears: Normal External Exam, Hearing Grossly Normal Nose: Other (moderate bleeding from right nostril but unable to determine source). No: Nasal Tenderness, Nasal Deformity, Nasal Swelling, Clear Rhinorrhea Throat/Mouth: Normal Lips, Normal Voice, No Airway Compromise, Other (thin line of blood running down posterior pharynx) Head: Atraumatic, Normocephalic Neck: Normal Inspection, Full Range of Motion Respiratory/Chest: No Respiratory Distress, Lungs Clear, Normal Breath Sounds, No Accessory Muscle Use Cardiovascular: No Murmur, Irregularly Irregular Back Exam: Normal Inspection, Full Range of Motion Extremities: Normal Inspection, Normal Range of Motion Neurological: Alert, Oriented, Normal Cognition, No Motor/Sensory Deficits Psychiatric: Normal Affect, Normal Mood Skin Exam: Warm, Dry, Intact, Normal Color, No Rash ED EPISTAXIS PROCEDURES - Epistaxis Procedure Indication: Epistaxis, Uncontrolled Recent anticoagulants/antiplatlets: Yes Uncontrolled HTN: No Recent septal/nasal surgery: No Site of bleeding: Right Nare Anterior Packing: Inflatable Nasal Tampon Posterior packing: Long Inflatable Nasal Tampon Complications: No Course - Re-Assessments/Exams Free Text/Narrative Re-Assessment/Exam: 08/12/20 00:11 A Rapid Rhino was soaked in sterile water for 30 seconds then easily slipped into the right nostril and inflated as in procedure. Bleeding stopped initially then started again as likely the mucosal swelling shrunk down. I checked the cuff and it was soft so I re-inflated it. It started bleeding again in a couple minutes so we have an ice pack on her nose now. Cuff is still firm. 08/12/20 00:45 Bleeding continued slowly so I called about transferring to [facility] and the provider suggested placing a Rapid Rhino in the other side also to provide counter pressure and maybe stop the bleeding; and if not to send to ER there. I placed one in the left nostril and am monitoring for bleeding cessation. 08/12/20 01:02 The bleeding has slowed almost to a stop but never quite stops. Patient was given Lorazepam and Zofran to help with anxiety and nausea. She is feeling a little better. Very slow oozing from right nostril yet. Patient discharged in stable condition after discussion of findings and plan. Her son is here and will drive her. Departure - Departure Time of Disposition: 00:59 Disposition: DC/Tfer to Acute Hospital 02 Condition: Good Clinical Impression: Right-sided nosebleed - Discharge Information Referrals: Veronica Diamond SITE SUPERVISOR [Primary Care Provider] - Forms: ED Department Discharge Additional Instructions: Go directly to [facility] ER. Hold pressure on the right side of nose as needed to slow or control bleeding en route.
[2020-08-12 00:33] VITALS: BP 189/65; PULSE 63
[2020-08-12] MEDS: LORazepam 0.5 MG Tab PO ONE (00:40)
[2020-08-12] MEDS: Ondansetron 4 MG Tab.DIS PO ONE (00:54)
== END 2020-08-12 01:11 ==
LOC: KA.ED 22:47
DX: R04.0 Epistaxis (principal); E78.00 Pure hypercholesterolemia, unspecified; I10 Essential (primary) hypertension; E03.9 Hypothyroidism, unspecified; E66.9 Obesity, unspecified; K21.9 Gastro-esophageal reflux disease without esophagitis; Z79.899 Other long term (current) drug therapy; Z68.36 Body mass index [BMI] 36.0-36.9, adult
CPT/HCPCS: 99284; A9270; 30901

== ENCOUNTER 2021-07-22 15:24 | Emergency (ER) | payer MEDICARE, BC ==
[2021-07-22 15:43] VITALS: BP 145/85; PULSE 93
[2021-07-22] MEDS: traMADol 50 MG Tab PO ONE ×2 (16:05→16:40)
== END 2021-07-22 16:45 | disposition home or self-care (01) ==
LOC: KA.ED 15:24
DX: M54.31 Sciatica, right side (principal); E78.00 Pure hypercholesterolemia, unspecified; I10 Essential (primary) hypertension; J44.9 Chronic obstructive pulmonary disease, unspecified; E03.9 Hypothyroidism, unspecified; E66.9 Obesity, unspecified; Z68.38 Body mass index [BMI] 38.0-38.9, adult; Z90.49 Acquired absence of other specified parts of digestive tract; Z90.710 Acquired absence of both cervix and uterus; Z79.899 Other long term (current) drug therapy; Z79.01 Long term (current) use of anticoagulants; Z88.8 Allergy status to other drugs, medicaments and biological substances
CPT/HCPCS: 99283; 99284; A9270-GY

== ENCOUNTER 2021-07-31 15:43 | Observation (INO) | payer MEDICARE, BC ==
[2021-07-31] MEDS ORDERED: Potassium Chloride 20 MEQ in Premix Bag 1 BAG IV ONE ×2 (16:25→18:30)
[2021-07-31] MEDS ORDERED: Sodium Chloride 0.9% 10 ML Syringe FLUSH PRN (16:34)
[2021-07-31] MEDS: Morphine 2 MG/ML SYRINGE IVPUSH PRN ×2 (16:36→23:06)
[2021-07-31] MEDS: Sodium Chloride 0.9% 1,000 ML IV SCH (16:41)
[2021-07-31] MEDS ORDERED: Albuterol 8 GM Inhaler INH PRN (18:32)
[2021-07-31] MEDS ORDERED: Nitroglycerin 0.4 MG Tab.SL SL PRN (18:32)
[2021-07-31] MEDS ORDERED: Non-Formulary Medication 1 Each (Levothyroxine [Levothyroxine] 175 MCG Tablet) PO SCH (18:45)
[2021-07-31] MEDS ORDERED: Ondansetron 4 MG/2 ML SDV IVPUSH PRN (19:05)
[2021-07-31] MEDS ORDERED: Cyclobenzaprine 10 MG Tab PO ONE (19:53)
[2021-07-31] MEDS ORDERED: Morphine 4 MG/ML Syringe IVPUSH ONE (19:57)
[2021-07-31] MEDS ORDERED: LORazepam 2 MG/ML SDV IVPUSH ONE (19:58)
[2021-07-31] MEDS ORDERED: Warfarin 5 MG Tab PO ONE (20:45)
[2021-07-31] MEDS: Acetaminophen 650 MG Tab.ER PO SCH (20:56)
[2021-07-31] MEDS: hydrALAZINE 50 MG Tab PO SCH (20:57)
[2021-07-31] MEDS: Doxazosin 2 MG Tab PO SCH (20:57)
[2021-07-31] MEDS: busPIRone 10 MG Tab PO SCH (20:57)
[2021-07-31] MEDS: Magnesium Oxide 500 MG Tab PO SCH (20:57)
[2021-07-31] MEDS: Formoterol/Mometasone 100-5 MCG 8.8 GM Inhaler IH SCH (20:58)
[2021-07-31] MEDS: Docusate Sodium 100 MG Cap PO SCH (20:58)
[2021-07-31] MEDS: methylPREDNISolone Sodium Succinate 125 MG/2 ML SDV IVPUSH SCH (21:11)
[2021-08-01] MEDS ORDERED: Morphine 4 MG/ML Syringe IVPUSH ONE (02:07)
[2021-08-01] MEDS ORDERED: LORazepam 2 MG/ML SDV IVPUSH ONE (02:08)
[2021-08-01 02:28] LABS: ANION GAP 12.9 mmol/L (5-15)
[2021-08-01] MEDS ORDERED: Cyclobenzaprine 10 MG Tab ONE (05:39)
[2021-08-01] MEDS: Levothyroxine 75 MCG Tab PO SCH ×2 (05:56→06:33)
[2021-08-01] MEDS: Pantoprazole 20 MG Tab, Delayed Release PO SCH ×3 (05:56→17:51)
[2021-08-01] MEDS: Levothyroxine 100 MCG Tab PO SCH ×2 (05:56→06:33)
[2021-08-01] MEDS: Morphine 2 MG/ML SYRINGE IVPUSH PRN (05:57)
[2021-08-01] MEDS: Cyclobenzaprine 10 MG Tab PO PRN ×2 (05:57→19:24)
[2021-08-01] MEDS: Sodium Chloride 0.9% 1,000 ML IV SCH (07:24)
[2021-08-01] MEDS ORDERED: Levothyroxine 75 MCG Tab PO SCH (07:30)
[2021-08-01] MEDS ORDERED: Levothyroxine 100 MCG Tab PO SCH (07:30)
[2021-08-01] MEDS ORDERED: Pantoprazole 40 MG Tab.CR PO SCH (07:30)
[2021-08-01 07:54] LABS: ANION GAP 11.5 mmol/L (5-15)
[2021-08-01] MEDS: Acetaminophen 650 MG Tab.ER PO SCH ×2 (08:37→21:01)
[2021-08-01] MEDS: methylPREDNISolone Sodium Succinate 125 MG/2 ML SDV IVPUSH SCH (08:38)
[2021-08-01] MEDS: busPIRone 10 MG Tab PO SCH ×2 (08:44→21:01)
[2021-08-01] MEDS: DULoxetine 30 MG Cap PO SCH (08:44)
[2021-08-01] MEDS: Rosuvastatin 10 MG Tab PO SCH (08:44)
[2021-08-01] MEDS: Cetirizine 10 MG Tab PO SCH (08:44)
[2021-08-01] MEDS: Ferrous Sulfate 325 MG Tab PO SCH (08:44)
[2021-08-01] MEDS: Tiotropium Bromide 4 GM Inhalation Spray (2.5mcg/1 dose; 10 doses) INH SCH (08:50)
[2021-08-01] MEDS: Formoterol/Mometasone 100-5 MCG 8.8 GM Inhaler IH SCH ×2 (08:50→21:01)
[2021-08-01] MEDS: hydrALAZINE 50 MG Tab PO SCH ×2 (08:50→21:00)
[2021-08-01] MEDS: Metoprolol Succinate 25 MG Tab.ER PO SCH (08:51)
[2021-08-01] MEDS ORDERED: fentaNYL 12 MCG/HR Transdermal Patch TRDERM SCH (10:45)
[2021-08-01] MEDS ORDERED: Warfarin 2.5 MG Tab PO SCH ×2 (10:45→18:00)
[2021-08-01] MEDS: Bumetanide 1 MG Tab PO SCH ×2 (10:59→21:00)
[2021-08-01] MEDS ORDERED: REMOVE FENTANYL TRDERM SCH (11:00)
[2021-08-01] MEDS: Magnesium Oxide 500 MG Tab PO SCH (21:01)
[2021-08-01] MEDS: Doxazosin 2 MG Tab PO SCH (21:01)
[2021-08-01] MEDS: Docusate Sodium 100 MG Cap PO SCH (21:02)
[2021-08-01] MEDS: traMADol 50 MG Tab PO PRN (22:23)
[2021-08-02] MEDS: Cyclobenzaprine 10 MG Tab PO PRN (03:13)
[2021-08-02] MEDS: traMADol 50 MG Tab PO PRN (07:03)
[2021-08-02] MEDS: Levothyroxine 100 MCG Tab PO SCH (07:04)
[2021-08-02] MEDS: Levothyroxine 75 MCG Tab PO SCH (07:04)
[2021-08-02] MEDS: Pantoprazole 20 MG Tab, Delayed Release PO SCH (07:05)
[2021-08-02 07:38] LABS: ANION GAP 8.2 mmol/L (5-15)
[2021-08-02] MEDS: Tiotropium Bromide 4 GM Inhalation Spray (2.5mcg/1 dose; 10 doses) INH SCH (08:35)
[2021-08-02] MEDS: Formoterol/Mometasone 100-5 MCG 8.8 GM Inhaler IH SCH (08:35)
[2021-08-02] MEDS: Acetaminophen 650 MG Tab.ER PO SCH (08:35)
[2021-08-02] MEDS: busPIRone 10 MG Tab PO SCH (08:36)
[2021-08-02] MEDS: Metoprolol Succinate 25 MG Tab.ER PO SCH (08:36)
[2021-08-02] MEDS: hydrALAZINE 50 MG Tab PO SCH (08:38)
[2021-08-02] MEDS: Cetirizine 10 MG Tab PO SCH (08:38)
[2021-08-02] MEDS: DULoxetine 30 MG Cap PO SCH (08:38)
[2021-08-02] MEDS: Ferrous Sulfate 325 MG Tab PO SCH (08:39)
[2021-08-02] MEDS: Rosuvastatin 10 MG Tab PO SCH (08:39)
[2021-08-02] MEDS: Bumetanide 1 MG Tab PO SCH (08:39)
[2021-08-02] MEDS ORDERED: Metolazone 2.5 MG Tab PO SCH (09:00)
[2021-08-02] MEDS ORDERED: traMADol 50 MG Tab PO PRN (09:53)
[2021-08-02 10:47] VITALS: BP 136/54; PULSE 87
[2021-08-02] MEDS ORDERED: Acetaminophen 500 MG Tab PO SCH (14:00)
[2021-08-04] MEDS ORDERED: REMOVE FENTANYL TRDERM SCH (11:00)
[2021-08-05] MEDS ORDERED: Levothyroxine 100 MCG Tab PO SCH (07:30)
[2021-08-05] MEDS ORDERED: cloNIDine 0.1 MG/Day Transdermal Patch TRDERM SCH (10:00)
[2021-08-05] MEDS ORDERED: REMOVE CLONIDINE TRDERM SCH (10:00)
[2021-08-07] MEDS ORDERED: Warfarin 5 MG Tab PO SCH (18:00)
== END 2021-08-02 13:05 | disposition home health service (06) ==
LOC: KA.MS 15:44
PROVIDERS: ADMIT Nurse Practitioner Family; ATTEND Nurse Practitioner Family
DX: E87.6 Hypokalemia (principal); E87.1 Hypo-osmolality and hyponatremia; M51.36 Other intervertebral disc degeneration, lumbar region; M25.571 Pain in right ankle and joints of right foot; M48.062 Spinal stenosis, lumbar region with neurogenic claudication; E22.2 Syndrome of inappropriate secretion of antidiuretic hormone; E83.42 Hypomagnesemia; I48.0 Paroxysmal atrial fibrillation; E03.9 Hypothyroidism, unspecified; I13.0 Hypertensive heart and chronic kidney disease with heart failure and stage 1 through stage 4 chronic kidney disease, or unspecified chronic kidney disease; N18.32 Chronic kidney disease, stage 3b; D50.9 Iron deficiency anemia, unspecified; F33.0 Major depressive disorder, recurrent, mild; F41.1 Generalized anxiety disorder; I50.30 Unspecified diastolic (congestive) heart failure; R74.01 Elevation of levels of liver transaminase levels; M54.31 Sciatica, right side; E78.2 Mixed hyperlipidemia; J41.0 Simple chronic bronchitis; K59.00 Constipation, unspecified; I27.20 Pulmonary hypertension, unspecified; Z66 Do not resuscitate; Z79.01 Long term (current) use of anticoagulants; Z79.899 Other long term (current) drug therapy; Z79.890 Hormone replacement therapy; Z20.822 Contact with and (suspected) exposure to COVID-19; Z87.19 Personal history of other diseases of the digestive system; W19.XXXA Unspecified fall, initial encounter
CPT/HCPCS: 36415; 71046; 80048; 80053; 83735; 83880; 85025; 85610; 96365; 96366; 96375; 96376; A9270-GY; G0378; J2060; J2270; J2930; J3480; J7030; U0002

== ENCOUNTER 2021-10-16 22:05 | Emergency (ER) | payer MEDICARE, BC ==
[2021-10-16] MEDS ORDERED: Sodium Chloride 0.9% 10 ML Syringe FLUSH PRN (22:50)
[2021-10-16] MEDS ORDERED: HYDROmorphone 1 MG/ML Syringe IVPUSH ONE (22:54)
[2021-10-16] MEDS ORDERED: Ondansetron 4 MG/2 ML SDV IVPUSH ONE (22:54)
[2021-10-16] MEDS ORDERED: Ketorolac 30 MG/ML SDV IVPUSH ONE (22:54)
[2021-10-16 23:26] VITALS: BP 118/79; PULSE 90
== END 2021-10-16 23:48 | disposition home or self-care (01) ==
LOC: KA.ED 22:05
DX: M54.32 Sciatica, left side (principal); J44.9 Chronic obstructive pulmonary disease, unspecified; K21.9 Gastro-esophageal reflux disease without esophagitis; E78.00 Pure hypercholesterolemia, unspecified; I10 Essential (primary) hypertension; E03.9 Hypothyroidism, unspecified; E66.9 Obesity, unspecified; Z79.899 Other long term (current) drug therapy; Z68.35 Body mass index [BMI] 35.0-35.9, adult
CPT/HCPCS: 96374; 96375; 99283; 99283-25; J1170; J1885; J2405; J3490

== ENCOUNTER 2021-10-17 10:37 | Inpatient (IN) | payer MEDICARE, BC ==
[~2021-10-17 10:37] MED LIST: Albuterol 8 GM Inhaler INH PRN
[2021-10-17] MEDS ORDERED: Sodium Chloride 0.9% 10 ML Syringe FLUSH PRN (11:30)
[2021-10-17] MEDS: Morphine 2 MG/ML SYRINGE IVPUSH PRN ×4 (12:15→23:46)
[2021-10-17 12:19] LABS: ANION GAP 11.3 mmol/L (5-15)
[2021-10-17] MEDS ORDERED: Potassium Chloride 10 MEQ Tab.ER PO ONE (13:35)
[2021-10-17] MEDS ORDERED: Sodium Chloride 0.9% 500 ML IV SCH (13:45)
[2021-10-17] MEDS: Albuterol 8 GM Inhaler INH PRN (20:26)
[2021-10-17] MEDS ORDERED: Nitroglycerin 0.4 MG Tab.SL SL PRN (20:32)
[2021-10-17] MEDS ORDERED: Warfarin 2.5 MG Tab PO SCH (20:45)
[2021-10-17] MEDS ORDERED: CLONIDINE 0.1 MG TD SCH (20:45)
[2021-10-17] MEDS: traMADol 50 MG Tab PO PRN (21:53)
[2021-10-17] MEDS: Rosuvastatin 10 MG Tab PO SCH (21:54)
[2021-10-17] MEDS: Magnesium Oxide 500 MG Tab PO SCH (21:54)
[2021-10-17] MEDS: hydrALAZINE 50 MG Tab PO SCH (21:54)
[2021-10-17] MEDS: Doxazosin 2 MG Tab PO SCH (21:54)
[2021-10-17] MEDS: busPIRone 10 MG Tab PO SCH (21:55)
[2021-10-17] MEDS: Acetaminophen 500 MG Tab PO SCH (21:55)
[2021-10-17] MEDS: Docusate Sodium 100 MG Cap PO SCH (21:55)
[2021-10-17] MEDS: Formoterol/Mometasone 100-5 MCG 8.8 GM Inhaler IH SCH (21:56)
[2021-10-17] MEDS: Bumetanide 1 MG Tab PO SCH (21:56)
[2021-10-18] MEDS: Morphine 2 MG/ML SYRINGE IVPUSH PRN ×6 (03:09→21:20)
[2021-10-18] MEDS: traMADol 50 MG Tab PO PRN ×2 (04:22→11:39)
[2021-10-18] MEDS: Levothyroxine 75 MCG Tab PO SCH ×2 (06:18→06:30)
[2021-10-18] MEDS: Pantoprazole 40 MG Tab.CR PO SCH ×3 (06:18→17:22)
[2021-10-18] MEDS: Levothyroxine 100 MCG Tab PO SCH ×2 (06:19→06:30)
[2021-10-18] MEDS ORDERED: fentaNYL 12 MCG/HR Transdermal Patch TRDERM SCH (08:00)
[2021-10-18 08:10] LABS: ANION GAP 9.4 mmol/L (5-15)
[2021-10-18] MEDS: Cetirizine 10 MG Tab PO SCH (08:19)
[2021-10-18] MEDS: busPIRone 10 MG Tab PO SCH ×3 (08:19→21:34)
[2021-10-18] MEDS: hydrALAZINE 50 MG Tab PO SCH ×2 (08:19→21:34)
[2021-10-18] MEDS: Acetaminophen 500 MG Tab PO SCH ×3 (08:20→21:34)
[2021-10-18] MEDS: Bumetanide 1 MG Tab PO SCH ×2 (08:20→21:34)
[2021-10-18] MEDS: Cholecalciferol (Vitamin D3) 25 MCG Tab PO SCH (08:20)
[2021-10-18] MEDS: Metoprolol Succinate 25 MG Tab.ER PO SCH (08:20)
[2021-10-18] MEDS: DULoxetine 30 MG Cap PO SCH (08:20)
[2021-10-18] MEDS: Potassium Chloride 20 MEQ Tab.ER PO SCH (08:21)
[2021-10-18] MEDS: Metolazone 2.5 MG Tab PO SCH (08:29)
[2021-10-18] MEDS ORDERED: Potassium Chloride 10 MEQ Tab.ER PO SCH (09:00)
[2021-10-18] MEDS: Formoterol/Mometasone 100-5 MCG 8.8 GM Inhaler IH SCH ×2 (09:13→21:30)
[2021-10-18] MEDS: Albuterol 8 GM Inhaler INH PRN ×2 (09:13→21:15)
[2021-10-18] MEDS: Tiotropium Bromide 4 GM Inhalation Spray (2.5mcg/1 dose; 10 doses) INH SCH (09:16)
[2021-10-18] MEDS: Enoxaparin 100 MG/1 ML Syringe SUBCUT SCH (21:31)
[2021-10-18] MEDS: Doxazosin 2 MG Tab PO SCH (21:33)
[2021-10-18] MEDS: Magnesium Oxide 500 MG Tab PO SCH (21:34)
[2021-10-18] MEDS: Rosuvastatin 10 MG Tab PO SCH (21:34)
[2021-10-18] MEDS: Docusate Sodium 100 MG Cap PO SCH (21:34)
[2021-10-19] MEDS: Morphine 2 MG/ML SYRINGE IVPUSH PRN ×3 (02:15→08:30)
[2021-10-19] MEDS: Pantoprazole 40 MG Tab.CR PO SCH ×3 (05:31→17:28)
[2021-10-19] MEDS: Levothyroxine 75 MCG Tab PO SCH ×2 (05:31→06:36)
[2021-10-19] MEDS: Levothyroxine 100 MCG Tab PO SCH ×2 (05:32→06:36)
[2021-10-19] MEDS: traMADol 50 MG Tab PO PRN ×2 (06:13→18:03)
[2021-10-19 08:24] LABS: ANION GAP 8.2 mmol/L (5-15)
[2021-10-19] MEDS: Metoprolol Succinate 25 MG Tab.ER PO SCH (08:31)
[2021-10-19] MEDS: Acetaminophen 500 MG Tab PO SCH ×3 (08:31→20:11)
[2021-10-19] MEDS: Cetirizine 10 MG Tab PO SCH (08:31)
[2021-10-19] MEDS: Cholecalciferol (Vitamin D3) 25 MCG Tab PO SCH (08:31)
[2021-10-19] MEDS: Potassium Chloride 20 MEQ Tab.ER PO SCH (08:31)
[2021-10-19] MEDS: Bumetanide 1 MG Tab PO SCH ×2 (08:31→20:13)
[2021-10-19] MEDS: DULoxetine 30 MG Cap PO SCH (08:32)
[2021-10-19] MEDS: busPIRone 10 MG Tab PO SCH ×3 (08:32→20:12)
[2021-10-19] MEDS: hydrALAZINE 50 MG Tab PO SCH ×2 (08:32→20:11)
[2021-10-19] MEDS: Tiotropium Bromide 4 GM Inhalation Spray (2.5mcg/1 dose; 10 doses) INH SCH (08:33)
[2021-10-19] MEDS: Albuterol 8 GM Inhaler INH PRN (08:33)
[2021-10-19] MEDS: Formoterol/Mometasone 100-5 MCG 8.8 GM Inhaler IH SCH ×2 (08:33→20:13)
[2021-10-19] MEDS ORDERED: Lidocaine 5% 700 MG Patch TRDERM SCH (12:00)
[2021-10-19] MEDS ORDERED: fentaNYL 25 MCG/HR Transdermal Patch TRDERM SCH (12:30)
[2021-10-19] MEDS: Morphine Solution 10 MG/5 ML UD Cup PO PRN ×2 (14:17→22:36)
[2021-10-19] MEDS ORDERED: Warfarin 5 MG Tab PO ONE (18:00)
[2021-10-19] MEDS: Rosuvastatin 10 MG Tab PO SCH (20:12)
[2021-10-19] MEDS: Magnesium Oxide 500 MG Tab PO SCH (20:13)
[2021-10-19] MEDS: Enoxaparin 100 MG/1 ML Syringe SUBCUT SCH (20:13)
[2021-10-19] MEDS: Doxazosin 2 MG Tab PO SCH (20:13)
[2021-10-19] MEDS: Docusate Sodium 100 MG Cap PO SCH (20:13)
[2021-10-20] MEDS: traMADol 50 MG Tab PO PRN ×2 (02:12→10:08)
[2021-10-20] MEDS: Levothyroxine 75 MCG Tab PO SCH ×2 (06:21→06:32)
[2021-10-20] MEDS: Pantoprazole 40 MG Tab.CR PO SCH ×2 (06:21→06:32)
[2021-10-20] MEDS: Levothyroxine 100 MCG Tab PO SCH ×2 (06:22→06:32)
[2021-10-20 07:49] LABS: ANION GAP 9.6 mmol/L (5-15)
[2021-10-20] MEDS: Cetirizine 10 MG Tab PO SCH (08:09)
[2021-10-20] MEDS: DULoxetine 30 MG Cap PO SCH (08:09)
[2021-10-20] MEDS: Potassium Chloride 20 MEQ Tab.ER PO SCH (08:10)
[2021-10-20] MEDS: Acetaminophen 500 MG Tab PO SCH (08:10)
[2021-10-20] MEDS: Cholecalciferol (Vitamin D3) 25 MCG Tab PO SCH (08:10)
[2021-10-20] MEDS: Metoprolol Succinate 25 MG Tab.ER PO SCH (08:11)
[2021-10-20] MEDS: hydrALAZINE 50 MG Tab PO SCH (08:12)
[2021-10-20] MEDS: busPIRone 10 MG Tab PO SCH (08:12)
[2021-10-20] MEDS: Morphine Solution 10 MG/5 ML UD Cup PO PRN (08:12)
[2021-10-20] MEDS: Bumetanide 1 MG Tab PO SCH (08:12)
[2021-10-20] MEDS: Metolazone 2.5 MG Tab PO SCH (08:22)
[2021-10-20] MEDS: Tiotropium Bromide 4 GM Inhalation Spray (2.5mcg/1 dose; 10 doses) INH SCH (08:23)
[2021-10-20] MEDS: Formoterol/Mometasone 100-5 MCG 8.8 GM Inhaler IH SCH (08:23)
[2021-10-20] MEDS ORDERED: Potassium Chloride 10 MEQ Tab.ER PO ONE (10:00)
[2021-10-20 11:17] VITALS: BP 117/52; PULSE 67
[2021-10-20] MEDS ORDERED: Potassium Chloride 20 MEQ Tab.ER PO ONE (12:00)
[2021-10-21] MEDS ORDERED: Levothyroxine 100 MCG Tab PO SCH (07:30)
== END 2021-10-20 10:40 | disposition swing bed (61) | DRG 552 ==
LOC: KA.MS 10:58
PROVIDERS: ADMIT Family Medicine; ATTEND Family Medicine
DX: M48.062 Spinal stenosis, lumbar region with neurogenic claudication (principal); S32.039A Unspecified fracture of third lumbar vertebra, initial encounter for closed fracture; S32.049A Unspecified fracture of fourth lumbar vertebra, initial encounter for closed fracture; I50.32 Chronic diastolic (congestive) heart failure; I13.0 Hypertensive heart and chronic kidney disease with heart failure and stage 1 through stage 4 chronic kidney disease, or unspecified chronic kidney disease; E22.2 Syndrome of inappropriate secretion of antidiuretic hormone; M54.42 Lumbago with sciatica, left side; E87.6 Hypokalemia; I48.0 Paroxysmal atrial fibrillation; I27.20 Pulmonary hypertension, unspecified; J42 Unspecified chronic bronchitis; E78.2 Mixed hyperlipidemia; N18.30 Chronic kidney disease, stage 3 unspecified; E83.42 Hypomagnesemia; E03.9 Hypothyroidism, unspecified; D50.9 Iron deficiency anemia, unspecified; E55.9 Vitamin D deficiency, unspecified; F41.9 Anxiety disorder, unspecified; F32.A Depression, unspecified; K59.00 Constipation, unspecified; R09.81 Nasal congestion; Z79.890 Hormone replacement therapy; Z91.81 History of falling; Z79.01 Long term (current) use of anticoagulants; Z20.822 Contact with and (suspected) exposure to COVID-19
CPT/HCPCS: 36415; 80048; 80053; 81001; 83735; 85025; 85610; 87086; 97161-GP; A9270-GY; J1650; J2270; J3490; J7040; U0002

== ENCOUNTER 2021-10-20 09:38 | Inpatient (IN) | payer MEDICARE, BC ==
[2021-10-20] MEDS ORDERED: Sodium Chloride 0.9% 10 ML Syringe FLUSH PRN (10:40)
[2021-10-20] MEDS ORDERED: Nitroglycerin 0.4 MG Tab.SL SL PRN (10:40)
[2021-10-20] MEDS: Metolazone 2.5 MG Tab PO SCH (11:36)
[2021-10-20] MEDS ORDERED: Potassium Chloride 20 MEQ Tab.ER PO ONE (12:00)
[2021-10-20] MEDS: Lidocaine 5% 700 MG Patch TRDERM SCH (12:05)
[2021-10-20] MEDS: Acetaminophen 500 MG Tab PO SCH ×2 (14:06→20:04)
[2021-10-20] MEDS: busPIRone 10 MG Tab PO SCH ×2 (14:06→20:05)
[2021-10-20] MEDS: Morphine Solution 10 MG/5 ML UD Cup PO PRN (16:50)
[2021-10-20] MEDS ORDERED: Warfarin 5 MG Tab PO ONE (18:00)
[2021-10-20] MEDS: Pantoprazole 40 MG Tab.CR PO SCH (18:06)
[2021-10-20] MEDS: Enoxaparin 100 MG/1 ML Syringe SUBCUT SCH (20:02)
[2021-10-20] MEDS: Bumetanide 1 MG Tab PO SCH (20:03)
[2021-10-20] MEDS: Rosuvastatin 10 MG Tab PO SCH (20:03)
[2021-10-20] MEDS: Doxazosin 2 MG Tab PO SCH (20:04)
[2021-10-20] MEDS: traMADol 50 MG Tab PO PRN (20:04)
[2021-10-20] MEDS: Docusate Sodium 100 MG Cap PO SCH (20:04)
[2021-10-20] MEDS: Formoterol/Mometasone 100-5 MCG 8.8 GM Inhaler IH SCH (20:05)
[2021-10-20] MEDS: Magnesium Oxide 500 MG Tab PO SCH (20:05)
[2021-10-20] MEDS: hydrALAZINE 50 MG Tab PO SCH (20:06)
[2021-10-21] MEDS: Morphine Solution 10 MG/5 ML UD Cup PO PRN ×3 (01:07→17:29)
[2021-10-21] MEDS: traMADol 50 MG Tab PO PRN ×3 (05:58→22:04)
[2021-10-21] MEDS: Levothyroxine 100 MCG Tab PO SCH ×2 (05:58→06:30)
[2021-10-21] MEDS: Pantoprazole 40 MG Tab.CR PO SCH ×3 (05:59→16:55)
[2021-10-21 07:59] LABS: ANION GAP 7.8 mmol/L (5-15)
[2021-10-21] MEDS: busPIRone 10 MG Tab PO SCH ×3 (08:06→20:13)
[2021-10-21] MEDS: Bumetanide 1 MG Tab PO SCH ×2 (08:07→20:12)
[2021-10-21] MEDS: Cetirizine 10 MG Tab PO SCH (08:07)
[2021-10-21] MEDS: Cholecalciferol (Vitamin D3) 25 MCG Tab PO SCH (08:07)
[2021-10-21] MEDS: hydrALAZINE 50 MG Tab PO SCH ×2 (08:08→20:13)
[2021-10-21] MEDS: DULoxetine 30 MG Cap PO SCH (08:12)
[2021-10-21] MEDS: Acetaminophen 500 MG Tab PO SCH ×3 (08:12→20:12)
[2021-10-21] MEDS: Metoprolol Succinate 25 MG Tab.ER PO SCH (08:12)
[2021-10-21] MEDS: Formoterol/Mometasone 100-5 MCG 8.8 GM Inhaler IH SCH ×2 (08:15→20:12)
[2021-10-21] MEDS: Tiotropium Bromide 4 GM Inhalation Spray (2.5mcg/1 dose; 10 doses) INH SCH (08:15)
[2021-10-21] MEDS: CLONIDINE TOP SCH (08:18)
[2021-10-21] MEDS ORDERED: Potassium Chloride 20 MEQ Tab.ER PO SCH (09:00)
[2021-10-21] MEDS: Lidocaine 5% 700 MG Patch TRDERM SCH (12:19)
[2021-10-21] MEDS: Potassium Chloride 20 MEQ Tab.ER PO SCH (17:29)
[2021-10-21] MEDS: Enoxaparin 100 MG/1 ML Syringe SUBCUT SCH (20:12)
[2021-10-21] MEDS: Docusate Sodium 100 MG Cap PO SCH (20:12)
[2021-10-21] MEDS: Rosuvastatin 10 MG Tab PO SCH (20:13)
[2021-10-21] MEDS: Magnesium Oxide 500 MG Tab PO SCH (20:13)
[2021-10-21] MEDS: Doxazosin 2 MG Tab PO SCH (20:13)
[2021-10-21] MEDS ORDERED: LORazepam 0.5 MG Tab PO ONE (23:00)
[2021-10-22] MEDS: Morphine Solution 10 MG/5 ML UD Cup PO PRN ×3 (02:03→21:20)
[2021-10-22] MEDS: Pantoprazole 40 MG Tab.CR PO SCH ×3 (05:52→17:52)
[2021-10-22] MEDS: Levothyroxine 100 MCG Tab PO SCH ×2 (05:52→06:34)
[2021-10-22] MEDS: traMADol 50 MG Tab PO PRN ×3 (05:53→18:03)
[2021-10-22] MEDS: Acetaminophen 500 MG Tab PO SCH ×3 (08:13→21:19)
[2021-10-22] MEDS: Potassium Chloride 20 MEQ Tab.ER PO SCH ×2 (08:14→17:55)
[2021-10-22] MEDS: Tiotropium Bromide 4 GM Inhalation Spray (2.5mcg/1 dose; 10 doses) INH SCH (08:20)
[2021-10-22] MEDS: Formoterol/Mometasone 100-5 MCG 8.8 GM Inhaler IH SCH ×2 (08:20→21:20)
[2021-10-22] MEDS: Albuterol 8 GM Inhaler INH PRN (08:22)
[2021-10-22] MEDS: Cetirizine 10 MG Tab PO SCH (08:28)
[2021-10-22] MEDS: Cholecalciferol (Vitamin D3) 25 MCG Tab PO SCH (08:28)
[2021-10-22] MEDS: Bumetanide 1 MG Tab PO SCH ×2 (08:28→21:20)
[2021-10-22] MEDS: DULoxetine 30 MG Cap PO SCH (08:30)
[2021-10-22] MEDS: busPIRone 10 MG Tab PO SCH ×3 (08:31→21:19)
[2021-10-22] MEDS: hydrALAZINE 50 MG Tab PO SCH ×2 (08:36→21:23)
[2021-10-22] MEDS: Metoprolol Succinate 25 MG Tab.ER PO SCH (08:36)
[2021-10-22] MEDS: Lidocaine 5% 700 MG Patch TRDERM SCH (11:33)
[2021-10-22] MEDS: fentaNYL 25 MCG/HR Transdermal Patch TRDERM SCH (11:34)
[2021-10-22] MEDS: REMOVE FENTANYL TRDERM SCH (11:35)
[2021-10-22] MEDS: Rosuvastatin 10 MG Tab PO SCH (21:19)
[2021-10-22] MEDS: Magnesium Oxide 500 MG Tab PO SCH (21:20)
[2021-10-22] MEDS: Docusate Sodium 100 MG Cap PO SCH (21:20)
[2021-10-22] MEDS: Doxazosin 2 MG Tab PO SCH (21:23)
[2021-10-22] MEDS: Ondansetron 4 MG Tab.DIS PO PRN (21:31)
[2021-10-23] MEDS: traMADol 50 MG Tab PO PRN ×2 (05:17→15:03)
[2021-10-23] MEDS: Levothyroxine 100 MCG Tab PO SCH ×2 (06:06→06:35)
[2021-10-23] MEDS: Levothyroxine 75 MCG Tab PO SCH ×2 (06:06→06:35)
[2021-10-23] MEDS: Pantoprazole 40 MG Tab.CR PO SCH ×3 (06:06→17:07)
[2021-10-23] MEDS: Albuterol 8 GM Inhaler INH PRN (07:42)
[2021-10-23] MEDS: Potassium Chloride 20 MEQ Tab.ER PO SCH ×2 (08:57→17:07)
[2021-10-23] MEDS: Acetaminophen 500 MG Tab PO SCH ×3 (08:58→20:06)
[2021-10-23] MEDS: DULoxetine 30 MG Cap PO SCH (09:16)
[2021-10-23] MEDS: Cetirizine 10 MG Tab PO SCH (09:16)
[2021-10-23] MEDS: Cholecalciferol (Vitamin D3) 25 MCG Tab PO SCH (09:16)
[2021-10-23] MEDS: busPIRone 10 MG Tab PO SCH ×3 (09:16→20:07)
[2021-10-23] MEDS: Bumetanide 1 MG Tab PO SCH ×2 (09:16→20:06)
[2021-10-23] MEDS: Metoprolol Succinate 25 MG Tab.ER PO SCH (09:20)
[2021-10-23] MEDS: hydrALAZINE 50 MG Tab PO SCH ×2 (09:20→20:06)
[2021-10-23] MEDS: Formoterol/Mometasone 100-5 MCG 8.8 GM Inhaler IH SCH ×2 (09:23→20:04)
[2021-10-23] MEDS: Tiotropium Bromide 4 GM Inhalation Spray (2.5mcg/1 dose; 10 doses) INH SCH (09:23)
[2021-10-23] MEDS: Morphine Solution 10 MG/5 ML UD Cup PO PRN ×2 (09:26→21:59)
[2021-10-23] MEDS ORDERED: Trolamine Salicylate/Aloe Vera 10% Crm 85 GM Tube TOP SCH (09:45)
[2021-10-23] MEDS: Metolazone 2.5 MG Tab PO SCH (10:34)
[2021-10-23] MEDS ORDERED: [UNRECOGNIZED DRUG - OTHER] TOP PRN (13:17)
[2021-10-23] MEDS ORDERED: LIDOCAINE TOP SCH (13:30)
[2021-10-23] MEDS ORDERED: MENTHOL 1% TOP SCH (13:30)
[2021-10-23] MEDS: [UNRECOGNIZED DRUG - OTHER] TOP PRN ×2 (13:43→20:08)
[2021-10-23] MEDS: LIDOCAINE TOP SCH ×2 (13:44→20:10)
[2021-10-23] MEDS: MENTHOL 1% TOP SCH ×2 (13:44→20:10)
[2021-10-23] MEDS: Doxazosin 2 MG Tab PO SCH (20:04)
[2021-10-23] MEDS: Magnesium Oxide 500 MG Tab PO SCH (20:05)
[2021-10-23] MEDS: Docusate Sodium 100 MG Cap PO SCH (20:06)
[2021-10-23] MEDS: Rosuvastatin 10 MG Tab PO SCH (20:06)
[2021-10-24] MEDS: traMADol 50 MG Tab PO PRN ×5 (06:11→23:55)
[2021-10-24] MEDS: Levothyroxine 75 MCG Tab PO SCH ×2 (06:12→06:32)
[2021-10-24] MEDS: Pantoprazole 40 MG Tab.CR PO SCH ×3 (06:12→18:06)
[2021-10-24] MEDS: Levothyroxine 100 MCG Tab PO SCH ×2 (06:12→06:32)
[2021-10-24] MEDS: Bumetanide 1 MG Tab PO SCH ×2 (08:49→20:07)
[2021-10-24] MEDS: Acetaminophen 500 MG Tab PO SCH ×3 (08:49→20:07)
[2021-10-24] MEDS: Cetirizine 10 MG Tab PO SCH (08:50)
[2021-10-24] MEDS: Metoprolol Succinate 25 MG Tab.ER PO SCH (08:50)
[2021-10-24] MEDS: DULoxetine 30 MG Cap PO SCH (08:50)
[2021-10-24] MEDS: hydrALAZINE 50 MG Tab PO SCH ×2 (08:50→20:08)
[2021-10-24] MEDS: Potassium Chloride 20 MEQ Tab.ER PO SCH ×2 (08:50→18:06)
[2021-10-24] MEDS: Cholecalciferol (Vitamin D3) 25 MCG Tab PO SCH (08:51)
[2021-10-24] MEDS: busPIRone 10 MG Tab PO SCH ×3 (08:51→20:09)
[2021-10-24] MEDS: LIDOCAINE TOP SCH ×2 (08:54→20:10)
[2021-10-24] MEDS: Formoterol/Mometasone 100-5 MCG 8.8 GM Inhaler IH SCH ×2 (08:54→20:09)
[2021-10-24] MEDS: Tiotropium Bromide 4 GM Inhalation Spray (2.5mcg/1 dose; 10 doses) INH SCH (08:54)
[2021-10-24] MEDS: MENTHOL 1% TOP SCH ×2 (08:54→20:10)
[2021-10-24] MEDS: [UNRECOGNIZED DRUG - OTHER] TOP PRN ×2 (09:00→21:12)
[2021-10-24] MEDS: Morphine Solution 10 MG/5 ML UD Cup PO PRN ×2 (13:29→22:53)
[2021-10-24] MEDS: Albuterol 8 GM Inhaler INH PRN ×2 (14:23→21:11)
[2021-10-24] MEDS ORDERED: Warfarin 2 MG Tab PO ONE (18:00)
[2021-10-24] MEDS: Doxazosin 2 MG Tab PO SCH (20:07)
[2021-10-24] MEDS: Magnesium Oxide 500 MG Tab PO SCH (20:09)
[2021-10-24] MEDS: Docusate Sodium 100 MG Cap PO SCH (20:09)
[2021-10-24] MEDS: Rosuvastatin 10 MG Tab PO SCH (20:09)
[2021-10-25] MEDS: Ondansetron 4 MG Tab.DIS PO PRN (01:12)
[2021-10-25] MEDS: Melatonin 3 MG Tab PO PRN (01:21)
[2021-10-25] MEDS: [UNRECOGNIZED DRUG - OTHER] TOP PRN (05:14)
[2021-10-25] MEDS: Morphine Solution 10 MG/5 ML UD Cup PO PRN ×3 (05:46→23:41)
[2021-10-25] MEDS: Levothyroxine 100 MCG Tab PO SCH ×2 (05:47→06:31)
[2021-10-25] MEDS: Levothyroxine 75 MCG Tab PO SCH ×2 (05:47→06:31)
[2021-10-25] MEDS: Pantoprazole 40 MG Tab.CR PO SCH ×3 (05:48→17:23)
[2021-10-25] MEDS: traMADol 50 MG Tab PO PRN ×3 (08:08→20:27)
[2021-10-25 08:09] LABS: ANION GAP 12.1 mmol/L (5-15)
[2021-10-25] MEDS: Acetaminophen 500 MG Tab PO SCH ×3 (08:09→20:04)
[2021-10-25] MEDS: Potassium Chloride 20 MEQ Tab.ER PO SCH ×2 (08:11→17:23)
[2021-10-25] MEDS: MENTHOL 1% TOP SCH ×2 (08:12→20:05)
[2021-10-25] MEDS: LIDOCAINE TOP SCH ×2 (08:12→20:05)
[2021-10-25] MEDS: DULoxetine 30 MG Cap PO SCH (08:13)
[2021-10-25] MEDS: Cetirizine 10 MG Tab PO SCH (08:15)
[2021-10-25] MEDS: Cholecalciferol (Vitamin D3) 25 MCG Tab PO SCH (08:15)
[2021-10-25] MEDS: busPIRone 10 MG Tab PO SCH ×3 (08:15→20:05)
[2021-10-25] MEDS: Bumetanide 1 MG Tab PO SCH ×2 (08:15→20:05)
[2021-10-25] MEDS: Tiotropium Bromide 4 GM Inhalation Spray (2.5mcg/1 dose; 10 doses) INH SCH (08:17)
[2021-10-25] MEDS: Formoterol/Mometasone 100-5 MCG 8.8 GM Inhaler IH SCH ×2 (08:17→20:06)
[2021-10-25] MEDS: Metoprolol Succinate 25 MG Tab.ER PO SCH (08:22)
[2021-10-25] MEDS: hydrALAZINE 50 MG Tab PO SCH ×2 (08:22→20:07)
[2021-10-25] MEDS: Metolazone 2.5 MG Tab PO SCH (09:49)
[2021-10-25] MEDS ORDERED: Potassium Chloride 20 MEQ Tab.ER PO ONE (10:25)
[2021-10-25] MEDS ORDERED: Magnesium Sulfate/Water 2 GM in Premix Bag 1 BAG IV ONE (10:26)
[2021-10-25] MEDS ORDERED: Sodium Chloride 0.9% 50 ML IV SCH (10:45)
[2021-10-25] MEDS: fentaNYL 25 MCG/HR Transdermal Patch TRDERM SCH (11:53)
[2021-10-25] MEDS: REMOVE FENTANYL TRDERM SCH (11:54)
[2021-10-25] MEDS ORDERED: Warfarin 2 MG Tab PO ONE (18:00)
[2021-10-25] MEDS: Rosuvastatin 10 MG Tab PO SCH (20:04)
[2021-10-25] MEDS: Docusate Sodium 100 MG Cap PO SCH (20:05)
[2021-10-25] MEDS: Magnesium Oxide 500 MG Tab PO SCH (20:05)
[2021-10-25] MEDS: Doxazosin 2 MG Tab PO SCH (20:07)
[2021-10-26] MEDS: Ondansetron 4 MG Tab.DIS PO PRN ×3 (01:54→16:14)
[2021-10-26] MEDS: traMADol 50 MG Tab PO PRN ×3 (03:32→20:24)
[2021-10-26] MEDS: Albuterol 8 GM Inhaler INH PRN ×2 (04:12→21:34)
[2021-10-26] MEDS: Levothyroxine 75 MCG Tab PO SCH ×2 (05:51→06:34)
[2021-10-26] MEDS: Pantoprazole 40 MG Tab.CR PO SCH ×3 (05:51→17:17)
[2021-10-26] MEDS: Levothyroxine 100 MCG Tab PO SCH ×2 (05:52→06:34)
[2021-10-26] MEDS: Potassium Chloride 20 MEQ Tab.ER PO SCH ×3 (08:10→20:23)
[2021-10-26 08:12] LABS: ANION GAP 11.6 mmol/L (5-15)
[2021-10-26] MEDS: Acetaminophen 500 MG Tab PO SCH ×3 (08:12→20:23)
[2021-10-26] MEDS: DULoxetine 30 MG Cap PO SCH (08:26)
[2021-10-26] MEDS: Morphine Solution 10 MG/5 ML UD Cup PO PRN ×2 (08:28→16:39)
[2021-10-26] MEDS: Cetirizine 10 MG Tab PO SCH (08:30)
[2021-10-26] MEDS: hydrALAZINE 50 MG Tab PO SCH ×2 (08:31→20:22)
[2021-10-26] MEDS: Bumetanide 1 MG Tab PO SCH ×2 (08:32→20:21)
[2021-10-26] MEDS: Cholecalciferol (Vitamin D3) 25 MCG Tab PO SCH (08:32)
[2021-10-26] MEDS: Metoprolol Succinate 25 MG Tab.ER PO SCH (08:32)
[2021-10-26] MEDS: busPIRone 10 MG Tab PO SCH ×3 (08:32→20:22)
[2021-10-26] MEDS: MENTHOL 1% TOP SCH ×2 (08:38→20:23)
[2021-10-26] MEDS: LIDOCAINE TOP SCH ×2 (08:38→20:23)
[2021-10-26] MEDS: Tiotropium Bromide 4 GM Inhalation Spray (2.5mcg/1 dose; 10 doses) INH SCH (08:42)
[2021-10-26] MEDS: Formoterol/Mometasone 100-5 MCG 8.8 GM Inhaler IH SCH ×2 (08:42→20:22)
[2021-10-26] MEDS ORDERED: Bumetanide 1 MG Tab PO ONE (11:02)
[2021-10-26] MEDS ORDERED: Bisacodyl 10 MG Supp RECTAL PRN (11:12)
[2021-10-26] MEDS: Polyethylene Glycol 3350 Powder 17 GM Packet PO SCH (11:29)
[2021-10-26] MEDS: Diclofenac Sodium 1% Gel 100 GM Tube TOP PRN (17:19)
[2021-10-26] MEDS ORDERED: Warfarin 2 MG Tab PO ONE (18:00)
[2021-10-26] MEDS: Doxazosin 2 MG Tab PO SCH (20:21)
[2021-10-26] MEDS: Magnesium Oxide 500 MG Tab PO SCH (20:21)
[2021-10-26] MEDS: Rosuvastatin 10 MG Tab PO SCH (20:22)
[2021-10-26] MEDS: Docusate Sodium 100 MG Cap PO SCH (20:22)
[2021-10-26] MEDS: Melatonin 3 MG Tab PO PRN (20:24)
[2021-10-26] MEDS: [UNRECOGNIZED DRUG - OTHER] TOP PRN (20:25)
[2021-10-27] MEDS: Morphine Solution 10 MG/5 ML UD Cup PO PRN ×3 (03:03→22:13)
[2021-10-27] MEDS: Levothyroxine 75 MCG Tab PO SCH ×2 (05:44→06:32)
[2021-10-27] MEDS: Pantoprazole 40 MG Tab.CR PO SCH ×3 (05:44→17:35)
[2021-10-27] MEDS: traMADol 50 MG Tab PO PRN (05:45)
[2021-10-27] MEDS: Levothyroxine 100 MCG Tab PO SCH ×2 (05:45→06:32)
[2021-10-27 08:11] LABS: ANION GAP 10.6 mmol/L (5-15)
[2021-10-27] MEDS: Bumetanide 1 MG Tab PO SCH ×2 (08:16→21:06)
[2021-10-27] MEDS: Cholecalciferol (Vitamin D3) 25 MCG Tab PO SCH (08:17)
[2021-10-27] MEDS: DULoxetine 30 MG Cap PO SCH (08:17)
[2021-10-27] MEDS: Potassium Chloride 20 MEQ Tab.ER PO SCH ×3 (08:17→21:14)
[2021-10-27] MEDS: Cetirizine 10 MG Tab PO SCH (08:18)
[2021-10-27] MEDS: Acetaminophen 500 MG Tab PO SCH ×3 (08:19→21:13)
[2021-10-27] MEDS: Metoprolol Succinate 25 MG Tab.ER PO SCH (08:19)
[2021-10-27] MEDS: busPIRone 10 MG Tab PO SCH ×3 (08:19→21:14)
[2021-10-27] MEDS: hydrALAZINE 50 MG Tab PO SCH ×2 (08:20→21:07)
[2021-10-27] MEDS: Polyethylene Glycol 3350 Powder 17 GM Packet PO SCH (08:23)
[2021-10-27] MEDS: Tiotropium Bromide 4 GM Inhalation Spray (2.5mcg/1 dose; 10 doses) INH SCH (09:56)
[2021-10-27] MEDS: [UNRECOGNIZED DRUG - OTHER] TOP PRN (09:56)
[2021-10-27] MEDS: MENTHOL 1% TOP SCH ×2 (09:57→21:14)
[2021-10-27] MEDS: LIDOCAINE TOP SCH ×2 (09:57→21:14)
[2021-10-27] MEDS: Formoterol/Mometasone 100-5 MCG 8.8 GM Inhaler IH SCH ×2 (10:43→21:04)
[2021-10-27] MEDS: Metolazone 2.5 MG Tab PO SCH (10:43)
[2021-10-27] MEDS: Rosuvastatin 10 MG Tab PO SCH (21:05)
[2021-10-27] MEDS: Magnesium Oxide 500 MG Tab PO SCH (21:05)
[2021-10-27] MEDS: Doxazosin 2 MG Tab PO SCH (21:07)
[2021-10-27] MEDS: Docusate Sodium 100 MG Cap PO SCH (21:08)
[2021-10-27] MEDS ORDERED: Potassium Chloride 10 MEQ Tab.ER PO ONE (22:00)
[2021-10-27] MEDS: Melatonin 3 MG Tab PO PRN (22:12)
[2021-10-28] MEDS: traMADol 50 MG Tab PO PRN ×2 (02:11→18:29)
[2021-10-28] MEDS: Pantoprazole 40 MG Tab.CR PO SCH ×3 (05:04→17:37)
[2021-10-28] MEDS: Levothyroxine 100 MCG Tab PO SCH ×2 (05:04→06:29)
[2021-10-28] MEDS: Morphine Solution 10 MG/5 ML UD Cup PO PRN ×2 (06:13→22:48)
[2021-10-28 07:44] LABS: ANION GAP 8.5 mmol/L (5-15)
[2021-10-28] MEDS ORDERED: Potassium Chloride 10 MEQ Tab.ER PO SCH (09:00)
[2021-10-28] MEDS: DULoxetine 30 MG Cap PO SCH (09:40)
[2021-10-28] MEDS: Tiotropium Bromide 4 GM Inhalation Spray (2.5mcg/1 dose; 10 doses) INH SCH (09:40)
[2021-10-28] MEDS: hydrALAZINE 50 MG Tab PO SCH ×2 (09:43→21:06)
[2021-10-28] MEDS: busPIRone 10 MG Tab PO SCH ×3 (09:44→21:03)
[2021-10-28] MEDS: Acetaminophen 500 MG Tab PO SCH ×3 (09:44→21:03)
[2021-10-28] MEDS: Metoprolol Succinate 25 MG Tab.ER PO SCH (09:45)
[2021-10-28] MEDS: Bumetanide 1 MG Tab PO SCH ×2 (09:46→21:04)
[2021-10-28] MEDS: Cetirizine 10 MG Tab PO SCH (09:47)
[2021-10-28] MEDS: Cholecalciferol (Vitamin D3) 25 MCG Tab PO SCH (09:48)
[2021-10-28] MEDS: Polyethylene Glycol 3350 Powder 17 GM Packet PO SCH (09:49)
[2021-10-28] MEDS: CLONIDINE TOP SCH (09:49)
[2021-10-28] MEDS: Potassium Chloride 10 MEQ Tab.ER PO SCH ×3 (09:53→21:05)
[2021-10-28] MEDS: REMOVE CLONIDINE TRDERM SCH (09:53)
[2021-10-28] MEDS: MENTHOL 1% TOP SCH ×2 (09:54→21:06)
[2021-10-28] MEDS: fentaNYL 12 MCG/HR Transdermal Patch TRDERM SCH (09:54)
[2021-10-28] MEDS: LIDOCAINE TOP SCH ×2 (09:54→21:06)
[2021-10-28] MEDS: Formoterol/Mometasone 100-5 MCG 8.8 GM Inhaler IH SCH ×2 (09:55→21:07)
[2021-10-28] MEDS: Diclofenac Sodium 1% Gel 100 GM Tube TOP PRN ×2 (11:26→20:59)
[2021-10-28] MEDS: Rosuvastatin 10 MG Tab PO SCH (21:03)
[2021-10-28] MEDS: Magnesium Oxide 500 MG Tab PO SCH (21:04)
[2021-10-28] MEDS: Doxazosin 2 MG Tab PO SCH (21:06)
[2021-10-28] MEDS: Docusate Sodium 100 MG Cap PO SCH (21:07)
[2021-10-28] MEDS: Melatonin 3 MG Tab PO PRN (22:48)
[2021-10-29] MEDS: Pantoprazole 40 MG Tab.CR PO SCH ×3 (06:15→17:34)
[2021-10-29] MEDS: Levothyroxine 100 MCG Tab PO SCH ×2 (06:16→06:31)
[2021-10-29] MEDS: Albuterol 8 GM Inhaler INH PRN ×2 (06:22→15:05)
[2021-10-29] MEDS: DULoxetine 30 MG Cap PO SCH (09:23)
[2021-10-29] MEDS: Tiotropium Bromide 4 GM Inhalation Spray (2.5mcg/1 dose; 10 doses) INH SCH (09:23)
[2021-10-29] MEDS: Bumetanide 1 MG Tab PO SCH (09:24)
[2021-10-29] MEDS: Acetaminophen 500 MG Tab PO SCH ×3 (09:24→21:22)
[2021-10-29] MEDS: Cholecalciferol (Vitamin D3) 25 MCG Tab PO SCH (09:27)
[2021-10-29] MEDS: busPIRone 10 MG Tab PO SCH ×3 (09:27→21:21)
[2021-10-29] MEDS: Cetirizine 10 MG Tab PO SCH (09:27)
[2021-10-29] MEDS: MENTHOL 1% TOP SCH ×2 (09:28→21:30)
[2021-10-29] MEDS: LIDOCAINE TOP SCH ×2 (09:28→21:30)
[2021-10-29] MEDS: Metoprolol Succinate 25 MG Tab.ER PO SCH (09:28)
[2021-10-29] MEDS: Polyethylene Glycol 3350 Powder 17 GM Packet PO SCH (09:29)
[2021-10-29] MEDS: hydrALAZINE 50 MG Tab PO SCH ×2 (09:30→21:28)
[2021-10-29] MEDS: Formoterol/Mometasone 100-5 MCG 8.8 GM Inhaler IH SCH ×2 (09:37→21:30)
[2021-10-29] MEDS: traMADol 50 MG Tab PO PRN ×2 (09:45→21:20)
[2021-10-29] MEDS: Potassium Chloride 10 MEQ Tab.ER PO SCH ×4 (12:10→21:20)
[2021-10-29] MEDS: Diclofenac Sodium 1% Gel 100 GM Tube TOP PRN (16:39)
[2021-10-29] MEDS: tiZANidine 4 MG Tab PO PRN (19:20)
[2021-10-29] MEDS: Ondansetron 4 MG Tab.DIS PO PRN (20:05)
[2021-10-29] MEDS ORDERED: Bumetanide 1 MG Tab PO SCH (21:00)
[2021-10-29] MEDS: Magnesium Oxide 500 MG Tab PO SCH (21:21)
[2021-10-29] MEDS: Melatonin 3 MG Tab PO PRN (21:22)
[2021-10-29] MEDS: Rosuvastatin 10 MG Tab PO SCH (21:23)
[2021-10-29] MEDS: Docusate Sodium 100 MG Cap PO SCH (21:29)
[2021-10-29] MEDS: Doxazosin 2 MG Tab PO SCH (21:29)
[2021-10-30] MEDS: Levothyroxine 75 MCG Tab PO SCH ×2 (04:56→06:31)
[2021-10-30] MEDS: traMADol 50 MG Tab PO PRN ×3 (04:56→19:01)
[2021-10-30] MEDS: Levothyroxine 100 MCG Tab PO SCH ×2 (04:56→06:31)
[2021-10-30] MEDS: Pantoprazole 40 MG Tab.CR PO SCH ×3 (04:56→17:27)
[2021-10-30] MEDS: Diclofenac Sodium 1% Gel 100 GM Tube TOP PRN ×2 (04:57→16:55)
[2021-10-30 07:33] LABS: ANION GAP 8.8 mmol/L (5-15)
[2021-10-30] MEDS: tiZANidine 4 MG Tab PO PRN (08:40)
[2021-10-30] MEDS: LIDOCAINE TOP SCH ×2 (08:40→20:44)
[2021-10-30] MEDS: MENTHOL 1% TOP SCH ×2 (08:40→20:44)
[2021-10-30] MEDS: Metoprolol Succinate 25 MG Tab.ER PO SCH (08:41)
[2021-10-30] MEDS: Acetaminophen 500 MG Tab PO SCH ×3 (08:45→20:42)
[2021-10-30] MEDS: Cetirizine 10 MG Tab PO SCH (08:46)
[2021-10-30] MEDS: DULoxetine 30 MG Cap PO SCH (08:46)
[2021-10-30] MEDS: Cholecalciferol (Vitamin D3) 25 MCG Tab PO SCH (08:47)
[2021-10-30] MEDS: busPIRone 10 MG Tab PO SCH ×3 (08:47→20:41)
[2021-10-30] MEDS: hydrALAZINE 50 MG Tab PO SCH ×2 (08:47→20:42)
[2021-10-30] MEDS: Tiotropium Bromide 4 GM Inhalation Spray (2.5mcg/1 dose; 10 doses) INH SCH (08:48)
[2021-10-30] MEDS: Formoterol/Mometasone 100-5 MCG 8.8 GM Inhaler IH SCH ×2 (08:48→20:44)
[2021-10-30] MEDS: Albuterol 8 GM Inhaler INH PRN ×2 (08:49→14:27)
[2021-10-30] MEDS: Polyethylene Glycol 3350 Powder 17 GM Packet PO SCH (08:53)
[2021-10-30] MEDS ORDERED: Potassium Chloride 20 MEQ Tab.ER PO SCH (09:00)
[2021-10-30] MEDS ORDERED: Bumetanide 1 MG Tab PO SCH (09:00)
[2021-10-30] MEDS ORDERED: Potassium Chloride 10 MEQ Tab.ER PO SCH (09:05)
[2021-10-30] MEDS ORDERED: Polyethylene Glycol 3350 Powder 17 GM Packet PO PRN (11:08)
[2021-10-30] MEDS: Metolazone 2.5 MG Tab PO SCH (11:16)
[2021-10-30] MEDS ORDERED: Warfarin 2 MG Tab PO ONE (18:00)
[2021-10-30] MEDS: Bumetanide 1 MG Tab PO SCH (20:41)
[2021-10-30] MEDS: Magnesium Oxide 500 MG Tab PO SCH (20:41)
[2021-10-30] MEDS: Rosuvastatin 10 MG Tab PO SCH (20:42)
[2021-10-30] MEDS: Docusate Sodium 100 MG Cap PO SCH (20:42)
[2021-10-30] MEDS: Potassium Chloride 10 MEQ Tab.ER PO SCH (20:42)
[2021-10-30] MEDS: Doxazosin 2 MG Tab PO SCH (20:43)
[2021-10-31] MEDS: traMADol 50 MG Tab PO PRN ×3 (01:59→14:59)
[2021-10-31] MEDS: Levothyroxine 100 MCG Tab PO SCH ×2 (06:22→06:34)
[2021-10-31] MEDS: Levothyroxine 75 MCG Tab PO SCH ×2 (06:22→06:34)
[2021-10-31] MEDS: Pantoprazole 40 MG Tab.CR PO SCH ×3 (06:22→17:33)
[2021-10-31 07:54] LABS: ANION GAP 12.2 mmol/L (5-15)
[2021-10-31] MEDS: DULoxetine 30 MG Cap PO SCH (08:22)
[2021-10-31] MEDS: Cholecalciferol (Vitamin D3) 25 MCG Tab PO SCH (08:23)
[2021-10-31] MEDS: hydrALAZINE 50 MG Tab PO SCH ×2 (08:23→20:19)
[2021-10-31] MEDS: Acetaminophen 500 MG Tab PO SCH ×3 (08:23→20:17)
[2021-10-31] MEDS: Bumetanide 1 MG Tab PO SCH ×2 (08:23→20:16)
[2021-10-31] MEDS: Potassium Chloride 10 MEQ Tab.ER PO SCH ×2 (08:24→20:17)
[2021-10-31] MEDS: Cetirizine 10 MG Tab PO SCH (08:24)
[2021-10-31] MEDS: busPIRone 10 MG Tab PO SCH ×3 (08:24→20:16)
[2021-10-31] MEDS: Metoprolol Succinate 25 MG Tab.ER PO SCH (08:24)
[2021-10-31] MEDS: fentaNYL 12 MCG/HR Transdermal Patch TRDERM SCH (09:44)
[2021-10-31] MEDS: MENTHOL 1% TOP SCH ×2 (09:45→20:20)
[2021-10-31] MEDS: LIDOCAINE TOP SCH ×2 (09:45→20:20)
[2021-10-31] MEDS: Formoterol/Mometasone 100-5 MCG 8.8 GM Inhaler IH SCH ×2 (10:04→20:19)
[2021-10-31] MEDS: Tiotropium Bromide 4 GM Inhalation Spray (2.5mcg/1 dose; 10 doses) INH SCH (10:05)
[2021-10-31] MEDS: Diclofenac Sodium 1% Gel 100 GM Tube TOP PRN ×2 (11:03→23:01)
[2021-10-31] MEDS: tiZANidine 4 MG Tab PO PRN ×2 (12:01→20:16)
[2021-10-31] MEDS ORDERED: Morphine Solution 10 MG/5 ML UD Cup PO ONE (15:17)
[2021-10-31] MEDS: Albuterol 8 GM Inhaler INH PRN (15:44)
[2021-10-31] MEDS ORDERED: Warfarin 2 MG Tab PO ONE (18:00)
[2021-10-31] MEDS: Rosuvastatin 10 MG Tab PO SCH (20:16)
[2021-10-31] MEDS: Magnesium Oxide 500 MG Tab PO SCH (20:16)
[2021-10-31] MEDS: Docusate Sodium 100 MG Cap PO SCH (20:16)
[2021-10-31] MEDS: Doxazosin 2 MG Tab PO SCH (20:19)
[2021-10-31] MEDS: Melatonin 3 MG Tab PO PRN (20:58)
[2021-11-01] MEDS: traMADol 50 MG Tab PO PRN ×2 (01:37→12:50)
[2021-11-01] MEDS: Levothyroxine 75 MCG Tab PO SCH ×2 (05:30→06:31)
[2021-11-01] MEDS: Levothyroxine 100 MCG Tab PO SCH ×2 (05:31→06:31)
[2021-11-01] MEDS: Pantoprazole 40 MG Tab.CR PO SCH ×3 (05:31→17:15)
[2021-11-01] MEDS: Tiotropium Bromide 4 GM Inhalation Spray (2.5mcg/1 dose; 10 doses) INH SCH (08:25)
[2021-11-01] MEDS: MENTHOL 1% TOP SCH ×2 (08:25→20:27)
[2021-11-01] MEDS: Formoterol/Mometasone 100-5 MCG 8.8 GM Inhaler IH SCH ×2 (08:25→20:27)
[2021-11-01] MEDS: LIDOCAINE TOP SCH ×2 (08:25→20:27)
[2021-11-01] MEDS: Potassium Chloride 10 MEQ Tab.ER PO SCH ×2 (08:26→20:26)
[2021-11-01] MEDS: DULoxetine 30 MG Cap PO SCH (08:26)
[2021-11-01] MEDS: Acetaminophen 500 MG Tab PO SCH ×3 (08:26→20:27)
[2021-11-01] MEDS: Bumetanide 1 MG Tab PO SCH ×2 (08:26→20:25)
[2021-11-01] MEDS: Cetirizine 10 MG Tab PO SCH (08:26)
[2021-11-01] MEDS: Cholecalciferol (Vitamin D3) 25 MCG Tab PO SCH (08:27)
[2021-11-01] MEDS: busPIRone 10 MG Tab PO SCH ×3 (08:27→20:26)
[2021-11-01] MEDS: hydrALAZINE 50 MG Tab PO SCH ×2 (08:31→20:26)
[2021-11-01] MEDS: Metoprolol Succinate 25 MG Tab.ER PO SCH (08:31)
[2021-11-01] MEDS: Albuterol 8 GM Inhaler INH PRN ×2 (08:36→13:24)
[2021-11-01] MEDS: Diclofenac Sodium 1% Gel 100 GM Tube TOP PRN (10:14)
[2021-11-01] MEDS: Metolazone 2.5 MG Tab PO SCH (10:14)
[2021-11-01] MEDS: tiZANidine 4 MG Tab PO PRN (20:25)
[2021-11-01] MEDS: Rosuvastatin 10 MG Tab PO SCH (20:25)
[2021-11-01] MEDS: Magnesium Oxide 500 MG Tab PO SCH (20:26)
[2021-11-01] MEDS: Doxazosin 2 MG Tab PO SCH (20:26)
[2021-11-01] MEDS: Docusate Sodium 100 MG Cap PO SCH (20:27)
[2021-11-01] MEDS: Melatonin 3 MG Tab PO PRN (20:29)
[2021-11-02] MEDS: traMADol 50 MG Tab PO PRN ×3 (00:07→22:05)
[2021-11-02] MEDS: Levothyroxine 75 MCG Tab PO SCH ×2 (06:07→06:38)
[2021-11-02] MEDS: Potassium Chloride 10 MEQ Tab.ER PO SCH ×3 (06:07→20:39)
[2021-11-02] MEDS: Pantoprazole 40 MG Tab.CR PO SCH ×3 (06:07→17:12)
[2021-11-02] MEDS: Cholecalciferol (Vitamin D3) 25 MCG Tab PO SCH ×2 (06:08→08:26)
[2021-11-02] MEDS: Metoprolol Succinate 25 MG Tab.ER PO SCH ×2 (06:08→08:25)
[2021-11-02] MEDS: DULoxetine 30 MG Cap PO SCH ×2 (06:08→08:25)
[2021-11-02] MEDS: busPIRone 10 MG Tab PO SCH ×4 (06:09→20:40)
[2021-11-02] MEDS: tiZANidine 4 MG Tab PO PRN ×2 (06:09→19:11)
[2021-11-02] MEDS: hydrALAZINE 50 MG Tab PO SCH ×3 (06:09→20:40)
[2021-11-02] MEDS: Acetaminophen 500 MG Tab PO SCH ×4 (06:09→20:39)
[2021-11-02] MEDS: Cetirizine 10 MG Tab PO SCH ×2 (06:09→08:26)
[2021-11-02] MEDS: Levothyroxine 100 MCG Tab PO SCH ×2 (06:09→06:38)
[2021-11-02] MEDS: LIDOCAINE TOP SCH ×3 (06:12→20:40)
[2021-11-02] MEDS: MENTHOL 1% TOP SCH ×3 (06:12→20:40)
[2021-11-02] MEDS: Formoterol/Mometasone 100-5 MCG 8.8 GM Inhaler IH SCH ×3 (06:13→20:40)
[2021-11-02] MEDS: Tiotropium Bromide 4 GM Inhalation Spray (2.5mcg/1 dose; 10 doses) INH SCH ×2 (06:13→08:25)
[2021-11-02] MEDS: Ondansetron 4 MG Tab.DIS PO PRN (06:44)
[2021-11-02] MEDS: Bumetanide 1 MG Tab PO SCH ×2 (08:24→20:39)
[2021-11-02] MEDS: Doxazosin 2 MG Tab PO SCH (20:39)
[2021-11-02] MEDS: Magnesium Oxide 500 MG Tab PO SCH (20:40)
[2021-11-02] MEDS: Rosuvastatin 10 MG Tab PO SCH (20:40)
[2021-11-02] MEDS: Docusate Sodium 100 MG Cap PO SCH (20:40)
[2021-11-02] MEDS: Melatonin 3 MG Tab PO PRN (20:41)
[2021-11-03] MEDS ORDERED: Morphine Solution 10 MG/5 ML UD Cup PO ONE ×2 (00:58→01:01)
[2021-11-03] MEDS: Diclofenac Sodium 1% Gel 100 GM Tube TOP PRN ×2 (02:50→16:16)
[2021-11-03] MEDS: tiZANidine 4 MG Tab PO PRN ×3 (03:13→20:07)
[2021-11-03] MEDS: Pantoprazole 40 MG Tab.CR PO SCH ×2 (07:30→17:31)
[2021-11-03] MEDS: Levothyroxine 75 MCG Tab PO SCH (07:30)
[2021-11-03] MEDS: Levothyroxine 100 MCG Tab PO SCH (07:30)
[2021-11-03] MEDS: Cholecalciferol (Vitamin D3) 25 MCG Tab PO SCH (08:21)
[2021-11-03] MEDS: Potassium Chloride 10 MEQ Tab.ER PO SCH ×2 (08:22→20:08)
[2021-11-03] MEDS: Acetaminophen 500 MG Tab PO SCH ×3 (08:24→20:09)
[2021-11-03] MEDS: hydrALAZINE 50 MG Tab PO SCH ×2 (08:25→20:07)
[2021-11-03] MEDS: Cetirizine 10 MG Tab PO SCH (08:25)
[2021-11-03] MEDS: Bumetanide 1 MG Tab PO SCH ×2 (08:26→20:07)
[2021-11-03] MEDS: busPIRone 10 MG Tab PO SCH ×3 (08:26→20:07)
[2021-11-03] MEDS: Metoprolol Succinate 25 MG Tab.ER PO SCH (08:26)
[2021-11-03] MEDS: DULoxetine 30 MG Cap PO SCH (08:26)
[2021-11-03] MEDS: traMADol 50 MG Tab PO PRN ×3 (08:28→23:33)
[2021-11-03] MEDS: Tiotropium Bromide 4 GM Inhalation Spray (2.5mcg/1 dose; 10 doses) INH SCH (08:31)
[2021-11-03] MEDS: Formoterol/Mometasone 100-5 MCG 8.8 GM Inhaler IH SCH ×2 (08:31→20:18)
[2021-11-03] MEDS: MENTHOL 1% TOP SCH ×2 (08:31→20:14)
[2021-11-03] MEDS: LIDOCAINE TOP SCH ×2 (08:31→20:14)
[2021-11-03] MEDS: fentaNYL 12 MCG/HR Transdermal Patch TRDERM SCH (08:36)
[2021-11-03] MEDS: Metolazone 2.5 MG Tab PO SCH (11:29)
[2021-11-03] MEDS ORDERED: Warfarin 2 MG Tab PO ONE (18:00)
[2021-11-03] MEDS: Rosuvastatin 10 MG Tab PO SCH (20:07)
[2021-11-03] MEDS: Doxazosin 2 MG Tab PO SCH (20:08)
[2021-11-03] MEDS: Magnesium Oxide 500 MG Tab PO SCH (20:08)
[2021-11-03] MEDS: Docusate Sodium 100 MG Cap PO SCH (20:08)
[2021-11-03] MEDS: Albuterol 8 GM Inhaler INH PRN (21:12)
[2021-11-03] MEDS: Melatonin 3 MG Tab PO PRN (23:34)
[2021-11-04] MEDS: tiZANidine 4 MG Tab PO PRN ×3 (05:43→21:02)
[2021-11-04] MEDS: Levothyroxine 100 MCG Tab PO SCH (07:46)
[2021-11-04] MEDS: Pantoprazole 40 MG Tab.CR PO SCH ×2 (07:46→17:03)
[2021-11-04] MEDS: Cholecalciferol (Vitamin D3) 25 MCG Tab PO SCH (08:32)
[2021-11-04] MEDS: Cetirizine 10 MG Tab PO SCH (08:32)
[2021-11-04] MEDS: Acetaminophen 500 MG Tab PO SCH ×3 (08:33→21:00)
[2021-11-04] MEDS: Bumetanide 1 MG Tab PO SCH ×2 (08:33→21:02)
[2021-11-04] MEDS: LIDOCAINE TOP SCH ×2 (08:34→23:13)
[2021-11-04] MEDS: busPIRone 10 MG Tab PO SCH ×3 (08:34→20:59)
[2021-11-04] MEDS: Potassium Chloride 10 MEQ Tab.ER PO SCH ×2 (08:34→20:57)
[2021-11-04] MEDS: traMADol 50 MG Tab PO PRN ×3 (08:34→23:07)
[2021-11-04] MEDS: MENTHOL 1% TOP SCH ×2 (08:34→23:13)
[2021-11-04] MEDS: DULoxetine 30 MG Cap PO SCH (08:34)
[2021-11-04] MEDS: Tiotropium Bromide 4 GM Inhalation Spray (2.5mcg/1 dose; 10 doses) INH SCH (08:35)
[2021-11-04] MEDS: Formoterol/Mometasone 100-5 MCG 8.8 GM Inhaler IH SCH ×2 (08:35→20:57)
[2021-11-04] MEDS: Metoprolol Succinate 25 MG Tab.ER PO SCH (08:36)
[2021-11-04] MEDS: hydrALAZINE 50 MG Tab PO SCH ×2 (08:36→21:01)
[2021-11-04] MEDS: REMOVE CLONIDINE TRDERM SCH (08:39)
[2021-11-04] MEDS: CLONIDINE TOP SCH (09:41)
[2021-11-04] MEDS ORDERED: Warfarin 2 MG Tab PO ONE (18:00)
[2021-11-04] MEDS: Docusate Sodium 100 MG Cap PO SCH (20:58)
[2021-11-04] MEDS: Rosuvastatin 10 MG Tab PO SCH (20:58)
[2021-11-04] MEDS: Magnesium Oxide 500 MG Tab PO SCH (20:59)
[2021-11-04] MEDS: Doxazosin 2 MG Tab PO SCH (21:02)
[2021-11-05] MEDS: Diclofenac Sodium 1% Gel 100 GM Tube TOP PRN (04:06)
[2021-11-05] MEDS: tiZANidine 4 MG Tab PO PRN ×3 (05:51→22:05)
[2021-11-05] MEDS: traMADol 50 MG Tab PO PRN ×3 (06:37→19:34)
[2021-11-05] MEDS: Pantoprazole 40 MG Tab.CR PO SCH ×2 (06:37→17:21)
[2021-11-05] MEDS: Levothyroxine 100 MCG Tab PO SCH (06:37)
[2021-11-05] MEDS: Potassium Chloride 10 MEQ Tab.ER PO SCH ×2 (08:09→21:13)
[2021-11-05] MEDS: DULoxetine 30 MG Cap PO SCH (08:10)
[2021-11-05] MEDS: Cetirizine 10 MG Tab PO SCH (08:11)
[2021-11-05] MEDS: Bumetanide 1 MG Tab PO SCH ×2 (08:12→21:15)
[2021-11-05] MEDS: Acetaminophen 500 MG Tab PO SCH ×3 (08:12→21:16)
[2021-11-05] MEDS: Cholecalciferol (Vitamin D3) 25 MCG Tab PO SCH (08:12)
[2021-11-05] MEDS: busPIRone 10 MG Tab PO SCH ×3 (08:13→21:15)
[2021-11-05] MEDS: Formoterol/Mometasone 100-5 MCG 8.8 GM Inhaler IH SCH ×2 (08:14→21:13)
[2021-11-05] MEDS: MENTHOL 1% TOP SCH ×2 (08:14→21:21)
[2021-11-05] MEDS: LIDOCAINE TOP SCH ×2 (08:14→21:21)
[2021-11-05] MEDS: Tiotropium Bromide 4 GM Inhalation Spray (2.5mcg/1 dose; 10 doses) INH SCH (08:14)
[2021-11-05] MEDS: hydrALAZINE 50 MG Tab PO SCH ×2 (08:19→21:15)
[2021-11-05] MEDS: Metoprolol Succinate 25 MG Tab.ER PO SCH (08:19)
[2021-11-05] MEDS: Simethicone 80 MG Tab.Chew PO PRN (18:32)
[2021-11-05] MEDS: Docusate Sodium 100 MG Cap PO SCH (21:15)
[2021-11-05] MEDS: Magnesium Oxide 500 MG Tab PO SCH (21:15)
[2021-11-05] MEDS: Rosuvastatin 10 MG Tab PO SCH (21:19)
[2021-11-05] MEDS: Doxazosin 2 MG Tab PO SCH (21:19)
[2021-11-05] MEDS: Melatonin 3 MG Tab PO PRN (22:05)
[2021-11-06] MEDS: traMADol 50 MG Tab PO PRN ×3 (03:25→17:23)
[2021-11-06] MEDS: Levothyroxine 75 MCG Tab PO SCH (07:22)
[2021-11-06] MEDS: Levothyroxine 100 MCG Tab PO SCH (07:22)
[2021-11-06] MEDS: tiZANidine 4 MG Tab PO PRN ×3 (07:22→22:20)
[2021-11-06] MEDS: Pantoprazole 40 MG Tab.CR PO SCH ×2 (07:22→17:21)
[2021-11-06 08:11] LABS: ANION GAP 13.7 mmol/L (5-15)
[2021-11-06] MEDS: Potassium Chloride 10 MEQ Tab.ER PO SCH ×2 (09:11→20:07)
[2021-11-06] MEDS: Cetirizine 10 MG Tab PO SCH (09:12)
[2021-11-06] MEDS: Cholecalciferol (Vitamin D3) 25 MCG Tab PO SCH (09:12)
[2021-11-06] MEDS: DULoxetine 30 MG Cap PO SCH (09:12)
[2021-11-06] MEDS: Metoprolol Succinate 25 MG Tab.ER PO SCH (09:12)
[2021-11-06] MEDS: busPIRone 10 MG Tab PO SCH ×3 (09:12→20:07)
[2021-11-06] MEDS: Bumetanide 1 MG Tab PO SCH ×2 (09:13→20:06)
[2021-11-06] MEDS: hydrALAZINE 50 MG Tab PO SCH ×2 (09:13→20:06)
[2021-11-06] MEDS: Acetaminophen 500 MG Tab PO SCH ×3 (09:13→20:06)
[2021-11-06] MEDS: fentaNYL 12 MCG/HR Transdermal Patch TRDERM SCH (09:17)
[2021-11-06] MEDS: Formoterol/Mometasone 100-5 MCG 8.8 GM Inhaler IH SCH ×2 (09:20→20:05)
[2021-11-06] MEDS: LIDOCAINE TOP SCH ×2 (09:23→20:05)
[2021-11-06] MEDS: MENTHOL 1% TOP SCH ×2 (09:23→20:05)
[2021-11-06] MEDS: Tiotropium Bromide 4 GM Inhalation Spray (2.5mcg/1 dose; 10 doses) INH SCH (09:26)
[2021-11-06] MEDS: Metolazone 2.5 MG Tab PO SCH (11:30)
[2021-11-06] MEDS: Simethicone 80 MG Tab.Chew PO PRN (11:54)
[2021-11-06] MEDS: Albuterol 8 GM Inhaler INH PRN (15:04)
[2021-11-06] MEDS ORDERED: hydrOXYzine HCl 25 MG Tab PO ONE (15:27)
[2021-11-06] MEDS: Diclofenac Sodium 1% Gel 100 GM Tube TOP PRN (16:30)
[2021-11-06] MEDS ORDERED: Warfarin 2 MG Tab PO ONE (18:00)
[2021-11-06] MEDS: Doxazosin 2 MG Tab PO SCH (20:06)
[2021-11-06] MEDS: Magnesium Oxide 500 MG Tab PO SCH (20:06)
[2021-11-06] MEDS: Rosuvastatin 10 MG Tab PO SCH (20:06)
[2021-11-07] MEDS: Levothyroxine 75 MCG Tab PO SCH (06:56)
[2021-11-07] MEDS: Pantoprazole 40 MG Tab.CR PO SCH ×2 (06:56→16:39)
[2021-11-07] MEDS: Levothyroxine 100 MCG Tab PO SCH (06:56)
[2021-11-07] MEDS: traMADol 50 MG Tab PO PRN ×3 (07:00→20:44)
[2021-11-07] MEDS: Acetaminophen 500 MG Tab PO SCH ×3 (08:43→20:44)
[2021-11-07] MEDS: hydrALAZINE 50 MG Tab PO SCH ×2 (08:43→20:43)
[2021-11-07] MEDS: Metoprolol Succinate 25 MG Tab.ER PO SCH (08:43)
[2021-11-07] MEDS: DULoxetine 30 MG Cap PO SCH (08:44)
[2021-11-07] MEDS: Cetirizine 10 MG Tab PO SCH (08:45)
[2021-11-07] MEDS: busPIRone 10 MG Tab PO SCH ×3 (08:45→20:43)
[2021-11-07] MEDS: Bumetanide 1 MG Tab PO SCH ×2 (08:46→20:43)
[2021-11-07] MEDS: Cholecalciferol (Vitamin D3) 25 MCG Tab PO SCH (08:46)
[2021-11-07] MEDS: Formoterol/Mometasone 100-5 MCG 8.8 GM Inhaler IH SCH ×2 (08:46→20:45)
[2021-11-07] MEDS: Potassium Chloride 10 MEQ Tab.ER PO SCH ×2 (08:46→20:42)
[2021-11-07] MEDS: LIDOCAINE TOP SCH ×2 (08:47→20:44)
[2021-11-07] MEDS: MENTHOL 1% TOP SCH ×2 (08:47→20:44)
[2021-11-07] MEDS: Tiotropium Bromide 4 GM Inhalation Spray (2.5mcg/1 dose; 10 doses) INH SCH (08:48)
[2021-11-07] MEDS: Albuterol 8 GM Inhaler INH PRN (10:28)
[2021-11-07] MEDS: tiZANidine 4 MG Tab PO PRN ×2 (13:52→22:12)
[2021-11-07] MEDS: Magnesium Oxide 500 MG Tab PO SCH (20:42)
[2021-11-07] MEDS: Doxazosin 2 MG Tab PO SCH (20:43)
[2021-11-07] MEDS: Rosuvastatin 10 MG Tab PO SCH (20:43)
[2021-11-07] MEDS: Melatonin 3 MG Tab PO PRN (20:46)
[2021-11-08] MEDS: traMADol 50 MG Tab PO PRN ×2 (02:45→10:32)
[2021-11-08] MEDS: Levothyroxine 100 MCG Tab PO SCH ×2 (06:01→06:33)
[2021-11-08] MEDS: Pantoprazole 40 MG Tab.CR PO SCH ×3 (06:02→17:24)
[2021-11-08] MEDS: Levothyroxine 75 MCG Tab PO SCH ×2 (06:02→06:33)
[2021-11-08] MEDS: tiZANidine 4 MG Tab PO PRN ×2 (08:08→16:08)
[2021-11-08] MEDS: DULoxetine 30 MG Cap PO SCH (08:13)
[2021-11-08] MEDS: Metoprolol Succinate 25 MG Tab.ER PO SCH (08:13)
[2021-11-08] MEDS: Acetaminophen 500 MG Tab PO SCH ×3 (08:14→20:21)
[2021-11-08] MEDS: Cholecalciferol (Vitamin D3) 25 MCG Tab PO SCH (08:14)
[2021-11-08] MEDS: busPIRone 10 MG Tab PO SCH ×3 (08:14→20:20)
[2021-11-08] MEDS: Bumetanide 1 MG Tab PO SCH ×2 (08:15→20:20)
[2021-11-08] MEDS: Cetirizine 10 MG Tab PO SCH (08:15)
[2021-11-08] MEDS: hydrALAZINE 50 MG Tab PO SCH ×2 (08:15→20:20)
[2021-11-08] MEDS: Potassium Chloride 10 MEQ Tab.ER PO SCH ×2 (08:18→20:19)
[2021-11-08] MEDS: MENTHOL 1% TOP SCH ×3 (08:22→20:32)
[2021-11-08] MEDS: Tiotropium Bromide 4 GM Inhalation Spray (2.5mcg/1 dose; 10 doses) INH SCH (08:22)
[2021-11-08] MEDS: LIDOCAINE TOP SCH ×3 (08:22→20:32)
[2021-11-08] MEDS: Formoterol/Mometasone 100-5 MCG 8.8 GM Inhaler IH SCH ×2 (08:22→20:18)
[2021-11-08] MEDS: Metolazone 2.5 MG Tab PO SCH (10:33)
[2021-11-08] MEDS: Albuterol 8 GM Inhaler INH PRN ×2 (10:47→19:36)
[2021-11-08] MEDS: Polyethylene Glycol 3350 Powder 17 GM Packet PO SCH (11:49)
[2021-11-08] MEDS: traMADol 50 MG Tab PO SCH ×3 (11:49→23:19)
[2021-11-08] MEDS: Magnesium Oxide 500 MG Tab PO SCH (20:19)
[2021-11-08] MEDS: Rosuvastatin 10 MG Tab PO SCH (20:19)
[2021-11-08] MEDS: Doxazosin 2 MG Tab PO SCH (20:20)
[2021-11-08] MEDS: Melatonin 3 MG Tab PO PRN (20:21)
[2021-11-09] MEDS: tiZANidine 4 MG Tab PO PRN ×2 (01:41→15:31)
[2021-11-09] MEDS: traMADol 50 MG Tab PO SCH ×5 (06:10→23:52)
[2021-11-09] MEDS: Levothyroxine 100 MCG Tab PO SCH ×2 (06:10→06:33)
[2021-11-09] MEDS: Levothyroxine 75 MCG Tab PO SCH ×2 (06:11→06:32)
[2021-11-09] MEDS: Pantoprazole 40 MG Tab.CR PO SCH ×3 (06:11→17:42)
[2021-11-09] MEDS: DULoxetine 30 MG Cap PO SCH (08:20)
[2021-11-09] MEDS: Acetaminophen 500 MG Tab PO SCH ×3 (08:21→20:39)
[2021-11-09] MEDS: Potassium Chloride 10 MEQ Tab.ER PO SCH ×2 (08:21→20:38)
[2021-11-09] MEDS: busPIRone 10 MG Tab PO SCH ×3 (08:21→20:38)
[2021-11-09] MEDS: Cetirizine 10 MG Tab PO SCH (08:22)
[2021-11-09] MEDS: Cholecalciferol (Vitamin D3) 25 MCG Tab PO SCH (08:23)
[2021-11-09] MEDS: hydrALAZINE 50 MG Tab PO SCH ×2 (08:28→20:39)
[2021-11-09] MEDS: Metoprolol Succinate 25 MG Tab.ER PO SCH (08:28)
[2021-11-09] MEDS: Bumetanide 1 MG Tab PO SCH ×2 (08:29→20:39)
[2021-11-09] MEDS: MENTHOL 1% TOP SCH ×3 (08:30→20:56)
[2021-11-09] MEDS: Formoterol/Mometasone 100-5 MCG 8.8 GM Inhaler IH SCH ×2 (08:30→20:44)
[2021-11-09] MEDS: LIDOCAINE TOP SCH ×3 (08:30→20:56)
[2021-11-09] MEDS: Tiotropium Bromide 4 GM Inhalation Spray (2.5mcg/1 dose; 10 doses) INH SCH (08:30)
[2021-11-09] MEDS: Polyethylene Glycol 3350 Powder 17 GM Packet PO SCH (08:31)
[2021-11-09] MEDS: fentaNYL 12 MCG/HR Transdermal Patch TRDERM SCH (08:39)
[2021-11-09] MEDS ORDERED: Warfarin 2 MG Tab PO ONE (18:00)
[2021-11-09] MEDS: Rosuvastatin 10 MG Tab PO SCH (20:38)
[2021-11-09] MEDS: Magnesium Oxide 500 MG Tab PO SCH (20:38)
[2021-11-09] MEDS: Doxazosin 2 MG Tab PO SCH (20:38)
[2021-11-09] MEDS: Simethicone 80 MG Tab.Chew PO PRN (21:11)
[2021-11-09] MEDS: Melatonin 3 MG Tab PO PRN (22:49)
[2021-11-10] MEDS: Diclofenac Sodium 1% Gel 100 GM Tube TOP PRN ×2 (02:47→22:40)
[2021-11-10] MEDS: Pantoprazole 40 MG Tab.CR PO SCH ×3 (05:46→18:05)
[2021-11-10] MEDS: Levothyroxine 75 MCG Tab PO SCH ×2 (05:46→09:13)
[2021-11-10] MEDS: Levothyroxine 100 MCG Tab PO SCH ×2 (05:48→09:13)
[2021-11-10] MEDS: traMADol 50 MG Tab PO SCH ×3 (05:49→18:04)
[2021-11-10] MEDS: busPIRone 10 MG Tab PO SCH ×3 (09:15→21:06)
[2021-11-10] MEDS: Bumetanide 1 MG Tab PO SCH ×2 (09:15→21:06)
[2021-11-10] MEDS: DULoxetine 30 MG Cap PO SCH (09:15)
[2021-11-10] MEDS: Potassium Chloride 10 MEQ Tab.ER PO SCH ×2 (09:16→21:06)
[2021-11-10] MEDS: Cholecalciferol (Vitamin D3) 25 MCG Tab PO SCH (09:16)
[2021-11-10] MEDS: Acetaminophen 500 MG Tab PO SCH ×3 (09:17→21:06)
[2021-11-10] MEDS: hydrALAZINE 50 MG Tab PO SCH ×2 (09:18→21:07)
[2021-11-10] MEDS: Cetirizine 10 MG Tab PO SCH (09:18)
[2021-11-10] MEDS: Metoprolol Succinate 25 MG Tab.ER PO SCH (09:21)
[2021-11-10] MEDS: Polyethylene Glycol 3350 Powder 17 GM Packet PO SCH (09:22)
[2021-11-10] MEDS: Simethicone 80 MG Tab.Chew PO PRN (09:25)
[2021-11-10] MEDS: MENTHOL 1% TOP SCH (09:26)
[2021-11-10] MEDS: LIDOCAINE TOP SCH (09:26)
[2021-11-10] MEDS: Formoterol/Mometasone 100-5 MCG 8.8 GM Inhaler IH SCH ×2 (09:26→21:20)
[2021-11-10] MEDS: Tiotropium Bromide 4 GM Inhalation Spray (2.5mcg/1 dose; 10 doses) INH SCH (09:26)
[2021-11-10] MEDS ORDERED: LIDOCAINE TOP PRN (09:51)
[2021-11-10] MEDS ORDERED: MENTHOL 1% TOP PRN (09:51)
[2021-11-10] MEDS: Metolazone 2.5 MG Tab PO SCH (09:52)
[2021-11-10] MEDS: Melatonin 3 MG Tab PO PRN (21:06)
[2021-11-10] MEDS: Doxazosin 2 MG Tab PO SCH (21:06)
[2021-11-10] MEDS: Rosuvastatin 10 MG Tab PO SCH (21:07)
[2021-11-10] MEDS: Magnesium Oxide 500 MG Tab PO SCH (21:07)
[2021-11-11] MEDS: traMADol 50 MG Tab PO SCH ×4 (00:34→17:47)
[2021-11-11] MEDS: Pantoprazole 40 MG Tab.CR PO SCH ×2 (07:49→17:33)
[2021-11-11] MEDS: Levothyroxine 100 MCG Tab PO SCH (07:50)
[2021-11-11] MEDS: Formoterol/Mometasone 100-5 MCG 8.8 GM Inhaler IH SCH ×2 (08:46→21:16)
[2021-11-11] MEDS: Cholecalciferol (Vitamin D3) 25 MCG Tab PO SCH (08:47)
[2021-11-11] MEDS: Bumetanide 1 MG Tab PO SCH ×2 (08:47→21:06)
[2021-11-11] MEDS: Tiotropium Bromide 4 GM Inhalation Spray (2.5mcg/1 dose; 10 doses) INH SCH (08:47)
[2021-11-11] MEDS: Metoprolol Succinate 25 MG Tab.ER PO SCH (08:47)
[2021-11-11] MEDS: DULoxetine 30 MG Cap PO SCH (08:48)
[2021-11-11] MEDS: Acetaminophen 500 MG Tab PO SCH ×3 (08:48→21:07)
[2021-11-11] MEDS: Potassium Chloride 10 MEQ Tab.ER PO SCH ×2 (08:48→21:06)
[2021-11-11] MEDS: Cetirizine 10 MG Tab PO SCH (08:49)
[2021-11-11] MEDS: busPIRone 10 MG Tab PO SCH ×3 (08:49→21:06)
[2021-11-11] MEDS: Polyethylene Glycol 3350 Powder 17 GM Packet PO SCH (08:51)
[2021-11-11] MEDS: CLONIDINE TOP SCH (08:52)
[2021-11-11] MEDS: REMOVE CLONIDINE TRDERM SCH (08:53)
[2021-11-11] MEDS: hydrALAZINE 50 MG Tab PO SCH ×2 (08:58→21:06)
[2021-11-11] MEDS: Magnesium Oxide 500 MG Tab PO SCH (21:06)
[2021-11-11] MEDS: Rosuvastatin 10 MG Tab PO SCH (21:06)
[2021-11-11] MEDS: Doxazosin 2 MG Tab PO SCH (21:07)
[2021-11-11] MEDS: Melatonin 3 MG Tab PO PRN (21:40)
[2021-11-12] MEDS: traMADol 50 MG Tab PO SCH ×4 (00:46→17:43)
[2021-11-12] MEDS: Pantoprazole 40 MG Tab.CR PO SCH ×2 (07:55→17:42)
[2021-11-12] MEDS: Levothyroxine 100 MCG Tab PO SCH (07:56)
[2021-11-12] MEDS: Acetaminophen 500 MG Tab PO SCH ×3 (08:59→21:08)
[2021-11-12] MEDS: Formoterol/Mometasone 100-5 MCG 8.8 GM Inhaler IH SCH ×2 (08:59→21:09)
[2021-11-12] MEDS: Tiotropium Bromide 4 GM Inhalation Spray (2.5mcg/1 dose; 10 doses) INH SCH (08:59)
[2021-11-12] MEDS: Bumetanide 1 MG Tab PO SCH ×2 (09:01→21:09)
[2021-11-12] MEDS: Potassium Chloride 10 MEQ Tab.ER PO SCH ×2 (09:02→21:08)
[2021-11-12] MEDS: Cetirizine 10 MG Tab PO SCH (09:02)
[2021-11-12] MEDS: Metoprolol Succinate 25 MG Tab.ER PO SCH (09:03)
[2021-11-12] MEDS: busPIRone 10 MG Tab PO SCH ×3 (09:03→21:08)
[2021-11-12] MEDS: Cholecalciferol (Vitamin D3) 25 MCG Tab PO SCH (09:04)
[2021-11-12] MEDS: DULoxetine 30 MG Cap PO SCH (09:04)
[2021-11-12] MEDS: hydrALAZINE 50 MG Tab PO SCH ×2 (09:04→21:08)
[2021-11-12] MEDS: Polyethylene Glycol 3350 Powder 17 GM Packet PO SCH (09:05)
[2021-11-12] MEDS: fentaNYL 12 MCG/HR Transdermal Patch TRDERM SCH (09:07)
[2021-11-12] MEDS: Albuterol 8 GM Inhaler INH PRN (17:42)
[2021-11-12] MEDS: Magnesium Oxide 500 MG Tab PO SCH (21:08)
[2021-11-12] MEDS: Rosuvastatin 10 MG Tab PO SCH (21:09)
[2021-11-12] MEDS: Melatonin 3 MG Tab PO PRN (21:09)
[2021-11-12] MEDS: Doxazosin 2 MG Tab PO SCH (21:09)
[2021-11-13] MEDS: traMADol 50 MG Tab PO SCH ×4 (00:57→17:49)
[2021-11-13] MEDS: Levothyroxine 75 MCG Tab PO SCH (08:12)
[2021-11-13] MEDS: Pantoprazole 40 MG Tab.CR PO SCH ×2 (08:12→17:29)
[2021-11-13] MEDS: Levothyroxine 100 MCG Tab PO SCH (08:13)
[2021-11-13] MEDS: Potassium Chloride 10 MEQ Tab.ER PO SCH ×2 (09:25→20:28)
[2021-11-13] MEDS: Metoprolol Succinate 25 MG Tab.ER PO SCH (09:25)
[2021-11-13] MEDS: Acetaminophen 500 MG Tab PO SCH ×3 (09:25→20:28)
[2021-11-13] MEDS: Cholecalciferol (Vitamin D3) 25 MCG Tab PO SCH (09:26)
[2021-11-13] MEDS: Bumetanide 1 MG Tab PO SCH ×2 (09:26→20:28)
[2021-11-13] MEDS: Cetirizine 10 MG Tab PO SCH (09:26)
[2021-11-13] MEDS: DULoxetine 30 MG Cap PO SCH (09:26)
[2021-11-13] MEDS: hydrALAZINE 50 MG Tab PO SCH ×2 (09:27→20:28)
[2021-11-13] MEDS: busPIRone 10 MG Tab PO SCH ×3 (09:27→20:27)
[2021-11-13] MEDS: Tiotropium Bromide 4 GM Inhalation Spray (2.5mcg/1 dose; 10 doses) INH SCH (09:32)
[2021-11-13] MEDS: Formoterol/Mometasone 100-5 MCG 8.8 GM Inhaler IH SCH ×2 (09:33→20:29)
[2021-11-13] MEDS: Polyethylene Glycol 3350 Powder 17 GM Packet PO SCH (09:46)
[2021-11-13] MEDS: Metolazone 2.5 MG Tab PO SCH (11:44)
[2021-11-13] MEDS: tiZANidine 4 MG Tab PO PRN (16:32)
[2021-11-13] MEDS ORDERED: Warfarin 2.5 MG Tab PO ONE (18:00)
[2021-11-13] MEDS: Doxazosin 2 MG Tab PO SCH (20:27)
[2021-11-13] MEDS: Magnesium Oxide 500 MG Tab PO SCH (20:28)
[2021-11-13] MEDS: Rosuvastatin 10 MG Tab PO SCH (20:28)
[2021-11-13] MEDS: Diclofenac Sodium 1% Gel 100 GM Tube TOP PRN (20:29)
[2021-11-13] MEDS: Melatonin 3 MG Tab PO PRN (20:29)
[2021-11-14] MEDS: tiZANidine 4 MG Tab PO PRN ×2 (00:56→09:03)
[2021-11-14] MEDS: traMADol 50 MG Tab PO SCH ×3 (00:56→11:32)
[2021-11-14] MEDS: Levothyroxine 100 MCG Tab PO SCH ×2 (06:17→06:48)
[2021-11-14] MEDS: Pantoprazole 40 MG Tab.CR PO SCH ×2 (06:18→06:48)
[2021-11-14] MEDS: Levothyroxine 75 MCG Tab PO SCH ×2 (06:18→06:48)
[2021-11-14] MEDS: Bumetanide 1 MG Tab PO SCH (08:32)
[2021-11-14] MEDS: busPIRone 10 MG Tab PO SCH (08:35)
[2021-11-14] MEDS: DULoxetine 30 MG Cap PO SCH (08:35)
[2021-11-14] MEDS: Potassium Chloride 10 MEQ Tab.ER PO SCH (08:35)
[2021-11-14] MEDS: Cholecalciferol (Vitamin D3) 25 MCG Tab PO SCH (08:35)
[2021-11-14] MEDS: Acetaminophen 500 MG Tab PO SCH (08:36)
[2021-11-14] MEDS: Polyethylene Glycol 3350 Powder 17 GM Packet PO SCH (08:36)
[2021-11-14] MEDS: hydrALAZINE 50 MG Tab PO SCH (08:40)
[2021-11-14] MEDS: Metoprolol Succinate 25 MG Tab.ER PO SCH (08:40)
[2021-11-14 08:41] VITALS: PULSE 89
[2021-11-14] MEDS: Formoterol/Mometasone 100-5 MCG 8.8 GM Inhaler IH SCH (08:45)
[2021-11-14] MEDS: Tiotropium Bromide 4 GM Inhalation Spray (2.5mcg/1 dose; 10 doses) INH SCH (08:45)
[2021-11-14] MEDS ORDERED: Cetirizine 10 MG Tab PO SCH (09:00)
[2021-11-14 09:41] VITALS: BP 115/56
[2021-11-14] MEDS: Simethicone 80 MG Tab.Chew PO PRN (09:51)
[2021-11-14] MEDS ORDERED: Warfarin 2 MG Tab PO ONE ×2 (18:00→20:00)
== END 2021-11-14 11:43 | DRG 552 ==
LOC: KA.MS 10:40
PROVIDERS: ADMIT Nurse Practitioner Family; ATTEND Family Medicine
DX: M54.42 Lumbago with sciatica, left side (principal); I13.0 Hypertensive heart and chronic kidney disease with heart failure and stage 1 through stage 4 chronic kidney disease, or unspecified chronic kidney disease; I50.32 Chronic diastolic (congestive) heart failure; E87.2 Acidosis; R53.1 Weakness; M48.062 Spinal stenosis, lumbar region with neurogenic claudication; Z20.822 Contact with and (suspected) exposure to COVID-19; H54.7 Unspecified visual loss; Z66 Do not resuscitate; E78.00 Pure hypercholesterolemia, unspecified; K59.09 Other constipation; K21.9 Gastro-esophageal reflux disease without esophagitis; N18.30 Chronic kidney disease, stage 3 unspecified; M19.90 Unspecified osteoarthritis, unspecified site; M81.0 Age-related osteoporosis without current pathological fracture; F41.0 Panic disorder [episodic paroxysmal anxiety]; F32.A Depression, unspecified; E03.9 Hypothyroidism, unspecified; D63.1 Anemia in chronic kidney disease; Z96.651 Presence of right artificial knee joint; E87.6 Hypokalemia; E83.42 Hypomagnesemia; E55.9 Vitamin D deficiency, unspecified; I27.21 Secondary pulmonary arterial hypertension; I48.0 Paroxysmal atrial fibrillation; H11.31 Conjunctival hemorrhage, right eye; K13.79 Other lesions of oral mucosa; J41.0 Simple chronic bronchitis; I25.10 Atherosclerotic heart disease of native coronary artery without angina pectoris; G47.00 Insomnia, unspecified; Z88.8 Allergy status to other drugs, medicaments and biological substances; Z79.899 Other long term (current) drug therapy; Z79.890 Hormone replacement therapy; Z79.01 Long term (current) use of anticoagulants; Z87.01 Personal history of pneumonia (recurrent); Z98.49 Cataract extraction status, unspecified eye; Z90.49 Acquired absence of other specified parts of digestive tract; Z90.710 Acquired absence of both cervix and uterus
CPT/HCPCS: 36415; 80048; 82040; 83735; 83880; 84100; 84132; 85025; 85610; 86140; 97035-GP; 97110-GP; 97161-GP; 97530-GP; A9270-GY; J1650; J3475; U0002

== ENCOUNTER 2021-11-22 11:50 | Emergency (ER) | payer MEDICARE, BC ==
[2021-11-22] MEDS: traMADol 50 MG Tab PO ONE (12:35)
[2021-11-22] MEDS: Metoprolol Tartrate 25 MG Tab PO ONE (12:39)
[2021-11-22 12:54] LABS: ANION GAP 10.2 mmol/L (5-15)
[2021-11-22] MEDS: Sodium Chloride 0.9% 1,000 ML IV ONE (13:05)
[2021-11-22 13:09] VITALS: BP 111/55; PULSE 110
[2021-11-22] MEDS: Nitrofurantoin Monohydrate/Macrocrystalline 100 MG Cap PO ONE (14:57)
== END 2021-11-22 14:40 ==
LOC: KA.ED 11:50
DX: N39.0 Urinary tract infection, site not specified (principal); B96.89 Other specified bacterial agents as the cause of diseases classified elsewhere; I48.91 Unspecified atrial fibrillation; I25.10 Atherosclerotic heart disease of native coronary artery without angina pectoris; E78.00 Pure hypercholesterolemia, unspecified; I13.0 Hypertensive heart and chronic kidney disease with heart failure and stage 1 through stage 4 chronic kidney disease, or unspecified chronic kidney disease; N18.30 Chronic kidney disease, stage 3 unspecified; I50.9 Heart failure, unspecified; J44.9 Chronic obstructive pulmonary disease, unspecified; M19.90 Unspecified osteoarthritis, unspecified site; Z88.8 Allergy status to other drugs, medicaments and biological substances; Z79.899 Other long term (current) drug therapy; Z79.01 Long term (current) use of anticoagulants
CPT/HCPCS: 36415; 80053; 81001; 84443; 85025; 87086; 87088; 87186; 93010; 96360; 99284; 99285-25; A9270-GY; J7030

== ENCOUNTER 2024-01-20 11:20 | Emergency (ER) | payer MEDICARE, BC ==
[2024-01-20 12:04] VITALS: BP 139/55; PULSE 78
[2024-01-20 13:05] LABS: BASOPHILS ABSOLUTE AUTO 0.04 10^3/uL (0.00-0.10); EOSINOPHILS ABSOLUTE AUTO 0.08 10^3/uL (0.10-0.30); HEMATOCRIT 27.6 % (37.0-47.0); HEMOGLOBIN 8.7 g/dL (12.0-16.0); IMMATURE GRAN ABSOLUTE AUTO 0.01 10^3/uL (0.00-0.50); IMMATURE GRAN PERCENT AUTO 0.2 % (0.0-5.0); LYMPHOCYTES ABSOLUTE AUTO 0.35 10^3/uL (1.00-4.00); LYMPHOCYTES PERCENT AUTO 8.6 % (20.0-40.0); MEAN CORPUSCULAR HGB CONC 31.5 g/dL (32.0-36.0); MEAN CORPUSCULAR VOLUME 107.8 fL (82.0-92.0); MEAN PLATELET VOLUME 10.2 fL (7.4-10.4); MONOCYTES ABSOLUTE AUTO 0.65 10^3/uL (0.10-0.80); NEUTROPHILS ABSOLUTE AUTO 2.93 10^3/uL (2.50-7.00); NEUTROPHILS PERCENT AUTO 72.2 % (50.0-70.0); PLATELET COUNT,PLT 171 10^3/uL (150-400); RED BLOOD CELL COUNT 2.56 10^6/uL (3.80-5.50); RED CELL DISTRIBUTION WIDTH 19.4 % (11.5-14.5); WHITE BLOOD CELL COUNT,WBC 4.06 10^3/uL (5.00-10.00)
[2024-01-20 13:07] LABS: APPEARANCE,URINE CLEAR (CLEAR); BILIRUBIN,URINE NEGATIVE (NEGATIVE); COLOR,URINE YELLOW (YELLOW); GLUCOSE,URINE NEGATIVE (NEGATIVE); KETONES,URINE NEGATIVE (NEGATIVE); LEUKOCYTE ESTERASE,URINE NEGATIVE (NEGATIVE); NITRITE,URINE NEGATIVE (NEGATIVE); OCCULT BLOOD,URINE NEGATIVE (NEGATIVE); PROTEIN,URINE NEGATIVE (NEGATIVE); UROBILINOGEN,URINE 0.2 E.U./dL (0.2-1.0)
[2024-01-20 13:18] LABS: RBC,URINE 0-5 /HPF (0-5)
[2024-01-20 13:19] LABS: BACTERIA,URINE RARE /HPF (NONE TO FEW); EPITHELIAL CELLS,URINE RARE /LPF; WBC,URINE 0-5 /HPF (0-5)
[2024-01-20 13:29] LABS: ALBUMIN 2.95 g/dL (3.40-5.00); ANION GAP 7.5 mmol/L (5-15); BILIRUBIN TOTAL 0.4 mg/dL (0.2-1.0); CALCIUM 8.6 mg/dL (8.7-10.3); CARBON DIOXIDE,CO2 38.1 mmol/L (21.0-32.0); CREATININE 1.16 mg/dL (0.51-1.17); EST CRCL DRUG DOSING (CG) 29.06 mL/min; POTASSIUM,K 3.6 mmol/L (3.5-5.1); PROTEIN TOTAL,TP 7.9 g/dL (6.4-8.2); TSH ULTRASENSITIVE 12.263 uIU/mL (0.340-4.820)
== END 2024-01-20 16:00 | disposition home or self-care (01) ==
LOC: KA.ED 11:20
DX: D64.9 Anemia, unspecified (principal); E03.9 Hypothyroidism, unspecified; R53.1 Weakness; I13.0 Hypertensive heart and chronic kidney disease with heart failure and stage 1 through stage 4 chronic kidney disease, or unspecified chronic kidney disease; I50.9 Heart failure, unspecified; N18.30 Chronic kidney disease, stage 3 unspecified; E78.00 Pure hypercholesterolemia, unspecified; J44.9 Chronic obstructive pulmonary disease, unspecified; K21.9 Gastro-esophageal reflux disease without esophagitis; Z79.899 Other long term (current) drug therapy; Z88.8 Allergy status to other drugs, medicaments and biological substances; Z79.890 Hormone replacement therapy
CPT/HCPCS: 36415; 71045; 80053; 81001; 83880; 84443; 85025; 99285

== ENCOUNTER 2024-01-26 14:50 | Inpatient (IN) | payer MEDICARE, BC, MEDICAID ==
[2024-01-26] MEDS: methylPREDNISolone Sodium Succinate 125 MG/2 ML SDV IVPUSH ONE (15:45)
[2024-01-26] MEDS: Sodium Chloride 0.9% 1,000 ML IV SCH (15:45)
[2024-01-26] MEDS: Albuterol/Ipratropium 3.0-0.5 MG/3 ML Neb Soln NEB ONE (15:57)
[2024-01-26 15:59] LABS: BASOPHILS ABSOLUTE AUTO 0.05 10^3/uL (0.00-0.10); BASOPHILS PERCENT AUTO 0.7 % (0.0-1.0); EOSINOPHILS ABSOLUTE AUTO 0.13 10^3/uL (0.10-0.30); EOSINOPHILS PERCENT AUTO 1.9 % (1.0-3.0); HEMOGLOBIN 9.4 g/dL (12.0-16.0); IMMATURE GRAN ABSOLUTE AUTO 0.01 10^3/uL (0.00-0.50); IMMATURE GRAN PERCENT AUTO 0.1 % (0.0-5.0); LYMPHOCYTES PERCENT AUTO 5.8 % (20.0-40.0); MEAN CORPUSCULAR HEMOGLOBIN 33.8 pg (27.0-31.0); MEAN CORPUSCULAR HGB CONC 32.4 g/dL (32.0-36.0); MEAN CORPUSCULAR VOLUME 104.3 fL (82.0-92.0); MEAN PLATELET VOLUME 10.4 fL (7.4-10.4); MONOCYTES PERCENT AUTO 14.6 % (2.0-8.0); NEUTROPHILS ABSOLUTE AUTO 5.25 10^3/uL (2.50-7.00); NEUTROPHILS PERCENT AUTO 76.9 % (50.0-70.0); PLATELET COUNT,PLT 208 10^3/uL (150-400); RED BLOOD CELL COUNT 2.78 10^6/uL (3.80-5.50); RED CELL DISTRIBUTION WIDTH 19.3 % (11.5-14.5); WHITE BLOOD CELL COUNT,WBC 6.84 10^3/uL (5.00-10.00)
[2024-01-26 16:18] LABS: INR 1.6 (0.9-1.1); PROTHROMBIN TIME 16.3 SEC (9.3-12.2)
[2024-01-26 16:20] LABS: ALBUMIN 2.9 g/dL (3.40-5.00); ANION GAP 11.9 mmol/L (5-15); BILIRUBIN TOTAL 0.5 mg/dL (0.2-1.0); C-REACTIVE PROTEIN 10.79 mg/dL (0.00-0.50); CALCIUM 8.9 mg/dL (8.7-10.3); CREATININE 1.36 mg/dL (0.51-1.17); EST CRCL DRUG DOSING (CG) 23.65 mL/min; MAGNESIUM 1.4 mg/dL (1.8-2.4); POTASSIUM,K 3.9 mmol/L (3.5-5.1)
[2024-01-26 17:05] LABS: INFLUENZA A NAA NEGATIVE (NEGATIVE); INFLUENZA B NAA NEGATIVE (NEGATIVE); RESPIRATORY SYNCYTIAL VIR NAA NEGATIVE (NEGATIVE)
[2024-01-26 17:06] LABS: CORONAVIRUS COVID-19 NAA NEGATIVE (NEGATIVE)
[2024-01-26] MEDS: Cefepime 2 GM Vial IVPUSH ONE (17:45)
[2024-01-26] MEDS: VANCOmycin 1.5 GM/300 ML 300 ML IV ONE (18:14)
[2024-01-26] MEDS ORDERED: Albuterol/Ipratropium 3.0-0.5 MG/3 ML Neb Soln NEB PRN (18:32)
[2024-01-26] MEDS ORDERED: Polyethylene Glycol 3350 Powder 17 GM Packet PO PRN (18:32)
[2024-01-26] MEDS ORDERED: Sodium Chloride 0.9% 1,000 ML IV SCH (18:45)
[2024-01-26] MEDS ORDERED: Polyethylene Glycol 400 15 ML Bottle EYEBOTH PRN (18:45)
[2024-01-26] MEDS ORDERED: Nitroglycerin 0.4 MG Tab.SL SL PRN (18:45)
[2024-01-26] MEDS: Warfarin 2.5 MG Tab PO ONE (19:09)
[2024-01-26] MEDS ORDERED: Docusate Sodium 100 MG Cap PO SCH (21:00)
[2024-01-26] MEDS: Doxazosin 2 MG Tab PO SCH (21:27)
[2024-01-26] MEDS: hydrALAZINE 50 MG Tab PO SCH (21:30)
[2024-01-26] MEDS: Magnesium Oxide 500 MG Tab PO SCH (21:31)
[2024-01-26] MEDS: LORazepam 0.5 MG Tab PO SCH (21:31)
[2024-01-26] MEDS: Rosuvastatin 10 MG Tab PO SCH (21:31)
[2024-01-26] MEDS: Docusate Sodium Liquid 100 MG/10 ML UD Cup PO SCH (21:32)
[2024-01-26] MEDS: Formoterol/Mometasone 100-5 MCG 8.8 GM Inhaler INH SCH (21:34)
[2024-01-26] MEDS: Diclofenac Sodium 1% Gel 100 GM Tube TOP SCH (22:04)
[2024-01-26] MEDS ORDERED: Docusate Sodium 100 MG Cap PO PRN (22:16)
[2024-01-26] MEDS ORDERED: Diclofenac Sodium 1% Gel 100 GM Tube TOP PRN (22:24)
[2024-01-26] MEDS: Acetaminophen 325 MG Tab PO PRN (22:39)
[2024-01-26] MEDS: diphenhydrAMINE 25 MG Cap PO PRN (22:39)
[2024-01-27 00:15] LABS: APPEARANCE,URINE CLEAR (CLEAR); BILIRUBIN,URINE NEGATIVE (NEGATIVE); COLOR,URINE YELLOW (YELLOW); GLUCOSE,URINE NEGATIVE (NEGATIVE); KETONES,URINE NEGATIVE (NEGATIVE); LEUKOCYTE ESTERASE,URINE NEGATIVE (NEGATIVE); NITRITE,URINE NEGATIVE (NEGATIVE); OCCULT BLOOD,URINE NEGATIVE (NEGATIVE); PROTEIN,URINE NEGATIVE (NEGATIVE); UROBILINOGEN,URINE 0.2 E.U./dL (0.2-1.0)
[2024-01-27] MEDS: Pantoprazole 40 MG Tab.CR PO SCH (06:13)
[2024-01-27 07:48] LABS: INR 1.8 (0.9-1.1); PROTHROMBIN TIME 18.3 SEC (9.3-12.2)
[2024-01-27 07:50] LABS: HEMATOCRIT 26.2 % (37.0-47.0); HEMOGLOBIN 8.7 g/dL (12.0-16.0); MEAN CORPUSCULAR HEMOGLOBIN 34.4 pg (27.0-31.0); MEAN CORPUSCULAR HGB CONC 33.2 g/dL (32.0-36.0); MEAN CORPUSCULAR VOLUME 103.6 fL (82.0-92.0); MEAN PLATELET VOLUME 10.5 fL (7.4-10.4); PLATELET COUNT,PLT 187 10^3/uL (150-400); RED BLOOD CELL COUNT 2.53 10^6/uL (3.80-5.50); RED CELL DISTRIBUTION WIDTH 19.2 % (11.5-14.5); WHITE BLOOD CELL COUNT,WBC 4.23 10^3/uL (5.00-10.00)
[2024-01-27 07:52] LABS: ALBUMIN 2.52 g/dL (3.40-5.00); BILIRUBIN TOTAL 0.5 mg/dL (0.2-1.0); CALCIUM 8.4 mg/dL (8.7-10.3); CARBON DIOXIDE,CO2 31.1 mmol/L (21.0-32.0); CREATININE 1.1 mg/dL (0.51-1.17); EST CRCL DRUG DOSING (CG) 29.24 mL/min; PROTEIN TOTAL,TP 7.3 g/dL (6.4-8.2)
[2024-01-27 07:58] LABS: ANION GAP 11.7 mmol/L (5-15)
[2024-01-27] MEDS: Tiotropium Bromide 4 GM Inhalation Spray (2.5mcg/1 dose; 10 doses) INH SCH (08:08)
[2024-01-27] MEDS: Potassium Chloride 10 MEQ Tab.ER PO SCH ×2 (08:09→11:53)
[2024-01-27] MEDS: Metolazone 2.5 MG Tab PO SCH (08:09)
[2024-01-27] MEDS: Ferrous Sulfate 325 MG Tab PO SCH (08:09)
[2024-01-27] MEDS: DULoxetine 30 MG Cap PO SCH (08:09)
[2024-01-27] MEDS: Bumetanide 1 MG Tab PO SCH (08:10)
[2024-01-27] MEDS: Levothyroxine 100 MCG Tab PO SCH (08:10)
[2024-01-27 08:11] LABS: POTASSIUM,K 2.8 mmol/L (3.5-5.1)
[2024-01-27] MEDS: Metoprolol Succinate 25 MG Tab.ER PO SCH (08:11)
[2024-01-27] MEDS: Cefepime 1 GM in Sodium Chloride 0.9% 50 ML IV SCH (08:39)
[2024-01-27] MEDS: Levothyroxine 25 MCG Tab PO ONE (11:52)
[2024-01-27] MEDS: Famotidine 20 MG Tab PO SCH (11:52)
[2024-01-27] MEDS: Albuterol 0.083% 2.5 MG/3 ML Neb Soln INH SCH (11:52)
[2024-01-27] MEDS: VANCOmycin 750 MG/150 ML 750 MG in Premix Bag 1 BAG IV SCH (11:52)
[2024-01-27] MEDS: Potassium Chloride 40 MEQ in Premix Bag 1 BAG IV ONE (13:13)
[2024-01-27] MEDS ORDERED: Sodium Chloride 0.9% 250 ML IV SCH (17:10)
[2024-01-27] MEDS: Sodium Chloride 0.9% 250 ML ONE (17:13)
[2024-01-27] MEDS: Warfarin 2.5 MG Tab PO SCH (17:21)
[2024-01-27] MEDS: Docusate Sodium 100 MG Cap PO SCH (20:33)
[2024-01-27] MEDS: LORazepam 0.5 MG Tab PO SCH (20:33)
[2024-01-27] MEDS: Melatonin 3 MG Tab PO PRN (22:35)
[2024-01-28] MEDS: Levothyroxine 75 MCG Tab PO SCH (05:33)
[2024-01-28] MEDS: Levothyroxine 100 MCG Tab PO SCH (05:33)
[2024-01-28 07:33] LABS: HEMATOCRIT 25.7 % (37.0-47.0); HEMOGLOBIN 8.3 g/dL (12.0-16.0); MEAN CORPUSCULAR HEMOGLOBIN 33.9 pg (27.0-31.0); MEAN CORPUSCULAR HGB CONC 32.3 g/dL (32.0-36.0); MEAN CORPUSCULAR VOLUME 104.9 fL (82.0-92.0); PLATELET COUNT,PLT 184 10^3/uL (150-400); RED BLOOD CELL COUNT 2.45 10^6/uL (3.80-5.50); RED CELL DISTRIBUTION WIDTH 19.9 % (11.5-14.5); WHITE BLOOD CELL COUNT,WBC 5.64 10^3/uL (5.00-10.00)
[2024-01-28 07:50] LABS: ALBUMIN 2.39 g/dL (3.40-5.00); ANION GAP 11.1 mmol/L (5-15); BILIRUBIN TOTAL 0.4 mg/dL (0.2-1.0); CALCIUM 8.4 mg/dL (8.7-10.3); CARBON DIOXIDE,CO2 30.1 mmol/L (21.0-32.0); CREATININE 1.22 mg/dL (0.51-1.17); EST CRCL DRUG DOSING (CG) 26.36 mL/min; POTASSIUM,K 3.2 mmol/L (3.5-5.1); PROTEIN TOTAL,TP 6.8 g/dL (6.4-8.2)
[2024-01-28 08:00] LABS: INR 2.3 (0.9-1.1); PROTHROMBIN TIME 23.9 SEC (9.3-12.2)
[2024-01-28] MEDS: Propranolol 20 MG Tab PO SCH (09:45)
[2024-01-28] MEDS: Potassium Chloride 10 MEQ Tab.ER PO ONE (12:50)
[2024-01-28] MEDS: Levofloxacin 500 MG Tab PO SCH (12:50)
[2024-01-28] MEDS: Ondansetron 4 MG/2 ML SDV IV PRN (13:50)
[2024-01-29] MEDS: Acetaminophen/HYDROcodone 325-5 MG Tab PO PRN (02:03)
[2024-01-29 07:02] LABS: HEMATOCRIT 24.7 % (37.0-47.0); HEMOGLOBIN 7.8 g/dL (12.0-16.0); MEAN CORPUSCULAR HEMOGLOBIN 34.5 pg (27.0-31.0); MEAN CORPUSCULAR HGB CONC 31.6 g/dL (32.0-36.0); MEAN CORPUSCULAR VOLUME 109.3 fL (82.0-92.0); PLATELET COUNT,PLT 188 10^3/uL (150-400); RED BLOOD CELL COUNT 2.26 10^6/uL (3.80-5.50); RED CELL DISTRIBUTION WIDTH 19.6 % (11.5-14.5); WHITE BLOOD CELL COUNT,WBC 6.58 10^3/uL (5.00-10.00)
[2024-01-29 07:22] LABS: INR 2.5 (0.9-1.1); PROTHROMBIN TIME 25.6 SEC (9.3-12.2)
[2024-01-29 07:52] LABS: ALBUMIN 2.45 g/dL (3.40-5.00); ANION GAP 10.8 mmol/L (5-15); BILIRUBIN TOTAL 0.3 mg/dL (0.2-1.0); CALCIUM 8.5 mg/dL (8.7-10.3); CARBON DIOXIDE,CO2 35.2 mmol/L (21.0-32.0); CREATININE 1.33 mg/dL (0.51-1.17); EST CRCL DRUG DOSING (CG) 24.18 mL/min; PROTEIN TOTAL,TP 7.1 g/dL (6.4-8.2)
[2024-01-29 14:11] LABS: HEMATOCRIT 28.5 % (37.0-47.0); HEMOGLOBIN 8.9 g/dL (12.0-16.0)
[2024-01-30 07:09] LABS: BASOPHILS ABSOLUTE AUTO 0.04 10^3/uL (0.00-0.10); BASOPHILS PERCENT AUTO 0.6 % (0.0-1.0); EOSINOPHILS ABSOLUTE AUTO 0.16 10^3/uL (0.10-0.30); EOSINOPHILS PERCENT AUTO 2.6 % (1.0-3.0); HEMATOCRIT 25.7 % (37.0-47.0); HEMOGLOBIN 8.4 g/dL (12.0-16.0); IMMATURE GRAN ABSOLUTE AUTO 0.02 10^3/uL (0.00-0.50); IMMATURE GRAN PERCENT AUTO 0.3 % (0.0-5.0); LYMPHOCYTES ABSOLUTE AUTO 0.38 10^3/uL (1.00-4.00); LYMPHOCYTES PERCENT AUTO 6.1 % (20.0-40.0); MEAN CORPUSCULAR HGB CONC 32.7 g/dL (32.0-36.0); MEAN PLATELET VOLUME 9.6 fL (7.4-10.4); MONOCYTES ABSOLUTE AUTO 0.84 10^3/uL (0.10-0.80); MONOCYTES PERCENT AUTO 13.6 % (2.0-8.0); NEUTROPHILS ABSOLUTE AUTO 4.75 10^3/uL (2.50-7.00); NEUTROPHILS PERCENT AUTO 76.8 % (50.0-70.0); PLATELET COUNT,PLT 178 10^3/uL (150-400); RED BLOOD CELL COUNT 2.47 10^6/uL (3.80-5.50); RED CELL DISTRIBUTION WIDTH 18.9 % (11.5-14.5); WHITE BLOOD CELL COUNT,WBC 6.19 10^3/uL (5.00-10.00)
[2024-01-30 07:30] LABS: INR 2.5 (0.9-1.1); PROTHROMBIN TIME 25.1 SEC (9.3-12.2)
[2024-01-30 07:31] LABS: CALCIUM 8.3 mg/dL (8.7-10.3); CARBON DIOXIDE,CO2 35.9 mmol/L (21.0-32.0); CREATININE 1.11 mg/dL (0.51-1.17); EST CRCL DRUG DOSING (CG) 28.98 mL/min
[2024-01-30 07:45] LABS: ANION GAP 9.1 mmol/L (5-15); MAGNESIUM 1.2 mg/dL (1.8-2.4)
[2024-01-30] MEDS: Magnesium Sulfate/Water Premix 2 GM in Premix Bag 1 BAG IV ONE (10:51)
[2024-01-30] MEDS: Potassium Chloride 20 MEQ in Premix Bag 1 BAG IV ONE (10:51)
[2024-01-30 10:54] VITALS: BP 110/54; PULSE 81
[2024-01-30] MEDS ORDERED: Potassium Chloride 20 MEQ in Premix Bag 1 BAG IV ONE (12:30)
== END 2024-01-30 12:24 | disposition swing bed (61) | DRG 194 ==
LOC: KA.ED 14:50 → KA.MS 17:36
PROVIDERS: ADMIT Internal Medicine; ATTEND Internal Medicine
DX: J18.9 Pneumonia, unspecified organism (principal); D84.9 Immunodeficiency, unspecified; I11.0 Hypertensive heart disease with heart failure; J44.0 Chronic obstructive pulmonary disease with (acute) lower respiratory infection; I25.10 Atherosclerotic heart disease of native coronary artery without angina pectoris; E03.9 Hypothyroidism, unspecified; E78.00 Pure hypercholesterolemia, unspecified; I38 Endocarditis, valve unspecified; I50.9 Heart failure, unspecified; H54.7 Unspecified visual loss; F41.0 Panic disorder [episodic paroxysmal anxiety]; M19.90 Unspecified osteoarthritis, unspecified site; F32.A Depression, unspecified; D63.1 Anemia in chronic kidney disease; K59.09 Other constipation; G89.29 Other chronic pain; M54.9 Dorsalgia, unspecified; I48.0 Paroxysmal atrial fibrillation; N18.32 Chronic kidney disease, stage 3b; I05.0 Rheumatic mitral stenosis; E87.6 Hypokalemia; R79.1 Abnormal coagulation profile; Z88.8 Allergy status to other drugs, medicaments and biological substances; Z94.7 Corneal transplant status; Z79.01 Long term (current) use of anticoagulants; Z90.49 Acquired absence of other specified parts of digestive tract; Z90.89 Acquired absence of other organs; Z98.49 Cataract extraction status, unspecified eye; Z85.118 Personal history of other malignant neoplasm of bronchus and lung; Z79.899 Other long term (current) drug therapy; Z87.891 Personal history of nicotine dependence; Z90.710 Acquired absence of both cervix and uterus; Z98.890 Other specified postprocedural states
CPT/HCPCS: 0241U; 36415; 71046; 80048; 80053; 80202; 81003; 83605; 83735; 85014; 85018; 85025; 85027; 85610; 86140; 87040; 87070; 87205; 94640; 96361; 96374; 99284; 99285-25; A9270-GY; J0692; J2405; J2919; J3372; J3475; J3480; J3490; J7030; J7613-GY; J7620-GY; Q3014

== ENCOUNTER 2024-01-29 08:28 | Inpatient (IN) | payer MEDICARE, BC, MEDICAID ==
[2024-01-30] MEDS ORDERED: Docusate Sodium 100 MG Cap PO PRN (11:25)
[2024-01-30] MEDS ORDERED: Ondansetron 4 MG Tab.DIS PO PRN (11:25)
[2024-01-30] MEDS ORDERED: Aluminum Hydroxide/Magnesium Hydroxide/Simethicone Susp 30 ML Cup PO PRN (11:25)
[2024-01-30] MEDS ORDERED: Acetaminophen/HYDROcodone 325-5 MG Tab PO PRN (13:35)
[2024-01-30] MEDS ORDERED: Nitroglycerin 0.4 MG Tab.SL SL PRN (13:38)
[2024-01-30] MEDS: Levofloxacin 500 MG Tab PO SCH (14:59)
[2024-01-30] MEDS ORDERED: Polyethylene Glycol 400 15 ML Bottle EYEBOTH PRN (15:02)
[2024-01-30] MEDS: Diclofenac Sodium 1% Gel 100 GM Tube TOP PRN (15:55)
[2024-01-30 16:08] LABS: ANION GAP 11.7 mmol/L (5-15); CALCIUM 8.3 mg/dL (8.7-10.3); CARBON DIOXIDE,CO2 31.8 mmol/L (21.0-32.0); CREATININE 1.21 mg/dL (0.51-1.17); EST CRCL DRUG DOSING (CG) 29.14 mL/min; MAGNESIUM 1.7 mg/dL (1.8-2.4); POTASSIUM,K 4.5 mmol/L (3.5-5.1)
[2024-01-30] MEDS: Potassium Chloride 20 MEQ in Premix Bag 1 BAG IV ONE (16:13)
[2024-01-30] MEDS ORDERED: Sodium Chloride 0.9% 250 ML IV SCH (16:15)
[2024-01-30] MEDS: LORazepam 0.5 MG Tab PO SCH (17:45)
[2024-01-30] MEDS: Pantoprazole 40 MG Tab.CR PO SCH (17:46)
[2024-01-30] MEDS: Warfarin 2.5 MG Tab PO SCH (17:46)
[2024-01-30] MEDS ORDERED: Warfarin 5 MG Tab PO SCH (18:00)
[2024-01-30] MEDS: LORazepam 0.5 MG Tab ONE (18:00)
[2024-01-30] MEDS: hydrALAZINE 50 MG Tab PO SCH (21:08)
[2024-01-30] MEDS: Propranolol 20 MG Tab PO SCH (21:11)
[2024-01-30] MEDS: Docusate Sodium 100 MG Cap PO SCH (21:11)
[2024-01-30] MEDS: Bumetanide 1 MG Tab PO SCH (21:12)
[2024-01-30] MEDS: Magnesium Oxide 500 MG Tab PO SCH (21:12)
[2024-01-30] MEDS: Rosuvastatin 10 MG Tab PO SCH (21:13)
[2024-01-30] MEDS: Doxazosin 2 MG Tab PO SCH (21:13)
[2024-01-30] MEDS: Albuterol 0.083% 2.5 MG/3 ML Neb Soln INH SCH (21:18)
[2024-01-30] MEDS: Formoterol/Mometasone 100-5 MCG 8.8 GM Inhaler INH SCH (21:18)
[2024-01-30] MEDS: diphenhydrAMINE 25 MG Cap PO PRN (22:54)
[2024-01-30] MEDS: Melatonin 3 MG Tab PO PRN (22:54)
[2024-01-31] MEDS: Levothyroxine 75 MCG Tab PO SCH (06:38)
[2024-01-31] MEDS: Levothyroxine 100 MCG Tab PO SCH (06:38)
[2024-01-31 07:59] LABS: BASOPHILS ABSOLUTE AUTO 0.03 10^3/uL (0.00-0.10); BASOPHILS PERCENT AUTO 0.4 % (0.0-1.0); EOSINOPHILS PERCENT AUTO 1.4 % (1.0-3.0); HEMATOCRIT 27.9 % (37.0-47.0); IMMATURE GRAN ABSOLUTE AUTO 0.05 10^3/uL (0.00-0.50); IMMATURE GRAN PERCENT AUTO 0.7 % (0.0-5.0); LYMPHOCYTES ABSOLUTE AUTO 0.38 10^3/uL (1.00-4.00); LYMPHOCYTES PERCENT AUTO 5.4 % (20.0-40.0); MEAN CORPUSCULAR HEMOGLOBIN 34.1 pg (27.0-31.0); MEAN CORPUSCULAR HGB CONC 32.3 g/dL (32.0-36.0); MEAN CORPUSCULAR VOLUME 105.7 fL (82.0-92.0); MEAN PLATELET VOLUME 10.3 fL (7.4-10.4); MONOCYTES ABSOLUTE AUTO 0.79 10^3/uL (0.10-0.80); MONOCYTES PERCENT AUTO 11.2 % (2.0-8.0); NEUTROPHILS PERCENT AUTO 80.9 % (50.0-70.0); PLATELET COUNT,PLT 201 10^3/uL (150-400); RED BLOOD CELL COUNT 2.64 10^6/uL (3.80-5.50); RED CELL DISTRIBUTION WIDTH 19.1 % (11.5-14.5); WHITE BLOOD CELL COUNT,WBC 7.05 10^3/uL (5.00-10.00)
[2024-01-31 08:12] LABS: ANION GAP 8.4 mmol/L (5-15); CALCIUM 8.7 mg/dL (8.7-10.3); CARBON DIOXIDE,CO2 36.9 mmol/L (21.0-32.0); CREATININE 1.14 mg/dL (0.51-1.17); EST CRCL DRUG DOSING (CG) 30.93 mL/min; MAGNESIUM 1.5 mg/dL (1.8-2.4); POTASSIUM,K 4.3 mmol/L (3.5-5.1)
[2024-01-31] MEDS: Tiotropium Bromide 4 GM Inhalation Spray (2.5mcg/1 dose; 10 doses) INH SCH (08:53)
[2024-01-31] MEDS: Magnesium Oxide 500 MG Tab PO ONE (08:53)
[2024-01-31] MEDS: Potassium Chloride 10 MEQ Tab.ER PO SCH (08:53)
[2024-01-31] MEDS: DULoxetine 30 MG Cap PO SCH (08:53)
[2024-01-31] MEDS: Famotidine 20 MG Tab PO SCH (08:53)
[2024-01-31] MEDS: Ferrous Sulfate 325 MG Tab PO SCH (08:54)
[2024-01-31] MEDS ORDERED: Acetaminophen 500 MG Tab PO SCH (09:00)
[2024-01-31] MEDS: Calcium Citrate/Vitamin D3 315 MG-250 Unit Tab PO SCH (09:08)
[2024-01-31 10:09] LABS: INR 2.5 (0.9-1.1)
[2024-02-01 07:20] LABS: INR 2.3 (0.9-1.1)
[2024-02-01 10:19] LABS: BASOPHILS ABSOLUTE AUTO 0.03 10^3/uL (0.00-0.10); BASOPHILS PERCENT AUTO 0.4 % (0.0-1.0); EOSINOPHILS ABSOLUTE AUTO 0.11 10^3/uL (0.10-0.30); EOSINOPHILS PERCENT AUTO 1.6 % (1.0-3.0); HEMATOCRIT 25.7 % (37.0-47.0); HEMOGLOBIN 8.3 g/dL (12.0-16.0); IMMATURE GRAN ABSOLUTE AUTO 0.03 10^3/uL (0.00-0.50); IMMATURE GRAN PERCENT AUTO 0.4 % (0.0-5.0); LYMPHOCYTES ABSOLUTE AUTO 0.29 10^3/uL (1.00-4.00); LYMPHOCYTES PERCENT AUTO 4.3 % (20.0-40.0); MEAN CORPUSCULAR HEMOGLOBIN 33.7 pg (27.0-31.0); MEAN CORPUSCULAR HGB CONC 32.3 g/dL (32.0-36.0); MEAN CORPUSCULAR VOLUME 104.5 fL (82.0-92.0); MEAN PLATELET VOLUME 9.8 fL (7.4-10.4); MONOCYTES ABSOLUTE AUTO 0.75 10^3/uL (0.10-0.80); NEUTROPHILS PERCENT AUTO 82.3 % (50.0-70.0); PLATELET COUNT,PLT 187 10^3/uL (150-400); RED BLOOD CELL COUNT 2.46 10^6/uL (3.80-5.50); WHITE BLOOD CELL COUNT,WBC 6.81 10^3/uL (5.00-10.00)
[2024-02-01 10:32] LABS: ALBUMIN 2.64 g/dL (3.40-5.00); ANION GAP 10.3 mmol/L (5-15); BILIRUBIN TOTAL 0.5 mg/dL (0.2-1.0); C-REACTIVE PROTEIN 8.07 mg/dL (0.00-0.50); CALCIUM 8.7 mg/dL (8.7-10.3); CARBON DIOXIDE,CO2 32.4 mmol/L (21.0-32.0); CREATININE 1.11 mg/dL (0.51-1.17); EST CRCL DRUG DOSING (CG) 31.77 mL/min; MAGNESIUM 1.3 mg/dL (1.8-2.4); POTASSIUM,K 3.7 mmol/L (3.5-5.1); PROTEIN TOTAL,TP 7.5 g/dL (6.4-8.2)
[2024-02-01] MEDS: Amoxicillin/Clavulanate K 875-125 MG Tab PO SCH (11:53)
[2024-02-01] MEDS: Benzonatate 100 MG Cap PO PRN (11:53)
[2024-02-01] MEDS: guaiFENesin 600 MG Tab.ER PO SCH (11:53)
[2024-02-01 14:37] LABS: APPEARANCE,URINE CLEAR (CLEAR); BILIRUBIN,URINE NEGATIVE (NEGATIVE); COLOR,URINE YELLOW (YELLOW); GLUCOSE,URINE NEGATIVE (NEGATIVE); KETONES,URINE NEGATIVE (NEGATIVE); LEUKOCYTE ESTERASE,URINE SMALL (NEGATIVE); NITRITE,URINE NEGATIVE (NEGATIVE); OCCULT BLOOD,URINE TRACE-INTACT (NEGATIVE); PH,URINE 6.5 (5.0-9.0); PROTEIN,URINE NEGATIVE (NEGATIVE); UROBILINOGEN,URINE 0.2 E.U./dL (0.2-1.0)
[2024-02-01 14:53] LABS: EPITHELIAL CELLS,URINE RARE /LPF; RBC,URINE 0-5 /HPF (0-5); WBC,URINE 0-5 /HPF (0-5)
[2024-02-01 14:54] LABS: BACTERIA,URINE RARE /HPF (NONE TO FEW)
[2024-02-01 14:58] LABS: YEAST,URINE RARE /HPF (NEGATIVE)
[2024-02-01] MEDS: Acetaminophen 325 MG Tab PO PRN (22:31)
[2024-02-02] MEDS: Albuterol 0.083% 2.5 MG/3 ML Neb Soln INH PRN (06:03)
[2024-02-02 07:15] LABS: INR 2.1 (0.9-1.1)
[2024-02-02] MEDS: predniSONE 20 MG Tab PO SCH (08:45)
[2024-02-03 07:18] LABS: INR 1.9 (0.9-1.1)
[2024-02-03] MEDS: Metolazone 2.5 MG Tab PO SCH (08:44)
[2024-02-04 07:43] LABS: INR 2.4 (0.9-1.1)
[2024-02-04] MEDS: Magnesium Oxide 500 MG Tab PO SCH (09:46)
[2024-02-06 08:40] VITALS: PULSE 85
[2024-02-06 14:11] VITALS: BP 154/70
== END 2024-02-06 14:04 | disposition home health service (06) | DRG 948 ==
LOC: KA.MS 01-30 12:24 → UNDOADMIN 01-30 13:18 → KA.MS 01-30 13:18
PROVIDERS: ADMIT Family Medicine; ATTEND Family Medicine
DX: R53.81 Other malaise (principal); R53.1 Weakness; Z66 Do not resuscitate; I48.91 Unspecified atrial fibrillation; I50.9 Heart failure, unspecified; N18.30 Chronic kidney disease, stage 3 unspecified; R05.9 Cough, unspecified; Z85.118 Personal history of other malignant neoplasm of bronchus and lung; Z79.01 Long term (current) use of anticoagulants
CPT/HCPCS: 36415; 36416; 71045; 80048; 80053; 81001; 83605; 83735; 84145; 85025; 85610; 86140; 87086; 94640; A9270-GY; J3480; J7512; J7613-GY; Q3014

== ENCOUNTER 2024-05-29 17:42 | Inpatient (IN) | payer MEDICARE, BC, MEDICAID ==
[2024-05-29] MEDS ORDERED: Sodium Chloride 0.9% 10 ML Syringe FLUSH PRN (18:29)
[2024-05-29 18:41] LABS: BASOPHILS ABSOLUTE AUTO 0.01 10^3/uL (0.00-0.10); BASOPHILS PERCENT AUTO 0.1 % (0.0-1.0); EOSINOPHILS ABSOLUTE AUTO 0.07 10^3/uL (0.10-0.30); EOSINOPHILS PERCENT AUTO 0.5 % (1.0-3.0); HEMATOCRIT 30.9 % (37.0-47.0); HEMOGLOBIN 10.1 g/dL (12.0-16.0); IMMATURE GRAN ABSOLUTE AUTO 0.05 10^3/uL (0.00-0.04); IMMATURE GRAN PERCENT AUTO 0.3 % (0.0-0.4); LYMPHOCYTES ABSOLUTE AUTO 0.37 10^3/uL (1.00-4.00); LYMPHOCYTES PERCENT AUTO 2.5 % (20.0-40.0); MEAN CORPUSCULAR HEMOGLOBIN 33.6 pg (27.0-31.0); MEAN CORPUSCULAR HGB CONC 32.7 g/dL (32.0-36.0); MEAN CORPUSCULAR VOLUME 102.7 fL (82.0-92.0); MONOCYTES ABSOLUTE AUTO 1.19 10^3/uL (0.10-0.80); MONOCYTES PERCENT AUTO 8.2 % (2.0-8.0); NEUTROPHILS ABSOLUTE AUTO 12.86 10^3/uL (2.50-7.00); NEUTROPHILS PERCENT AUTO 88.4 % (50.0-70.0); PLATELET COUNT,PLT 178 10^3/uL (150-400); RED BLOOD CELL COUNT 3.01 10^6/uL (3.80-5.50); RED CELL DISTRIBUTION WIDTH 13.3 % (11.5-14.5); WHITE BLOOD CELL COUNT,WBC 14.55 10^3/uL (5.00-10.00)
[2024-05-29 18:44] LABS: INR 2.4 (0.9-1.1)
[2024-05-29 18:51] LABS: APPEARANCE,URINE CLEAR (CLEAR); BILIRUBIN,URINE NEGATIVE (NEGATIVE); COLOR,URINE YELLOW (YELLOW); GLUCOSE,URINE NEGATIVE (NEGATIVE); KETONES,URINE NEGATIVE (NEGATIVE); LEUKOCYTE ESTERASE,URINE TRACE (NEGATIVE); NITRITE,URINE NEGATIVE (NEGATIVE); OCCULT BLOOD,URINE TRACE-INTACT (NEGATIVE); PROTEIN,URINE NEGATIVE (NEGATIVE); UROBILINOGEN,URINE 0.2 E.U./dL (0.2-1.0)
[2024-05-29 18:57] LABS: RBC,URINE 0-5 /HPF (0-5); WBC,URINE 0-5 /HPF (0-5)
[2024-05-29 18:58] LABS: BACTERIA,URINE FEW /HPF (NONE TO FEW); EPITHELIAL CELLS,URINE RARE /LPF; HYALINE CASTS,URINE FEW
[2024-05-29 18:59] LABS: ALBUMIN 2.8 g/dL (3.40-5.00); ANION GAP 10.3 mmol/L (5-15); BILIRUBIN TOTAL 0.7 mg/dL (0.2-1.0); CALCIUM 9.3 mg/dL (8.7-10.3); CREATININE 1.16 mg/dL (0.51-1.17); EST CRCL DRUG DOSING (CG) 29.06 mL/min; POTASSIUM,K 3.3 mmol/L (3.5-5.1); PROTEIN TOTAL,TP 8.4 g/dL (6.4-8.2)
[2024-05-29] MEDS: Cefepime 2 GM in Sodium Chloride 0.9% 50 ML IV ONE (19:37)
[2024-05-29] MEDS: Sodium Chloride 0.9% 100 ML ONE (19:50)
[2024-05-29] MEDS: Sodium Chloride 0.9% 100 ML IV SCH (19:50)
[2024-05-29] MEDS: VANCOmycin 1.5 GM/300 ML 1.5 GM in Premix Bag 1 BAG IV ONE (20:40)
[2024-05-29] MEDS ORDERED: PROPYLENE GLYCOL EYEBOTH PRN (20:42)
[2024-05-29] MEDS ORDERED: GLYCERIN EYEBOTH PRN (20:42)
[2024-05-29] MEDS ORDERED: Non-Formulary Medication 1 Each (Guaifenesin/Dextromethorphan [Mucinex Dm Er 600-30 Mg Tab PO SCH (20:45)
[2024-05-29] MEDS: Albuterol/Ipratropium 3.0-0.5 MG/3 ML Neb Soln NEB PRN (21:30)
[2024-05-29] MEDS: Bumetanide 1 MG Tab PO SCH (21:55)
[2024-05-29] MEDS: Doxazosin 2 MG Tab PO SCH (21:55)
[2024-05-29] MEDS: hydrALAZINE 50 MG Tab PO SCH (21:55)
[2024-05-29] MEDS: Propranolol 20 MG Tab PO SCH (21:56)
[2024-05-29] MEDS: Formoterol/Mometasone 100-5 MCG 8.8 GM Inhaler IH SCH (21:56)
[2024-05-29] MEDS ORDERED: Sodium Chloride 0.9% 500 ML IV SCH (22:15)
[2024-05-29] MEDS: NS with KCl 40mEq 1,000 ML IV SCH (22:37)
[2024-05-30] MEDS: Diclofenac Sodium 1% Gel 100 GM Tube TOP PRN (01:14)
[2024-05-30] MEDS: Acetaminophen 325 MG Tab PO PRN (02:26)
[2024-05-30] MEDS: Levothyroxine 100 MCG Tab PO SCH (06:19)
[2024-05-30] MEDS: Levothyroxine 25 MCG Tab PO SCH (06:19)
[2024-05-30] MEDS: Pantoprazole 40 MG Tab.CR PO SCH (06:20)
[2024-05-30 07:26] LABS: BASOPHILS ABSOLUTE AUTO 0.03 10^3/uL (0.00-0.10); BASOPHILS PERCENT AUTO 0.2 % (0.0-1.0); EOSINOPHILS ABSOLUTE AUTO 0.04 10^3/uL (0.10-0.30); EOSINOPHILS PERCENT AUTO 0.3 % (1.0-3.0); HEMATOCRIT 27.9 % (37.0-47.0); HEMOGLOBIN 9.4 g/dL (12.0-16.0); IMMATURE GRAN ABSOLUTE AUTO 0.05 10^3/uL (0.00-0.04); IMMATURE GRAN PERCENT AUTO 0.4 % (0.0-0.4); LYMPHOCYTES ABSOLUTE AUTO 0.48 10^3/uL (1.00-4.00); LYMPHOCYTES PERCENT AUTO 3.7 % (20.0-40.0); MEAN CORPUSCULAR HEMOGLOBIN 33.6 pg (27.0-31.0); MEAN CORPUSCULAR HGB CONC 33.7 g/dL (32.0-36.0); MEAN CORPUSCULAR VOLUME 99.6 fL (82.0-92.0); MEAN PLATELET VOLUME 9.3 fL (7.4-10.4); MONOCYTES ABSOLUTE AUTO 1.37 10^3/uL (0.10-0.80); MONOCYTES PERCENT AUTO 10.5 % (2.0-8.0); NEUTROPHILS ABSOLUTE AUTO 11.11 10^3/uL (2.50-7.00); NEUTROPHILS PERCENT AUTO 84.9 % (50.0-70.0); PLATELET COUNT,PLT 151 10^3/uL (150-400); RED CELL DISTRIBUTION WIDTH 13.3 % (11.5-14.5); WHITE BLOOD CELL COUNT,WBC 13.08 10^3/uL (5.00-10.00)
[2024-05-30 07:41] LABS: ANION GAP 10.2 mmol/L (5-15); CARBON DIOXIDE,CO2 34.7 mmol/L (21.0-32.0); CREATININE 1.33 mg/dL (0.51-1.17); EST CRCL DRUG DOSING (CG) 25.35 mL/min; POTASSIUM,K 3.9 mmol/L (3.5-5.1)
[2024-05-30] MEDS: Cefepime 1 GM in Sodium Chloride 0.9% 50 ML IV SCH (08:36)
[2024-05-30] MEDS: Acetaminophen 500 MG Tab PO SCH (08:44)
[2024-05-30] MEDS: Potassium Chloride 10 MEQ Tab.ER PO SCH (08:45)
[2024-05-30] MEDS: Azithromycin 250 MG Tab PO SCH (08:45)
[2024-05-30] MEDS: Calcium Citrate/Vitamin D3 315 MG-250 Unit Tab PO SCH (08:45)
[2024-05-30] MEDS: Rosuvastatin 10 MG Tab PO SCH (08:45)
[2024-05-30] MEDS: DULoxetine 30 MG Cap PO SCH (08:45)
[2024-05-30] MEDS: Ferrous Sulfate 325 MG Tab PO SCH (08:45)
[2024-05-30] MEDS: Magnesium Oxide 500 MG Tab PO SCH (08:46)
[2024-05-30] MEDS: Tiotropium Bromide 4 GM Inhalation Spray (2.5mcg/1 dose; 10 doses) INH SCH (08:46)
[2024-05-30 16:01] LABS: APPEARANCE,URINE CLEAR (CLEAR); BILIRUBIN,URINE NEGATIVE (NEGATIVE); COLOR,URINE YELLOW (YELLOW); GLUCOSE,URINE NEGATIVE (NEGATIVE); KETONES,URINE NEGATIVE (NEGATIVE); LEUKOCYTE ESTERASE,URINE NEGATIVE (NEGATIVE); NITRITE,URINE NEGATIVE (NEGATIVE); OCCULT BLOOD,URINE NEGATIVE (NEGATIVE); PH,URINE 5.5 (5.0-9.0); PROTEIN,URINE NEGATIVE (NEGATIVE); UROBILINOGEN,URINE 0.2 E.U./dL (0.2-1.0)
[2024-05-30] MEDS: LORazepam 0.5 MG Tab PO PRN (16:41)
[2024-05-30] MEDS: Warfarin 2.5 MG Tab PO SCH (17:34)
[2024-05-30] MEDS: Docusate Sodium 100 MG Cap PO SCH (20:37)
[2024-05-30] MEDS: Formoterol/Mometasone 100-5 MCG 8.8 GM Inhaler IH SCH (20:42)
[2024-05-30] MEDS: Sodium Chloride 0.9% 50 ML IV SCH (20:55)
[2024-05-30] MEDS: LORazepam 0.5 MG Tab PO SCH (22:01)
[2024-05-31 07:24] LABS: BASOPHILS ABSOLUTE AUTO 0.04 10^3/uL (0.00-0.10); BASOPHILS PERCENT AUTO 0.5 % (0.0-1.0); EOSINOPHILS ABSOLUTE AUTO 0.18 10^3/uL (0.10-0.30); EOSINOPHILS PERCENT AUTO 2.4 % (1.0-3.0); HEMATOCRIT 26.4 % (37.0-47.0); IMMATURE GRAN ABSOLUTE AUTO 0.01 10^3/uL (0.00-0.04); IMMATURE GRAN PERCENT AUTO 0.1 % (0.0-0.4); LYMPHOCYTES ABSOLUTE AUTO 0.36 10^3/uL (1.00-4.00); LYMPHOCYTES PERCENT AUTO 4.7 % (20.0-40.0); MEAN CORPUSCULAR HEMOGLOBIN 33.6 pg (27.0-31.0); MEAN CORPUSCULAR HGB CONC 34.1 g/dL (32.0-36.0); MEAN CORPUSCULAR VOLUME 98.5 fL (82.0-92.0); MEAN PLATELET VOLUME 9.4 fL (7.4-10.4); MONOCYTES ABSOLUTE AUTO 0.82 10^3/uL (0.10-0.80); MONOCYTES PERCENT AUTO 10.7 % (2.0-8.0); NEUTROPHILS ABSOLUTE AUTO 6.23 10^3/uL (2.50-7.00); NEUTROPHILS PERCENT AUTO 81.6 % (50.0-70.0); PLATELET COUNT,PLT 147 10^3/uL (150-400); RED BLOOD CELL COUNT 2.68 10^6/uL (3.80-5.50); RED CELL DISTRIBUTION WIDTH 13.2 % (11.5-14.5); WHITE BLOOD CELL COUNT,WBC 7.64 10^3/uL (5.00-10.00)
[2024-05-31 07:37] LABS: ANION GAP 8.9 mmol/L (5-15); CALCIUM 9.1 mg/dL (8.7-10.3); CARBON DIOXIDE,CO2 34.3 mmol/L (21.0-32.0); CREATININE 1.33 mg/dL (0.51-1.17); EST CRCL DRUG DOSING (CG) 25.35 mL/min; POTASSIUM,K 3.2 mmol/L (3.5-5.1)
[2024-05-31] MEDS: Tiotropium Bromide 4 GM Inhalation Spray (2.5mcg/1 dose; 10 doses) INH SCH (08:36)
[2024-05-31 10:08] LABS: INR 4.2 (0.9-1.1)
[2024-05-31] MEDS: Potassium Chloride 20 MEQ Tab.ER PO ONE (10:25)
[2024-06-01] MEDS: LORazepam 0.5 MG Tab PO PRN (01:48)
[2024-06-01 07:27] LABS: BASOPHILS ABSOLUTE AUTO 0.03 10^3/uL (0.00-0.10); BASOPHILS PERCENT AUTO 0.4 % (0.0-1.0); EOSINOPHILS PERCENT AUTO 2.9 % (1.0-3.0); HEMATOCRIT 26.5 % (37.0-47.0); HEMOGLOBIN 8.9 g/dL (12.0-16.0); IMMATURE GRAN ABSOLUTE AUTO 0.02 10^3/uL (0.00-0.04); IMMATURE GRAN PERCENT AUTO 0.3 % (0.0-0.4); LYMPHOCYTES ABSOLUTE AUTO 0.45 10^3/uL (1.00-4.00); LYMPHOCYTES PERCENT AUTO 6.5 % (20.0-40.0); MEAN CORPUSCULAR HEMOGLOBIN 33.6 pg (27.0-31.0); MEAN CORPUSCULAR HGB CONC 33.6 g/dL (32.0-36.0); MEAN PLATELET VOLUME 9.6 fL (7.4-10.4); MONOCYTES ABSOLUTE AUTO 0.69 10^3/uL (0.10-0.80); NEUTROPHILS ABSOLUTE AUTO 5.52 10^3/uL (2.50-7.00); NEUTROPHILS PERCENT AUTO 79.9 % (50.0-70.0); PLATELET COUNT,PLT 171 10^3/uL (150-400); RED BLOOD CELL COUNT 2.65 10^6/uL (3.80-5.50); RED CELL DISTRIBUTION WIDTH 13.1 % (11.5-14.5); WHITE BLOOD CELL COUNT,WBC 6.91 10^3/uL (5.00-10.00)
[2024-06-01 07:43] LABS: ANION GAP 9.8 mmol/L (5-15); CALCIUM 9.1 mg/dL (8.7-10.3); CARBON DIOXIDE,CO2 34.3 mmol/L (21.0-32.0); CREATININE 1.17 mg/dL (0.51-1.17); EST CRCL DRUG DOSING (CG) 28.81 mL/min; POTASSIUM,K 4.1 mmol/L (3.5-5.1)
[2024-06-01] MEDS: Metolazone 2.5 MG Tab PO SCH (09:21)
[2024-06-01 09:29] LABS: INR 4.1 (0.9-1.1)
[2024-06-01] MEDS: Menthol Lozenge PO PRN (13:18)
[2024-06-01] MEDS ORDERED: diphenhydrAMINE 25 MG Cap PO PRN (15:32)
[2024-06-01] MEDS: Melatonin 3 MG Tab PO PRN (22:04)
[2024-06-02 07:12] LABS: INR 2.9 (0.9-1.1)
[2024-06-02 11:21] VITALS: BP 112/44; PULSE 68
[2024-06-02] MEDS: guaiFENesin 600 MG Tab.ER PO SCH (11:56)
[2024-06-02] MEDS ORDERED: Warfarin 2 MG Tab PO ONE (18:00)
== END 2024-06-02 12:29 | disposition swing bed (61) | DRG 194 ==
LOC: KA.ED 17:42 → KA.MS 19:18
PROVIDERS: ADMIT Nurse Practitioner Family; ATTEND Family Medicine
DX: J18.9 Pneumonia, unspecified organism (principal); I11.0 Hypertensive heart disease with heart failure; D84.9 Immunodeficiency, unspecified; E87.1 Hypo-osmolality and hyponatremia; J44.9 Chronic obstructive pulmonary disease, unspecified; I13.0 Hypertensive heart and chronic kidney disease with heart failure and stage 1 through stage 4 chronic kidney disease, or unspecified chronic kidney disease; J44.0 Chronic obstructive pulmonary disease with (acute) lower respiratory infection; C50.919 Malignant neoplasm of unspecified site of unspecified female breast; I25.10 Atherosclerotic heart disease of native coronary artery without angina pectoris; Z79.890 Hormone replacement therapy; E78.00 Pure hypercholesterolemia, unspecified; K59.09 Other constipation; N18.30 Chronic kidney disease, stage 3 unspecified; I50.9 Heart failure, unspecified; D72.829 Elevated white blood cell count, unspecified; K21.9 Gastro-esophageal reflux disease without esophagitis; M19.90 Unspecified osteoarthritis, unspecified site; G89.29 Other chronic pain; M81.0 Age-related osteoporosis without current pathological fracture; F41.9 Anxiety disorder, unspecified; F32.A Depression, unspecified; E03.9 Hypothyroidism, unspecified; E66.9 Obesity, unspecified; F15.90 Other stimulant use, unspecified, uncomplicated; I48.0 Paroxysmal atrial fibrillation; E87.6 Hypokalemia; E87.8 Other disorders of electrolyte and fluid balance, not elsewhere classified; Z66 Do not resuscitate; R53.81 Other malaise; Z79.60 Long term (current) use of unspecified immunomodulators and immunosuppressants; Z92.3 Personal history of irradiation; Z88.8 Allergy status to other drugs, medicaments and biological substances; Z79.02 Long term (current) use of antithrombotics/antiplatelets; Z79.899 Other long term (current) drug therapy; Z79.1 Long term (current) use of non-steroidal anti-inflammatories (NSAID); Z79.51 Long term (current) use of inhaled steroids; Z79.01 Long term (current) use of anticoagulants; Z68.32 Body mass index [BMI] 32.0-32.9, adult; Z87.891 Personal history of nicotine dependence; Z94.7 Corneal transplant status
CPT/HCPCS: 36415; 36416; 71045; 80048; 80053; 81001; 81003; 83605; 84484; 85025; 85610; 87040; 87086; 87428-QW; 93010; 94640; 96365; 96367; 99284; 99285-25; A9270-GY; J0692; J3372; J3480; J3490; Q3014

== ENCOUNTER 2024-06-02 12:29 | Inpatient (IN) | payer MEDICARE, BC, MEDICAID ==
[2024-06-02] MEDS ORDERED: Sodium Chloride 0.9% 10 ML Syringe FLUSH PRN (13:30)
[2024-06-02] MEDS ORDERED: Diclofenac Sodium 1% Gel 100 GM Tube TOP PRN (13:30)
[2024-06-02] MEDS ORDERED: diphenhydrAMINE 25 MG Cap PO PRN (13:30)
[2024-06-02] MEDS ORDERED: Sodium Chloride 0.9% 50 ML IV SCH (13:30)
[2024-06-02] MEDS ORDERED: PROPYLENE GLYCOL EYEBOTH PRN ×2 (13:30→13:58)
[2024-06-02] MEDS ORDERED: GLYCERIN EYEBOTH PRN ×2 (13:30→13:58)
[2024-06-02] MEDS ORDERED: Menthol Lozenge PO PRN (13:30)
[2024-06-02] MEDS: Bumetanide 1 MG Tab PO SCH (14:28)
[2024-06-02] MEDS: LORazepam 0.5 MG Tab PO PRN (14:31)
[2024-06-02] MEDS: Warfarin 2 MG Tab PO ONE (17:07)
[2024-06-02] MEDS: Pantoprazole 40 MG Tab.CR PO SCH (17:07)
[2024-06-02] MEDS: Propranolol 20 MG Tab PO SCH (20:16)
[2024-06-02] MEDS: hydrALAZINE 50 MG Tab PO SCH (20:16)
[2024-06-02] MEDS: guaiFENesin 600 MG Tab.ER PO SCH (20:16)
[2024-06-02] MEDS: Doxazosin 2 MG Tab PO SCH (20:17)
[2024-06-02] MEDS: LORazepam 0.5 MG Tab PO SCH (20:17)
[2024-06-02] MEDS: Docusate Sodium 100 MG Cap PO SCH (20:17)
[2024-06-02] MEDS: Cefepime 1 GM in Sodium Chloride 0.9% 50 ML IV SCH (20:18)
[2024-06-02] MEDS: Formoterol/Mometasone 100-5 MCG 8.8 GM Inhaler IH SCH (20:52)
[2024-06-02] MEDS: Melatonin 3 MG Tab PO PRN (22:04)
[2024-06-03] MEDS: Levothyroxine 100 MCG Tab PO SCH (07:27)
[2024-06-03] MEDS: Levothyroxine 25 MCG Tab PO SCH (07:27)
[2024-06-03 07:46] LABS: INR 2.7 (0.9-1.1)
[2024-06-03] MEDS: Tiotropium Bromide 4 GM Inhalation Spray (2.5mcg/1 dose; 10 doses) INH SCH (08:59)
[2024-06-03] MEDS: Calcium Citrate/Vitamin D3 315 MG-250 Unit Tab PO SCH (09:00)
[2024-06-03] MEDS: Ferrous Sulfate 325 MG Tab PO SCH (09:00)
[2024-06-03] MEDS: Potassium Chloride 20 MEQ Tab.ER PO SCH (09:00)
[2024-06-03] MEDS: Rosuvastatin 10 MG Tab PO SCH (09:00)
[2024-06-03] MEDS: DULoxetine 30 MG Cap PO SCH (09:00)
[2024-06-03] MEDS: Sodium Chloride 0.9% 10 ML Syringe FLUSH PRN (09:00)
[2024-06-03] MEDS: Acetaminophen 500 MG Tab PO SCH (09:01)
[2024-06-03] MEDS: Magnesium Oxide 500 MG Tab PO SCH (09:01)
[2024-06-03] MEDS: Albuterol/Ipratropium 3.0-0.5 MG/3 ML Neb Soln NEB PRN (13:07)
[2024-06-03] MEDS: Warfarin 2 MG Tab PO ONE (17:40)
[2024-06-04 07:41] LABS: INR 3.4 (0.9-1.1)
[2024-06-04] MEDS: Metolazone 2.5 MG Tab PO SCH (08:44)
[2024-06-04] MEDS: Ondansetron 4 MG Tab.DIS PO PRN (10:33)
[2024-06-05] MEDS: Acetaminophen 325 MG Tab PO PRN (02:05)
[2024-06-05 07:26] LABS: INR 3.2 (0.9-1.1)
[2024-06-05 12:13] VITALS: BP 120/71; PULSE 72
[2024-06-05] MEDS ORDERED: Warfarin** 1 MG TABLET PO ONE (18:00)
== END 2024-06-05 12:08 | disposition home or self-care (01) | DRG 948 ==
LOC: KA.MS 12:29
PROVIDERS: ADMIT Internal Medicine; ATTEND Internal Medicine
DX: R53.1 Weakness (principal); C34.90 Malignant neoplasm of unspecified part of unspecified bronchus or lung; I13.0 Hypertensive heart and chronic kidney disease with heart failure and stage 1 through stage 4 chronic kidney disease, or unspecified chronic kidney disease; I48.91 Unspecified atrial fibrillation; Z66 Do not resuscitate; I25.10 Atherosclerotic heart disease of native coronary artery without angina pectoris; Z68.31 Body mass index [BMI] 31.0-31.9, adult; I50.9 Heart failure, unspecified; E78.00 Pure hypercholesterolemia, unspecified; I27.20 Pulmonary hypertension, unspecified; J44.9 Chronic obstructive pulmonary disease, unspecified; K21.9 Gastro-esophageal reflux disease without esophagitis; M54.9 Dorsalgia, unspecified; G89.29 Other chronic pain; M19.90 Unspecified osteoarthritis, unspecified site; M81.0 Age-related osteoporosis without current pathological fracture; F41.9 Anxiety disorder, unspecified; F32.A Depression, unspecified; E03.9 Hypothyroidism, unspecified; M85.80 Other specified disorders of bone density and structure, unspecified site; E66.9 Obesity, unspecified; D64.9 Anemia, unspecified; E53.8 Deficiency of other specified B group vitamins; C50.919 Malignant neoplasm of unspecified site of unspecified female breast; N18.30 Chronic kidney disease, stage 3 unspecified; Z79.01 Long term (current) use of anticoagulants; Z98.49 Cataract extraction status, unspecified eye; Z79.899 Other long term (current) drug therapy; Z87.891 Personal history of nicotine dependence; Z88.8 Allergy status to other drugs, medicaments and biological substances
CPT/HCPCS: 36416; 85610; 94640; A9270-GY; J0692; J3490; Q3014